=== PATIENT | female | born 1955 | race Caucasian/White ===

== ENCOUNTER → 2021-08-24 | Outpatient (CLI) | payer OTHER | LOC: CARD 11:30 | PROVIDERS: ATTEND Internal Medicine Cardiovascular Disease | DX: I25.10 Atherosclerotic heart disease of native coronary artery without angina pectoris (principal); I11.9 Hypertensive heart disease without heart failure; I34.0 Nonrheumatic mitral (valve) insufficiency | CPT/HCPCS: 93306 ==

== ENCOUNTER 2021-11-09 20:37 | Emergency (ER) | payer MEDICARE, OTHER ==
[2021-11-09] MEDS ORDERED: NS IV 1000 ML 1,000 ML ONE (20:50)
[2021-11-09 20:56] VITALS: BP 80/53
[2021-11-09] MEDS ORDERED: NS IV 1000 ML 1,000 ML IV SCH (21:00)
[2021-11-09 21:09] LABS: BASOPHILS # (AUTO) 0.1 10^3/uL (0.0-0.1); BASOPHILS % (AUTO) 1 % (0-10); EOSINOPHILS # (AUTO) 0.1 10^3/uL (0.0-0.3); EOSINOPHILS % (AUTO) 1 % (0-10); HEMATOCRIT 39 % (35-52); HEMOGLOBIN 12.8 g/dL (11.5-16.0); LYMPHOCYTES # (AUTO) 1.5 10^3/uL (1.0-4.0); LYMPHOCYTES % (AUTO) 18 % (12-44); MEAN CORPUSCULAR HEMOGLOBIN 31 pg (25-34); MEAN CORPUSCULAR HGB CONC 33 g/dL (32-36); MEAN CORPUSCULAR VOLUME 95 fL (80-99); MEAN PLATELET VOLUME 10.3 fL (9.0-12.2); MONOCYTES # (AUTO) 0.8 10^3/uL (0.0-1.0); MONOCYTES % (AUTO) 9 % (0-12); NEUTROPHILS # (AUTO) 6.3 10^3/uL (1.8-7.8); NEUTROPHILS % (AUTO) 72 % (42-75); PLATELET COUNT 291 10^3/uL (130-400); WHITE BLOOD COUNT 8.8 10^3/uL (4.3-11.0)
[2021-11-09 21:20] LABS: ALBUMIN 3.8 GM/DL (3.2-4.5); POTASSIUM 4.5 MMOL/L (3.6-5.0)
[2021-11-09 21:21] LABS: CALCIUM 10.2 MG/DL (8.5-10.1)
[2021-11-09 21:23] LABS: TOTAL PROTEIN 6.5 GM/DL (6.4-8.2)
[2021-11-09 21:24] LABS: BILIRUBIN,TOTAL 0.5 MG/DL (0.1-1.0)
[2021-11-09 21:26] LABS: CREATININE SERUM 2.04 MG/DL (0.60-1.30)
[2021-11-09 21:29] LABS: MAGNESIUM 1.3 MG/DL (1.6-2.4)
[2021-11-09] MEDS ORDERED: MAGNESIUM 1 GM/100 ML IVPB 100 ML IV ONE (21:45)
[2021-11-09] MEDS: NS IV 1000 ML 1,000 ML IV SCH (21:58)
[2021-11-09 23:12] LABS: BILIRUBIN,URINE NEGATIVE (NEGATIVE); CLARITY,URINE CLEAR; COLOR,URINE YELLOW; GLUCOSE, URINE (UA) NEGATIVE (NEGATIVE); KETONES,URINE NEGATIVE (NEGATIVE); LEUKOCYTE ESTERASE ,URINE NEGATIVE (NEGATIVE); NITRITE,URINE NEGATIVE (NEGATIVE); PROTEIN,URINE NEGATIVE (NEGATIVE)
[2021-11-09 23:24] LABS: BACTERIA,URINE LARGE /HPF
[2021-11-09] MEDS ORDERED: cefTRIAXone 1 GM PRE-MIX 50 ML IV STA (23:28)
[2021-11-09] MEDS ORDERED: MAGNESIUM OXIDE (MAG-OX)400 MG TAB PO STA (23:43)
--- NOTE | 2021-11-09 23:52 | ED General ---
General Chief Complaint: Cardiac/General Problems Stated Complaint: LOW BLOOD PRESSURE Nursing Triage Note: pt present swith c/o hypotension and dizziness. reports symptoms started around 1800. reports dizzy, blurry vision, and checking her bp at home and it was 70/40. pt does have an unsteady gait on walk to room but refused w/c. pt is alert and oriented. pt denies n/v/d. reports covid symptoms three weeks ago that have since subsided. Source of Information: Patient Exam Limitations: No Limitations History of Present Illness Date Seen by Provider: Nov 09, 2021 Time Seen by Provider: 20:46 Initial Comments This 66-year-old woman presents to the emergency room with complaints of dizzin ess, blurred vision, and hypotension. Blood pressures were measured at 80/53 and 69/49. Blood sugar was 264. She reports blood sugars have been fairly well controlled but she has been doing some strenuous work on [place] [employer] and other outdoor work in the heat. She had COVID-19 about 4 weeks ago and has experienced a decrease in thirst drive since then. She also reports a change in blood pressure medications about 6 weeks ago. Allergies and Home Medications Allergies Coded Allergies: No Known Drug Allergies (Unverified , 11/09/21) Patient Home Medication List Home Medication List Reviewed: Yes Cephalexin (Cephalexin) 500 Mg Tablet, 500 MG PO BID Prescribed by: DANIELA MARTIN on 11/09/21 2410 Magnesium Oxide (Magnesium Oxide) 400 Mg Tablet, 400 MG PO BID Prescribed by: DANIELA MARTIN on 11/09/21 7226 Review of Systems Review of Systems Constitutional: no symptoms reported EENTM: see HPI Respiratory: no symptoms reported Cardiovascular: see HPI Gastrointestinal: no symptoms reported Genitourinary: no symptoms reported : No Musculoskeletal: no symptoms reported Skin: no symptoms reported Psychiatric/Neurological: See HPI Hematologic/Lymphatic: No Symptoms Reported Immunological/Allergic: no symptoms reported Past Pfpznnh-Jgqqwz-Jdivva Hx Patient Social History Tobacco Use?: No Substance use?: No Alcohol Use?: Yes Alcohol Frequency: Rarely Pt feels they are or have been: No Immunizations Up To Date Influenza Vaccine Up-to-Date: No; Not Current Past Medical History Surgeries: Yes Coronary Stent Respiratory: No Cardiac: Yes Coronary Artery Disease, Hypertension Neurological: No : No Genitourinary: No Gastrointestinal: No Musculoskeletal: No Endocrine: Yes Diabetes, Insulin dep HEENT: No Cancer: No Psychosocial: No Integumentary: No Physical Exam Vital Signs Vital Signs - First Documented 11/09/21 11/09/21 20:56 21:22 Temp 37.0 Pulse 71 Resp 18 B/P (MAP) 80/53 (62) Pulse Ox 97 O2 Delivery Room Air Capillary Refill : Height, Weight, BMI Height: '" Weight: lbs. oz. kg; BMI Method: General Appearance: No Apparent Distress, WD/WN HEENT: PERRL/EOMI, Normal ENT Inspection, Other (Oropharynx somewhat dry) Neck: Non Tender Respiratory: Lungs Clear, Normal Breath Sounds, No Accessory Muscle Use Cardiovascular: Regular Rate, Rhythm, No Edema, No Murmur, Normal Peripheral Pulses Gastrointestinal: Normal Bowel Sounds, Non Tender, Soft Extremity: Normal Inspection, No Pedal Edema Neurologic/Psychiatric: Alert, Oriented x3, No Motor/Sensory Deficits, Normal Mood/Affect, plumber II-XII Norm as Tested Skin: Normal Color, Warm/Dry Progress/Results/Core Measures Suspected Sepsis SIRS Temperature: Pulse: 71 Respiratory Rate: 18 Laboratory Tests 11/09/21 20:49: White Blood Count 8.8 Blood Pressure 80 /53 Mean: 86 Laboratory Tests 11/09/21 20:49: Creatinine 2.04H, Platelet Count 291, Total Bilirubin 0.5 Results/Orders Lab Results Laboratory Tests Test 11/09/21 20:46 11/09/21 20:49 11/09/21 23:00 Range/Units Glucometer 264 H 70-110 MG/DL White Blood Count 8.8 4.3-11.0 10^3/uL Red Blood Count 4.10 3.80-5.11 10^6/uL Hemoglobin 12.8 11.5-16.0 g/dL Hematocrit 39 35-52 % Mean Corpuscular Volume 95 80-99 fL Mean Corpuscular Hemoglobin 31 25-34 pg Mean Corpuscular Hemoglobin Concent 33 32-36 g/dL Red Cell Distribution Width 14.0 10.0-14.5 % Platelet Count 291 130-400 10^3/uL Mean Platelet Volume 10.3 9.0-12.2 fL Immature Granulocyte % (Auto) 0 % Neutrophils (%) (Auto) 72 42-75 % Lymphocytes (%) (Auto) 18 12-44 % Monocytes (%) (Auto) 9 0-12 % Eosinophils (%) (Auto) 1 0-10 % Basophils (%) (Auto) 1 0-10 % Neutrophils # (Auto) 6.3 1.8-7.8 10^3/uL Lymphocytes # (Auto) 1.5 1.0-4.0 10^3/uL Monocytes # (Auto) 0.8 0.0-1.0 10^3/uL Eosinophils # (Auto) 0.1 0.0-0.3 10^3/uL Basophils # (Auto) 0.1 0.0-0.1 10^3/uL Immature Granulocyte # (Auto) 0.0 0.0-0.1 10^3/uL Sodium Level 136 135-145 MMOL/L Potassium Level 4.5 3.6-5.0 MMOL/L Chloride Level 96 L 98-107 MMOL/L Carbon Dioxide Level 24 21-32 MMOL/L Anion Gap 16 H 5-14 MMOL/L Blood Urea Nitrogen 31 H 7-18 MG/DL Creatinine 2.04 H 0.60-1.30 MG/DL Estimat Glomerular Filtration Rate 27 BUN/Creatinine Ratio 15 Glucose Level 266 H 70-105 MG/DL Calcium Level 10.2 H 8.5-10.1 MG/DL Corrected Calcium 10.4 H 8.5-10.1 MG/DL Magnesium Level 1.3 L 1.6-2.4 MG/DL Total Bilirubin 0.5 0.1-1.0 MG/DL Aspartate Amino Transf (AST/SGOT) 20 5-34 U/L Alanine Aminotransferase (ALT/SGPT) 22 0-55 U/L Alkaline Phosphatase 127 40-136 U/L Total Protein 6.5 6.4-8.2 GM/DL Albumin 3.8 3.2-4.5 GM/DL Urine Color YELLOW Urine Clarity CLEAR Urine pH 5.0 5-9 Urine Specific [place] >=1.030 1.016-1.022 Urine Protein NEGATIVE NEGATIVE Urine Glucose (UA) NEGATIVE NEGATIVE Urine Ketones NEGATIVE NEGATIVE Urine Nitrite NEGATIVE NEGATIVE Urine Bilirubin NEGATIVE NEGATIVE Urine Urobilinogen 0.2 < = 1.0 MG/DL Urine Leukocyte Esterase NEGATIVE NEGATIVE Urine RBC (Auto) NEGATIVE NEGATIVE Urine RBC NONE /HPF Urine WBC 5-10 H /HPF Urine Squamous Epithelial Cells 2-5 /HPF Urine Crystals NONE /LPF Urine Bacteria LARGE H /HPF Urine Casts PRESENT /LPF Urine Hyaline Casts 5-10 H /LPF Urine Mucus NEGATIVE /LPF Urine Culture Indicated YES My Orders Orders - DANIELA FONTANEZ MD Ns Iv 1000 Ml (Sodium Chloride 0.9%) (11/09/21 20:50) Cbc With Automated Diff (11/09/21 20:57) Comprehensive Metabolic Panel (11/09/21 20:57) Magnesium (11/09/21 20:57) Ua Culture If Indicated (11/09/21 20:57) Ed Iv/Invasive Line Start (11/09/21 20:57) Ns Iv 1000 Ml (Sodium Chloride 0.9%) (11/09/21 21:00) Ns Iv 1000 Ml (Sodium Chloride 0.9%) (11/09/21 21:45) Magnesium 1 Gm/100 Ml Ivpb (Magnesium Ackerman (11/09/21 21:45) Urine Culture (11/09/21 23:00) Ceftriaxone 1 Gm Pre-Mix (Rocephin 1 Gm (11/09/21 23:28) Magnesium Oxide Tablet (Mag Ox Tablet) (11/09/21 23:43) Medications Given in ED Current Medications Medications Dose Ordered Sig/Gauri Route Start Time Stop Time Status Last Admin Dose Admin Magnesium Sulfate/ Dextrose 100 ml @ 100 mls/hr ONCE ONCE IV 11/09/21 21:45 11/09/21 22:44 DC 11/09/21 21:53 100 MLS/HR Sodium Chloride 1,000 ml @ ud STK-MED ONCE .ROUTE 11/09/21 20:50 11/09/21 20:54 DC 11/09/21 21:01 1,000 MLS/HR Vital Signs/I&O 11/09/21 11/09/21 11/09/21 11/09/21 20:56 21:22 22:04 22:23 Temp 37.0 Pulse 71 61 64 Resp 18 18 18 B/P (MAP) 80/53 (62) 89/64 86/72 93/58 Pulse Ox 97 100 97 O2 Delivery Room Air 11/09/21 23:08 Pulse 59 Resp 18 B/P (MAP) 109/74 11/10/21 00:00 Intake Total 2100 ml Balance 2100 ml Capillary Refill : Blood Pressure Mean: 86 Progress Note : Progress Note Blood pressure was resuscitated after 2 L of IV fluids. Urinary tract infection was treated with Rocephin. Patient was to have a stress test performed later today. I discussed this with Dr. Abraham. He and I both agree that it would not be patel for her to attempt a stress test in her current state. Patient was stable to be discharged home after treatment. Magnesium was replaced by IV and oral route. Departure Impression Primary Impression: Acute kidney injury Additional Impressions: Hypovolemia Hypotension Qualified Codes: I95.89 - Other hypotension; E86.1 - Hypovolemia Hypomagnesemia Urinary tract infection Qualified Codes: N39.0 - Urinary tract infection, site not specified Disposition: HOME, SELF-CARE Condition: Improved Departure-Patient Inst. Decision time for Depature: 23:50 Referrals: RAIMUNDO REYNOLDS MD (PCP/Family) Primary Care Physician Patient Instructions: Acute Kidney Injury, Urinary Tract Infection, Adult ED Add. Discharge Instructions: Rest in air conditioning tomorrow and drink lots of clear liquids. Complete your antibiotics as prescribed. Use the magnesium supplement as prescribed over the next few days to boost your magnesium level. Follow-up with your primary care provider within the next week to repeat lab work to ensure your kidney function is stable. Please call Dr. Mataomros's office to reschedule your stress test. Check your blood sugars often over the next few days (at least every 6 hours). Skip your metformin and Lisinipril/HCTZ doses on Monday, Nov 10. Resume on if your blood pressure is normal. Return to the ER if you have worsening symptoms. All discharge instructions reviewed with patient and/or family. Voiced understanding. Scripts Magnesium Oxide (Magnesium Oxide) 400 Mg Tablet 400 MG PO BID, #4 TAB Prov: DANIELA FONTANEZ MD 11/09/21 Cephalexin (Cephalexin) 500 Mg Tablet 500 MG PO BID, #14 TAB Prov: DANIELA FONTANEZ MD 11/09/21 Copy Copies To 1: RAIMUNDO REYNOLDS MD Copies To 2: LESLEY MATAMOROS MD, JOSHUA T MD Nov 09, 2021 23:52
[2021-11-09] MEDS ORDERED: CEPH500T PO (23:57)
[2021-11-09] MEDS ORDERED: MAGN400T7 PO (23:57)
== END 2021-11-10 00:13 | disposition home or self-care (01) ==
LOC: EDUNIT# 20:37 → ER 20:39
DX: I95.9 Hypotension, unspecified (principal); N39.0 Urinary tract infection, site not specified; E83.42 Hypomagnesemia; E86.1 Hypovolemia; N17.9 Acute kidney failure, unspecified; E11.9 Type 2 diabetes mellitus without complications; Z95.5 Presence of coronary angioplasty implant and graft; Z86.16 Personal history of COVID-19; Z28.310 Unvaccinated for COVID-19; Z79.4 Long term (current) use of insulin
CPT/HCPCS: 36415; 80053; 81000; 82947; 83735; 85025; 87088; 96374; 96375

== ENCOUNTER → 2021-12-08 | Outpatient (CLI) | payer MEDICARE ==
[~2021-12-08] MED LIST: CATHETER FLUSH 10 ML SYR IVP PRN; CEPH500T PO; MAGN400T7 PO
[2021-12-08 13:10] VITALS: BP 173/103
[2021-12-08 13:19] VITALS: BP 205/107
--- NOTE | 2021-12-08 15:33 | Cardiology Stress Test Report ---
Stress Test Report Date of Procedure/Referring: Date of Procedure: Dec 08, 2021 PCP Patricia Jackson MD Admitting Physician Admitting Physician: Attending Physician: Lesley Matamoros MD Indications: HTN Baseline Heart Rate: 85 Baseline Blood Pressure: Blood Pressure Systolic: 205 Blood Pressure Diastolic: 107 Vital Signs Date Time Temp Pulse Resp B/P (MAP) Pulse Ox O2 Delivery O2 Flow Rate FiO2 12/08/21 13:10 74 17 173/103 (126) 99 Room Air Baseline Vital Signs Vital Signs Date Time Temp Pulse Resp B/P (MAP) Pulse Ox O2 Delivery O2 Flow Rate FiO2 12/08/21 13:10 74 17 173/103 (126) 99 Room Air Baseline EKG: Baseline EKG: NSR Summary: After explaining the procedure and details to the patient, she signed the consent and was brought to the stress nuclear laboratory. Patient exercised on standard Chris protocol, EKG, heart rate and blood pressure were monitored continuously, resting and stress doses of radio tracer were injected, imaging was acquired and reviewed in the short axis, horizontal long axis and vertical long axis views Patient was able to exercise for a total of 5 minutes on Chris protocol, METs 7 Maximum heart rate 135 Maximum blood pressure 224/102 Stress EKG, Minimal nondiagnostic changes Recovery EKG, Return to baseline TID: 1.24 SSS: 3 SDS: 1 EF: 47 Conclusion: 1. Fair exercise tolerance for a total of 5 minutes on standard Chris protocol, 7 METS achieving 87% of maximum expected heart rate 2. Baseline hypertension with severe hypertensive response to exercise return to baseline during recovery 3. Nondiagnostic EKG changes with exercise return to baseline during recovery 4. Normal left ventricular size with ejection fraction 47% 5. Transient ischemic dilatation 1.24, most probably secondary to the severe hypertensive response to exercise. Copy Copies To 1: [facility]/LESLEY NGO MD Dec 08, 2021 15:33
== END ==
LOC: CARD 11:45
PROVIDERS: ATTEND Internal Medicine Cardiovascular Disease
DX: I10 Essential (primary) hypertension (principal); I25.10 Atherosclerotic heart disease of native coronary artery without angina pectoris
CPT/HCPCS: 78452; 93017; A9502

== ENCOUNTER 2022-05-20 10:50 | Emergency (ER) | payer MEDICARE ==
[~2022-05-20] VITALS: Ht 170 cm; Wt 68.0 kg
[~2022-05-20 10:50] MED LIST changes: -CATHETER FLUSH 10 ML SYR IVP PRN
[2022-05-20] MEDS ORDERED: LACTATED RINGERS 1,000 ML IV ONE ×2 (11:30→12:15)
[2022-05-20] MEDS ORDERED: ONDANSETRON 4 MG/2 ML (SDV) Z0FRAN IVP ONE (11:30)
[2022-05-20 11:31] LABS: BASOPHILS # (AUTO) 0.1 10^3/uL (0.0-0.1); BASOPHILS % (AUTO) 1 % (0-10); EOSINOPHILS # (AUTO) 0.1 10^3/uL (0.0-0.3); EOSINOPHILS % (AUTO) 1 % (0-10); HEMATOCRIT 40 % (35-52); LYMPHOCYTES % (AUTO) 12 % (12-44); MEAN CORPUSCULAR HEMOGLOBIN 31 pg (25-34); MEAN CORPUSCULAR HGB CONC 35 g/dL (32-36); MEAN CORPUSCULAR VOLUME 89 fL (80-99); MEAN PLATELET VOLUME 9.9 fL (9.0-12.2); MONOCYTES # (AUTO) 0.7 10^3/uL (0.0-1.0); MONOCYTES % (AUTO) 9 % (0-12); NEUTROPHILS # (AUTO) 6.5 10^3/uL (1.8-7.8); NEUTROPHILS % (AUTO) 78 % (42-75); PLATELET COUNT 226 10^3/uL (130-400); WHITE BLOOD COUNT 8.4 10^3/uL (4.3-11.0)
[2022-05-20 11:39] LABS: ALBUMIN 3.9 GM/DL (3.2-4.5)
[2022-05-20 11:40] LABS: CHLORIDE 95 MMOL/L (98-107); POTASSIUM 3.8 MMOL/L (3.6-5.0); SODIUM 137 MMOL/L (135-145)
[2022-05-20 11:41] LABS: CALCIUM 11.7 MG/DL (8.5-10.1)
[2022-05-20 11:42] LABS: GLUCOSE 226 MG/DL (70-105); TOTAL PROTEIN 6.3 GM/DL (6.4-8.2)
[2022-05-20 11:43] LABS: CARBON DIOXIDE 29 MMOL/L (21-32)
[2022-05-20 11:44] LABS: BILIRUBIN,TOTAL 0.9 MG/DL (0.1-1.0)
[2022-05-20 11:45] LABS: ALKALINE PHOSPHATASE 115 U/L (40-136)
[2022-05-20 11:46] LABS: CREATININE SERUM 1.61 MG/DL (0.60-1.30); GFR ESTIMATED 35
[2022-05-20 11:47] LABS: BUN/CREATININE RATIO 25
[2022-05-20 11:48] LABS: MAGNESIUM 1.6 MG/DL (1.6-2.4)
[2022-05-20 11:49] LABS: ALANINE AMINOTRANSFERASE 15 U/L (0-55)
--- NOTE | 2022-05-20 12:10 | ED General ---
General Chief Complaint: Cough/Cold/Flu Symptoms Stated Complaint: DEHYDRATED | FLU-LIKE SYMPTOMS Nursing Triage Note: Pt here with nausea, vomiting, and congestion. Pt is on antibiotics for sinus infection she was given prior to this visit. Pt states she has been feeling ill since March. Source of Information: Patient, Old Records Exam Limitations: No Limitations History of Present Illness Date Seen by Provider: May 20, 2022 Time Seen by Provider: 10:55 Initial Comments This 67-year-old woman presents to the emergency room with complaints of vomiting for the past 2 to 3 days as well as persistent sinus congestion problems since March. She is presently on her second round of Levaquin. She finished a 7-day course of Levaquin and is now on a 10-day course of Levaquin. She had been initially treated with doxycycline, benzonatate, and Flonase. Symptoms did not resolve with those therapies. She also reports a recent change in her insulin regimen. Her insulin dosage was doubled but she reports her blood sugars increased to greater than 400 for several days after increasing her insulin dose. Then her blood sugar abruptly dropped into the 50s. She has been afebrile. Vital signs are stable. Her primary care doctor is Dr. Reynolds. Dr. Reynolds prescribed the initial medications with doxycycline and the first round of Levaquin. Her most recent prescription of Levaquin was by Dr. Muñoz in [place]. Patient states that Dr. Muñoz is a "cyber systems operations specialist" and advised her to stop Flonase as this would worsen her sinus symptoms. 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 Allergies and Home Medications Allergies Coded Allergies: Penicillins (Verified Allergy, Unknown, itch, 05/20/22) Patient Home Medication List Home Medication List Reviewed: Yes Cephalexin (Cephalexin) 500 Mg Tablet, 500 MG PO BID Prescribed by: DANIELA MARTIN on 11/09/212356 Magnesium Oxide (Magnesium Oxide) 400 Mg Tablet, 400 MG PO BID Prescribed by: DANIELA MARTIN on 11/09/212356 Ondansetron (Ondansetron Odt) 4 Mg Tab.rapdis, 4 MG SL Q4H PRN for NAUSEA/VOMITING Prescribed by: DANIELA MARTIN on 05/20/22 1302 Promethazine HCl (Promethazine Tablet) 25 Mg Tablet, 25 MG PO Q8H PRN for NAUSEA/VOMITING-2ND LINE Prescribed by: DANIELA MARTIN on 05/20/22 1302 Review of Systems Review of Systems Constitutional: no symptoms reported EENTM: see HPI Respiratory: no symptoms reported Cardiovascular: no symptoms reported Gastrointestinal: see HPI Genitourinary: no symptoms reported Musculoskeletal: see HPI Skin: no symptoms reported Psychiatric/Neurological: See HPI Hematologic/Lymphatic: No Symptoms Reported Immunological/Allergic: no symptoms reported Past Gisfnfd-Qdyfsp-Vqqdok Hx Patient Social History Tobacco Use?: No Use of E-Cig and/or Vaping dev: No Substance use?: No Alcohol Use?: No Past Medical History Surgeries: Yes Coronary Stent Respiratory: No Cardiac: Yes Coronary Artery Disease, Hypertension Neurological: No : No Genitourinary: No Gastrointestinal: No Musculoskeletal: No Endocrine: Yes Diabetes, Insulin dep HEENT: No Cancer: No Psychosocial: No Integumentary: No Physical Exam Vital Signs Vital Signs - First Documented 05/20/22 10:59 Temp 36.4 Resp 18 B/P (MAP) 122/81 (95) Pulse Ox 97 O2 Delivery Room Air Capillary Refill : Less Than 3 Seconds Height, Weight, BMI Height: '" Weight: lbs. oz. kg; 23.00 BMI Method: General Appearance: No Apparent Distress, WD/WN HEENT: PERRL/EOMI, Normal ENT Inspection Neck: Normal Inspection; No JVD Respiratory: Lungs Clear, Normal Breath Sounds, No Accessory Muscle Use, No Respiratory Distress Cardiovascular: Regular Rate, Rhythm, No Edema, No Murmur Gastrointestinal: Non Tender, Soft; No Distended Extremity: Normal Inspection, No Pedal Edema Neurologic/Psychiatric: Alert, Oriented x3, No Motor/Sensory Deficits, Normal Mood/Affect Skin: Normal Color, Warm/Dry Progress/Results/Core Measures Suspected Sepsis SIRS Temperature: Pulse: Respiratory Rate: 18 Laboratory Tests 05/20/22 11:20: White Blood Count 8.4 Blood Pressure 122 /81 Mean: 95 Laboratory Tests 05/20/22 11:20: Creatinine 1.61H, Platelet Count 226, Total Bilirubin 0.9 Results/Orders Lab Results Laboratory Tests Test 05/20/22 11:11 05/20/22 11:20 05/20/22 13:02 Range/Units Influenza Type A (RT-PCR) Not Detected Not Detecte Influenza Type B (RT-PCR) Not Detected Not Detecte SARS-CoV-2 RNA (RT-PCR) Not Detected Not Detecte White Blood Count 8.4 4.3-11.0 10^3/uL Red Blood Count 4.56 3.80-5.11 10^6/uL Hemoglobin 14.0 11.5-16.0 g/dL Hematocrit 40 35-52 % Mean Corpuscular Volume 89 80-99 fL Mean Corpuscular Hemoglobin 31 25-34 pg Mean Corpuscular Hemoglobin Concent 35 32-36 g/dL Red Cell Distribution Width 14.4 10.0-14.5 % Platelet Count 226 130-400 10^3/uL Mean Platelet Volume 9.9 9.0-12.2 fL Immature Granulocyte % (Auto) 0 % Neutrophils (%) (Auto) 78 H 42-75 % Lymphocytes (%) (Auto) 12 12-44 % Monocytes (%) (Auto) 9 0-12 % Eosinophils (%) (Auto) 1 0-10 % Basophils (%) (Auto) 1 0-10 % Neutrophils # (Auto) 6.5 1.8-7.8 10^3/uL Lymphocytes # (Auto) 1.0 1.0-4.0 10^3/uL Monocytes # (Auto) 0.7 0.0-1.0 10^3/uL Eosinophils # (Auto) 0.1 0.0-0.3 10^3/uL Basophils # (Auto) 0.1 0.0-0.1 10^3/uL Immature Granulocyte # (Auto) 0.0 0.0-0.1 10^3/uL Sodium Level 137 135-145 MMOL/L Potassium Level 3.8 3.6-5.0 MMOL/L Chloride Level 95 L 98-107 MMOL/L Carbon Dioxide Level 29 21-32 MMOL/L Anion Gap 13 5-14 MMOL/L Blood Urea Nitrogen 40 H 7-18 MG/DL Creatinine 1.61 H 0.60-1.30 MG/DL Estimat Glomerular Filtration Rate 35 BUN/Creatinine Ratio 25 Glucose Level 226 H 70-105 MG/DL Calcium Level 11.7 H 8.5-10.1 MG/DL Corrected Calcium 11.8 H 8.5-10.1 MG/DL Magnesium Level 1.6 1.6-2.4 MG/DL Total Bilirubin 0.9 0.1-1.0 MG/DL Aspartate Amino Transf (AST/SGOT) 15 5-34 U/L Alanine Aminotransferase (ALT/SGPT) 15 0-55 U/L Alkaline Phosphatase 115 40-136 U/L Troponin I < 0.028 <0.028 NG/ML Total Protein 6.3 L 6.4-8.2 GM/DL Albumin 3.9 3.2-4.5 GM/DL Urine Color YELLOW Urine Clarity CLEAR Urine pH 7.0 5-9 Urine Specific [place] 1.020 1.016-1.022 Urine Protein NEGATIVE NEGATIVE Urine Glucose (UA) NEGATIVE NEGATIVE Urine Ketones 1+ H NEGATIVE Urine Nitrite NEGATIVE NEGATIVE Urine Bilirubin NEGATIVE NEGATIVE Urine Urobilinogen 0.2 < = 1.0 MG/DL Urine Leukocyte Esterase NEGATIVE NEGATIVE Urine RBC (Auto) NEGATIVE NEGATIVE Urine RBC RARE /HPF Urine WBC 0-2 /HPF Urine Squamous Epithelial Cells 0-2 /HPF Urine Crystals PRESENT H /LPF Urine Amorphous Sediment LARGE RAJ PHOSPHATE H /LPF Urine Bacteria MODERATE H /HPF Urine Casts PRESENT /LPF Urine Hyaline Casts 0-2 H /LPF Urine Mucus NEGATIVE /LPF Urine Culture Indicated YES My Orders Orders - DANIELA FONTANEZ MD Covid 19 Inhouse Test (05/20/22 11:16) Influenza A And B By Pcr (05/20/22 11:16) Cbc With Automated Diff (05/20/22 11:16) Comprehensive Metabolic Panel (05/20/22 11:16) Magnesium (05/20/22 11:16) Ua Culture If Indicated (05/20/22 11:16) Ed Iv/Invasive Line Start (05/20/22 11:16) Lactated Ringers (Lr 1000 Ml Iv Solution (05/20/22 11:30) Ondansetron Injection (Zofran Injectio (05/20/22 11:30) Ekg Tracing (05/20/22 11:18) Troponin I Romeo (05/20/22 11:18) Lactated Ringers (Lr 1000 Ml Iv Solution (05/20/22 12:15) Urine Culture (05/20/22 13:02) Medications Given in ED Current Medications Medications Dose Ordered Sig/Gauri Route Start Time Stop Time Status Last Admin Dose Admin Lactated Ringer's 1,000 ml @ 0 mls/hr Q0M ONCE IV 05/20/22 11:30 05/20/22 11:31 DC 05/20/22 11:31 1,000 MLS/HR Lactated Ringer's 1,000 ml @ 0 mls/hr Q0M ONCE IV 05/20/22 12:15 05/20/22 12:16 DC 05/20/22 12:22 1,000 MLS/HR Ondansetron HCl 4 mg ONCE ONCE IVP 05/20/22 11:30 05/20/22 11:31 DC 05/20/22 11:31 4 MG Vital Signs/I&O 05/20/22 05/20/22 10:59 13:58 Temp 36.4 36.4 Resp 18 18 B/P (MAP) 122/81 (95) 122/81 Pulse Ox 97 97 O2 Delivery Room Air Room Air Capillary Refill : Less Than 3 Seconds Blood Pressure Mean: 95 Progress Note #1: Time: 12:15 Progress Note Patient was interviewed and examined. Labs have been obtained including CBC, CMP, magnesium, and troponin. Pertinent abnormal values include a mildly elevated glucose and creatinine of 1.6 with BUN of 40. Patient likely has some dehydration or hypovolemia. She has received 1 L of LR and will be receiving a second liter. Urinalysis is pending. Troponin and EKG were obtained because of her history of coronary artery disease and complaint of pain in the upper mid back. Both studies were negative. All labs have been reviewed by me in their entirety. Zofran was given for nausea. Progress Note #2: Time: 13:45 Progress Note Patient received 2 L of IV fluid. Urinalysis was reviewed. There were no significant abnormalities requiring treatment at this time. Discharge instructions were reviewed with patient and prescriptions for Zofran and Phenergan were provided. See discharge instructions for further discussion. ECG Initial ECG Impression Date: May 20, 2022 Initial ECG Impression Time: 11:29 Initial ECG Rate: 85 Initial ECG Rhythm: Normal Sinus Initial ECG Intervals: Normal Initial ECG Impression: Normal Comment Normal sinus rhythm with no ST elevation or depression. Incomplete right bundle branch block. No axis deviation. PVC noted. Departure Impression Primary Impression: Acute kidney injury Additional Impression: Vomiting Qualified Codes: R11.2 - Nausea with vomiting, unspecified Disposition: 01 HOME, SELF-CARE Condition: Improved Departure-Patient Inst. Decision time for Depature: 12:58 Referrals: RAIMUNDO REYNOLDS MD (PCP/Family) Primary Care Physician Patient Instructions: Acute Kidney Injury, Nausea and Vomiting, Adult Add. Discharge Instructions: Start with a clear liquid diet and gradually advance your diet with small quantities of bland food as tolerated. Drink plenty of clear liquids to stay well-hydrated. Use the Zofran as prescribed for primary treatment of nausea or vomiting. You may add Phenergan (promethazine) if Zofran alone is not sufficient. Use Phenergan with caution as it may cause drowsiness. Do not operate, drive machinery, or make important decisions while on Phenergan. Follow-up with your primary care provider for further evaluation. Monitor blood sugars closely and discuss blood sugars with her at follow-up. Return to the ER if you have worsening symptoms despite following these instructions. All discharge instructions reviewed with patient and/or family. Voiced understanding. Scripts Promethazine HCl (Promethazine Tablet) 25 Mg Tablet 25 MG PO Q8H PRN for NAUSEA/VOMITING-2ND LINE, #10 TAB Prov: DANIELA FONTANEZ MD 05/20/22 Ondansetron (Ondansetron Odt) 4 Mg Tab.rapdis 4 MG SL Q4H PRN for NAUSEA/VOMITING, #10 TAB Prov: DANIELA FONTANEZ MD 05/20/22 Copy Copies To 1: RAIMUNDO REYNOLDS MD, JOSHUA T MD May 20, 2022 12:10
[2022-05-20] MEDS ORDERED: PROM25TA14 PO (13:02)
[2022-05-20] MEDS ORDERED: ONDA4TAB11 SL (13:02)
[2022-05-20 13:13] LABS: BILIRUBIN,URINE NEGATIVE (NEGATIVE); CLARITY,URINE CLEAR; COLOR,URINE YELLOW; GLUCOSE, URINE (UA) NEGATIVE (NEGATIVE); KETONES,URINE 1+ (NEGATIVE); LEUKOCYTE ESTERASE ,URINE NEGATIVE (NEGATIVE); NITRITE,URINE NEGATIVE (NEGATIVE); PROTEIN,URINE NEGATIVE (NEGATIVE)
[2022-05-20 13:26] LABS: AMORPHOUS SEDIMENT,UR LARGE AMOR PHOSPHATE /LPF; BACTERIA,URINE MODERATE /HPF; HYALINE CASTS, URINE 0-2 /LPF; RBC,URINE RARE /HPF; SQUAMOUS EPITHELIAL CELL,UR 0-2 /HPF; WBC,URINE 0-2 /HPF
[2022-05-20 13:58] VITALS: BP 122/81
== END 2022-05-20 13:59 | disposition home or self-care (01) ==
LOC: EDUNIT# 10:50 → ER 10:53
DX: N17.9 Acute kidney failure, unspecified (principal); E11.9 Type 2 diabetes mellitus without complications; Z20.822 Contact with and (suspected) exposure to COVID-19; Z79.4 Long term (current) use of insulin
CPT/HCPCS: 36415; 80053; 81000; 83735; 84484; 85025; 87088; 87636; 93005

== ENCOUNTER 2022-11-04 11:18 | Observation (INO) | payer MEDICARE ==
[~2022-11-04] VITALS: Ht 172.7 cm; Wt 63.9 kg
[~2022-11-04 11:18] MED LIST changes: +ONDA4TAB11 SL; +PROM25TA14 PO
[2022-11-04] MEDS ORDERED: NS IV 1000 ML 1,000 ML IV STA (12:08)
[2022-11-04] MEDS ORDERED: fentaNYL INJECTION 100 MCG/2 ML VIAL IVP STA (12:10)
[2022-11-04] MEDS ORDERED: PROMETHAZINE INJ 25 MG/ML (PHENERGAN) AMP IVP ONE (12:15)
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
[2022-11-04 12:35] LABS: BASOPHILS # (AUTO) 0.1 10^3/uL (0.0-0.1); BASOPHILS % (AUTO) 1 % (0-10); EOSINOPHILS # (AUTO) 0.2 10^3/uL (0.0-0.3); EOSINOPHILS % (AUTO) 3 % (0-10); HEMATOCRIT 39 % (35-52); HEMOGLOBIN 13.4 g/dL (11.5-16.0); LYMPHOCYTES # (AUTO) 0.7 10^3/uL (1.0-4.0); LYMPHOCYTES % (AUTO) 13 % (12-44); MEAN CORPUSCULAR HEMOGLOBIN 32 pg (25-34); MEAN CORPUSCULAR HGB CONC 34 g/dL (32-36); MEAN CORPUSCULAR VOLUME 93 fL (80-99); MEAN PLATELET VOLUME 9.9 fL (9.0-12.2); MONOCYTES # (AUTO) 0.5 10^3/uL (0.0-1.0); MONOCYTES % (AUTO) 9 % (0-12); NEUTROPHILS # (AUTO) 4.2 10^3/uL (1.8-7.8); NEUTROPHILS % (AUTO) 74 % (42-75); PLATELET COUNT 217 10^3/uL (130-400); WHITE BLOOD COUNT 5.7 10^3/uL (4.3-11.0)
[2022-11-04 12:43] LABS: ALBUMIN 3.9 GM/DL (3.2-4.5); POTASSIUM 3.9 MMOL/L (3.6-5.0)
[2022-11-04 12:45] LABS: CALCIUM 11.9 MG/DL (8.5-10.1)
[2022-11-04 12:46] LABS: TOTAL PROTEIN 6.8 GM/DL (6.4-8.2)
[2022-11-04 12:48] LABS: BILIRUBIN,TOTAL 0.9 MG/DL (0.1-1.0)
[2022-11-04 12:49] LABS: CREATININE SERUM 1.32 MG/DL (0.60-1.30)
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
[2022-11-04] MEDS ORDERED: inSUlin (REGULAR) HUMAN 1 UNIT/0.01 ML (CHARGE PER UNIT) SC ONE (13:00)
[2022-11-04 13:04] LABS: ERYTHROCYTE SEDIMENTATION RATE 16 MM/HR (0-30)
--- NOTE | 2022-11-04 13:15 | Diagnostic Imaging Report ---
INDICATION: sob COMPARISON: None FINDINGS: Single frontal view of the chest demonstrates normal heart size and pulmonary vascularity. The lungs are well aerated and clear. No large pleural effusion or pneumothorax is seen. The visualized osseous structures show no acute abnormalities. IMPRESSION: 1. No acute cardiopulmonary process. Dictated by: Dictated on workstation # [id number]
[2022-11-04 14:07] LABS: CLARITY,URINE CLOUDY; COLOR,URINE YELLOW; PROTEIN,URINE NEGATIVE (NEGATIVE)
[2022-11-04 14:08] LABS: AMORPHOUS SEDIMENT,UR MOD AMOR URATES /LPF; BACTERIA,URINE NEGATIVE /HPF; BILIRUBIN,URINE NEGATIVE (NEGATIVE); GLUCOSE, URINE (UA) 3+ (NEGATIVE); KETONES,URINE NEGATIVE (NEGATIVE); LEUKOCYTE ESTERASE ,URINE NEGATIVE (NEGATIVE); NITRITE,URINE NEGATIVE (NEGATIVE); SQUAMOUS EPITHELIAL CELL,UR RARE /HPF
[2022-11-04] MEDS: MAGNESIUM 1 GM/100 ML IVPB 100 ML IV SCH ×2 (14:14→16:00)
[2022-11-04] MEDS ORDERED: ONDANSETRON INJECTION 4 MG/2 ML (SDV) IV PRN (14:45)
[2022-11-04] MEDS ORDERED: LISI1TAB48 PO (15:18)
[2022-11-04] MEDS ORDERED: METF-865 PO (15:18)
[2022-11-04] MEDS ORDERED: NIFE-55 PO (15:18)
[2022-11-04] MEDS ORDERED: CARV3.122 PO (15:18)
[2022-11-04] MEDS ORDERED: LEVO25TA5 PO (15:18)
[2022-11-04] MEDS ORDERED: INSU100V5 SQ (15:18)
[2022-11-04] MEDS ORDERED: LINA5TAB PO (15:20)
[2022-11-04] MEDS ORDERED: ASPI-999 PO (15:20)
[2022-11-04] MEDS ORDERED: INSU100I14 SQ (15:46)
[2022-11-04] MEDS ORDERED: INSU100I88 SQ (15:46)
[2022-11-04] MEDS ORDERED: LIRA0.6P3 SQ (15:46)
[2022-11-04] MEDS ORDERED: ASPI-1238 PO (15:46)
[2022-11-04 16:00] VITALS: BP 152/76
[2022-11-04] MEDS: NS IV 1000 ML 1,000 ML IV SCH (16:00)
[2022-11-04] MEDS: inSUlin ASPART 1 UNIT/0.01 ML (PER UNIT) SC SCH ×2 (16:49→22:05)
[2022-11-04] MEDS ORDERED: PATIENT MAY USE OWN MED,SINGLE MED PO SCH ×6 (17:45)
[2022-11-04 21:00] VITALS: BP 156/98
[2022-11-04] MEDS ORDERED: LinaGLIPtin 5 MG TABLET PO SCH (21:00)
[2022-11-04] MEDS ORDERED: carvediloL 3.125 MG TABLET PO SCH (21:00)
[2022-11-04] MEDS ORDERED: metFORMIN EXT RELEASE 500 MG TABLET PO SCH (21:00)
[2022-11-04] MEDS ORDERED: NIFEdipine Extended Release 30 MG TABLET PO SCH (21:00)
[2022-11-04] MEDS: inSUlin DETERMIR 1 UNIT/0.01 ML (CHARGE PER UNIT) SQ SCH (22:05)
[2022-11-05] VITALS (7 sets, daily range): BP systolic 141–165; BP diastolic 74–84
[2022-11-05] MEDS: NS IV 1000 ML 1,000 ML IV SCH ×4 (00:43→17:02)
[2022-11-05 05:33] LABS: CALCIUM 10.5 MG/DL (8.5-10.1); CREATININE SERUM 1.06 MG/DL (0.60-1.30); POTASSIUM 3.7 MMOL/L (3.6-5.0)
[2022-11-05] MEDS: inSUlin ASPART 1 UNIT/0.01 ML (PER UNIT) SC SCH ×3 (06:09→17:04)
[2022-11-05] MEDS ORDERED: LEVOTHYROXINE 25 MCG TABLET PO SCH (06:30)
[2022-11-05] MEDS: inSUlin DETERMIR 1 UNIT/0.01 ML (CHARGE PER UNIT) SQ SCH ×2 (08:12→22:05)
[2022-11-05] MEDS ORDERED: ASPIRIN enteric coated 81MG TABLET PO SCH (09:00)
--- NOTE | 2022-11-05 12:15 | History & Physical-Hospitalist ---
History of Present Illness HPI/Chief Complaint Patient is a 67-year-old female with a history of diabetes, hypothyroidism who presents to ED with daughter for increased confusion over the past 4 months. Symptoms started earlier this year and has progressed to gotten worse more notable since September 20. She has reports some changes in memory. She reports forgetting things at home. She states that she leaves the house and forgets to grab things and states she has to go back to get. Patient states she has been having issues with control of her blood sugar. She did have some vomiting earlier in September as well as earlier this month while being outside. She states she has been dehydrated but states she has been drinking water. She noticed no rings around her shirt. She does report some mild pain to her left lower rib and lower back over the past couple months. Seems to be worse at night. She denies any headache, dizziness, lightheadedness, visual changes, unilateral muscle weakness, chest pain, cough or shortness of breath. She did have a tick borne panel drawn 2 weeks ago which was unremarkable. She was bitten by ticks a few months ago. She did have some lab work drawn this past Monday. She is scheduled to follow-up with nephrology on January 03 and is attempting to schedule a follow-up with endocrinology. Patient denies of any urinary s ymptoms. Upon my arrival this morning the patient was feeling significantly better. Her daughter is at the bedside and reports that confusion has resolved. She was sent to the emergency room yesterday because her calcium was 13.5. Date Seen 11/05/22 Time Seen by a Provider: 10:00 Attending Physician Neva Muñoz MD PCP Admitting Physician: Alayna Wilson MD Attending Physician: Alayna Wilson MD Referring Physician Date of Admission Nov 04, 2022 at 14:26 Home Medications & Allergies Home Medications Reviewed patient Home Medication Reconciliation performed by pharmacy medication reconciliations pathology lab technician and/or nursing. Patients Allergies have been reviewed. Allergies Allergies Coded Allergies Penicillins (Verified Allergy, Unknown, itch, 05/20/22) poison sumac extract (Verified Allergy, Unknown, 11/04/22) Past Figjnlk-Tuzwbr-Ikhclv Hx Patient Social History Tobacco Use?: No Smoking Status: Never a Smoker Smokeless Tobacco Frequency: Never a User Use of E-Cig and/or Vaping dev: No Use of E-Cig and/or Vaping Carlos: Never a User Substance use?: No Alcohol Use?: No Pt feels they are or have been: No Immunizations Up To Date Tetanus Booster (TDap): Unknown Current Status Advance Directives: No Communicates: Verbally Primary Language: Italian Preferred Spoken Language: Italian Is interpretation needed?: No Sensory deficits: Vision impairment Implanted or Applied Medical D: Stents Past Medical History Surgeries: Coronary Stent Coronary Artery Disease, Hypertension Diabetes, Insulin dep Review of Systems Constitutional: see HPI Physical Exam Physical Exam Vital Signs Vital Signs - First Documented 11/04/22 11/04/22 11:39 14:29 Temp 36.1 Pulse 65 Resp 17 B/P (MAP) 163/83 (109) Pulse Ox 100 O2 Delivery Room Air Capillary Refill : Less Than 3 Seconds Height, Weight, BMI Height: '" Weight: lbs. oz. kg; 21.42 BMI Method: General Appearance: No Apparent Distress HEENT: PERRL/EOMI Neck: Full Range of Motion, Normal Inspection, Non Tender, Supple, Other (No adenopathy) Respiratory: Chest Non Tender, Lungs Clear, Normal Breath Sounds, No Accessory Muscle Use, No Respiratory Distress Cardiovascular: Regular Rate, Rhythm, No Edema, No Gallop, No JVD, No Murmur, Normal Peripheral Pulses Gastrointestinal: Normal Bowel Sounds, No Organomegaly, No Pulsatile Mass, Non Tender, Soft Extremity: Normal Capillary Refill, Normal Inspection, Normal Range of Motion, Non Tender, No Calf Tenderness, No Pedal Edema Neurologic/Psychiatric: Alert, Oriented x3 Results Results/Procedures Labs Laboratory Tests 11/04/22 12:29 11/05/22 05:00 Patient resulted labs reviewed. Assessment/Plan Admission Diagnosis 1. Severe hypercalcemia with secondary confusion and weakness. Improved this morning on IV fluids. PTH level returned and is low appropriately at 9 ruling out hyperparathyroidism. Patient does take a thiazide diuretic in the form of lisinopril HCT which is not helping however discussed with the daughter that typically hypercalcemia related with thiazides would not be this high. Malignancy is an underlying concern. We will hold hydrochlorothiazide and lisinopril for now continue her other antihypertensive medication. if hypercalcemia recurs despite stopping thiazide we will proceed with CT scan of the chest abdomen and pelvis. 2. Significant hypomagnesemia possibly diuretic and diet aggravated on replacement. 3. Type 2 diabetes insulin requiring we will resume home medications including Victoza and basal bolus insulin therapy. 4. History of coronary artery disease with no exacerbation since stent placement quite a number of years ago no evidence to suggest heart failure currently. Admission Status: Observation ALAYNA WILSON MD Nov 05, 2022 12:15
[2022-11-05] MEDS: MAGNESIUM 1 GM/100 ML IVPB 100 ML IV SCH ×6 (12:33→18:14)
[2022-11-05] MEDS ORDERED: PATIENT MAY USE OWN MED,SINGLE MED PO SCH (12:45)
[2022-11-05] MEDS ORDERED: ACETAMINOPHEN 500 MG TABLET PO PRN (20:45)
[2022-11-05] MEDS ORDERED: LinaGLIPtin 5 MG TABLET PO SCH (21:00)
[2022-11-05] MEDS ORDERED: NIFEdipine Extended Release 30 MG TABLET PO SCH (21:00)
[2022-11-05] MEDS: carvediloL 3.125 MG TABLET PO SCH (22:04)
[2022-11-05] MEDS: metFORMIN EXT RELEASE 500 MG TABLET PO SCH (22:05)
[2022-11-06 00:24] VITALS: BP 157/81
[2022-11-06] MEDS: NS IV 1000 ML 1,000 ML IV SCH ×2 (00:37→05:58)
[2022-11-06 03:12] VITALS: BP 130/76
[2022-11-06] MEDS ORDERED: MAGNESIUM 1 GM/100 ML IVPB 100 ML IV SCH (06:00)
[2022-11-06] MEDS ORDERED: LEVOTHYROXINE 25 MCG TABLET PO SCH (06:30)
[2022-11-06] MEDS ORDERED: NIFEdipine Extended Release 30 MG TABLET PO SCH (07:00)
[2022-11-06] MEDS: inSUlin ASPART 1 UNIT/0.01 ML (PER UNIT) SC SCH (07:16)
[2022-11-06 07:40] VITALS: BP 182/93
[2022-11-06] MEDS: MAGNESIUM 1 GM/100 ML IVPB 100 ML IV SCH ×4 (08:06→11:19)
[2022-11-06] MEDS ORDERED: VICTOZA 18 MG/3 ML SQ SCH (09:00)
[2022-11-06] MEDS ORDERED: ASPIRIN enteric coated 81MG TABLET PO SCH (09:00)
[2022-11-06] MEDS: metFORMIN EXT RELEASE 500 MG TABLET PO SCH (09:15)
[2022-11-06] MEDS: carvediloL 3.125 MG TABLET PO SCH (09:16)
[2022-11-06] MEDS: inSUlin DETERMIR 1 UNIT/0.01 ML (CHARGE PER UNIT) SQ SCH (09:17)
[2022-11-06] MEDS ORDERED: inSUlin ASPART 1 UNIT/0.01 ML (PER UNIT) SC SCH (11:00)
[2022-11-06 11:30] VITALS: BP 152/90
--- NOTE | 2022-11-06 12:58 | Discharge Summary ---
Diagnosis/Chief Complaint Date of Admission Nov 04, 2022 at 14:26 Date of Discharge Discharge Date: Nov 06, 2022 Discharge Time: 12:53 Admission Diagnosis 1. Severe hypercalcemia with secondary confusion and weakness. Improved this morning on IV fluids. PTH level returned and is low appropriately at 9 ruling out hyperparathyroidism. Patient does take a thiazide diuretic in the form of lisinopril HCT which is not helping however discussed with the daughter that typically hypercalcemia related with thiazides would not be this high. Malignancy is an underlying concern. We will hold hydrochlorothiazide and lisinopril for now continue her other antihypertensive medication. if hypercalcemia recurs despite stopping thiazide we will proceed with CT scan of the chest abdomen and pelvis. 2. Significant hypomagnesemia possibly diuretic and diet aggravated on replacement. 3. Type 2 diabetes insulin requiring we will resume home medications including Victoza and basal bolus insulin therapy. 4. History of coronary artery disease with no exacerbation since stent placement quite a number of years ago no evidence to suggest heart failure currently. Primary Care Neva Muñoz MD Discharge Summary Discharge Physical Exam Allergies: Coded Allergies: Penicillins (Verified Allergy, Unknown, itch, 05/20/22) poison sumac extract (Verified Allergy, Unknown, 11/04/22) Vitals & I&Os Vital Signs Date Time Temp Pulse Resp B/P (MAP) Pulse Ox O2 Delivery O2 Flow Rate FiO2 11/06/22 12:27 73 11/06/22 11:30 35.2 18 152/90 (110) 99 Room Air General Appearance: No Apparent Distress Respiratory: Chest Non Tender, Lungs Clear, Normal Breath Sounds, No Accessory Muscle Use, No Respiratory Distress Cardiovascular: Regular Rate, Rhythm, No Edema, No Gallop, No JVD, No Murmur, Normal Peripheral Pulses Gastrointestinal: Normal Bowel Sounds, No Organomegaly, No Pulsatile Mass, Non Tender, Soft Hospital Course Was the Problem List Reviewed?: Yes Patient is a 67-year-old female with a history of diabetes, hypothyroidism who presents to ED with daughter for increased confusion over the past 4 months. Symptoms started earlier this year and has progressed to gotten worse more notable since September 20. She has reports some changes in memory. She reports forgetting things at home. She states that she leaves the house and forgets to grab things and states she has to go back to get. Patient states she has been having issues with control of her blood sugar. She did have some vomiting earlier in September as well as earlier this month while being outside. She states she has been dehydrated but states she has been drinking water. She noticed no rings around her shirt. She does report some mild pain to her left lower rib and lower back over the past couple months. Seems to be worse at night. She denies any headache, dizziness, lightheadedness, visual changes, unilateral muscle weakness, chest pain, cough or shortness of breath. She did have a tick borne panel drawn 2 weeks ago which was unremarkable. She was bitten by ticks a few months ago. She did have some lab work drawn this past Monday. She is scheduled to follow-up with nephrology on January 03 and is attempting to schedule a follow-up with endocrinology. Patient denies of any urinary symptoms. Upon my arrival this morning the patient was feeling significantly better. Her daughter is at the bedside and reports that confusion has resolved. She was sent to the emergency room yesterday because her calcium was 13.5 Hospital course: Holding hydrochlorothiazide and with initiation of normal saline there was rapid improvement in calcium level down from 13 5-10.5 the day of discharge. Her magnesium was 1.6 but she received another 2 g mag sulfate after this morning's draw. She was alert oriented ambulating without difficulty. She did have some nocturnal hypoglycemia with a blood sugar down to 48 last night treated p.o. and has not been hypoglycemic since. For this reason we will decrease her evening Levemir to 20 units from 30 and continue 30 units in the morning. NovoLog dose this 12 units before breakfast 8 before l unch and 10 before the evening meal she will continue to monitor home blood sugars. She is advised to call our office for follow-up this coming week. On physical examination she has no evidence for adenopathy breast examination was unremarkable as was abdominal exam. Her PTH level was appropriately low ruling out hyperparathyroidism at 6. If she has recurrence of significant hy percalcemia will need further malignancy work-up consideration for CT scan of the chest abdomen pelvis and serum protein electrophoresis. Discussed with the patient and daughter that none of this will be necessary as long as her calcium remains normal off of hydrochlorothiazide. Other discharge medicines include 81 mg aspirin daily 20 mg of lisinopril daily 30 mg nifedipine ER daily 25 mcg of L-thyroxine daily linagliptin 5 mg at bedtime metformin 1000 mg twice daily and Victoza 1.8 mg subcu daily. Labs (last 24 hrs) Laboratory Tests 11/05/22 15:50: Glucometer 153H 11/05/22 19:48: Glucometer 191H 11/06/22 05:21: Glucometer 45*L 11/06/22 05:50: Glucometer 51*L 11/06/22 06:28: Glucometer 83 11/06/22 06:40: Magnesium Level 1.6 11/06/22 08:11: Glucometer 125H 11/06/22 10:38: Glucometer 158H Patient resulted labs reviewed. Pending Labs Laboratory Tests 11/06/22 05:21: Glucometer 45 11/06/22 05:50: Glucometer 51 11/06/22 06:28: Glucometer 83 11/06/22 06:40: Mean Blood Glucose [Pending], Hemoglobin A1c [Pending], Magnesium Level 1.6 11/06/22 08:11: Glucometer 125 11/06/22 10:38: Glucometer 158 Discussion & Recommendations Discharge Planning: >30 minutes discharge planning Discharge Home Medications: Active Scripts Active Reported Novolog Flexpen (Insulin Aspart) 100 Unit/Ml (3 Ml) Solution Units SQ SLIDING/SCALE Victoza 3-[place]ak[place] (Liraglutide) 0.6 Mg/0.1 Ml (18 Mg/3 Ml) Pen.injctr 1.8 Mg SQ DAILY Levemir Flexpen (Insulin Detemir) 100 Unit/Ml (3 Ml) Insuln.pen 30 Units SQ BID Aspirin EC (Aspirin) 81 Mg Tablet.dr 81 Mg PO DAILY Tradjenta (Linagliptin) 5 Mg Tablet 5 Mg PO HS Carvedilol 3.125 Mg Tablet 3.125 Mg PO BID Metformin HCl ER (Metformin HCl) 500 Mg Tab.er.24h 1,000 Mg PO BID TAKES 2 (500MG) TABS Nifedipine ER (Nifedipine) 30 Mg Tablet.er 30 Mg PO HS Lisinopril-Hctz 20-25 mg Tab (Lisinopril/Hydrochlorothiazide) 20 Mg-25 Mg Tablet 1 Ea PO DAILY Levothyroxine Sodium 25 Mcg Tablet 25 Mcg PO DAILY Instructions to patient/family Please see electronic discharge instructions given to patient. ALAYNA WILSON MD Nov 06, 2022 12:58
[2022-11-06] MEDS ORDERED: INSU100V5 SQ ×2 (13:04)
[2022-11-06] MEDS ORDERED: LISI20TA26 PO (13:06)
[2022-11-07] MEDS ORDERED: inSUlin ASPART 1 UNIT/0.01 ML (PER UNIT) SC SCH (08:00)
== END 2022-11-06 13:00 | disposition home or self-care (01) ==
LOC: EDUNIT# 11:18 → ER 11:21 → UNDOADMOB 14:26 → 4TH 14:26 → UNDODISOB 11-06 13:00
PROVIDERS: ADMIT Internal Medicine; ATTEND Internal Medicine
DX: E83.52 Hypercalcemia (principal); E83.42 Hypomagnesemia; E11.9 Type 2 diabetes mellitus without complications; I25.10 Atherosclerotic heart disease of native coronary artery without angina pectoris; E03.9 Hypothyroidism, unspecified; R41.0 Disorientation, unspecified; R53.1 Weakness; Z79.890 Hormone replacement therapy; Z79.84 Long term (current) use of oral hypoglycemic drugs; Z79.4 Long term (current) use of insulin; Z95.5 Presence of coronary angioplasty implant and graft; Z28.310 Unvaccinated for COVID-19
CPT/HCPCS: 70450; 71045; 80048; 80053; 81000; 82947 ×3; 83036; 83690; 83735 ×3; 83970; 84443; 85025; 85652; 86141; 86308; 93005; 96366 ×2; 96372; 96376 ×2; 99283; G0378; 36415

== ENCOUNTER 2022-11-24 13:37 | Inpatient (IN) | payer MEDICARE ==
[~2022-11-24] VITALS: Ht 172.7 cm; Wt 61.2 kg
[~2022-11-24 13:37] MED LIST changes: +ASPI-1238 PO; +ASPI-999 PO; +CARV3.122 PO; +INSU100I14 SQ; +INSU100I88 SQ; +INSU100V5 SQ; +LEVO25TA5 PO; +LINA5TAB PO; +LIRA0.6P3 SQ; +LISI1TAB48 PO; +LISI20TA26 PO; +METF-865 PO; +NIFE-55 PO
--- NOTE | 2022-11-24 15:20 | History & Physical-Hospitalist ---
History of Present Illness HPI/Chief Complaint female with past medical history of insulin-dependent diabetes, hypertension, hypercalcemia who presented as a direct admission from Dr. Tang's office due to altered mental status and concerns for hypercalcemia. She was admitted to the hospital roughly 2 weeks ago and work-up was initiated for this. She reports she has had bone pain and nausea with some vomiting. Her daughter reports that she has been confused. Her outpatient work-up consisted of a PTH which was low vitamin D which was low and an PTH RP which was normal. Her calcium continues to rise and has been as high as 13. She also had an SPEP done which was reportedly normal. Per Dr. Tang her only abnormal lab was a mildly elevated alk phos. Source: patient Date Seen 11/24/22 Time Seen by a Provider: 16:00 Attending Physician Neva Muñoz MD PCP Admitting Physician: Eduin Tang MD Attending Physician: Eduin Tang MD Referring Physician Date of Admission Home Medications & Allergies Home Medications Reviewed patient Home Medication Reconciliation performed by pharmacy medication reconciliations biotechnician and/or nursing. Patients Allergies have been reviewed. Allergies Allergies Coded Allergies Penicillins (Verified Allergy, Unknown, itch, 05/20/22) poison sumac extract (Verified Allergy, Unknown, 11/04/22) Past Ehmgpwy-Yzpbxk-Dnbtok Hx Immunizations Up To Date Tetanus Booster (TDap): Unknown Current Status Primary Language: [place] Past Medical History Surgeries: Coronary Stent Coronary Artery Disease, Hypertension Diabetes, Insulin dep Family Medical History Reviewed Nursing Family Hx Review of Systems Constitutional: see HPI Physical Exam Physical Exam Vital Signs Vital Signs - First Documented 11/24/22 11/24/22 11/25/22 16:16 16:35 07:47 Temp 37.0 Pulse 79 Resp 18 B/P (MAP) 112/73 (86) Pulse Ox 98 O2 Delivery Room Air O2 Flow Rate 0.00 Capillary Refill : Height, Weight, BMI Height: '" Weight: lbs. oz. kg; 21.42 BMI Method: General Appearance: No Apparent Distress, Thin Respiratory: Lungs Clear, No Respiratory Distress Cardiovascular: Regular Rate, Rhythm, No Murmur Gastrointestinal: Normal Bowel Sounds, Non Tender, Soft Neurologic/Psychiatric: Alert, Oriented x3 (though per daughter confused from her baseline and does tend to repeat herself) Results Results/Procedures Labs Laboratory Tests 11/24/22 18:31 11/25/22 05:23 11/26/22 06:50 Patient resulted labs reviewed. Assessment/Plan Admission Diagnosis Hypercalcemia Admission Status: Inpatient Order (span 2 midnights) Reason for Inpatient Admission: see below Assessment and Plan Hypercalcemia Outpatient workup started by Dr Tang PTH low and PTH rp normal Vitamin D normal Will repeat labs now IVF Spoke with Dr Ramos and will get CT Chest/Abd/Pelvis with bone scan IDDMII Continue home meds SSI CAD Continue home meds HENNY MALHOTRA MD Nov 24, 2022 15:20
--- OUTSIDE RECORDS SUMMARY | 2022-11-24 15:49 | XMS REPORT ---
Author Author [facility] ter of [facility] ter of [facility] Address Unknown Phone Unavailable Care Team Providers Care Legislative Analyst Name Role Phone RAIMUNDO REYNOLDS Unavailable PROBLEMS Type Condition ICD9-CM Code HAO16-UF Code Onset Dates Condition Status W/U Status Risk SNOMED Code Notes Problem Type 2 diabetes mellitus with diabetic chronic kidney disease E11.22 confirmed 840303834 Problem Chronic kidney disease, stage 3a N18.31 confirmed 168767016 Problem Severe nonproliferat miguelito diabetic retinopathy without macular edema associated with type 2 diabetes mellitus, unspecified laterality E11.3499 confirmed [id number] Optho notes 03/2018- Severe nonproli ferative retinopa thy OU, obtain FA next visit to assess possible need for PRP. Diabetic macular edema OD >OS, recommen d intravit real anti-VEG F. Nuclear sclerosi s OU observe. F/U in 4-5 weeks. 01/29/20 19 Retinal visit- severe noprolif erative diabetic retinoap thy present, diabetic macular edema OD>OS which is mostly resolved , continue injectio ns and 2 mo follow ups. Problem Type 2 diabetes mellitus with hyperglycemia E11.65 confirmed 916062396 Problem Poor appetite R63.0 confirmed 142580 06 Problem group home (current) use of insulin Z79.4 confirmed 437123028 Problem Coronary artery disease involving [place] coronary artery of [place] heart without angina pectoris I25.10 confirmed [id number] 9107 s/[place] [address] Knutson Problem Essential hypertension I10 confirmed 84056333 Problem Hyperlipidemi a E78.5 confirmed 39160209 ALLERGIES Allergen (clinical drug ingredient) Drug/Non Drug Allergy documented on EMR Reaction Allergy Type Onset Date Status atorvastatin Atorvastatin Calcium(NDC Code:[address]-98) Unknown Drug Allergy Active penicillin V Penicillin V Potassium([facility] Code:[address]-04) Unknown Drug Allergy Active ENCOUNTERS from 1955 to 2022-04-14 Encounter Location Date Provider Diagnosis [facility] [address] [facility] [id number] [place] [address] Apr, RAIMUNDO REYNOLDS Type 2 diabetes mellitus with hyperglycemia E11.65 IMMUNIZATIONS Vaccine Route Administration Date Status PRIVATE PCV 13 (PREVNAR) IM Intramuscular Dec 13 Administered PRIVATE FLULAVAL QUAD 0.5ML (6 MO AND UP) 2019 IM Intramuscular Dec 28, 2019 Administered PRIVATE TDAP (BOOSTRIX) IM Intramuscular Apr 09, 2020 Administered influenza IIV3 (history) Unknown Jan 13, 2012 [facility] influenza IIV3 (history) Unknown Feb 08, 2011 [facility] PRIVATE PPSV23 (PNEUMOVAX) IM Intramuscular August 30 017 Administered FLUARIX QUAD P-FREE 3 AND UP .50 2015 Unknown Jan 29, 2016 Administered PRIVATE FLULAVAL QUAD 0.5ML (6 MO AND UP) 2018 IM Intramuscular Feb 07, 2018 Administered PRIVATE HIGH DOSE FLU 22-23 (FLUZONE HD) AGE 65YRS AND UP IM Intramuscular Dec 13, 2021 Administer ed 1st Dose PFIZER, COVID-19, 0 .3mL (Comirnaty) Unknown July 09, 2021 Refused PRIVATE FLULAVAL QUAD 0.5ML (6 MO AND UP) 2020 IM Intramuscular Jan 13, 2021 Administered STATE FUNDED FLULUVAL QUAD 0 .5ML 6 MONTHS AND UP 2018 IM Intramuscular Feb 27, 2019 Administered influenza IIV3 (history) Unknown Jan 21, 2014 [facility] influenza IIV3 (history) Unknown Dec 19, 2012 [facility] SOCIAL HISTORY Sex Assigned At : Social History Observation Description Sex Assigned At Female Alcohol Screen (Audit-C) Question Answer Notes Did you have a drink containing alcohol in the p ast year? No Points 0 Interpretation Negative Sexual History Question Answer Notes Had sex in the past 12 months (vaginal, oral, or anal)? No Have you ever had a Sexually transmitted disease ? No PHQ2 Question Answer Notes In the last 2 weeks, how oft en have you had little interest or pleasure in doing things? More than half the days In the last 2 weeks, how oft en have you been feeling down, depressed, or hopeless? Several days Total PHQ2 Score 3 REASON FOR REFERRAL No Information MEDICATIONS Medication SIG (Take, Route, Frequency, Duration) Notes Start Date End Date Status Lancets - as directed Feb, Activ e Glucocard Expression Test - as directed In Vitro 4 times a day for 30 days Feb, Active metFORMIN HCl ER 500 MG TAKE TWO (2) TABLETS BY MOUTH TWICE DAILY Active Levemir FlexTouch 100 UNIT/ML 30-35 units in the morning, 10-30 units at night Subcutaneous Active Doxycycline Hyclate 100 MG 1 capsule Orally twice a day for 7 days Mar, Active Cranberry 250 MG as directed Orally Active Victoza 18 MG/3ML 2.4 mg Subcutaneous Once a day Active NovoLOG FlexPen 100 UNIT/ML 5 units Subcutaneous 3 times a day before meals only will take if her Blood sugar is high Feb, Active NovoFine 32G X 6 MM as directed 3 times a day Oct, Active Blood Glucose Meter 1 glucometer test 3 times per day Glucocard Expression maybe once a day Oct, Active Aspir-81 81 MG 1 tablet Orally Once a day Active NovoFine Plus 32G X 4 MM as directed Once a day Oct, Active BD Insulin Syr Ultrafine II 31G X 5/16" 0.3 ML as directed Samples Oct, Active Carvedilol 3.125 MG 2 tablets Orally Twice a day Active Cinnamon 500 MG Orally Acti ve Lisinopril-hydroCHLO ROthiazide 20-25 MG 1 tablet Orally Once a day Active Glucocard Expression Monitor w/Device as directed sample Feb, Active REASON FOR VISIT Refill request MEDICAL (GENERAL) HISTORY Type Description Date Medical History type II diabetes Medical History hyperlipidemia Medical History hypertension Medical History coronary artery disease Surgical History partial hysterectomy d/t fibroi ds - still has ovaries 1995 Surgical History section x 2 Surgical History cardiac stent 2006 Hospitalization History Myocardial infarction 20 06 MENTAL STATUS No Information ASSESSMENTS Encounter Date Diagnosis Assessment Notes Treatment Notes Treatment Clinical Notes Apr, Type 2 diabetes mellitus with hyperglycemia (ICD-10 - E11.65) PLAN OF TREATMENT Next Appt Details Provider Name:RAIMUNDO HOOKER H, 2022-04-27 10:20:00 AM, [address] , [place], [address], Insurance Providers Payer Name Payer Address Payer Phone Insured Name Patient Relationship to Insured Coverage Start Date Coverage End Date Subscriber Number Group Number NGS MEDICARE Part A [address] [facility] [address] [phone] Melanie Obando Self - patient is the insured [id number] AARP Medicare Advantage Choice Plan 2 (PPO) [address] [address] [facility] [address] [phone] Melanie Obando Self - patient is the insured [id number]
--- OUTSIDE RECORDS SUMMARY | 2022-11-24 15:49 | XMS REPORT ---
Author Author [facility] ter of [facility] ter of [facility] Address Unknown Phone Unavailable Care Team Providers Care Correctional Treatment Specialist Name Role Phone RAIMUNDO REYNOLDS Unavailable PROBLEMS Type Condition ICD9-CM Code [id number] Code Onset Dates Condition Status W/U Status Risk SNOMED Code Notes Problem Type 2 diabetes mellitus with diabetic chronic kidney disease E11.22 confirmed 843834173 Problem Chronic kidney disease, stage 3a N18.31 confirmed 691786102 Problem Severe nonproliferat miguelito diabetic retinopathy without macular edema associated with type 2 diabetes mellitus, unspecified laterality E11.3499 confirmed [id number] Optho notes 03/2018- Severe nonproli ferative retinopa [...] 2 diabetes mellitus with hyperglycemia E11.65 confirmed 706391833 Problem Poor appetite R63.0 confirmed 085496 06 Problem group home (current) use of insulin Z79.4 confirmed 708980172 Problem Coronary artery disease involving [place] coronary artery of [place] heart without angina pectoris I25.10 confirmed [id number] 9107 s/[place] [address] Knutson Problem Essential hypertension I10 confirmed 61885398 Problem Hyperlipidemi a E78.5 confirmed 75596632 ALLERGIES Allergen (clinical drug ingredient) Drug/Non Drug Allergy documented on EMR Reaction Allergy Type Onset Date Status atorvastatin Atorvastatin Calcium(NDC Code:[address]-24) Unknown Drug Allergy Active penicillin V Penicillin V Potassium([facility] Code:[address]-12) Unknown Drug Allergy Active ENCOUNTERS from 1955 to 2022-07-22 Encounter Location Date Provider Diagnosis [facility] [address] [facility] [id number] [place] [address] July, RAIMUNDO REYNOLDS Type 2 diabetes amrit itus with hyperglycemia E11.65 ; Essential hypertension I10 ; Hyperlipidemia E78.5 ; Type 2 diabetes mellitus with diabetic chronic kidney disease E11.22 ; outpatient phlebotomist (current) use of insulin Z79.4 ; Severe nonproliferative diabetic retinopathy without macular edema associated with type 2 diabetes mellitus, unspecified laterality E11.3499 ; Muscle tightness M62.89 and COVID-19 vaccination declined Z28.21 IMMUNIZATIONS Vaccine Route Administration Date Status STATE FUNDED FLULUVAL QUAD 0 .5ML 6 MONTHS AND UP 2018 IM Intramuscular Feb 27, 2019 Administered FLUARIX QUAD P-FREE 3 AND UP .50 2015 Unknown Jan 29, 2016 Administered 1st Dose PFIZER, COVID-19, 0 .3mL (Comirnaty) Unknown July 09, 2021 Refused influenza IIV3 (history) Unknown Jan 21, 2014 [facility] PRIVATE FLULAVAL QUAD 0.5ML (6 MO AND UP) 2020 IM Intramuscular Jan 13, 2021 Administered PRIVATE TDAP (BOOSTRIX) IM Intramuscular Apr 09, 2020 Administered PRIVATE PPSV23 (PNEUMOVAX) IM Intramuscular August 30 017 Administered influenza IIV3 (history) Unknown Feb 08, 2011 [facility] PRIVATE PCV 13 (PREVNAR) IM Intramuscular Dec 13 2 Administered influenza IIV3 (history) Unknown Jan 13, 2012 [facility] influenza IIV3 (history) Unknown Dec 19, 2012 [facility] PRIVATE FLULAVAL QUAD 0.5ML (6 MO AND UP) 2018 IM Intramuscular Feb 07, 2018 Administered PRIVATE FLULAVAL QUAD 0.5ML (6 MO AND UP) 2019 IM Intramuscular Dec 28, 2019 Administered PRIVATE HIGH DOSE FLU 22-23 (FLUZONE HD) AGE 65YRS AND UP IM Intramuscular Dec 13, 2021 Administer ed SOCIAL HISTORY Sex Assigned At : Social [...] Score 3 REASON FOR REFERRAL No Information VITAL SIGNS Height 67 in July, Height-cm 170.18 cm July, Weight 163.8 lbs July, Weight-kg 74.3 kg July, Temperature 96.7 degrees Fahrenheit July, Heart Rate 64 bpm July, Respiratory Rate 18 bpm July, BMI 25.65 kg/m2 July, Blood pressure systolic 130 mmHg July, Blood pressure diastolic 80 mmHg July, MEDICATIONS Medication SIG (Take, Route, Frequency, Duration) Notes Start Date End Date Status Lancets - as directed Feb, Activ e Cranberry 250 MG as directed Orally Not-Taking Glucocard Expression Monitor w/Device as directed sample Feb, Active Aspir-81 81 MG 1 tablet Orally Once a day Active NovoFine Plus 32G X 4 MM as directed Once a day Oct, Active Blood Glucose Meter 1 glucometer test 3 times per day Glucocard Expression maybe once a day Oct, Active Carvedilol 3.125 MG 2 tablets Orally Twice a day for 90 days Active Lisinopril-hydroCH LOROthiazide 20-25 MG 1 tablet Orally Once a day for 90 days Active Glucocard Expression Test - as directed In Vitro 4 times a day for 30 days Feb, Active Tradjenta 5 MG 1 tablet Orally Once a day for 30 days May, Active BD Insulin Syr Ultrafine II 31G X 5/16" 0.3 ML as directed Samples Oct, Active Cinnamon 500 MG Orally Not- Taking NovoFine 32G X 6 MM as directed 3 times a day Oct, Active Victoza 18 MG/3ML 1.8 mg Subcutaneous once a day for 10 days Jun, Active Levemir Flexpen 100 UNIT/ML 30 units in the morning and 15 units at bedtime Subcutaneous for 10 days Jun, Active metFORMIN HCl ER 500 MG 2 tablets Orally twice a day for 90 days Active NovoLOG FlexPen 100 UNIT/ML 5 units Subcutaneous 3 times a day before meals Feb, Active REASON FOR VISIT Diabetes check-FLORINDA Conti, A1C, foot exam-joaquin vaz MEDICAL (GENERAL) HISTORY Type Description Date Medical History type II diabetes Medical History hyperlipidemia Medical History hypertension Medical History coronary artery disease Surgical History partial hysterectomy d/t fibroi ds - still has ovaries 1995 Surgical History section x 2 Surgical History cardiac stent 2005 Hospitalization History Myocardial infarction 06 09 MENTAL STATUS No Information ASSESSMENTS Encounter Date Diagnosis Assessment Notes Treatment Notes Treatment Clinical Notes July, Type 2 diabetes mellitus with hyperglycemia (ICD-10 - E11.65) July, Essential hypertensi on (ICD-10 - I10) July, Hyperlipidemia (ICD- 10 - E78.5) July, Type 2 diabetes mellitus with diabetic chronic kidney disease (ICD-10 - E11.22) July, outpatient phlebotomist (current) use of insulin (ICD-10 - Z79.4) July, Severe nonproliferative diabetic retinopathy without macular edema associated with type 2 diabetes mellitus, unspecified laterality (ICD-10 - E11.3499) July, Muscle tightness (ICD-10 - M62.89) July, COVID-19 vaccination declined (ICD-10 - Z28.21) July, Other Pt seen and examined by me along with MSEkaterina Bates, agree with documentation unless otherwise noted. PLAN OF TREATMENT Next Appt Details 3 Months Reason:DMII Follow Up:3 MonthsDMII Insurance Providers Payer Name Payer Address Payer Phone Insured Name Patient Relationship to Insured Coverage Start Date Coverage End Date Subscriber Number Group Number NGS MEDICARE Part A [address] [facility] [id number] Melanie Obando Self - patient is the insured [id number] [facility] Medicare Advantage Choice Plan 2 (PPO) [address] [address] [facility] [address] Melanie Obando Self - patient is the insured [id number]
--- OUTSIDE RECORDS SUMMARY | 2022-11-24 15:49 | XMS REPORT ---
Author Author [facility] ter of [facility] ter of 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 Knutson Problem Essential hypertension I10 confirmed 67446000 Problem Hyperlipidemi a E78.5 confirmed 31037045 Problem Type 2 diabetes mellitus with hyperglycemia E11.65 confirmed 388086437 ALLERGIES Allergen (clinical drug ingredient) Drug/Non Drug Allergy documented on EMR Reaction Allergy Type Onset Date Status atorvastatin Atorvastatin Calcium([facility] Code:[address]-38) Unknown Drug Allergy Active penicillin V Penicillin V Potassium([facility] Code:[address]-39) Unknown Drug Allergy Active ENCOUNTERS from 1955 to 2022-10-02 Encounter Location Date Provider Diagnosis [facility] [id number] [place] [address] Oct, RAIMUNDO REYNOLDS IMMUNIZATIONS Vaccine Route Administration Date Status PRIVATE PPSV23 (PNEUMOVAX) IM Intramuscular August 30 017 Administered influenza IIV3 (history) Unknown Dec 19, 2012 Parth mann PRIVATE HIGH DOSE FLU 22-23 (FLUZONE HD) AGE 65YRS AND UP IM Intramuscular Dec 13, 2021 Administer ed FLUARIX QUAD P-FREE 3 AND UP .50 2015 Unknown Jan 29, 2016 Administered influenza IIV3 (history) Unknown Jan 21, 2014 Prath mann PRIVATE PCV 13 (PREVNAR) IM Intramuscular Dec 13 2 Administered 1st Dose PFIZER, COVID-19, 0 .3mL (Comirnaty) Unknown July 09, 2021 Refused PRIVATE FLULAVAL QUAD 0.5ML (6 MO AND UP) 2020 IM Intramuscular Jan 13, 2021 Administered PRIVATE FLULAVAL QUAD 0.5ML (6 MO AND UP) 2019 IM Intramuscular Dec 28, 2019 Administered STATE FUNDED FLULUVAL QUAD 0 .5ML 6 MONTHS AND UP 2018 IM Intramuscular Feb 27, 2019 Administered PRIVATE FLULAVAL QUAD 0.5ML (6 MO AND UP) 2018 IM Intramuscular Feb 07, 2018 Administered PRIVATE TDAP (BOOSTRIX) IM Intramuscular Apr 09, 2020 Administered influenza IIV3 (history) Unknown Jan 13, 2012 Parth mann influenza IIV3 (history) Unknown Feb 08, 2011 Parth mann SOCIAL HISTORY Sex Assigned At [...] Duration) Notes Start Date End Date Status NIFEdipine ER 30 MG 1 tablet on an empty stomach Orally Once a day for 30 days July, Active Lisinopril-hydroCHLORO thiazide 20-25 MG 1 tablet Orally Once a day for 90 days Active Cranberry 250 MG as directed Orally Not-Taking BD Insulin Syr Ultrafine II 31G X 5/16" 0.3 ML as directed Samples Oct, Active NovoLOG FlexPen 100 UNIT/ML 20 units Subcutaneous 3 times a day before meals for 30 days Feb, Active Glucocard Expression Test - as directed In Vitro 4 times a day for 30 days Feb, Active Lancets - as directed Feb, Active Glucocard Expression Monitor w/Device as directed sample Feb, Active Cinnamon 500 MG Orally Not- Taking Cyclobenzaprine HCl 10 MG 1 tablet at bedtime as needed Orally Once a day for 30 days July, Active Blood Glucose Meter 1 glucometer test 3 times per day Glucocard Expression maybe once a day Oct, Active NovoFine Plus 32G X 4 MM as directed Once a day Oct, Active Carvedilol 3.125 MG 2 tablets Orally Twice a day for 90 days Active Aspir-81 81 MG 1 tablet Orally Once a day Active Cephalexin 500 MG 1 capsule Orally two times dialy for 7 days July, Active metFORMIN HCl ER 500 MG 2 tablets Orally twice a day for 90 days Active Levemir Flexpen 100 UNIT/ML 30 units in the morning and at bedtime Subcutaneous daily for 30 days Jun, Active Victoza 18 MG/3ML INJECT 1.8 MG SUBCUTANEOUS ONCE A DAY for 30 Active Tradjenta 5 MG 1 tablet Orally Once a day for 30 days May, Active NovoFine 32G X 6 MM as directed 3 times a day Oct, Active REASON FOR VISIT Requests return call MEDICAL (GENERAL) HISTORY Type Description Date Medical History type II diabetes Medical History hyperlipidemia Medical History hypertension Medical History coronary artery disease Surgical History partial hysterectomy d/t fibroi ds - still has ovaries 1995 Surgical History section x 2 Surgical History cardiac stent 2005 Hospitalization History Myocardial infarction 20 06 MENTAL STATUS No Information PLAN OF TREATMENT Medication Medication Name Sig Start Date Stop Date Cyclobenzaprine HCl 10 MG 1 tablet at be dtime as needed Orally Once a day for 30 days July, Victoza 18 MG/3ML INJECT 1.8 MG SUBCUT ANEOUS ONCE A DAY for 30 NovoLOG FlexPen 100 UNIT/ML 20 units Sub cutaneous 3 times a day before meals for 30 days Feb, NIFEdipine ER 30 MG 1 tablet on an empty stomach Orally Once a day for 30 days July, Levemir Flexpen 100 UNIT/ML 30 units in the morning and at bedtime Subcutaneous daily for 30 days Jun, Insurance Providers Payer Name Payer Address Payer Phone Insured Name Patient Relationship to Insured Coverage Start Date Coverage End Date Subscriber Number Group Number NGS MEDICARE Part A [address] [facility] [phone] Melanie Obando Self - patient is the insured [id number] [employer] Medicare Advantage Choice Plan 2 (PPO) [address] [address] [facility] [address] Melanie Obando Self - patient is the insured [id number]
--- OUTSIDE RECORDS SUMMARY | 2022-11-24 15:49 | XMS REPORT ---
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 Problem Essential hypertension I10 confirmed 79064599 Problem Hyperlipidemi a E78.5 confirmed 11614745 Problem Type 2 diabetes mellitus with diabetic chronic kidney disease E11.22 confirmed 785076442 Problem [employer] (current) use of insulin Z79.4 confirmed 152976816 Problem Type 2 diabetes mellitus with hyperglycemia E11.65 confirmed 342435076 Problem Coronary artery disease involving [place] coronary artery of [place] heart without angina pectoris I25.10 confirmed [id number] 9107 s/[place] [address] Knutson ALLERGIES Allergen (clinical drug ingredient) Drug/Non Drug Allergy documented on EMR Reaction Allergy Type Onset Date Status atorvastatin Atorvastatin Calcium([facility] Code:[address]-07) Unknown Drug Allergy Active penicillin V Penicillin V Potassium([facility] Code:[address]-01) Unknown Drug Allergy Active ENCOUNTERS from 1955 to 2022-03-14 Encounter Location Date Provider Diagnosis [facility] [address] [facility] [id number] [place] [address] Mar, RAIMUNDO REYNOLDS Type 2 diabetes mellitus with hyperglycemia E11.65 ; Encounter for screening mammogram for malignant neoplasm of breast Z12.31 ; Decreased GFR R94.4 ; Screening for colon cancer Z12.11 ; BMI 27.0-27.9,adult Z68.27 and Essential hypertension I10 IMMUNIZATIONS Vaccine Route Administration Date Status 1st Dose PFIZER, COVID-19, 0 .3mL (Comirnaty) Unknown July 09, 2021 Refused PRIVATE HIGH DOSE FLU 22-23 (FLUZONE HD) AGE 65YRS AND UP IM Intramuscular Dec 13, 2021 Administer ed STATE FUNDED FLULUVAL QUAD 0 .5ML 6 MONTHS AND UP 2018 IM Intramuscular Feb 27, 2019 Administered PRIVATE FLULAVAL QUAD 0.5ML (6 MO AND UP) 2019 IM Intramuscular Dec 28, 2019 Administered PRIVATE FLULAVAL QUAD 0.5ML (6 MO AND UP) 2020 IM Intramuscular Jan 13, 2021 Administered PRIVATE PPSV23 (PNEUMOVAX) IM Intramuscular August 30 017 Administered PRIVATE FLULAVAL QUAD 0.5ML (6 MO AND UP) 2018 IM Intramuscular Feb 07, 2018 Administered FLUARIX QUAD P-FREE 3 AND UP .50 2015 Unknown Jan 29, 2016 Administered PRIVATE TDAP (BOOSTRIX) IM Intramuscular Apr 09, 2020 Administered influenza IIV3 (history) Unknown Jan 21, 2014 Parth johnathan influenza IIV3 (history) Unknown Dec 19, 2012 Parth mann influenza IIV3 (history) Unknown Jan 13, 2012 Parth mann influenza IIV3 (history) Unknown Feb 08, 2011 Parth mann PRIVATE PCV 13 (PREVNAR) IM Intramuscular Dec 13 2 Administered SOCIAL HISTORY Sex Assigned At : Social [...] little interest or pleasure in doing things? Several days In the last 2 weeks, how oft en have you been feeling down, depressed, or hopeless? Several days Total PHQ2 Score 2 REASON FOR REFERRAL from 1955 to 2022-03-14 Reason Difficult to manage DMII with low blood sugars and erratic eating habits, bad reaction to Tresiba Diagnosis 1 Type 2 diabetes amrit itus with hyperglycemia (E11.65) Referral Organization [facility] Referring Provider First Name RAIMUNDO Referring Provider Last Name GAIL Referring Provider Specialty Family Prac dania Referred Organization [facility] Referred Provider MARE WRIGHT Referred Address [id number] [place] [address],[id number], [place],[address] Referred Provider Specialty Nurse Kathrin mitchell Referral Priority Routine Referral Appointment Date 2020-04-30 VITAL SIGNS Height 67 in Mar, Height-cm 170.18 cm Mar, Weight 172.8 lbs Mar, Weight-kg 78.38 kg Mar, Temperature 97.0 degrees Fahrenheit Mar, Heart Rate 68 bpm Mar, Respiratory Rate 20 bpm Mar, Oximetry 96 % Mar, BMI 27.06 kg/m2 Mar, Blood pressure systolic 114 mmHg Mar, Blood pressure diastolic 78 mmHg Mar, MEDICATIONS Medication SIG (Take, Route, Frequency, Duration) Notes Start Date End Date Status Lisinopril-hydroCH LOROthiazide 20-25 MG 1 tablet Orally Once a day Active Cinnamon 500 MG Orally Acti ve Aspir-81 81 MG 1 tablet Orally Once a day Active Levemir FlexTouch 100 UNIT/ML 30 units in the morning, 20 units at night Subcutaneous Active Cranberry 250 MG as directed Orally Active Lancets - as directed Feb, Activ e Carvedilol 6.25 MG 1 tablet with food Orally Twice a day Active Glucocard Expression Test - as directed In Vitro 4 times a day for 30 days Feb, Active NovoTwist 32G X 5 MM as directed 4 times a day with novolog and victoza Oct, Not-Taking Glucocard Expression Monitor w/Device as directed sample Feb, Active BD Insulin Syr Ultrafine II 31G X 5/16" 0.3 ML as directed Samples Oct, Active NovoLOG FlexPen 100 UNIT/ML 5 units Subcutaneous 3 times a day before meals Feb, Active Pen [place] 32G X 5 MM as directed 3 times a day for 90 days Jun, Not-Taking Blood Glucose Meter 1 glucometer test 3 times per day Glucocard Expression maybe once a day Oct, Active Test strips Test Strips test blood sugar 3 times a day Oct, Not-Taking NovoFine 32G X 6 MM as directed 3 times a day Oct, Active metFORMIN HCl ER 500 MG TAKE TWO (2) TABLETS BY MOUTH TWICE DAILY for 90 Active Victoza 18 MG/3ML 2.4 mg Subcutaneous Once a day for 28 days Active NovoFine Plus 32G X 4 MM as directed Once a day Oct, Active REASON FOR VISIT DM, A1C due-brhea,ma, PHQ2, Tobacco screening, Mammo, Dexa, Colon cancer screening, foot exam, needs dental exam, Shingrix, Tdap and PCV 13-AURN MEDICAL (GENERAL) HISTORY Type Description Date Medical [...] Assessment Notes Treatment Notes Treatment Clinical Notes Mar, Type 2 diabetes mellitus with hyperglycemia (ICD-10 - E11.65) Blood sugars have been difficult to manage due to erratic eating and brittle measurements with frequent lows in the past, and yet not able to get A1c down. Often she has felt she needed to decreas insulin or other meds due to low blood sugars. Had quite a significant reaction to Tresiba which we had hoped would help even out. Discussed consideraing insulin pump, but she is not quite interested in that at this time. Will refer to family living educator for further assistance. Mar, Encounter for screening mammogram for malignant neoplasm of breast (ICD-10 - Z12.31) She declines order for now, will update us if she decides to proceed. Mar, Decreased GFR (ICD-10 - R94.4) Decreased GFR noted two months in a row, renal US okay, further labs still pending, encouraged to have drawn today. Discussed avoidance of NSAIDs. Mar, Screening for colon cancer (ICD-10 - Z12.11) Declines referral for colonoscopy or stool hemoccult testing today, will let us know if she changes her mind. Mar, BMI 27.0-27.9,adult (ICD-10 - Z68.27) She is very active in general, discussed referral to purchasing coordinator to help clarify what activities she might add or change to maximize potential for weight loss. Mar, Essential hypertension (ICD-10 - I10) PLAN OF TREATMENT Medication Medication Name Sig Start Date Stop Date Victoza 18 MG/3ML 2.4 mg Subcutaneous Once a day for 28 days metFORMIN HCl ER 500 MG TAKE TWO (2) TAB LETS BY MOUTH TWICE DAILY for 90 NovoLOG FlexPen 100 UNIT/ML 5 units Subc utaneous 3 times a day before meals Feb, Levemir FlexTouch 100 UNIT/ML 30 units i n the morning, 20 units at night Subcutaneous Aspir-81 81 MG 1 tablet Orally Once a day Lisinopril-hydroCHLOROthiazi de 20-25 MG 1 tablet Orally Once a day Carvedilol 6.25 MG 1 tablet with food O rally Twice a day Treatment Notes Assessment Notes Clinical Notes Type 2 diabetes mellitus wit h hyperglycemia Blood sugars have been difficult to manage due to erratic eating and brittle measurements with frequent lows in the past, and yet not able to get A1c down. Often she has felt she needed to decreas insulin or other meds due to low blood sugars. Had quite a significant reaction to Tresiba which we had hoped would help even out. Discussed consideraing insulin pump, but she is not quite interested in that at this time. Will refer to family living educator for further assistance. Encounter for screening mamm ogram for malignant neoplasm of breast She declines order for now, will update us if she decides to proceed. Decreased GFR Decreased GFR noted two months in a row, renal US okay, further labs still pending, encouraged to have drawn today. Discussed avoidance of NSAIDs. Screening for colon cancer Declines refe rral for colonoscopy or stool hemoccult testing today, will let us know if she changes her mind. BMI 27.0-27.9,adult She is very active i n general, discussed referral to purchasing coordinator to help clarify what activities she might add or change to maximize potential for weight loss. Referrals Referral Date Details 2020-04-30 2020-04-30, Davis t to manage DMII with low blood sugars and erratic eating habits, bad reaction to Tresiba, MARE WRIGHT, [address], [place], [address], Next Appt Details 3 Months Reason:DMII Provider Name:RAIMUNDO Beyer, 2022-04-27 10:20:00 AM, [address], [place], [address], Follow Up:3 MonthsDMII Insurance Providers Payer Name Payer Address Payer Phone Insured Name Patient Relationship to Insured Coverage Start Date Coverage End Date Subscriber Number Group Number NGS MEDICARE Part A [address] [facility] [phone] Melanie Obando Self - patient is the insured [id number] [facility] Medicare Advantage Choice Plan 2 (PPO) [address] [address] [facility] [address] Melanie Obando Self - patient is the insured [id number]
--- OUTSIDE RECORDS SUMMARY | 2022-11-24 15:49 | XMS REPORT ---
Author Author [facility] ter of [facility] ter of [facility] Address Unknown Phone Unavailable Care Team Providers Care Pouring Crane Operator Name Role Phone MILI TORRES Unavailable PROBLEMS Type Condition ICD9-CM Code [id number] Code Onset Dates Condition Status SNOMED Code Notes Problem Hyperlipidemia E78.5 Active [id number] Problem Type 2 diabetes mellitus with hyperglycemia E11.65 Active 227429236 Problem Severe nonproliferative diabetic retinopathy without macular edema associated with type 2 diabetes mellitus, unspecified laterality E11.3499 Active 601845018 Optho notes 03/2018- Severe nonproliferat miguelito retinopathy OU, obtain FA next visit to assess possible need for PRP. Diabetic macular edema OD >OS, recommend intravitreal anti-VEGF. Nuclear sclerosis OU observe. F/U in 4-5 weeks. 019 Retinal visit- severe noproliferati ve diabetic retinoapthy present, diabetic macular edema OD>OS which is mostly resolved, continue injections and 2 mo follow ups. Problem Coronary artery disease involving cheesh-na coronary artery of cheesh-na heart without angina pectoris I25.10 Active [id number] s/p st enting [place] [address] Knutson Problem Essential hypertension I10 Active 11020741 ALLERGIES Allergen (clinical drug ingredient) Drug/Non Drug Allergy documented on EMR Reaction Allergy Type Onset Date Status penicillin V Penicillin V Potassium([facility] Code:[address]-06) Unknown Drug Allergy Active ENCOUNTERS from 1955 to 2020-03-24 Encounter Location Date Provider Diagnosis [facility] [address] [facility] [id number] [place] [address] Jun, MILI TORRES IMMUNIZATIONS Vaccine Route Administration Date Status PRIVATE FLULAVAL QUAD 0.5ML (6 MO AND [...] (PNEUMOVAX) IM Intramuscular August 30 017 Administered SOCIAL HISTORY Sex Assigned At : Social History Observation Description Sex Assigned At Unknown Sexual History Question Answer Notes Had sex in the past 12 months (vaginal, oral, or anal)? No Have you ever had a Sexually transmitted disease ? No REASON FOR REFERRAL No Information MEDICATIONS Medication SIG (Take, Route, Frequency, Duration) Notes Start Date End Date Status NovoTwist 32G X 5 MM as directed 4 times a day with novolog and victoza Oct, Active NovoFine 32G X 6 MM as directed 3 times a day Oct, Active NovoFine Plus 32G X 4 MM as directed Once a day Oct, Activ e Victoza 18 MG/3ML 1.8 mg Subcutaneous Once a day Jun, Active Atorvastatin Calcium 80 MG 1 tablet Orally Once a day Mar, Active Lancets - as directed Feb, Activ e NovoLog Flexpen 100 UNIT/ML 5 units Subcutaneous 3 times a day before meals Feb, Active Carvedilol 12.5 MG 1 tablet with food Orally Twice a day Active MetFORMIN HCl ER 500 mg 2 tabs Orally 2 times a day for 90 Active Lisinopril-Hydrochlorot hiazide 20-25 MG 2 tablets Orally Once a day for 90 Active Test strips Test Strips test blood sugar 3 times a day Oct, Not-Taking Glucocard Expression Monitor w/Device as directed Feb, Active Glucocard Expression Test - as directed In Vitro 4 times a day Feb, Active Pen [place] 32G X 5 MM as directed 3 franci es a day for 90 days Jun, Active BD Insulin Syr Ultrafine II 31G X 5/16" 0.3 ML as directed Oct, Active Cinnamon 500 MG Orally Acti ve Levemir FlexTouch 100 UNIT/ML 40 units Subcutaneous Once a day Feb, Active Tresiba FlexTouch 100 UNIT/ML 40 units Subcutaneous Once a day Oct, Active Blood Glucose Meter 1 glucometer test 3 times per day Glucocard Expression Oct, Not-Taking Aspir-81 81 MG 1 tablet Orally Once a day Active REASON FOR VISIT No Information MEDICAL (GENERAL) HISTORY Type Description Date Medical History type II diabetes Medical History hyperlipidemia Medical History hypertension Medical History coronary artery disease Surgical History partial hysterectomy d/t fibroi ds - still has ovaries 1995 Surgical History section x 2 Surgical History cardiac stent 2005 Hospitalization History Myocardial infarction 06 09 MENTAL STATUS No Information PLAN OF TREATMENT Medication Medication Name Sig Start Date Stop Date Lisinopril-Hydrochlorothiazi de 20-25 MG 2 tablets Orally Once a day for Tresiba FlexTouch 100 UNIT/ML 40 units S ubcutaneous Once a day Oct, MetFORMIN HCl ER 500 mg 2 tabs Orally 2 times a day for Carvedilol 12.5 MG 1 tablet with food O rally Twice a day Levemir FlexTouch 100 UNIT/ML 40 units S ubcutaneous Once a day Feb, NovoLog Flexpen 100 UNIT/ML 5 units Subc utaneous 3 times a day before meals Feb, NovoTwist 32G X 5 MM as directed 4 times a day with novolog and victoza Oct, Victoza 18 MG/3ML 1.8 mg Subcutaneous Once a day 11 , 2015 NovoFine Plus 32G X 4 MM as directed Once a day Oct Atorvastatin Calcium 80 MG 1 tablet Orally Once a day Mar, Next Appt Details Provider Name:RAIMUNDO Beyer, 2020-04-09 10:40:00 AM, [address] [facility], [id number], [place], [address],
--- OUTSIDE RECORDS SUMMARY | 2022-11-24 15:49 | XMS REPORT ---
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 Diabetic macular edema OD >OS, recommend intravitreal anti-VEGF. Nuclear sclerosis OU observe. F/U in 4-5 weeks. 019 Retinal visit- severe noproliferati ve diabetic retinoapthy present, diabetic macular edema OD>OS which is mostly resolved, continue injections and 2 mo follow ups. Problem Coronary artery disease involving [place] coronary artery of [place] heart without angina pectoris I25.10 Active [id number] s/p st enting [place] [address] Knutson Problem Essential hypertension I10 Active 90271287 ALLERGIES Allergen (clinical drug ingredient) Drug/Non Drug Allergy documented on EMR Reaction Allergy Type Onset Date Status penicillin V Penicillin V Potassium([facility] Code:[address]-72) Unknown Drug Allergy Active ENCOUNTERS from 1955 to 2020-02-13 Encounter Location Date Provider Diagnosis [facility] [address] [facility] [id number] [place] [address] July, RAIMUNDO ENOCH Type 2 diabetes mellitus with hyperglycemia E11.65 IMMUNIZATIONS Vaccine Route Administration Date Status PRIVATE FLULAVAL QUAD 0.5ML (6 MO AND UP) 2019 IM Intramuscular Dec 28, 2019 Administered STATE FUNDED FLULUVAL QUAD 0 .5ML 6 MONTHS AND UP 2018 IM Intramuscular Feb 27, 2019 Administered PRIVATE FLULAVAL QUAD 0.5ML (6 MO AND UP) 2019 IM Intramuscular Feb 07, 2018 Administered FLUARIX QUAD P-FREE 3 AND UP .50 2015 Unknown Jan 29, 2016 Administered influenza IIV3 (history) Unknown Jan 21, 2014 Parth mann influenza IIV3 (history) Unknown Dec 19, 2012 Pen johnathan influenza IIV3 (history) Unknown Jan 13, 2012 Pen johnathan influenza IIV3 (history) Unknown Feb 08, 2011 [...] ? No REASON FOR REFERRAL No Information VITAL SIGNS Height 67 in July, Weight 162 lbs July, Weight-kg 73.48 kg July, Temperature 98.2 degrees Fahrenheit July, Heart Rate 98 bpm July, Respiratory Rate 20 bpm July, Oximetry 99 % July, BMI 25.37 kg/m2 July, Blood pressure systolic 120 mmHg July, Blood pressure diastolic 70 mmHg July, MEDICATIONS Medication SIG (Take, Route, [...] tablet Orally Once a day Mar, Active Glucocard Expression Test - as directed In Vitro 4 times a day Feb, Active NovoLog Flexpen 100 UNIT/ML 5 units Subcutaneous 3 times a day before meals Feb, Active Carvedilol 12.5 MG 1 tablet with food Orally Twice a day Active Lancets - as directed Feb, Activ e Lisinopril-Hydrochlorot hiazide 20-25 MG 2 tablets Orally Once a day for 90 Active Test strips Test Strips test blood sugar 3 times a day Oct, Not-Taking Glucocard Expression Monitor w/Device as directed Feb, Active MetFORMIN HCl ER 500 mg 2 tabs Orally 2 times a day for 90 Active Pen Star 32G X 5 MM as directed 3 franci es a day for 90 days Jun, Active BD Insulin Syr Ultrafine II 31G X 5/16" 0.3 ML as directed Oct, Active Cinnamon 500 MG Orally Acti ve Tresiba FlexTouch 100 UNIT/ML 40 units Subcutaneous Once a day Oct, Active Blood Glucose Meter 1 glucometer test 3 times per day Glucocard Expression Oct, Not-Taking Aspir-81 81 MG 1 tablet Orally Once a day Active RESULTS Component Value Reference Range A1C (IN HOUSE) Reviewed date:07/25/2018 09:40:28 Interpretation:11.3 Performing Lab:[facility] A1C IN HOUSE 11.3 4.3 - 5.6 % Previous A1c 8.5 Lot 0941 Exp date 12/2019 REASON FOR VISIT Diabetes. A1C due.-[place] MEDICAL (GENERAL) HISTORY Type Description Date Medical History type II diabetes Medical History hyperlipidemia Medical History hypertension Medical History coronary artery disease Surgical History partial hysterectomy d/t fibroi ds - still has ovaries 1995 Surgical History section x 2 Surgical History cardiac stent 2006 Hospitalization History Myocardial infarction 06 09 MENTAL STATUS No Information ASSESSMENTS Encounter Date Diagnosis Assessment Notes Treatment Notes Treatment Clinical Notes July, Type 2 diabetes mellitus with hyperglycemia (ICD-10 - E11.65) Increase Victoza dose to 1.8 which was previously prescribed, increase levemir to 30 units BID, work on eating small meals regularly so we can adjust insulin more closely. Discussed at length concerns about the risks of her uncontrolled diabetes and difficulty in making adjustments with no regular food intake and reported low blood sugars. July, Other Patient seen an d examined by me along with MS3 Jesus Carter, agree with documentation unless otherwise noted. PLAN OF TREATMENT Medication Medication Name Sig Start Date Stop Date Lisinopril-Hydrochlorothiazi de 20-25 MG 2 tablets Orally Once a day for 90 Tresiba FlexTouch 100 UNIT/ML 40 units S ubcutaneous Once a day Oct, MetFORMIN HCl ER 500 mg 2 tabs Orally 2 times a day for 90 Carvedilol 12.5 MG 1 tablet with food O rally Twice a day NovoLog Flexpen 100 UNIT/ML 5 units Subc utaneous 3 times a day before meals Feb, NovoTwist 32G X 5 MM as directed 4 times a day with novolog and victoza Oct, Victoza 18 MG/3ML 1.8 mg Subcutaneous Once a day 2015 NovoFine Plus 32G X 4 MM as directed Once a day Oct Atorvastatin Calcium 80 MG 1 tablet Orally Once a day Mar, Treatment Notes Assessment Notes Clinical Notes Type 2 diabetes mellitus wit h hyperglycemia Increase Victoza dose to 1.8 which was previously prescribed, increase levemir to 30 units BID, work on eating small meals regularly so we can adjust insulin more closely. Discussed at length concerns about the risks of her uncontrolled diabetes and difficulty in making adjustments with no regular food intake and reported low blood sugars. Next Appt Details 3 Months Reason:DMII Follow Up:3 MonthsDMII
--- OUTSIDE RECORDS SUMMARY | 2022-11-24 15:49 | XMS REPORT ---
Author Author [facility] ter of [facility] ter of [facility] Address Unknown Phone Unavailable Care Team Providers Care Truck Jumper Name Role Phone MILI TORRES Unavailable PROBLEMS Type Condition ICD9-CM Code [id number] Code Onset Dates Condition Status SNOMED Code Notes Problem Hyperlipidemia E78.5 Active 15923128 Problem Type 2 diabetes mellitus with hyperglycemia E11.65 Active 627442147 Problem Severe nonproliferative diabetic retinopathy without macular edema associated with type 2 diabetes mellitus, unspecified laterality E11.3499 Active 458793008 Optho notes 03/2018- Severe nonproliferat miguelito retinopathy OU, obtain FA next visit to assess possible need for PRP. Diabetic macular edema OD >OS, recommend intravitreal anti-VEGF. Nuclear sclerosis OU observe. F/U in 4-5 weeks. 019 Retinal visit- severe noproliferati ve diabetic retinoapthy present, diabetic macular edema OD>OS which is mostly resolved, continue injections and 2 mo follow ups. Problem Coronary artery disease involving [place] coronary artery of [place] heart without angina pectoris I25.10 Active [id number] s/p st enting [place] [address] Knutson Problem Essential hypertension I10 Active 36918510 ALLERGIES Allergen (clinical drug ingredient) Drug/Non Drug Allergy documented on EMR Reaction Allergy Type Onset Date Status penicillin V Penicillin V Potassium([facility] Code:[address]-92) Unknown Drug Allergy Active ENCOUNTERS from 1955 to 2019-12-16 Encounter Location Date Provider Diagnosis [facility] [address] [facility] [id number] [place] [address] 18 Nov, 2011 MILI TORRES IMMUNIZATIONS Vaccine Route Administration Date Status STATE FUNDED FLULUVAL QUAD 0 .5ML 6 MONTHS AND UP 2019 IM Intramuscular Feb 27, 2019 Administered PRIVATE [...] MEDICATIONS Medication SIG (Take, Route, Frequency, Duration) Start Date End Date Status Cinnamon 500 MG Orally Active NovoTwist 32G X 5 MM as directed 4 times a day with novolog and victoza Oct, Active NovoFine 32G X 6 MM as directed 3 times a day Oct, Active NovoFine Plus 32G X 4 MM as directed Once a day Oct, Active Pen [place] 32G X 5 MM as directed 3 franci es a day for 90 days Jun, Active MetFORMIN HCl ER 500 mg 2 tabs Orally 2 times a day for 90 days Active Aspir-81 81 MG 1 tablet Orally Once a day Active Victoza 18 MG/3ML 1.8 mg Subcutaneous Once a day Jun, Active Carvedilol 12.5 MG 1 tablet with food O rally Twice a day Active Atorvastatin Calcium 80 MG 1 tablet Orally Once a day 2015 Active BD Insulin Syr Ultrafine II 31G X 5/16" 0.3 ML as directed Oct, Active Test strips Test Strips test blood sugar 3 times a day Oct, Not-Taking Lisinopril-Hydrochlorothia zide 20-25 MG 2 tablets Orally Once a day for 90 days Active Glucocard Expression Monitor w/Device as directed Feb, Active Glucocard Expression Test - as directed In Vitro 4 times a day Feb, Active Blood Glucose Meter 1 glucometer test 3 times per day Glucocard Expression Oct, Not-Taking NovoLog Flexpen 100 UNIT/ML 5 units Subcutaneous 3 times a day before meals Feb, Active Lancets - as directed Feb, Active Tresiba FlexTouch 100 UNIT/ML 40 units Subcutaneous Once a day Oct, Active REASON FOR VISIT No Information MEDICAL [...] Medication Name Sig Start Date Stop Date Atorvastatin Calcium 80 MG 1 tablet Orally Once a day Mar, NovoLog Flexpen 100 UNIT/ML 5 units Subc utaneous 3 times a day before meals Feb, Carvedilol 12.5 MG 1 tablet with food O rally Twice a day Victoza 18 MG/3ML 1.8 mg Subcutaneous Once a day , 2015 NovoTwist 32G X 5 MM as directed 4 times a day with novolog and victoza Oct, Lisinopril-Hydrochlorothiazi de 20-25 MG 2 tablets Orally Once a day for 90 days MetFORMIN HCl ER 500 mg 2 tabs Orally 2 times a day for 90 days Tresiba FlexTouch 100 UNIT/ML 40 units S ubcutaneous Once a day Oct, NovoFine Plus 32G X 4 MM as directed Once a day Oct
--- OUTSIDE RECORDS SUMMARY | 2022-11-24 15:49 | XMS REPORT ---
Author Author [facility] ter of [facility] ter of [facility] Address Unknown Phone Unavailable Care Team Providers Care Composing Room Machinist Apprentice Name Role Phone Migration, Doctor Unavailable Unavailable PROBLEMS Type Condition ICD9-CM Code [id number] Code Onset Dates Condition Status SNOMED Code Notes Problem Hyperlipidemia E78.5 Active 56442486 Problem Type 2 diabetes mellitus with hyperglycemia E11.65 Active 284237212 Problem Severe nonproliferative diabetic retinopathy without macular edema associated with type 2 diabetes mellitus, unspecified laterality E11.3499 Active 684216172 Optho notes 03/2018- Severe nonproliferat miguelito retinopathy OU, obtain FA next visit to assess possible need for PRP. Diabetic macular edema OD >OS, recommend intravitreal anti-VEGF. Nuclear sclerosis OU observe. F/U in 4-5 weeks. 019 Retinal visit- severe noproliferati ve diabetic retinoapthy present, diabetic macular edema OD>OS which is mostly resolved, continue injections and 2 mo follow ups. Problem Coronary artery disease involving [place] coronary artery of [place] heart without angina pectoris I25.10 Active [id number] s/p st enting [place] [address] Knutson Problem Essential hypertension I10 Active 68355455 ALLERGIES Allergen (clinical drug ingredient) Drug/Non Drug Allergy documented on EMR Reaction Allergy Type Onset Date Status penicillin V Penicillin V Potassium([facility] Code:[address]-77) Unknown Drug Allergy Active ENCOUNTERS from 1955 to 2020-01-03 Encounter Location Date Provider Diagnosis [facility] [address] [facility] [id number] [place] [address] 26 Dec, 2011 Doctor Migration IMMUNIZATIONS Vaccine Route Administration Date Status PRIVATE [...] directed Once a day Oct, Active Pen [place] 32G X 5 MM as directed 3 franci es a day for 90 days Jun, Active Carvedilol 12.5 MG 1 tablet with food O rally Twice a day Active Aspir-81 81 MG 1 tablet Orally Once a day Active MetFORMIN HCl ER 500 mg 2 tabs Orally 2 times a day for 90 Active Victoza 18 MG/3ML 1.8 mg Subcutaneous [...] Orally Once a day for 90 Active Glucocard Expression Monitor w/Device as directed [...] 3 times a day before meals Feb, Victoza 18 MG/3ML 1.8 mg Subcutaneous Once a day 2015 MetFORMIN HCl ER 500 mg 2 tabs Orally 2 times a day for 90 NovoTwist 32G X 5 MM as directed 4 times a day with novolog and victoza Oct, Lisinopril-Hydrochlorothiazi de 20-25 MG 2 tablets Orally Once a day for 90 Carvedilol 12.5 MG 1 tablet with food O rally Twice a day Tresiba FlexTouch 100 UNIT/ML 40 units S ubcutaneous Once a day Oct, NovoFine Plus 32G X 4 MM as directed Once a day Oct
--- OUTSIDE RECORDS SUMMARY | 2022-11-24 15:49 | XMS REPORT ---
Author Author [facility] ter of [facility] ter of [facility] Address Unknown Phone Unavailable Care Team Providers Care Bevel Mill Operator Name Role Phone RAIMUNDO REYNOLDS Unavailable PROBLEMS Type Condition ICD9-CM Code QKT35-FE Code Onset Dates Condition Status W/U Status Risk SNOMED Code Notes Problem Severe nonproliferat miguelito diabetic retinopathy without macular edema associated with type 2 diabetes mellitus, unspecified laterality E11.3499 confirmed [id number] Optho notes 03/2018- Severe nonproli ferative retinopa [...] with diabetic chronic kidney disease E11.22 confirmed 640366009 Problem long-term (current) use of insulin Z79.4 confirmed 698489205 Problem Poor appetite R63.0 confirmed 157798 06 Problem Chronic kidney disease, stage 3a N18.31 confirmed 104318831 Problem Acute sciatica M54.30 confirmed 477323005 Problem Coronary artery disease involving [place] coronary artery of [place] heart without angina pectoris I25.10 confirmed [id number] s/p [place] [address] Knutson Problem Essential hypertension I10 confirmed 68296638 Problem Hyperlipidemi a E78.5 confirmed 46146723 Problem Type 2 diabetes mellitus with hyperglycemia E11.65 confirmed 001434776 ALLERGIES Allergen (clinical drug ingredient) Drug/Non Drug Allergy documented on EMR Reaction Allergy Type Onset Date Status atorvastatin Atorvastatin Calcium([facility] Code:[address]-18) Unknown Drug Allergy Active penicillin V Penicillin V Potassium([facility] Code:[address]-63) Unknown Drug Allergy Active ENCOUNTERS from 1955 to 2022-10-01 Encounter Location Date Provider Diagnosis [facility] [address] [facility] [id number] [place] [address] Oct, RAIMUNDO GAIL Type 2 diabetes mellitus with hyperglycemia E11.65 IMMUNIZATIONS Vaccine Route Administration Date Status influenza IIV3 (history) Unknown Jan 21, 2014 [facility] PRIVATE FLULAVAL QUAD 0.5ML (6 MO AND UP) 2019 IM Intramuscular Dec 28, 2019 Administered PRIVATE PPSV23 (PNEUMOVAX) IM Intramuscular August 30 017 Administered 1st Dose PFIZER, COVID-19, 0 .3mL (Comirnaty) Unknown July 09, 2021 Refused PRIVATE FLULAVAL QUAD 0.5ML (6 MO AND UP) 2018 IM Intramuscular Feb 07, 2018 Administered PRIVATE HIGH DOSE FLU 22-23 (FLUZONE HD) AGE 65YRS AND UP IM Intramuscular Dec 13, 2021 Administer ed influenza IIV3 (history) Unknown Feb 08, 2011 [facility] influenza IIV3 (history) Unknown Jan 13, 2012 [facility] PRIVATE TDAP (BOOSTRIX) IM Intramuscular Apr 09, 2020 Administered FLUARIX QUAD P-FREE 3 AND UP .50 2015 Unknown Jan 29, 2016 Administered PRIVATE FLULAVAL QUAD 0.5ML (6 MO AND UP) 2020 IM Intramuscular Jan 13, 2021 Administered PRIVATE PCV 13 (PREVNAR) IM Intramuscular Dec 13 Administered influenza IIV3 (history) Unknown Dec 19, 2012 [facility] FUNDED FLULUVAL QUAD 0 .5ML 6 MONTHS AND UP 2018 IM Intramuscular Feb 27, 2019 Administered SOCIAL HISTORY Sex Assigned At : [...] Assessment Notes Treatment Notes Treatment Clinical Notes Oct, Type 2 diabetes mellitus with hyperglycemia (ICD-10 - E11.65) PLAN OF TREATMENT Medication Medication Name Sig [...] NGS MEDICARE Part A [address] [facility] [address] [phone] Melanie Obando Self - patient is the insured [id number] [facility] Medicare Advantage Choice Plan 2 (PPO) [address] [address] [facility] [address] [phone] Melanie Obando Self - patient is the insured [id number]
--- OUTSIDE RECORDS SUMMARY | 2022-11-24 15:49 | XMS REPORT ---
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 Diabetic macular edema OD >OS, recommend intravitreal anti-VEGF. Nuclear sclerosis OU observe. F/U in 4-5 weeks. 019 Retinal visit- severe noproliferati ve diabetic retinoapthy present, diabetic macular edema OD>OS which is mostly resolved, continue injections and 2 mo follow ups. Problem Coronary artery disease involving [place] coronary artery of [place] heart without angina pectoris I25.10 Active 7555731036635 s/p st enting [place] [address] Knutson Problem Essential hypertension I10 Active 94272842 ALLERGIES Allergen (clinical drug ingredient) Drug/Non Drug Allergy documented on EMR Reaction Allergy Type Onset Date Status penicillin V Penicillin V Potassium([facility] Code:[address]-54) Unknown Drug Allergy Active ENCOUNTERS from 1955 to 2020-03-30 Encounter Location Date Provider Diagnosis [facility] [address] [facility] [id number] [place] [address] May, MILI TORRES IMMUNIZATIONS Vaccine Route Administration Date Status influenza IIV3 (history) Unknown Jan 13, 2012 Parth mann influenza IIV3 (history) Unknown Dec 19, 2012 Parth mann [facility] FUNDED FLULUVAL QUAD 0 .5ML 6 MONTHS [...] 2014 Parth mann influenza IIV3 (history) Unknown Feb [...] 4 times a day Feb, Active Pen [place] 32G X 5 MM as directed 3 [...] Name:RAIMUNDO Beyer, 2020-04-09 10:40:00 AM, [address] [facility], [id number], [place], [address],
--- OUTSIDE RECORDS SUMMARY | 2022-11-24 15:49 | XMS REPORT ---
Author Author [facility] ter of [facility] ter of [facility] Address Unknown Phone Unavailable Care Team Providers Care Incident Response Analyst Name Role Phone MILI TORRES Unavailable PROBLEMS Type Condition ICD9-CM Code [id number] Code Onset Dates Condition Status SNOMED Code Notes Problem Hyperlipidemia E78.5 Active 70942340 Problem Type 2 diabetes mellitus with hyperglycemia E11.65 Active 939896752 Problem Severe nonproliferative diabetic retinopathy without macular edema associated with type 2 diabetes mellitus, unspecified laterality E11.3499 Active 174753681 Optho notes 03/2018- Severe nonproliferat miguelito retinopathy OU, obtain FA next visit to assess possible need for PRP. Diabetic macular edema OD >OS, recommend intravitreal anti-VEGF. Nuclear sclerosis OU observe. F/U in 4-5 weeks. 019 Retinal visit- severe noproliferati ve diabetic retinoapthy present, diabetic macular edema OD>OS which is mostly resolved, continue injections and 2 mo follow ups. Problem Coronary artery disease involving [place] coronary artery of [place] heart without angina pectoris I25.10 Active [id number] s/p st enting [place] [address] Knutson Problem Essential hypertension I10 Active 82399924 ALLERGIES Allergen (clinical drug ingredient) Drug/Non Drug Allergy documented on EMR Reaction Allergy Type Onset Date Status penicillin V Penicillin V Potassium([facility] Code:[address]-69) Unknown Drug Allergy Active ENCOUNTERS from 1955 to 2020-03-24 Encounter Location Date Provider Diagnosis [facility] [address] [facility] [id number] [place] [address] Jun, MILI TORRES IMMUNIZATIONS Vaccine Route Administration Date Status PRIVATE FLULAVAL QUAD 0.5ML (6 MO AND UP) 2019 IM Intramuscular Dec 28, 2019 Administered PRIVATE PPSV23 (PNEUMOVAX) IM Intramuscular August 30 017 Administered FLUARIX QUAD P-FREE 3 AND UP .50 2015 Unknown Jan 29, 2016 Administered STATE FUNDED FLULUVAL QUAD 0 .5ML 6 MONTHS AND UP 2019 IM Intramuscular Feb 27, 2019 Administered PRIVATE FLULAVAL QUAD 0.5ML (6 MO AND UP) 2019 IM Intramuscular Feb 07, 2018 Administered influenza IIV3 (history) Unknown Jan 21, [...] 4 times a day Feb, Active Pen [place] 32G X 5 MM as directed 3 [...] Name:RAIMUNDO Beyer, 2020-04-09 10:40:00 AM, [address] [facility], [id number], [place], [address],
--- OUTSIDE RECORDS SUMMARY | 2022-11-24 15:49 | XMS REPORT ---
Author Author [facility] ter of [facility] ter of [facility] Address Unknown Phone Unavailable Care Team Providers Care Police Officer Name Role Phone RAIMUNDO REYNOLDS Unavailable PROBLEMS Type Condition ICD9-CM Code [id number] Code Onset Dates Condition Status W/U Status Risk SNOMED Code Notes Problem Severe nonproliferat miguelito diabetic retinopathy without macular edema associated with type 2 diabetes mellitus, unspecified laterality E11.3499 confirmed [id number] Optho notes 03/2018- Severe nonproli ferative retinopa [...] with diabetic chronic kidney disease E11.22 confirmed 398159166 Problem MCC (current) use of insulin Z79.4 confirmed 161057022 Problem Poor appetite R63.0 confirmed 239772 06 Problem Chronic kidney disease, stage 3a N18.31 confirmed 996202496 Problem Acute sciatica M54.30 confirmed 115158603 Problem Coronary artery disease involving [place] coronary artery of [place] heart without angina pectoris I25.10 confirmed [id number] 9107 s/p stenting [place] [address] Knutson Problem Essential hypertension I10 confirmed 96548951 Problem Hyperlipidemi a E78.5 confirmed 02387761 Problem Type 2 diabetes mellitus with hyperglycemia E11.65 confirmed 174449313 ALLERGIES Allergen (clinical drug ingredient) Drug/Non Drug Allergy documented on EMR Reaction Allergy Type Onset Date Status atorvastatin Atorvastatin Calcium([facility] Code:[address]-18) Unknown Drug Allergy Active penicillin V Penicillin V Potassium([facility] Code:[address]-26) Unknown Drug Allergy Active ENCOUNTERS from 1955 to 2022-10-05 Encounter Location Date Provider Diagnosis [facility] [address] [facility] [id number] [place] [address] Oct, RAIMUNDO GAIL Type 2 diabetes mellitus with hyperglycemia E11.65 IMMUNIZATIONS Vaccine Route Administration Date Status PRIVATE TDAP (BOOSTRIX) IM Intramuscular Apr 09, 2020 Administered PRIVATE PCV 13 (PREVNAR) IM Intramuscular Dec 13 Administered influenza IIV3 (history) Unknown Jan 13, 2012 Parth johnathan influenza IIV3 (history) Unknown Feb 08, 2011 Parth johnathan PRIVATE HIGH DOSE FLU 22-23 (FLUZONE HD) AGE 65YRS AND UP IM Intramuscular Dec 13, 2021 Administer ed PRIVATE PPSV23 (PNEUMOVAX) IM Intramuscular August 30 [...] IIV3 (history) Unknown Dec 19, 2012 Parth johnathan SOCIAL HISTORY Sex Assigned At : Social [...] a day Oct, Active REASON FOR VISIT Pharmacy Protocol MEDICAL (GENERAL) HISTORY Type Description Date Medical [...] Coverage End Date Subscriber Number Group Number AARP Medicare Advantage Choice Plan 2 (PPO) [address] [address] [facility] [phone] Melanie Obando Self - patient is the insured [id number] [employer] MEDICARE Part A [address] [facility] [address] Melanie Obando Self - patient is the insured [id number]
--- OUTSIDE RECORDS SUMMARY | 2022-11-24 15:49 | XMS REPORT ---
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 associated with type 2 diabetes mellitus, unspecified laterality E11.3499 confirmed [id number] Optho notes 03/2018- Severe nonproli ferative retinopa [...] with diabetic chronic kidney disease E11.22 confirmed 400167324 Problem [facility] (current) use of insulin Z79.4 confirmed 533519571 Problem Poor appetite R63.0 confirmed 528145 06 Problem Chronic kidney disease, stage 3a N18.31 confirmed 026251187 Problem Acute sciatica M54.30 confirmed 825210456 Problem Coronary artery disease involving [place] coronary artery of [place] heart without angina pectoris I25.10 confirmed 850692989 9107 s/p [place] [address] Knutson Problem Essential hypertension I10 confirmed 69435968 Problem Hyperlipidemi a E78.5 confirmed 13526410 Problem Type 2 diabetes mellitus with hyperglycemia E11.65 confirmed 374790451 ALLERGIES Allergen (clinical drug ingredient) Drug/Non Drug Allergy documented on EMR Reaction Allergy Type Onset Date Status atorvastatin Atorvastatin Calcium([facility] Code:[address]-60) Unknown Drug Allergy Active penicillin V Penicillin V Potassium([facility] Code:[address]-46) Unknown Drug Allergy Active ENCOUNTERS from 1955 to 2022-09-29 Encounter Location Date Provider Diagnosis [facility] [address] [facility] [id number] [place] [address] Oct, RAIMUNDO REYNOLDS IMMUNIZATIONS Vaccine Route Administration Date Status influenza IIV3 (history) Unknown Jan 21, 2014 Pen johnathan influenza IIV3 (history) Unknown Jan 13, 2012 Pen johnathan influenza IIV3 (history) Unknown Dec 19, 2012 Pen johnathan influenza IIV3 (history) Unknown Feb 08, 2011 Parth mann PRIVATE PPSV23 (PNEUMOVAX) IM Intramuscular August 30 017 Administered PRIVATE PCV 13 (PREVNAR) IM Intramuscular Dec 13 2 Administered PRIVATE TDAP (BOOSTRIX) IM Intramuscular Apr 09, 2020 Administered FLUARIX QUAD P-FREE 3 AND UP .50 2015 Unknown Jan 29, 2016 Administered PRIVATE FLULAVAL QUAD 0.5ML (6 MO AND UP) 2018 IM Intramuscular Feb 07, 2018 Administered 1st Dose PFIZER, COVID-19, 0 .3mL (Comirnaty) Unknown July 09, 2021 Refused PRIVATE HIGH DOSE FLU 22-23 (FLUZONE HD) AGE 65YRS AND UP IM Intramuscular Dec 13, 2021 Administer ed PRIVATE FLULAVAL QUAD 0.5ML (6 MO AND [...] a day Oct, Active REASON FOR VISIT pls return call MEDICAL (GENERAL) HISTORY Type Description [...] NGS MEDICARE Part A [address] [facility] [id number] Melanie Obando Self - patient is the insured [id number] AARP Medicare Advantage Choice Plan 2 (PPO) [address] [address] [facility] [address] Melanie Obando Self - patient is the insured [id number]
--- OUTSIDE RECORDS SUMMARY | 2022-11-24 15:49 | XMS REPORT ---
Author Author [facility] ter of [facility] ter of [facility] Address Unknown Phone Unavailable Care Team Providers Care Delinquent Account Clerk Name Role Phone MILI TORRES Unavailable PROBLEMS Type Condition ICD9-CM Code [id number] Code Onset Dates Condition Status SNOMED Code Notes Problem Hyperlipidemia E78.5 Active 90669069 Problem Type 2 diabetes mellitus with hyperglycemia E11.65 Active 108128782 Problem Severe nonproliferative diabetic retinopathy without macular edema associated with type 2 diabetes mellitus, unspecified laterality E11.3499 Active 539084032 Optho notes 03/2018- Severe nonproliferat miguelito retinopathy OU, obtain FA next visit to assess possible need for PRP. Diabetic macular edema OD >OS, recommend intravitreal anti-VEGF. Nuclear sclerosis OU observe. F/U in 4-5 weeks. 019 Retinal visit- severe noproliferati ve diabetic retinoapthy present, diabetic macular edema OD>OS which is mostly resolved, continue injections and 2 mo follow ups. Problem Coronary artery disease involving [place] coronary artery of [place] heart without angina pectoris I25.10 Active [id number] s/p st [place]ing [place] [address] Knutson Problem Essential hypertension I10 Active 97829442 ALLERGIES Allergen (clinical drug ingredient) Drug/Non Drug Allergy documented on EMR Reaction Allergy Type Onset Date Status penicillin V Penicillin V Potassium([facility] Code:[address]-22) Unknown Drug Allergy Active ENCOUNTERS from 1955 to 2020-01-17 Encounter Location Date Provider Diagnosis [facility] [address] [facility] [id number] [place] [address] Sep, MILI TORRES IMMUNIZATIONS Vaccine Route Administration Date [...] directed Once a day Oct, Active Pen [place] 32G X 5 MM as directed 3 [...] Subcutaneous Once a day 11 , 2015 MetFORMIN HCl ER 500 mg 2 [...]
--- OUTSIDE RECORDS SUMMARY | 2022-11-24 15:49 | XMS REPORT ---
Author Author Melanie TORRES Organization [facility] Address [address] [place] [address] Care Team Providers Care Heel Shaper Name Role Phone MILI TORRES Unavailable PROBLEMS Type Condition ICD9-CM Code CSM20-OP Code Onset Dates Condition Status SNOMED Code Problem Hyperlipidemia E78.5 Active 15752006 Problem Type 2 diabetes mellitus with hyperglycemia E11.65 Active 872119513 Problem Severe nonproliferative diabetic retinopathy without macular edema associated with type 2 diabetes mellitus, unspecified laterality E11.3499 Active 795516781 Problem Coronary artery disease involving [place] coronary artery of [place] heart without angina pectoris I25.10 Active 3556602005874 Problem Essential hypertension I10 Active [id number] ALLERGIES No Information ENCOUNTERS Encounter Location Date Diagnosis [place] [address] [address] 18 Aug, 2019 Type 2 diabetes mellitus with hyperglycemia E11.65 ; Essential hypertension I10 ; Hyperlipidemia E78.5 and Decreased GFR R94.4 [place] [address] [address] 17 Aug, 2019 Type 2 diabetes mellitus with hyperglycemia E11.65 ; Hyperlipidemia E78.5 and Essential hypertension I10 [place] [address] [place] [id number] [place] [address] July, [place] [address] [address] Feb, Type 2 diabetes mellitus with hyperglycemia E11.65 ; Hyperlipidemia E78.5 ; Essential hypertension I10 and Encounter for immunization Z23 [place] [address] [place] [id number] [place] [address] Feb, [place] [address] [address] Oct, [facility] [address], [place] [address] Oct, [facility] [id number] [place] [address] Oct, Type 2 diabetes mellitus with hyperglycemia E11.65 [facility] [address] [place] [id number] [place] [address] Sep, [facility] [address] [place] [id number] [place] [address] July, Type 2 diabetes mellitus with hyperglycemia E11.65 [facility] [address] [place] [id number] [place] [address] Mar, [facility] [id number] [place] [address] Feb, [facility] [address] [place] [id number] [place] [address] Jan, Type 2 diabetes mellitus with hyperglycemia E11.65 ; Essential hypertension I10 ; Hyperlipidemia E78.5 and Encounter for immunization Z23 [facility] [id number] [place] [address] Sep, [facility] [address] [address] July, Type 2 diabetes mellitus with hyperglycemia E11.65 [facility] [address], [place] [address] July, [facility] [address], [place] [address] May, [facility] [address] [place] [id number] [place] [address] May, Hyperlipidemia E78.5 [facility] [address], [place] [address] May, Type 2 diabetes mellitus with hyperglycemia E11.65 ; Essential hypertension I10 ; Hyperlipidemia E78.5 and Breast cancer screening Z12.31 [facility] [address], [place] [address] May, Type 2 diabetes mellitus with hyperglycemia E11.65 [facility] [address] [place] [id number] [place] [address] Apr, Type 2 diabetes mellitus with hyperglycemia E11.65 [facility] [address] [place] [id number] [place] [address] Jan, [facility] [address] [place] [id number] [place] [address] Jan, [facility] [address] [place] [id number] [place] [address] Jan, [place] [address] [place] [id number] [place] [address] Sep, Essential hypertension I10 [place] [address] [place] [id number] [place] [address] Aug, Type 2 diabetes mellitus with hyperglycemia E11.65 [place] [address] [place] [id number] [place] [address] Aug, [place] [address] [place] [id number] [place] [address] Aug, Type 2 diabetes mellitus with hyperglycemia E11.65 ; Hyperlipidemia E78.5 ; Colon cancer screening Z12.11 ; Essential hypertension I10 and Encounter for immunization Z23 [facility] [address] [place] [id number] [place] [address] July, Type 2 diabetes mellitus with hyperglycemia E11.65 [place] [address] [place] [id number] [place] [address] July, Type 2 diabetes mellitus with hyperglycemia E11.65 [facility] [address] [place] [id number] [place] [address] Jun, [facility] [address] [place] [id number] [place] [address] May, Essential hypertension I10 [facility] [address], [place] [address] May, [facility] [address] [place] [address] Apr, Acute non-recurrent frontal sinusitis J01.10 [facility] [address] [place] [address] Apr, Essential hypertension I10 [facility] [address] [place] [address] Apr, [facility] [address] [place] [id number] [place] [address] Mar, Type 2 diabetes mellitus with hyperglycemia E11.65 [facility] [address] [place] [id number] [place] [address] Mar, [facility] [address] [place] [address] Feb, Essential hypertension I10 [facility] [address] [place] [address] 14 Feb, 2016 [facility] [address] [place] [address] Feb, Type 2 diabetes mellitus with hyperglycemia E11.65 ; Essential hypertension I10 and Hyperlipidemia E78.5 [facility] [address], [place] [address] Jan, [facility] [address], [place] [address] Dec, [facility] [address] [place] [id number] [place] [address] Dec, [facility] [address], [place] [address] Oct, [facility] [address] [place] [id number] [place] [address] Aug, [facility] [address], [place] [address] Aug, Hyperlipidemia E78.5 [facility] [address] [place] [address] Aug, Type 2 diabetes mellitus with hyperglycemia E11.65 ; Hyperlipidemia E78.5 and Essential hypertension I10 [facility] [address] [place] [address] Aug, [facility] [address] [place] [address] Jun, [facility] [address] [place] [address] Jun, [facility] [address] [place] [id number] [place] [address] Jun, [facility] [address] [place] [address] Apr, [facility] [address], [place] [address] Apr, [facility] [address] [place] [address] Mar, Hyperlipidemia E78.5 [facility] [address], [place] [address] Mar, Type 2 diabetes mellitus with hyperglycemia E11.65 ; Hyperlipidemia E78.5 and Essential hypertension I10 [facility] [address], [place] [address] Mar, [facility] [address] [place] [id number] [place] [address] Nov, [facility] [address], [place] [address] 08 Nov, 2014 [facility] [address] [place] [address] Sep, Hyperlipidemia 272.4 [facility] [address] [id number] [place] [address] Sep, [facility] [address] [facility] [id number] [address] Sep, Diabetes mellitus, type II 250.00 ; Hypertension 401.9 and Hyperlipidemia 272.4 [facility] [address] [facility] [id number] [place] [address] Sep, [facility] [address] [facility] [id number] [place] [address] Sep, [facility] [address] [facility] [id number] [place] [address] Sep, [facility] [address] [place] [id number] [place] [address] Jun, [facility] [address] [place] [id number], [place] [address] Jun, [facility] [address] [place] [id number] [place] [address] Apr, [facility] [address] [place] [id number], [place] [address] Apr, [facility] [address] [place] [id number], [place] [address] Mar, [facility] [address] [place] [id number], [place] [address] Mar, [facility] [place] [facility] [address] [facility] [id number] [place] [address] Mar, [facility] [address] [facility] [id number], [place] [address] Mar, [facility] [place] [facility] [address] [place] [id number] [address] Feb, [facility] [address] [place] [id number] [place] [address] Feb, [facility] [place] [facility] [address] [id number] [place] [address] Jan, [facility] [place] [facility] [address] [id number] [place] [address] Jan, [facility] [place] [facility] [address] [id number] [place] [address] Jan, [facility] [place] [facility] [address] [id number] [place] [address] Jan, [facility] [place] [facility] [address] [id number] [place] [address] Sep, [facility] [place] [facility] [address] [id number] [place] [address] Sep, [facility] [place] [facility] [address] [id number] [place] [address] Sep, [facility] [place] [facility] [address] [id number] [place] [address] Sep, [facility] [place] [facility] [address] [id number] [place] [address] Sep, [facility] [place] [facility] [address] [id number] [place] [address] Sep, [facility] [place] [facility] [address] [id number] [place] [address] Aug, [facility] [place] [facility] [address] [id number] [place] [address] Aug, [facility] [place] [facility] [address] [id number] [place] [address] Aug, [facility] [place] [facility] [address] [id number] [place] [address] Aug, [facility] [place] [facility] [address] [id number] [place] [address] Apr, [facility] [place] [facility] [address] [id number] [place] [address] Apr, [facility] [address] [id number] [place] [address] Mar, [facility] [place] [facility] [address] [id number] [place] [address] Mar, [facility] [address] [id number] [place] [address] Mar, [facility] [place] [facility] [address] [id number] [place] [address] Mar, [facility] [place] [facility] [address] [id number] [place] [address] Feb, [facility] [address] [id number] [place] [address] Feb, [facility] [address] [id number] [place] [address] Feb, [facility] [place] [facility] [address] [id number] [place] [address] Feb, [facility] [place] [facility] [address] [id number] [place] [address] Feb, [facility] [place] [facility] [address] [id number] [place] [address] Feb, [facility] [place] [facility] [address] [id number] [place] [address] Feb, [facility] [place] [facility] [address] [id number] [place] [address] Feb, [facility] [place] [facility] [address] [id number] [place] [address] Jan, [facility] [place] [facility] [address] [id number] [place] [address] Jan, [facility] [place] [facility] [address] [id number] [place] [address] Dec, [facility] [place] [facility] [address] [id number] [place] [address] 31 Dec, 2012 [facility] [place] [facility] [address] [id number] [place] [address] 30 Dec, 2012 [facility] [place] [facility] [address] [id number] [place] [address] 30 Dec, 2012 [facility] [place] [facility] [address] [id number] [place] [address] 08 Dec, 2012 [facility] [place] [facility] [address] [id number] [place] [address] 02 Dec, 2012 [facility] [place] [facility] [address] [id number] [place] [address] 10 Nov, 2012 [facility] [place] [facility] [address] [id number] [place] [address] Aug, [facility] [place] [facility] [address] [id number] [place] [address] Dec, [facility] [place] [facility] [address] [id number] [place] [address] Dec, [facility] [place] [facility] [address] [id number] [place] [address] Nov, [facility] [place] [facility] [address] [id number], [place] [address] Sep, [facility] [place] [facility] [address] [id number], [place] [address] Sep, [facility] [place] [facility] [address] [id number] [place] [address] Sep, [facility] [place] [facility] [address] [id number] [place] [address] Aug, [facility] [place] [facility] [address] [id number] [place] [address] 14 Aug, 2011 [facility] [place] [facility] [address] [id number] [place] [address] Aug, [facility] [address] [id number] [place] [address] Jun, [facility] [place] [facility] [address] [id number] [place] [address] Jun, [facility] [address] [id number] [place] [address] Jun, [facility] [address] [id number] [place] [address] May, [facility] [address] [id number] [place] [address] May, [facility] [address] [id number] [place] [address] May, [facility] [address] [facility] [id number] [place] [address] Feb, [facility] [address] [id number] [place] [address] Feb, [facility] [address] [facility] [id number] [place] [address] Jan, [facility] [address] [facility] [id number] [place] [address] Jan, [facility] [place] [facility] [address] [id number] [place] [address] Jan, [facility] [place] [facility] [address] [id number] [place] [address] Jan, [facility] [place] [facility] [address] [id number] [place] [address] Jan, [facility] [place] [facility] [address] [facility] [id number] [place] [address] Jan, [facility] [place] [facility] [address] [facility] [id number] [place] [address] Jan, [facility] [address] [facility] [id number] [place] [address] Jan, IMMUNIZATIONS No Known Immunizations SOCIAL HISTORY Never Assessed REASON FOR VISIT PLAN OF CARE VITAL SIGNS MEDICATIONS Unknown Medications RESULTS No Results PROCEDURES No Known procedures INSTRUCTIONS MEDICATIONS ADMINISTERED No Known Medications MEDICAL (GENERAL) HISTORY Type Description Date Medical History type II diabetes Medical History hyperlipidemia Medical History hypertension Medical History coronary artery disease Surgical History partial hysterectomy d/t fibroi ds - still has ovaries 1995 Surgical History section x 2 Surgical History cardiac stent 2006 Hospitalization History Myocardial infarction 20 06
--- OUTSIDE RECORDS SUMMARY | 2022-11-24 15:49 | XMS REPORT ---
Author Author [facility] ter of [facility] ter of [facility] Address Unknown Phone Unavailable Care Team Providers Care Accounting Policy Consultant Name Role Phone RAIMUNDO REYNOLDS Unavailable PROBLEMS Type Condition ICD9-CM Code XEB97-MH Code Onset Dates Condition Status W/U Status Risk SNOMED Code Notes Problem Chronic kidney disease, stage 3a N18.31 confirmed 834309833 Problem Severe nonproliferat miguelito diabetic retinopathy without macular edema associated with type 2 diabetes mellitus, unspecified laterality E11.3499 confirmed 211796617 Optho notes 03/2018- Severe nonproli ferative retinopa [...] ns and 2 mo follow ups. 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 Knutson ALLERGIES Allergen (clinical drug ingredient) Drug/Non Drug Allergy documented on EMR Reaction Allergy Type Onset Date Status atorvastatin Atorvastatin Calcium([facility] Code:[address]-03) Unknown Drug Allergy Active penicillin V Penicillin V Potassium([facility] Code:[address]-09) Unknown Drug Allergy Active ENCOUNTERS from 1955 to 2022-05-20 Encounter Location Date Provider Diagnosis [facility] [address] [facility] [id number] [place] [address] May, RAIMUNDO REYNOLDS IMMUNIZATIONS Vaccine Route Administration Date Status PRIVATE PPSV23 (PNEUMOVAX) IM Intramuscular August 30 017 Administered 1st Dose PFIZER, COVID-19, 0 .3mL (Comirnaty) Unknown July 09, 2021 Refused influenza IIV3 (history) Unknown Jan 13, 2012 [facility] influenza IIV3 (history) Unknown Feb 08, 2011 [facility] PRIVATE PCV 13 (PREVNAR) IM Intramuscular Dec 13 Administered PRIVATE FLULAVAL QUAD 0.5ML (6 MO AND UP) 2020 IM Intramuscular Jan 13, 2021 Administered influenza IIV3 (history) Unknown Dec 19, 2012 [facility] influenza IIV3 (history) Unknown Jan 21, 2014 [facility] PRIVATE TDAP (BOOSTRIX) IM Intramuscular Apr 09, 2020 Administered FLUARIX QUAD P-FREE 3 AND UP .50 2015 Unknown Jan 29, 2016 Administered PRIVATE FLULAVAL QUAD 0.5ML (6 MO AND UP) 2018 IM Intramuscular Feb 07, 2018 Administered STATE FUNDED FLULUVAL QUAD 0 .5ML [...] Duration) Notes Start Date End Date Status Glucocard Expression Monitor w/Device as directed sample Feb, Active Cranberry 250 MG as directed Orally Active Levemir FlexTouch 100 UNIT/ML 40 units twice daily Subcutaneous on 40 units a day Active NovoFine Plus 32G X 4 MM as directed Once a day Oct, Active Blood Glucose Meter 1 glucometer test 3 times per day Glucocard Expression maybe once a day Oct, Active BD Insulin Syr Ultrafine II 31G X 5/16" 0.3 ML as directed Samples Oct, Active NovoFine 32G X 6 MM as directed 3 times a day Oct, Active metFORMIN HCl ER 500 MG 2 tablets Orally twice a day for 90 days Active Carvedilol 3.125 MG 2 tablets Orally Twice a day for 90 days Active Lisinopril-hydroCHLOR Othiazide 20-25 MG 1 tablet Orally Once a day Active Glucocard Expression Test - as directed In Vitro 4 times a day for 30 days Feb, Active Cinnamon 500 MG Orally Acti ve levoFLOXacin 750 MG 1 tablet Orally Once a day for 10 days Apr, Active NovoLOG FlexPen 100 UNIT/ML 5 units Subcutaneous 3 times a day before meals only will take if her Blood sugar is high Feb, Active Aspir-81 81 MG 1 tablet Orally Once a day Active Lancets - as directed Feb, Activ e Victoza 18 MG/3ML 2.4 mg Subcutaneous Once a day Active REASON FOR VISIT refill request MEDICAL (GENERAL) HISTORY Type Description Date Medical History type II diabetes Medical History hyperlipidemia Medical History hypertension Medical History coronary artery disease Surgical History partial hysterectomy d/t fibroi ds - still has ovaries 1996 Surgical History section x 2 Surgical History cardiac stent 2006 Hospitalization History Myocardial infarction 20 06 MENTAL STATUS No Information PLAN OF TREATMENT Medication Medication Name Sig Start Date Stop Date levoFLOXacin 750 MG 1 tablet Orally Once a day for 10 days Apr, Next Appt Details Provider Name:BAKARI SINGH, 2022-06-13 11:20:00 AM, [address] [place] [address], [id number], [place], [address], Insurance Providers Payer Name Payer Address Payer Phone Insured Name Patient Relationship to Insured Coverage Start Date Coverage End Date Subscriber Number Group Number [employer] Medicare Advantage Choice Plan 2 (PPO) [address] [address] [facility] [address] Melanie Obando Self - patient is the insured [id number] [employer] MEDICARE Part A [address] [facility] [address] Melanie Obando Self - patient is the insured [id number]
--- OUTSIDE RECORDS SUMMARY | 2022-11-24 15:49 | XMS REPORT ---
Author Author Melanie Lanza Organization [facility] Address Unknown Phone Unavailable Care Team Providers Care Waiter/Waitress Tourist Class Name Role Phone Migration, Doctor Unavailable Unavailable PROBLEMS Type Condition ICD9-CM Code LFV37-BT Code Onset Dates Condition Status SNOMED Code Problem Hyperlipidemia E78.5 Active 70842714 Problem Type 2 diabetes mellitus with hyperglycemia E11.65 Active 542338967 Problem Severe nonproliferative diabetic retinopathy without macular edema associated with type 2 diabetes mellitus, unspecified laterality E11.3499 Active 355060073 Problem 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 I25.10 Active 6111399657809 Problem Essential hypertension I10 Active 69893592 ALLERGIES No Information ENCOUNTERS Encounter Location Date Diagnosis [place] [address] [address] Sep, [place] [address] [place] [id number] [place] [address] Aug, Type 2 diabetes mellitus with hyperglycemia E11.65 ; Essential hypertension I10 ; Hyperlipidemia E78.5 and Decreased GFR R94.4 [place] [address] [place] [id number] [place] [address] 17 Aug, 2019 Type 2 diabetes mellitus with hyperglycemia E11.65 ; Hyperlipidemia E78.5 and Essential hypertension I10 [place] [address] [place] [id number] [place] [address] July, [place] [address] [address] Feb, Type 2 diabetes mellitus with hyperglycemia E11.65 ; Hyperlipidemia E78.5 ; Essential hypertension I10 and Encounter for immunization Z23 [place] [address] [place] [id number] [place] [address] Feb, [place] [address] [address] Oct, [facility] [address], [place] [address] Oct, [facility] [address], [place] [address] Oct, Type 2 diabetes mellitus with hyperglycemia E11.65 [facility] [address] [place] [address] Sep, [facility] [address] [address] July, Type 2 diabetes mellitus with hyperglycemia E11.65 [facility] [address] [address] Mar, [facility] [address] [place] [address] Feb, [facility] [address] [place] [address] Jan, Type 2 diabetes mellitus with hyperglycemia E11.65 ; Essential hypertension I10 ; Hyperlipidemia E78.5 and Encounter for immunization Z23 [facility] [address], [place] [address] Sep, [facility] [address], [place] [address] July, Type 2 diabetes mellitus with hyperglycemia E11.65 [facility] [address], [place] [address] July, [facility] [address] [address] May, [facility] [address], [place] [address] May, Hyperlipidemia E78.5 [facility] [address], [place] [address] May, Type 2 diabetes mellitus with hyperglycemia E11.65 ; Essential hypertension I10 ; Hyperlipidemia E78.5 and Breast cancer screening Z12.31 [facility] [address], [place] [address] May, Type 2 diabetes mellitus with hyperglycemia E11.65 [facility] [address], [place] [address] Apr, Type 2 diabetes mellitus with hyperglycemia E11.65 [facility] [address] [place] [id number] [place] [address] Jan, [facility] [address] [place] [address] Jan, [facility] [address] [place] [id number] [place] [address] Jan, [facility] [address] [place] [id number] [place] [address] Sep, Essential hypertension I10 [facility] [address] [place] [address] Aug, Type 2 diabetes mellitus with hyperglycemia E11.65 [facility] [address], [place] [address] Aug, [facility] [address], [place] [address] Aug, Type 2 diabetes mellitus with hyperglycemia E11.65 ; Hyperlipidemia E78.5 ; Colon cancer screening Z12.11 ; Essential hypertension I10 and Encounter for immunization Z23 [facility] [address], [place] [address] July, Type 2 diabetes mellitus with hyperglycemia E11.65 [facility] [address] [place] [address] July, Type 2 diabetes mellitus with hyperglycemia E11.65 [facility] [address], [place] [address] Jun, [facility] [address] [place] [id number] [address] May, Essential hypertension I10 [facility] [address], [place] [address] May, [facility] [address] [place] [address] Apr, Acute non-recurrent frontal sinusitis J01.10 [facility] [address] [place] [address] Apr, Essential hypertension I10 [facility] [address] [place] [address] Apr, [facility] [address] [place] [id number] [place] [address] Mar, Type 2 diabetes mellitus with hyperglycemia E11.65 [facility] [address] [place] [id number] [place] [address] Mar, [facility] [address], [place] [address] Feb, Essential hypertension I10 [facility] [address] [place] [address] 14 Feb, 2016 [facility] [address], [place] [address] Feb, Type 2 diabetes mellitus with hyperglycemia E11.65 ; Essential hypertension I10 and Hyperlipidemia E78.5 [facility] [address], [place] [address] Jan, [facility] [address], [place] [address] Dec, [facility] [address] [place] [id number] [place] [address] Dec, [facility] [address], [place] [address] Oct, [facility] [address] [place] [id number] [address] 15 Aug, 2015 [facility] [address], [place] [address] 15 Aug, 2015 Hyperlipidemia E78.5 [facility] [address], [place] [address] 14 Aug, 2015 Type 2 diabetes mellitus with hyperglycemia E11.65 ; Hyperlipidemia E78.5 and Essential hypertension I10 [facility] [address], [place] [address] Aug, [facility] [address], [place] [address] Jun, [facility] [address], [place] [address] Jun, [facility] [address], [place] [address] Jun, [facility] [address], [place] [address] Apr, [facility] [address], [place] [address] Apr, [facility] [address], [place] [address] Mar, Hyperlipidemia E78.5 [facility] [address], [place] [address] Mar, Type 2 diabetes mellitus with hyperglycemia E11.65 ; Hyperlipidemia E78.5 and Essential hypertension I10 [facility] [address], [place] [address] Mar, [facility] [address], [place] [address] Nov, [facility] [address] [address] 08 Nov, 2014 [facility] [address] [place] [id number] [place] [address] Sep, Hyperlipidemia 272.4 [facility] [address] [place] [id number] [place] [address] Sep, [facility] [address] [place] [address] Sep, Diabetes mellitus, type II 250.00 ; Hypertension 401.9 and Hyperlipidemia 272.4 [facility] [address] [id number] [place] [address] Sep, [facility] [address] [place] [id number] [place] [address] Sep, [facility] [address] [place] [address] Sep, [facility] [address] [place] [address] Jun, [facility] [address] [place] [address] Jun, [facility] [address] [place] [address] Apr, [facility] [address] [place] [address] Apr, [facility] [address] [place] [address] Mar, [facility] [address] [place] [id number] [place] [address] Mar, [facility] [address] [place] [address] [id number] [place] [address] Mar, [facility] [address] [place] [id number] [place] [address] Mar, [facility] [address] [place] [id number] [place] [address] Feb, [facility] [place] [facility] [address] [id number] [place] [address] Feb, [facility] [place] [facility] [address] [id number] [place] [address] Jan, [facility] [place] [facility] [address] [id number] [place] [address] Jan, [facility] [place] [facility] [address] [id number] [place] [address] Jan, [facility] [place] [facility] [address] [id number] [place] [address] Jan, [facility] [place] [facility] [address] [id number] [place] [address] Sep, [facility] [place] [facility] [address] [id number] [place] [address] Sep, [facility] [place] [facility] [address] [id number] [place] [address] Sep, [facility] [place] [facility] [address] [id number] [place] [address] Sep, [facility] [place] [facility] [address] [id number] [place] [address] Sep, [facility] [place] [facility] [address] [id number] [place] [address] Sep, [facility] [place] [facility] [address] [id number] [place] [address] Aug, [facility] [place] [facility] [address] [id number] [place] [address] Aug, [facility] [place] [facility] [address] [id number] [place] [address] Aug, [facility] [place] [facility] [address] [id number] [place] [address] Aug, [facility] [place] [facility] [address] [id number] [place] [address] Apr, [facility] [address] [id number] [place] [address] Apr, [facility] [place] [facility] [address] [id number] [place] [address] Mar, [facility] [place] [facility] [address] [id number] [place] [address] Mar, [facility] [place] [facility] [address] [id number] [place] [address] Mar, [facility] [place] [facility] [address] [id number] [place] [address] Mar, [facility] [place] [facility] [address] [id number] [place] [address] Feb, [facility] [place] [facility] [address] [id number] [place] [address] Feb, [facility] [place] [facility] [address] [id number] [address] Feb, [facility] [place] [facility] [address] [id number] [place] [address] Feb, [facility] [place] [facility] [address] [id number] [address] Feb, [facility] [place] [facility] [address] [id number], [place] [address] Feb, [facility] [place] [facility] [address] [id number] [address] Feb, [facility] [place] [facility] [address] [id number] [place] [address] Feb, [facility] [place] [facility] [address] [id number], [place] [address] Jan, [facility] [place] [facility] [address] [id number] [place] [address] Jan, [facility] [place] [facility] [address] [id number] [place] [address] 31 Dec, 2012 [facility] [place] [facility] [address] [id number] [place] [address] 31 Dec, 2012 [facility] [place] [facility] [address] [id number] [place] [address] 30 Dec, 2012 [facility] [place] [facility] [address] [id number] [place] [address] 30 Dec, 2012 [facility] [place] [facility] [address] [id number] [place] [address] 08 Dec, 2012 [facility] [place] [facility] [address] [id number] [place] [address] 02 Dec, 2012 [facility] [place] [facility] [address] [id number] [place] [address] 10 Nov, 2012 [facility] [place] [facility] [address] [id number] [place] [address] Aug, [facility] [place] [facility] [address] [id number] [place] [address] Dec, [facility] [place] [facility] [address] [id number] [place] [address] Dec, [facility] [place] [facility] [address] [id number] [place] [address] 18 Nov, 2011 [facility] [place] [facility] [address] [id number] [place] [address] Sep, [facility] [place] [facility] [address] [id number] [place] [address] Sep, [facility] [place] [facility] [address] [id number] [place] [address] Sep, [facility] [place] [facility] [address] [id number] [place] [address] Aug, [facility] [place] [facility] [address] [id number] [place] [address] 14 Aug, 2011 [facility] [place] [facility] [address] [id number] [place] [address] Aug, [facility] [place] [facility] [address] [id number] [place] [address] Jun, [facility] [place] [facility] [address] [id number] [place] [address] Jun, [facility] [place] [facility] [address] [id number] [place] [address] Jun, [facility] [place] [facility] [address] [id number] [place] [address] May, [facility] [place] [facility] [address] [id number] [place] [address] May, [facility] [place] [facility] [address] [id number] [place] [address] May, [facility] [place] [facility] [address] [id number] [place] [address] Feb, [facility] [place] [facility] [address] [id number] [place] [address] Feb, [facility] [place] [facility] [address] [id number] [place] [address] Jan, [facility] [place] [facility] [address] [id number] [place] [address] Jan, [facility] [place] [facility] [address] [id number] [place] [address] Jan, [facility] [place] [facility] [address] [id number] [place] [address] Jan, [facility] [place] [facility] [address] [id number] [place] [address] Jan, [facility] [place] [facility] [address] [id number] [place] [address] Jan, [facility] [place] [facility] [address] [id number] [place] [address] Jan, [facility] [address] [facility] [id number] [place] [address] Jan, IMMUNIZATIONS No Known Immunizations SOCIAL HISTORY [...]
--- OUTSIDE RECORDS SUMMARY | 2022-11-24 15:49 | XMS REPORT ---
Author Author [facility] ter of [facility] ter of [facility] Address Unknown Phone Unavailable Care Team Providers Care Quality Control Expert Name Role Phone MILI TORRES Unavailable PROBLEMS Type Condition ICD9-CM Code HWD80-XA Code Onset Dates Condition Status SNOMED Code Notes Problem Hyperlipidemia E78.5 Active 10494135 Problem Type 2 diabetes mellitus with hyperglycemia E11.65 Active 136867365 Problem Severe nonproliferative diabetic retinopathy without macular edema associated with type 2 diabetes mellitus, unspecified laterality E11.3499 Active 458618469 Optho notes 03/2018- Severe nonproliferat miguelito retinopathy OU, obtain FA next visit to assess possible need for PRP. Diabetic macular edema OD >OS, recommend intravitreal anti-VEGF. Nuclear sclerosis OU observe. F/U in 4-5 weeks. 019 Retinal visit- severe noproliferati ve diabetic retinoapthy present, diabetic macular edema OD>OS which is mostly resolved, continue injections and 2 mo follow ups. Problem Coronary artery disease involving [place] coronary artery of [place] heart without angina pectoris I25.10 Active [id number] s/p st enting [place] [address] Knutson Problem Essential hypertension I10 Active 74873205 ALLERGIES Allergen (clinical drug ingredient) Drug/Non Drug Allergy documented on EMR Reaction Allergy Type Onset Date Status penicillin V Penicillin V Potassium([facility] Code:[address]-48) Unknown Drug Allergy Active ENCOUNTERS from 1955 to 2020-03-23 Encounter Location Date Provider Diagnosis [facility] [place] [address] [facility] [id number] [place] [address] Jun, MILI TORRES IMMUNIZATIONS Vaccine Route Administration Date Status influenza IIV3 (history) Unknown Jan 13, 2012 [facility] influenza IIV3 (history) Unknown Dec 19, 2012 [facility] influenza IIV3 (history) Unknown Jan 21, 2014 [facility] [facility] FUNDED FLULUVAL QUAD 0 .5ML 6 MONTHS AND UP 2018 IM Intramuscular Feb 27, 2019 Administered PRIVATE FLULAVAL QUAD 0.5ML (6 MO AND UP) 2019 IM Intramuscular Dec 28, 2019 Administered PRIVATE FLULAVAL QUAD 0.5ML (6 MO AND UP) 2018 IM Intramuscular Feb 07, 2018 Administered FLUARIX QUAD P-FREE 3 AND UP .50 2015 Unknown Jan 29, 2016 Administered influenza IIV3 (history) Unknown Feb 08, [...] times a day for 90 Active Pen [place] 32G X 5 MM as directed 3 [...] Name:RAIMUNDO Beyer, 2020-04-09 10:40:00 AM, [address] [facility] [place] 2], [id number], [place], [address],
--- OUTSIDE RECORDS SUMMARY | 2022-11-24 15:49 | XMS REPORT ---
Author Author Replaced By [facility] ter of [facility] ter of [facility] Address Unknown Phone Unavailable Care Team Providers Care Recruiting Team Lead Name Role Phone MILI TORRES Unavailable PROBLEMS Type Condition ICD9-CM Code QWX31-GY Code Onset Dates Condition Status SNOMED Code Notes Problem Hyperlipidemia E78.5 Active 36756210 Problem Type 2 diabetes mellitus with hyperglycemia E11.65 Active 604188000 Problem Severe nonproliferative diabetic retinopathy without macular edema associated with type 2 diabetes mellitus, unspecified laterality E11.3499 Active 191269073 Optho notes 03/2018- Severe nonproliferat miguelito retinopathy OU, obtain FA next visit to assess possible need for PRP. Diabetic macular edema OD >OS, recommend intravitreal anti-VEGF. Nuclear sclerosis OU observe. F/U in 4-5 weeks. 019 Retinal visit- severe noproliferati ve diabetic retinoapthy present, diabetic macular edema OD>OS which is mostly resolved, continue injections and 2 mo follow ups. Problem Coronary artery disease involving [place] coronary artery of [place] heart without angina pectoris I25.10 Active [id number] s/p st [place] [address] Knutson Problem Essential hypertension I10 Active 98918670 ALLERGIES Allergen (clinical drug ingredient) Drug/Non Drug Allergy documented on EMR Reaction Allergy Type Onset Date Status penicillin V Penicillin V Potassium([facility] Code:[address]-41) Unknown Drug Allergy Active ENCOUNTERS from 1955 to 2020-01-19 Encounter Location Date Provider Diagnosis [facility] [address] [facility] [id number] [place] [address] Sep, MILI TORRES IMMUNIZATIONS Vaccine Route Administration Date Status STATE FUNDED FLULUVAL QUAD 0 .5ML 6 MONTHS AND UP 2019 IM Intramuscular Feb 27, 2019 Administered PRIVATE FLULAVAL QUAD 0.5ML (6 MO AND UP) 2019 IM Intramuscular Dec 28, 2019 Administered PRIVATE PPSV23 (PNEUMOVAX) IM Intramuscular August 30 017 Administered influenza IIV3 (history) Unknown Feb 08, 2011 [place] [facility] influenza IIV3 (history) Unknown Jan 13, 2012 [facility] [facility] influenza IIV3 (history) Unknown Dec 19, 2012 [facility] [facility] PRIVATE FLULAVAL QUAD 0.5ML (6 MO AND UP) 2019 IM Intramuscular Feb 07, 2018 Administered FLUARIX QUAD P-FREE 3 AND UP .50 2015 Unknown Jan 29, 2016 Administered influenza IIV3 (history) Unknown Jan 21, 2014 [facility] SOCIAL HISTORY Sex Assigned At : Social History Observation Description Sex Assigned At Unknown Sexual History Question Answer Notes Had sex in the past 12 months (vaginal, oral, or anal)? No Have you ever had a Sexually transmitted disease ? No REASON FOR REFERRAL No Information VITAL SIGNS Height 67 in Sep, Weight 171.9 lbs Sep, Temperature 97.5 degrees Fahrenheit Sep, Heart Rate 80 bpm Sep, Respiratory Rate 18 bpm Sep, Blood pressure systolic 140 mmHg Sep, Blood pressure diastolic 90 mmHg Sep, MEDICATIONS Medication SIG (Take, Route, Frequency, Duration) Start Date End Date Status Cinnamon 500 MG Orally Active NovoTwist 32G X 5 MM as directed 4 times a day with novolog and victoza Oct, Active NovoFine 32G X 6 MM as directed 3 times a day Oct, Active NovoFine Plus 32G X 4 MM as directed Once a day Oct, 20 Active Pen [place] 32G X 5 MM as directed 3 [...] MG 1 tablet Orally Once a day 18 2015 Active BD Insulin Syr Ultrafine II [...]
--- OUTSIDE RECORDS SUMMARY | 2022-11-24 15:50 | XMS REPORT ---
Author Author Melanie TORRES [facility] Address [address] [place] [address] Care Team Providers Care Supervisor Throwing Department Name Role Phone MILI TORRES Unavailable PROBLEMS Type Condition ICD9-CM Code EME37-AB Code Onset Dates Condition Status SNOMED Code Problem Hyperlipidemia E78.5 Active 32807026 Problem Type 2 diabetes mellitus with hyperglycemia E11.65 Active 162538623 Problem Severe nonproliferative diabetic retinopathy without macular edema associated with type 2 diabetes mellitus, unspecified laterality E11.3499 Active 065694459 Problem Coronary artery disease involving [place] coronary artery of [place] heart without angina pectoris I25.10 Active [id number] Problem Essential hypertension I10 Active [id number] ALLERGIES No Information ENCOUNTERS Encounter Location Date Diagnosis [place] [address] [address] Feb, Type 2 diabetes mellitus with hyperglycemia E11.65 ; Hyperlipidemia E78.5 ; Essential hypertension I10 and Encounter for immunization Z23 [place] [address] [address] Feb, [place] [address] [address] Oct, [place] [address] [address] Oct, [place] [address] [address] Oct, Type 2 diabetes mellitus with hyperglycemia E11.65 [place] [address] [address] Sep, [place] [address] [address] July, Type 2 diabetes mellitus with hyperglycemia E11.65 [place] [address] [place] [id number] [place] [address] Mar, [facility] [address] [address] Feb, [facility] [address] [address] Jan, Type 2 diabetes mellitus with hyperglycemia E11.65 ; Essential hypertension I10 ; Hyperlipidemia E78.5 and Encounter for immunization Z23 [facility] [address] [address] Sep, [facility] [address] [address] July, Type 2 diabetes mellitus with hyperglycemia E11.65 [place] [address] [address] July, [place] [address] [address] May, [facility] [address] [place] [id number] [place] [address] May, Hyperlipidemia E78.5 [place] [address] [address] May, Type 2 diabetes mellitus with hyperglycemia E11.65 ; Essential hypertension I10 ; Hyperlipidemia E78.5 and Breast cancer screening Z12.31 [place] [address] [place] [id number] [place] [address] May, Type 2 diabetes mellitus with hyperglycemia E11.65 [facility] [address] [place] [id number] [place] [address] Apr, Type 2 diabetes mellitus with hyperglycemia E11.65 [place] [address] [place] [id number] [place] [address] Jan, [facility] [address] [address] Jan, [place] [address] [address] Jan, [facility] [address] [place] [id number] [place] [address] Sep, Essential hypertension I10 [facility] [address] [place] [id number] [place] [address] Aug, Type 2 diabetes mellitus with hyperglycemia E11.65 [facility] [address] [place] [id number] [place] [address] Aug, [facility] [address] [address] Aug, Type 2 diabetes mellitus with hyperglycemia E11.65 ; Hyperlipidemia E78.5 ; Colon cancer screening Z12.11 ; Essential hypertension I10 and Encounter for immunization Z23 [facility] [address] [place] [id number] [place] [address] July, Type 2 diabetes mellitus with hyperglycemia E11.65 [place] [address] [address] July, Type 2 diabetes mellitus with hyperglycemia E11.65 [facility] [address] [place] [id number] [place] [address] Jun, [facility] [address] [address] May, Essential hypertension I10 [facility] [address] [address] May, [facility] [address] [address] Apr, Acute non-recurrent frontal sinusitis J01.10 [facility] [address] [place] [id number] [place] [address] Apr, Essential hypertension I10 [facility] [address] [place] [id number] [place] [address] Apr, [facility] [address] [address] Mar, Type 2 diabetes mellitus with hyperglycemia E11.65 [facility] [address] [place] [address] [place] [address] 30 Mar, 2016 [facility] [address] [id number] [place] [address] 15 Feb, 2016 Essential hypertension I10 [facility] [address] [id number] [place] [address] 14 Feb, 2016 [facility] [address] [id number] [place] [address] Feb, Type 2 diabetes mellitus with hyperglycemia E11.65 ; Essential hypertension I10 and Hyperlipidemia E78.5 [facility] [address] [id number] [place] [address] Jan, [facility] [address] [id number] [place] [address] 17 Dec, 2015 [facility] [address] [id number] [place] [address] Dec, [facility] [address] [id number] [place] [address] Oct, [facility] [address] [id number] [place] [address] 15 Aug, 2015 [facility] [address] [id number] [place] [address] 15 Aug, 2015 Hyperlipidemia E78.5 [facility] [address] [id number] [place] [address] 14 Aug, 2015 Type 2 diabetes mellitus with hyperglycemia E11.65 ; Hyperlipidemia E78.5 and Essential hypertension I10 [facility] [address] [id number] [place] [address] Aug, [facility] [address] [id number] [place] [address] Jun, [facility] [address] [id number] [place] [address] Jun, [facility] [address] [id number] [place] [address] Jun, [facility] [address] [place] [id number] [place] [address] 12 Apr, 2015 [facility] [address] [place] [id number] [place] [address] Apr, [facility] [address] [place] [id number] [place] [address] Mar, Hyperlipidemia E78.5 [facility] [address] [place] [id number] [place] [address] Mar, Type 2 diabetes mellitus with hyperglycemia E11.65 ; Hyperlipidemia E78.5 and Essential hypertension I10 [facility] [address] [place] [id number] [place] [address] Mar, [facility] [address] [address] Nov, [facility] [address] [place] [id number] [place] [address] Nov, [facility] [address] [place] [id number] [place] [address] Sep, Hyperlipidemia 272.4 [facility] [address] [place] [id number] [place] [address] Sep, [facility] [address] [address] Sep, Diabetes mellitus, type II 250.00 ; Hypertension 401.9 and Hyperlipidemia 272.4 [facility] [address] [place] [id number] [place] [address] Sep, [facility] [address] [place] [id number] [place] [address] Sep, [facility] [address] [place] [id number] [place] [address] Sep, [facility] [address] [place] [id number] [place] [address] 14 Jun, 2014 [facility] [address] [address] Jun, [facility] [address] [place] [address] Apr, [facility] [address] [id number] [place] [address] Apr, [facility] [address] [id number] [place] [address] Mar, [facility] [address] [id number] [place] [address] Mar, [facility] [address] [id number] [place] [address] Mar, [facility] [address] [id number] [place] [address] Mar, [facility] [address] [id number] [place] [address] Feb, [facility] [address] [id number] [place] [address] Feb, [facility] [address] [id number] [place] [address] Jan, [facility] [address] [id number] [place] [address] Jan, [facility] [address] [id number] [place] [address] Jan, [facility] [address] [id number] [place] [address] Jan, [facility] [address] [id number] [place] [address] Sep, [facility] [address] [id number] [place] [address] Sep, [facility] [address] [id number] [place] [address] Sep, [facility] [address] [id number] [place] [address] Sep, [facility] [address] [id number] [place] [address] Sep, [facility] [address] [id number] [place] [address] Sep, [facility] [address] [id number] [place] [address] Aug, [facility] [address] [id number] [place] [address] Aug, [facility] [address] [id number] [place] [address] Aug, [facility] [address] [id number] [place] [address] Aug, [facility] [address] [id number] [place] [address] Apr, [facility] [address] [id number] [place] [address] Apr, [facility] [address] [place] [id number] [place] [address] Mar, [facility] [address] [id number] [place] [address] Mar, [facility] [address] [id number] [place] [address] Mar, [facility] [address] [id number] [place] [address] Mar, [facility] [address] [id number] [place] [address] Feb, [facility] [address] [id number] [place] [address] Feb, [facility] [address] [id number] [place] [address] Feb, [facility] [address] [id number] [place] [address] Feb, [facility] [address] [id number] [place] [address] Feb, [facility] [address] [id number] [place] [address] Feb, [facility] [address] [id number] [place] [address] Feb, [facility] [address] [id number] [place] [address] Feb, [facility] [address] [id number] [place] [address] Jan, [facility] [address] [id number] [place] [address] Jan, [facility] [address] [id number] [place] [address] Dec, [facility] [address] [id number] [place] [address] Dec, [facility] [address] [id number] [place] [address] Dec, [facility] [address] [id number] [place] [address] Dec, [facility] [address] [id number] [place] [address] Dec, [facility] [address] [id number] [place] [address] Dec, [facility] [address] [id number] [place] [address] Nov, [facility] [address] [id number] [place] [address] Aug, [facility] [address] [id number] [place] [address] Dec, [facility] [address] [id number] [place] [address] Dec, [facility] [address] [id number] [place] [address] Nov, [facility] [address] [id number] [place] [address] Sep, [facility] [address] [id number] [place] [address] 30 Sep, 2011 [facility] [address] [id number] [place] [address] Sep, [facility] [address] [id number] [place] [address] Aug, [facility] [address] [id number] [place] [address] Aug, [facility] [address] [id number] [place] [address] Aug, [facility] [address] [id number] [place] [address] Jun, [facility] [address] [id number] [place] [address] Jun, [facility] [address] [id number] [place] [address] Jun, [facility] [address] [id number] [place] [address] May, [facility] [address] [id number] [place] [address] May, [facility] [address] [id number] [place] [address] May, [facility] [address] [id number] [place] [address] Feb, [facility] [address] [id number] [place] [address] Feb, [facility] [address] [id number] [place] [address] Jan, [facility] [address] [place] [id number] [place] [address] Jan, [facility] [address] [id number] [place] [address] Jan, [facility] [address] [place] [id number] [place] [address] Jan, [facility] [address] [id number] [place] [address] Jan, [facility] [address] [id number] [place] [address] Jan, [facility] [address] [id number] [place] [address] Jan, [facility] [address] [id number] [place] [address] Jan, IMMUNIZATIONS No Known Immunizations SOCIAL HISTORY Never Assessed REASON FOR VISIT PLAN OF CARE VITAL SIGNS Height 67 in 2013-08-21 Weight 161.3 lbs 2013-08-21 Temperature 97.6 degrees Fahrenheit Heart Rate 82 bpm 2013-08-21 Respiratory Rate 20 2013-08-21 Blood pressure systolic 150 mmHg Blood pressure diastolic 88 mmHg 2013-08 MEDICATIONS No Known Medications RESULTS No Results PROCEDURES Procedure Date Ordered Result Body Site GLYCATED HEMOGLOBIN TEST August 21, 2013 MICROALBUMIN, SEMIQUANT August 21, 2013 LIPID PANEL August 21, 2013 COMPREHEN METABOLIC PANEL August 21, 2013 VENIPUNCT, ROUTINE* August 21, 2013 INSTRUCTIONS MEDICATIONS ADMINISTERED No Known Medications MEDICAL (GENERAL) HISTORY Type Description Date Medical History type II diabetes Medical History hyperlipidemia Medical History hypertension Medical History coronary artery disease Surgical History partial hysterectomy d/t fibroi ds - still has ovaries 1995 Surgical History section x 2 Surgical History cardiac stent 2005 Hospitalization History Myocardial infarction 06 09
--- OUTSIDE RECORDS SUMMARY | 2022-11-24 15:50 | XMS REPORT ---
Author Author Melanie TORRES Organization [facility] Address [address] [place] [address] Care Team Providers Care Composition Professor Name Role Phone MILI TORRES Unavailable PROBLEMS Type Condition ICD9-CM Code UHZ36-OV Code Onset Dates Condition Status SNOMED Code Problem Hyperlipidemia E78.5 Active 75237265 Problem Type 2 diabetes mellitus with hyperglycemia E11.65 Active 630437846 Problem Severe nonproliferative diabetic retinopathy without macular edema associated with type 2 diabetes mellitus, unspecified laterality E11.3499 Active 879236053 Problem Coronary artery disease involving [place] coronary artery of [place] heart without angina pectoris I25.10 Active [id number] Problem Essential hypertension I10 Active [id number] ALLERGIES No Information ENCOUNTERS Encounter Location Date Diagnosis [place] [address] [address] 18 Aug, 2019 Type 2 diabetes mellitus with hyperglycemia E11.65 ; Essential hypertension I10 ; Hyperlipidemia E78.5 and Decreased GFR R94.4 [place] [address] [address] 17 Aug, 2019 Type 2 diabetes mellitus with hyperglycemia E11.65 ; Hyperlipidemia E78.5 and Essential hypertension I10 [place] [address] [place] [id number] [place] [address] July, [place] [address] [address] Feb, Type 2 diabetes mellitus with hyperglycemia E11.65 ; Hyperlipidemia E78.5 ; Essential hypertension I10 and Encounter for immunization Z23 [place] [address] [place] [id number] [place] [address] Feb, [place] [address] [address] Oct, [facility] [address] [address] Oct, [facility] [id number] [place] [address] Oct, Type 2 diabetes mellitus with hyperglycemia E11.65 [facility] [address] [place] [id number] [place] [address] Sep, [facility] [address] [place] [id number] [place] [address] July, Type 2 diabetes mellitus with hyperglycemia E11.65 [facility] [address] [place] [id number] [place] [address] Mar, [facility] [id number] [place] [address] Feb, [facility] [address] [place] [id number] [place] [address] Jan, Type 2 diabetes mellitus with hyperglycemia E11.65 ; Essential hypertension I10 ; Hyperlipidemia E78.5 and Encounter for immunization Z23 [facility] [id number] [place] [address] Sep, [facility] [address], [place] [address] July, Type 2 diabetes mellitus with hyperglycemia E11.65 [facility] [address] [address] July, [facility] [address], [place] [address] May, [facility] [address] [place] [id number] [place] [address] May, Hyperlipidemia E78.5 [facility] [address], [place] [address] May, Type 2 diabetes mellitus with hyperglycemia E11.65 ; Essential hypertension I10 ; Hyperlipidemia E78.5 and Breast cancer screening Z12.31 [facility] [address], [place] [address] May, Type 2 diabetes mellitus with hyperglycemia E11.65 [facility] [address] [place] [id number] [place] [address] Apr, Type 2 diabetes mellitus with hyperglycemia E11.65 [facility] [address] [place] [id number] [place] [address] Jan, [facility] [address] [place] [id number] [place] [address] Jan, [facility] [address] [place] [id number] [place] [address] Jan, [place] [address] [place] [id number] [place] [address] Sep, Essential hypertension I10 [place] [address] [place] [id number] [place] [address] Aug, Type 2 diabetes mellitus with hyperglycemia E11.65 [place] [address] [place] [id number] [place] [address] Aug, [place] [address] [place] [id number] [place] [address] Aug, Type 2 diabetes mellitus with hyperglycemia E11.65 ; Hyperlipidemia E78.5 ; Colon cancer screening Z12.11 ; Essential hypertension I10 and Encounter for immunization Z23 [facility] [address] [place] [id number] [place] [address] July, Type 2 diabetes mellitus with hyperglycemia E11.65 [place] [address] [place] [id number] [place] [address] July, Type 2 diabetes mellitus with hyperglycemia E11.65 [facility] [address] [place] [id number] [place] [address] Jun, [facility] [address] [place] [id number] [place] [address] May, Essential hypertension I10 [facility] [address], [place] [address] May, [facility] [id number] [place] [address] Apr, Acute non-recurrent frontal sinusitis J01.10 [facility] [id number] [place] [address] Apr, Essential hypertension I10 [facility] [id number] [place] [address] Apr, [facility] [address] [place] [id number] [place] [address] Mar, Type 2 diabetes mellitus with hyperglycemia E11.65 [facility] [address] [place] [id number] [place] [address] Mar, [facility] [id number] [place] [address] Feb, Essential hypertension I10 [facility] [id number] [place] [address] 14 Feb, 2016 [facility] [id number] [place] [address] Feb, Type 2 diabetes mellitus with hyperglycemia E11.65 ; Essential hypertension I10 and Hyperlipidemia E78.5 [facility] [address], [place] [address] Jan, [facility] [address], [place] [address] Dec, [facility] [address] [place] [id number] [place] [address] Dec, [facility] [address], [place] [address] Oct, [facility] [address] [place] [id number] [place] [address] Aug, [facility] [address] [place] [address] Aug, Hyperlipidemia E78.5 [facility] [id number] [place] [address] Aug, Type 2 diabetes mellitus with hyperglycemia E11.65 ; Hyperlipidemia E78.5 and Essential hypertension I10 [facility] [id number] [place] [address] Aug, [facility] [id number] [place] [address] Jun, [facility] [id number] [place] [address] Jun, [facility] [address] [place] [id number] [place] [address] Jun, [facility] [id number] [place] [address] Apr, [facility] [address], [place] [address] Apr, [facility] [address] [place] [address] Mar, Hyperlipidemia E78.5 [facility] [address], [place] [address] Mar, Type 2 diabetes mellitus with hyperglycemia E11.65 ; Hyperlipidemia E78.5 and Essential hypertension I10 [facility] [address], [place] [address] Mar, [facility] [address] [place] [id number] [place] [address] Nov, [facility] [address], [place] [address] 08 Nov, 2014 [facility] [id number] [place] [address] Sep, Hyperlipidemia 272.4 [facility] [address] [id number] [place] [address] Sep, [facility] [address] [facility] [id number] [address] Sep, Diabetes mellitus, type II 250.00 ; Hypertension 401.9 and Hyperlipidemia 272.4 [facility] [address] [facility] [id number] [place] [address] Sep, [facility] [address] [facility] [id number] [place] [address] Sep, [facility] [address] [facility] [id number] [place] [address] Sep, [facility] [address] [place] [id number] [place] [address] Jun, [facility] [address] [place] [id number] [address] Jun, [facility] [address] [place] [id number] [place] [address] Apr, [facility] [address] [place] [id number], [place] [address] Apr, [facility] [address] [place] [id number] [address] Mar, [facility] [address] [place] [id number], [place] [address] Mar, [facility] [place] [facility] [address] [facility] [id number] [place] [address] Mar, [facility] [address] [facility] [id number], [place] [address] Mar, [facility] [place] [facility] [address] [place] [id number] [address] Feb, [facility] [address] [place] [id number] [address] Feb, [facility] [place] [facility] [address] [id number] [place] [address] Jan, [facility] [place] [facility] [address] [id number] [place] [address] Jan, [facility] [place] [facility] [address] [id number] [place] [address] Jan, [facility] [place] [facility] [address] [id number] [place] [address] Jan, [facility] [place] [facility] [address] [id number] [place] [address] Sep, [facility] [place] [facility] [address] [id number] [place] [address] Sep, [facility] [place] [facility] [address] [id number] [place] [address] Sep, [facility] [place] [facility] [address] [id number] [place] [address] Sep, [facility] [place] [facility] [address] [id number] [place] [address] Sep, [facility] [place] [facility] [address] [id number] [place] [address] Sep, [facility] [place] [facility] [address] [id number] [place] [address] Aug, [facility] [place] [facility] [address] [id number] [place] [address] Aug, [facility] [place] [facility] [address] [id number] [place] [address] Aug, [facility] [place] [facility] [address] [id number] [place] [address] Aug, [facility] [place] [facility] [address] [id number] [place] [address] Apr, [facility] [place] [facility] [address] [id number] [place] [address] Apr, [facility] [address] [id number] [place] [address] Mar, [facility] [place] [facility] [address] [id number] [place] [address] Mar, [facility] [address] [id number] [place] [address] Mar, [facility] [place] [facility] [address] [id number] [place] [address] Mar, [facility] [place] [facility] [address] [id number] [place] [address] Feb, [facility] [address] [id number] [place] [address] Feb, [facility] [address] [id number] [place] [address] Feb, [facility] [place] [facility] [address] [id number] [place] [address] Feb, [facility] [place] [facility] [address] [id number] [place] [address] Feb, [facility] [place] [facility] [address] [id number] [place] [address] Feb, [facility] [place] [facility] [address] [id number] [place] [address] Feb, [facility] [place] [facility] [address] [id number] [place] [address] Feb, [facility] [place] [facility] [address] [id number] [place] [address] Jan, [facility] [place] [facility] [address] [id number] [place] [address] Jan, [facility] [place] [facility] [address] [id number] [place] [address] Dec, [facility] [place] [facility] [address] [id number] [place] [address] 31 Dec, 2012 [facility] [place] [facility] [address] [id number] [place] [address] 30 Dec, 2012 [facility] [place] [facility] [address] [id number] [place] [address] 30 Dec, 2012 [facility] [place] [facility] [address] [id number] [place] [address] 08 Dec, 2012 [facility] [place] [facility] [address] [id number] [place] [address] 02 Dec, 2012 [facility] [place] [facility] [address] [id number] [place] [address] 10 Nov, 2012 [facility] [place] [facility] [address] [id number] [place] [address] Aug, [facility] [place] [facility] [address] [id number] [place] [address] Dec, [facility] [place] [facility] [address] [id number] [place] [address] Dec, [facility] [place] [facility] [address] [id number] [place] [address] Nov, [facility] [place] [facility] [address] [id number], [place] [address] Sep, [facility] [place] [facility] [address] [id number], [place] [address] Sep, [facility] [place] [facility] [address] [id number] [place] [address] Sep, [facility] [place] [facility] [address] [id number] [place] [address] Aug, [facility] [place] [facility] [address] [id number] [place] [address] 14 Aug, 2011 [facility] [place] [facility] [address] [id number] [place] [address] Aug, [facility] [address] [id number] [place] [address] Jun, [facility] [place] [facility] [address] [id number] [place] [address] Jun, [facility] [address] [id number] [place] [address] Jun, [facility] [address] [id number] [place] [address] May, [facility] [address] [id number] [place] [address] May, [facility] [address] [id number] [place] [address] May, [facility] [address] [facility] [id number] [place] [address] Feb, [facility] [address] [id number] [place] [address] Feb, [facility] [address] [facility] [id number] [place] [address] Jan, [facility] [address] [facility] [id number] [place] [address] Jan, [facility] [place] [facility] [address] [id number] [place] [address] Jan, [facility] [place] [facility] [address] [id number] [place] [address] Jan, [facility] [place] [facility] [address] [id number] [place] [address] Jan, [facility] [place] [facility] [address] [facility] [id number] [place] [address] Jan, [facility] [place] [facility] [address] [facility] [id number] [place] [address] Jan, [facility] [address] [facility] [id number] [place] [address] Jan, IMMUNIZATIONS No Known Immunizations SOCIAL HISTORY [...]
--- OUTSIDE RECORDS SUMMARY | 2022-11-24 15:50 | XMS REPORT ---
Author Author Melanie TORRES [facility] Address [address] [place] [address] Care Team Providers Care Card Brusher Name Role Phone MILI TORRES Unavailable PROBLEMS Type Condition ICD9-CM Code HUY88-VW Code Onset Dates Condition Status SNOMED Code Problem Hyperlipidemia E78.5 Active 89718524 Problem Type 2 diabetes mellitus with hyperglycemia E11.65 Active 338285739 Problem Severe nonproliferative diabetic retinopathy without macular edema associated with type 2 diabetes mellitus, unspecified laterality E11.3499 Active 849471921 Problem Coronary artery disease involving [place] coronary artery of [place] heart without angina pectoris I25.10 Active [id number] Problem Essential hypertension I10 Active 24112075 ALLERGIES No Information ENCOUNTERS Encounter Location Date Diagnosis [place] [address] [address] Feb, Type 2 diabetes mellitus with hyperglycemia E11.65 ; Hyperlipidemia E78.5 ; Essential hypertension I10 and Encounter for immunization Z23 [place] [address] [address] Feb, [place] [address] [address] Oct, [place] [address] [address] Oct, [place] [address] [address] Oct, Type 2 diabetes mellitus with hyperglycemia E11.65 [place] [address] [address] Sep, [place] [address] [address] July, Type 2 diabetes mellitus with hyperglycemia E11.65 [place] [address] [place] [id number] [place] [address] Mar, [facility] [address] [address] Feb, [facility] [address] [address] Jan, Type 2 diabetes mellitus with hyperglycemia E11.65 ; Essential hypertension I10 ; Hyperlipidemia E78.5 and Encounter for immunization Z23 [facility] [address] [address] Sep, [facility] [address] [address] July, Type 2 diabetes mellitus with hyperglycemia E11.65 [place] [address] [address] July, [place] [address] [address] May, [facility] [address] [place] [id number] [place] [address] May, Hyperlipidemia E78.5 [place] [address] [address] May, Type 2 diabetes mellitus with hyperglycemia E11.65 ; Essential hypertension I10 ; Hyperlipidemia E78.5 and Breast cancer screening Z12.31 [place] [address] [place] [id number] [place] [address] May, Type 2 diabetes mellitus with hyperglycemia E11.65 [facility] [address] [place] [id number] [place] [address] Apr, Type 2 diabetes mellitus with hyperglycemia E11.65 [place] [address] [place] [id number] [place] [address] Jan, [facility] [address] [address] Jan, [place] [address] [address] Jan, [facility] [address] [place] [id number] [place] [address] Sep, Essential hypertension I10 [facility] [address] [place] [address] [id number] [place] [address] Aug, Type 2 diabetes mellitus with hyperglycemia E11.65 [facility] [address] [place] [id number] [place] [address] Aug, [facility] [address] [address] Aug, Type 2 diabetes mellitus with hyperglycemia E11.65 ; Hyperlipidemia E78.5 ; Colon cancer screening Z12.11 ; Essential hypertension I10 and Encounter for immunization Z23 [facility] [address] [place] [id number] [place] [address] July, Type 2 diabetes mellitus with hyperglycemia E11.65 [place] [address] [address] July, Type 2 diabetes mellitus with hyperglycemia E11.65 [facility] [address] [place] [id number] [place] [address] Jun, [facility] [address] [address] May, Essential hypertension I10 [facility] [address] [address] May, [facility] [address] [address] Apr, Acute non-recurrent frontal sinusitis J01.10 [facility] [address] [place] [id number] [place] [address] Apr, Essential hypertension I10 [facility] [address] [place] [id number] [place] [address] Apr, [facility] [address] [address] Mar, Type 2 diabetes mellitus with hyperglycemia E11.65 [facility] [address] [place] [address] [place] [address] 30 Mar, 2016 [facility] [address] [id number] [place] [address] 15 Feb, [address] [facility] [address] [id number] [place] [address] 14 Feb, 2016 [facility] [address] [id number] [place] [address] Feb, Type 2 diabetes mellitus with hyperglycemia E11.65 ; Essential hypertension I10 and Hyperlipidemia E78.5 [facility] [address] [id number] [place] [address] Jan, [facility] [address] [id number] [place] [address] [address], [address] [facility] [address] [id number] [place] [address] Dec, [facility] [address] [id number] [place] [address] Oct, [facility] [address] [id number] [place] [address] [address], [address] [facility] [address] [id number] [place] [address] 15 Aug, [address] [facility] [address] [id number] [place] [address] 14 Aug, 2015 Type 2 diabetes mellitus with hyperglycemia E11.65 ; Hyperlipidemia E78.5 and Essential hypertension I10 [facility] [address] [id number] [place] [address] Aug, [facility] [address] [id number] [place] [address] Jun, [facility] [address] [id number] [place] [address] Jun, [facility] [address] [id number] [place] [address] Jun, [facility] [address] [place] [id number] [place] [address] [address], [address] [facility] [address] [place] [id number] [place] [address] Apr, [facility] [address] [place] [id number] [place] [address] Mar, Hyperlipidemia E[address].5 [facility] [address] [place] [id number] [place] [address] Mar, Type 2 diabetes mellitus with hyperglycemia E11.65 ; Hyperlipidemia E78.5 and Essential hypertension I10 [facility] [address] [place] [id number] [place] [address] Mar, [facility] [address] [address] Nov, [facility] [address] [place] [id number] [place] [address] Nov, [facility] [address] [place] [address] [id number] [place] [address] Sep, Hyper[address] [facility] [address] [place] [id number] [place] [address] Sep, [facility] [address] [address] Sep, Diabetes mellitus, type II 250.00 ; Hypertension 401.[address] [facility] [address] [place] [id number] [place] [address] Sep, [facility] [address] [place] [id number] [place] [address] Sep, [facility] [address] [place] [id number] [place] [address] Sep, [facility] [address] [place] [id number] [place] [address] [address], [address] [facility] [address] [address] Jun, [facility] [address] [place] [address] Apr, [facility] [address] [id number] [place] [address] Apr, [facility] [address] [id number] [place] [address] Mar, [facility] [address] [id number] [place] [address] Mar, [facility] [address] [id number] [place] [address] Mar, [facility] [address] [id number] [place] [address] Mar, [facility] [address] [id number] [place] [address] Feb, [facility] [address] [id number] [place] [address] Feb, [facility] [address] [id number] [place] [address] Jan, [facility] [address] [id number] [place] [address] Jan, [facility] [address] [id number] [place] [address] Jan, [facility] [address] [id number] [place] [address] Jan, [facility] [address] [id number] [place] [address] Sep, [facility] [address] [id number] [place] [address] Sep, [facility] [address] [id number] [place] [address] Sep, [facility] [address] [id number] [place] [address] Sep, [facility] [address] [id number] [place] [address] Sep, [facility] [address] [id number] [place] [address] Sep, [facility] [address] [id number] [place] [address] Aug, [facility] [address] [id number] [place] [address] Aug, [facility] [address] [id number] [place] [address] Aug, [facility] [address] [id number] [place] [address] Aug, [facility] [address] [id number] [place] [address] Apr, [facility] [address] [id number] [place] [address] Apr, [facility] [address] [place] [id number] [place] [address] Mar, [facility] [address] [id number] [place] [address] Mar, [facility] [address] [id number] [place] [address] Mar, [facility] [address] [id number] [place] [address] Mar, [facility] [address] [id number] [place] [address] Feb, [facility] [address] [id number] [place] [address] Feb, [facility] [address] [id number] [place] [address] Feb, [facility] [address] [id number] [place] [address] Feb, [facility] [address] [id number] [place] [address] Feb, [facility] [address] [id number] [place] [address] Feb, [facility] [address] [id number] [place] [address] Feb, [facility] [address] [id number] [place] [address] Feb, [facility] [address] [id number] [place] [address] Jan, [facility] [address] [id number] [place] [address] Jan, [facility] [address] [id number] [place] [address] Dec, [facility] [address] [id number] [place] [address] Dec, [facility] [address] [id number] [place] [address] Dec, [facility] [address] [id number] [place] [address] Dec, [facility] [address] [id number] [place] [address] Dec, [facility] [address] [id number] [place] [address] Dec, [facility] [address] [id number] [place] [address] Nov, [facility] [address] [id number] [place] [address] Aug, [facility] [address] [id number] [place] [address] Dec, [facility] [address] [id number] [place] [address] Dec, [facility] [address] [id number] [place] [address] Nov, [facility] [address] [id number] [place] [address] Sep, [facility] [address] [id number] [place] [address] 30 Sep, 2011 [facility] [address] [id number] [place] [address] Sep, [facility] [address] [id number] [place] [address] Aug, [facility] [address] [id number] [place] [address] Aug, [facility] [address] [id number] [place] [address] Aug, [facility] [address] [id number] [place] [address] Jun, [facility] [address] [id number] [place] [address] Jun, [facility] [address] [id number] [place] [address] Jun, [facility] [address] [id number] [place] [address] May, [facility] [address] [id number] [place] [address] May, [facility] [address] [id number] [place] [address] May, [facility] [address] [id number] [place] [address] Feb, [facility] [address] [id number] [place] [address] Feb, [facility] [address] [id number] [place] [address] Jan, [facility] [address] [place] [id number] [place] [address] Jan, [facility] [address] [id number] [place] [address] Jan, [facility] [address] [id number] [place] [address] Jan, [facility] [address] [id number] [place] [address] Jan, [facility] [address] [id number] [place] [address] Jan, [facility] [address] [id number] [place] [address] Jan, [facility] [address] [id number] [place] [address] Jan, IMMUNIZATIONS No Known Immunizations SOCIAL HISTORY Never Assessed REASON FOR VISIT PLAN OF CARE VITAL SIGNS MEDICATIONS No Known Medications RESULTS No Results PROCEDURES No Known [...]
--- OUTSIDE RECORDS SUMMARY | 2022-11-24 15:50 | XMS REPORT ---
Author Author Melanie Lanza Organization [facility] Address Unknown Phone Unavailable Care Team Providers Care Manager Billing Name Role Phone Migration, Doctor Unavailable Unavailable PROBLEMS Type Condition ICD9-CM Code TRA75-PX Code Onset Dates Condition Status SNOMED Code Problem Hyperlipidemia E78.5 Active 71163092 Problem Type 2 diabetes mellitus with hyperglycemia E11.65 Active 670123014 Problem Severe nonproliferative diabetic retinopathy without macular edema associated with type 2 diabetes mellitus, unspecified laterality E11.3499 Active 211179460 Problem Coronary artery disease involving [place] coronary artery of [place] heart without angina pectoris I25.10 Active [id number] Problem Essential hypertension I10 Active 30394810 ALLERGIES No Information ENCOUNTERS Encounter Location Date Diagnosis [place] [address] [address] Oct, Type 2 diabetes mellitus with hyperglycemia E11.65 [place] [address] [address] Sep, [place] [address] [address] July, Type 2 diabetes mellitus with hyperglycemia E11.65 [place] [address] [place] [id number] [place] [address] Mar, [facility] [address] [place] [id number] [place] [address] Feb, [place] [address] [address] Jan, Type 2 diabetes mellitus with hyperglycemia E11.65 ; Essential hypertension I10 ; Hyperlipidemia E78.5 and Encounter for immunization Z23 [place] [address] [address] Sep, [place] [address] [place] [address] July, Type 2 diabetes mellitus with hyperglycemia E11.65 [facility] [address], [place] [address] July, [facility] [address], [place] [address] May, [facility] [address] [place] [id number] [place] [address] May, Hyperlipidemia E78.5 [facility] [address] [place] [id number] [place] [address] May, Type 2 diabetes mellitus with hyperglycemia E11.65 ; Essential hypertension I10 ; Hyperlipidemia E78.5 and Breast cancer screening Z12.31 [facility] [address], [place] [address] May, Type 2 diabetes mellitus with hyperglycemia E11.65 [facility] [address], [place] [address] Apr, Type 2 diabetes mellitus with hyperglycemia E11.65 [facility] [id number] [place] [address] Jan, [facility] [address], [place] [address] Jan, [facility] [address], [place] [address] Jan, [facility] [address], [place] [address] Sep, Essential hypertension I10 [facility] [id number] [place] [address] Aug, Type 2 diabetes mellitus with hyperglycemia E11.65 [facility] [address], [place] [address] Aug, [facility] [id number] [place] [address] Aug, Type 2 diabetes mellitus with hyperglycemia E11.65 ; Hyperlipidemia E78.5 ; Colon cancer screening Z12.11 ; Essential hypertension I10 and Encounter for immunization Z23 [facility] [address] [place] [id number] [place] [address] July, Type 2 diabetes mellitus with hyperglycemia E11.65 [facility] [address] [place] [id number] [place] [address] July, Type 2 diabetes mellitus with hyperglycemia E11.65 [facility] [address] [place] [id number] [place] [address] Jun, [facility] [address] [place] [id number] [place] [address] May, Essential hypertension I10 [facility] [address] [place] [id number] [place] [address] May, [facility] [address] [place] [id number] [place] [address] Apr, Acute non-recurrent frontal sinusitis J01.10 [facility] [address] [place] [id number] [place] [address] Apr, Essential hypertension I10 [facility] [address] [place] [id number] [place] [address] Apr, [facility] [address] [place] [id number] [place] [address] Mar, Type 2 diabetes mellitus with hyperglycemia E11.65 [facility] [id number] [place] [address] Mar, [facility] [address] [place] [id number] [place] [address] Feb, Essential hypertension I10 [facility] [address] [place] [id number] [place] [address] Feb, [facility] [address] [place] [id number] [place] [address] Feb, Type 2 diabetes mellitus with hyperglycemia E11.65 ; Essential hypertension I10 and Hyperlipidemia E78.5 [facility] [address], [place] [address] Jan, [facility] [address] [place] [id number] [address] 17 Dec, 2015 [facility] [address] [place] [id number] [place] [address] Dec, [facility] [address] [place] [id number] [place] [address] Oct, [facility] [address] [place] [id number] [place] [address] 15 Aug, 2015 [facility] [address] [place] [id number] [place] [address] 15 Aug, 2015 Hyperlipidemia E78.5 [facility] [address] [place] [id number] [place] [address] 14 Aug, 2015 Type 2 diabetes mellitus with hyperglycemia E11.65 ; Hyperlipidemia E78.5 and Essential hypertension I10 [facility] [address], [place] [address] Aug, [facility] [address], [place] [address] Jun, [facility] [address], [place] [address] Jun, [facility] [id number] [place] [address] Jun, [facility] [address] [place] [id number] [place] [address] Apr, [facility] [address], [place] [address] Apr, [facility] [address] [place] [id number] [place] [address] Mar, Hyperlipidemia E78.5 [facility] [id number] [place] [address] Mar, Type 2 diabetes mellitus with hyperglycemia E11.65 ; Hyperlipidemia E78.5 and Essential hypertension I10 [facility] [address], [place] [address] Mar, [facility] [address] [place] [id number] [place] [address] Nov, [facility] [address] [place] [id number] [place] [address] Nov, [facility] [address] [place] [id number] [place] [address] Sep, Hyperlipidemia 272.4 [facility] [address] [place] [id number] [place] [address] Sep, [facility] [address] [place] [id number] [place] [address] Sep, Diabetes mellitus, type II 250.00 ; Hypertension 401.9 and Hyperlipidemia 272.4 [facility] [address] [place] [id number] [place] [address] Sep, [facility] [id number] [place] [address] Sep, [facility] [id number] [place] [address] Sep, [facility] [id number] [place] [address] Jun, [facility] [id number] [place] [address] Jun, [facility] [address], [place] [address] Apr, [facility] [id number] [place] [address] Apr, [facility] [place] [facility] [address] [id number] [place] [address] Mar, [facility] [place] [facility] [address] [id number] [place] [address] Mar, [facility] [place] [facility] [address] [id number] [place] [address] Mar, [facility] [place] [facility] [address] [id number] [place] [address] Mar, [facility] [place] [facility] [address] [id number] [place] [address] Feb, [facility] [place] [facility] [address] [id number] [place] [address] Feb, [facility] [place] [facility] [address] [id number] [place] [address] Jan, [facility] [place] [facility] [address] [id number] [place] [address] Jan, [facility] [place] [facility] [address] [id number] [place] [address] Jan, [facility] [place] [facility] [address] [id number] [place] [address] Jan, [facility] [place] [facility] [address] [id number] [place] [address] Sep, [facility] [place] [facility] [address] [id number] [place] [address] Sep, [facility] [place] [facility] [address] [id number] [place] [address] Sep, [facility] [place] [facility] [address] [id number] [place] [address] Sep, [facility] [place] [facility] [address] [id number] [place] [address] Sep, [facility] [place] [facility] [address] [id number], [place] [address] Sep, [facility] [place] [facility] [address] [id number] [place] [address] Aug, [facility] [place] [facility] [address] [id number] [place] [address] Aug, [facility] [place] [facility] [address] [facility] [id number] [place] [address] Aug, [facility] [place] [facility] [address] [id number] [place] [address] Aug, [facility] [place] [facility] [address] [id number] [place] [address] Apr, [facility] [place] [facility] [address] [id number] [place] [address] Apr, [facility] [place] [facility] [address] [id number] [place] [address] Mar, [facility] [place] [facility] [address] [id number] [place] [address] Mar, [facility] [place] [facility] [address] [id number] [place] [address] Mar, [facility] [place] [facility] [address] [facility] [id number] [place] [address] Mar, [facility] [place] [facility] [address] [id number] [place] [address] Feb, [facility] [place] [facility] [address] [id number], [place] [address] Feb, [facility] [place] [facility] [address] [id number] [place] [address] Feb, [facility] [place] [facility] [address] [id number] [place] [address] Feb, [facility] [place] [facility] [address] [facility] [id number], [place] [address] Feb, [facility] [place] [facility] [address] [id number] [place] [address] Feb, [facility] [place] [facility] [address] [id number] [place] [address] Feb, [facility] [place] [facility] [address] [id number] [place] [address] Feb, [facility] [place] [facility] [address] [id number] [place] [address] Jan, [facility] [place] [facility] [address] [id number] [place] [address] Jan, [facility] [place] [facility] [address] [id number] [place] [address] Dec, [facility] [place] [facility] [address] [id number] [place] [address] Dec, [facility] [place] [facility] [address] [id number] [place] [address] Dec, [facility] [place] [facility] [address] [id number] [place] [address] Dec, [facility] [place] [facility] [address] [id number] [place] [address] Dec, [facility] [place] [facility] [address] [id number] [place] [address] Dec, [facility] [place] [facility] [address] [id number] [place] [address] Nov, [facility] [place] [facility] [address] [id number] [place] [address] Aug, [facility] [place] [facility] [address] [id number] [place] [address] Dec, [facility] [place] [facility] [address] [id number] [place] [address] Dec, [facility] [place] [facility] [address] [id number] [place] [address] Nov, [facility] [place] [facility] [address] [id number] [place] [address] Sep, [facility] [place] [facility] [address] [id number] [place] [address] Sep, [facility] [place] [facility] [address] [facility] [id number] [place] [address] Sep, [facility] [place] [facility] [address] [id number] [place] [address] Aug, [facility] [place] [facility] [address] [id number] [place] [address] Aug, [facility] [place] [facility] [address] [id number] [place] [address] Aug, [facility] [place] [facility] [address] [id number] [place] [address] Jun, [facility] [place] [facility] [address] [id number] [place] [address] Jun, [facility] [place] [facility] [address] [id number] [place] [address] Jun, [facility] [place] [facility] [address] [id number] [place] [address] May, [facility] [place] [facility] [address] [id number] [place] [address] May, [facility] [place] [facility] [address] [id number], [place] [address] May, [facility] [place] [facility] [address] [id number] [place] [address] Feb, [facility] [place] [facility] [address] [id number] [place] [address] Feb, [facility] [place] [facility] [address] [id number] [place] [address] Jan, [facility] [place] [facility] [address] [facility] [id number] [place] [address] Jan, [facility] [address] [facility] [id number], [place] [address] Jan, [facility] [address] [facility] [id number], [place] [address] Jan, [facility] [address] [facility] [id number], [place] [address] Jan, [facility] [address] [facility] [id number], [place] [address] Jan, [facility] [address] [facility] [id number], [place] [address] Jan, [facility] [address] [facility] [id number], [place] [address] Jan, IMMUNIZATIONS No Known Immunizations SOCIAL HISTORY Never Assessed REASON FOR VISIT PLAN OF CARE VITAL SIGNS Height 67 in 2014-01-21 Weight 161.9 lbs 2014-01-21 Temperature 97.6 degrees Fahrenheit Heart Rate 72 bpm 2014-01-21 Respiratory Rate 18 2014-01-21 Blood pressure systolic 168 mmHg Blood pressure diastolic 98 mmHg 2014-01 MEDICATIONS Unknown Medications RESULTS No Results PROCEDURES Procedure Date Ordered Result Body Site ASSAY THYROID STIM HORMONE Jan 21, 2014 GLYCATED HEMOGLOBIN TEST Jan 21, 2014 MICROALBUMIN, SEMIQUANT Jan 21, 2014 LIPID PANEL Jan 21, 2014 COMPREHEN METABOLIC PANEL Jan 21, 2014 VENIPUNCT, ROUTINE* Jan 21, 2014 INSTRUCTIONS MEDICATIONS ADMINISTERED No Known Medications MEDICAL (GENERAL) HISTORY Type Description Date Medical History type II diabetes Medical History hyperlipidemia Medical History hypertension Medical History coronary artery disease Surgical History partial hysterectomy d/t fibroi ds - still has ovaries 1995 Surgical History section x 2 Surgical History cardiac stent 2005 Hospitalization History Myocardial infarction 06
--- OUTSIDE RECORDS SUMMARY | 2022-11-24 15:50 | XMS REPORT ---
Author Author Melanie Lanza Organization [facility] Address Unknown Phone Unavailable Care Team Providers Care Structures Technician Name Role Phone Migration, Doctor Unavailable Unavailable PROBLEMS Type Condition ICD9-CM Code MQM86-PD Code Onset Dates Condition Status SNOMED Code Problem Hyperlipidemia E78.5 Active 68016779 Problem Type 2 diabetes mellitus with hyperglycemia E11.65 Active 517499755 Problem Severe nonproliferative diabetic retinopathy without macular edema associated with type 2 diabetes mellitus, unspecified laterality E11.3499 Active 697670501 Problem Coronary artery disease involving [place] coronary artery of [place] heart without angina pectoris I25.10 Active [id number] Problem Essential hypertension I10 Active [id number] ALLERGIES No Information ENCOUNTERS Encounter Location Date Diagnosis [facility], [place] [id number] [place] [address] Oct, [facility], [place] [id number] [place] [address] Oct, [facility], [place] [id number] [place] [address] Oct, Type 2 diabetes mellitus with hyperglycemia E11.65 [facility], [place] [id number] [address] Sep, [facility], [place] [id number] [place] [address] July, Type 2 diabetes mellitus with hyperglycemia E11.65 [facility], [place] [id number] [place] [address] Mar, [facility], [place] [id number] [place] [address] Feb, [facility], [place] [id number] [place] [address] Jan, Type 2 diabetes mellitus with hyperglycemia E11.65 ; Essential hypertension I10 ; Hyperlipidemia E78.5 and Encounter for immunization Z23 [facility], [place] [address] [address] Sep, [facility], [place] [id number] [place] [address] July, Type 2 diabetes mellitus with hyperglycemia E11.65 [facility], [place] [id number] [place] [address] July, [facility], [place] [id number] [place] [address] May, [facility], [place] [id number] [place] [address] May, Hyperlipidemia E78.5 [facility], [place] [id number] [place] [address] May, Type 2 diabetes mellitus with hyperglycemia E11.65 ; Essential hypertension I10 ; Hyperlipidemia E78.5 and Breast cancer screening Z12.31 [facility], [place] [address] [address] May, Type 2 diabetes mellitus with hyperglycemia E11.65 [facility], [place] [address] [address] Apr, Type 2 diabetes mellitus with hyperglycemia E11.65 [facility], [place] [address] [address] Jan, [facility], [place] [address] [address] Jan, [facility], [place] [address] [address] Jan, [facility], [place] [address] [address] Sep, Essential hypertension I10 [facility], [place] [address] [address] Aug, Type 2 diabetes mellitus with hyperglycemia E11.65 [facility], [place] [id number] [place] [address] Aug, [facility], [place] [id number] [place] [address] Aug, Type 2 diabetes mellitus with hyperglycemia E11.65 ; Hyperlipidemia E78.5 ; Colon cancer screening Z12.11 ; Essential hypertension I10 and Encounter for immunization Z23 [facility], [place] [id number] [place] [address] July, Type 2 diabetes mellitus with hyperglycemia E11.65 [facility], [place] [id number] [place] [address] July, Type 2 diabetes mellitus with hyperglycemia E11.65 [facility], [place] [id number] [place] [address] Jun, [facility], [place] [id number] [place] [address] May, Essential hypertension I10 [facility] [place] [id number] [place] [address] May, [facility], [place] [id number] [place] [address] Apr, Acute non-recurrent frontal sinusitis J01.10 [facility], [place] [id number] [place] [address] Apr, Essential hypertension I10 [facility], [place] [address] [place] [address] Apr, [facility], [place] [id number] [place] [address] Mar, Type 2 diabetes mellitus with hyperglycemia E11.65 [facility], [place] [address] [address] Mar, [facility], [place] [id number] [place] [address] 15 Feb, 2016 Essential hypertension I10 [facility], [place] [id number] [place] [address] 14 Feb, 2016 [facility], [place] [address] [address] Feb, Type 2 diabetes mellitus with hyperglycemia E11.65 ; Essential hypertension I10 and Hyperlipidemia E78.5 [facility], [place] [id number] [place] [address], [place] [address] Jan, [facility], [place] [id number] [place] [address] Dec, [facility], [place] [id number] [place] [address], [place] [address] Dec, [facility], [place] [id number] [place] [address] Oct, [facility], [place] [address] [place] [address] Aug, [facility], [place] [address] [address] Aug, Hyperlipidemia E78.5 [facility], [place] [address] [address] Aug, Type 2 diabetes mellitus with hyperglycemia E11.65 ; Hyperlipidemia E78.5 and Essential hypertension I10 [facility], [place] [address] [address] Aug, [facility], [place] [id number] [address] Jun, [facility], [place] [address] [address] Jun, [facility], [place] [address] [address] Jun, [facility], [place] [address] [address] Apr, [facility], [place] [address] [address] Apr, [facility], [place] [address] [place] [address] Mar, Hyperlipidemia E78.5 [facility], [place] [address] [place] [address] 14 Mar, 2015 Type 2 diabetes mellitus with hyperglycemia E11.65 ; Hyperlipidemia E78.5 and Essential hypertension I10 [facility], [place] [address] [place] [address] Mar, [facility], [place] [address] [place] [address] Nov, [facility], [place] [address] [address] Nov, [facility], [place] [address] [address] Sep, Hyperlipidemia 272.4 [facility], [place] [address] [address] Sep, [facility], [place] [address] [address] Sep, Diabetes mellitus, type II 250.00 ; Hypertension 401.9 and Hyperlipidemia 272.4 [facility], [place] [address] [address] Sep, [facility], [place] [address] [address] Sep, [facility], [place] [address] [address] Sep, [facility], [place] [address] [address] Jun, [facility], [place] [id number] [address] Jun, [facility] [place] [facility] [address] [id number] [place] [address] Apr, [facility] [place] [facility] [address] [id number] [place] [address] Apr, [facility] [place] [facility] [address] [id number] [place] [address] Mar, [facility] [place] [facility] [address] [id number] [place] [address] Mar, [facility] [place] [facility] [address] [id number] [place] [address] Mar, [facility] [place] [facility] [address] [id number] [place] [address] Mar, [facility] [place] [facility] [address] [id number] [place] [address] Feb, [facility] [place] [facility] [address] [id number] [place] [address] Feb, [facility] [place] [facility] [address] [id number] [place] [address] Jan, [facility] [place] [facility] [address] [id number] [place] [address] Jan, [facility] [place] [facility] [address] [id number] [address] Jan, [facility] [place] [facility] [address] [id number] [address] Jan, [facility] [place] [facility] [address] [id number] [place] [address] Sep, [facility] [place] [facility] [address] [id number] [place] [address] Sep, [facility] [place] [facility] [address] [id number] [address] Sep, [facility] [place] [facility] [address] [id number] [address] Sep, [facility] [place] [facility] [address] [id number] [place] [address] Sep, [facility] [place] [facility] [address] [id number] [place] [address] Sep, [facility] [place] [facility] [address] [facility] [id number] [place] [address] Aug, [facility] [place] [facility] [address] [id number] [place] [address] Aug, [facility] [place] [facility] [address] [id number] [place] [address] Aug, [facility] [place] [facility] [address] [id number] [place] [address] Aug, [facility] [place] [facility] [id number] [place] [address] Apr, [facility] [place] [facility] [address] [facility] [id number] [place] [address] Apr, [facility] [place] [facility] [address] [id number] [place] [address] Mar, [facility] [place] [facility] [address] [facility] [id number] [place] [address] Mar, [facility] [place] [facility] [address] [facility] [id number] [place] [address] Mar, [facility] [place] [facility] [address] [facility] [id number] [place] [address] Mar, [facility] [place] [facility] [address] [id number] [place] [address] Feb, [facility] [place] [facility] [address] [id number] [place] [address] Feb, [facility] [place] [facility] [address] [facility] [id number] [address] Feb, [facility] [place] [facility] [address] [id number] [place] [address] Feb, [facility] [place] [facility] [address] [id number] [place] [address] Feb, [facility] [place] [facility] [address] [id number] [place] [address] Feb, [facility] [place] [facility] [address] [id number] [place] [address] Feb, [facility] [place] [facility] [address] [id number] [place] [address] Feb, [facility] [place] [facility] [address] [id number] [place] [address] Jan, [facility] [place] [facility] [address] [id number] [place] [address] Jan, [facility] [place] [facility] [address] [id number] [place] [address] Dec, [facility] [place] [facility] [address] [id number] [place] [address] Dec, [facility] [place] [facility] [address] [id number] [place] [address] Dec, [facility] [place] [facility] [address] [id number] [place] [address] Dec, [facility] [place] [facility] [address] [id number] [place] [address] Dec, [facility] [place] [facility] [address] [id number] [place] [address] Dec, [facility] [place] [facility] [address] [id number] [place] [address] Nov, [facility] [place] [facility] [address] [id number] [place] [address] Aug, [facility] [place] [facility] [address] [id number] [place] [address] Dec, [facility] [place] [facility] [address] [id number] [place] [address] Dec, [facility] [place] [facility] [address] [id number] [place] [address] Nov, [facility] [place] [facility] [address] [id number] [place] [address] Sep, [facility] [place] [facility] [address] [id number] [place] [address] Sep, [facility] [place] [facility] [address] [id number] [place] [address] Sep, [facility] [place] [facility] [address] [id number] [place] [address] Aug, [facility] [place] [facility] [address] [id number] [place] [address] Aug, [facility] [place] [facility] [address] [id number] [place] [address] Aug, [facility] [place] [facility] [address] [id number] [place] [address] Jun, [facility] [place] [facility] [address] [id number] [place] [address] Jun, [facility] [place] [facility] [address] [id number] [address] Jun, [facility] [place] [facility] [address] [id number], [place] [address] May, [facility] [place] [facility] [address] [id number] [place] [address] May, [facility] [place] [facility] [address] [facility] [id number] [place] [address] May, [facility] [place] [facility] [address] [id number] [place] [address] Feb, [facility] [place] [facility] [id number] [address] Feb, [facility] [place] [address] [address] Jan, [facility] [place] [address], [place] [address] Jan, [facility] [place] [address] [address] Jan, [facility] [place] [address] [address] Jan, [facility] [place] [address] [address] Jan, [facility] [place] [address] [address] Jan, [facility] [place] [address] [address] Jan, [facility] [place] [id number] [address] Jan, IMMUNIZATIONS No Known Immunizations SOCIAL HISTORY [...]
--- OUTSIDE RECORDS SUMMARY | 2022-11-24 15:50 | XMS REPORT ---
Author Author Melanie Lanza Organization [facility] Address Unknown Phone Unavailable Care Team Providers Care Yarn Skeins Examiner Name Role Phone Migration, Doctor Unavailable Unavailable PROBLEMS Type Condition ICD9-CM Code CAH49-AX Code Onset Dates Condition Status SNOMED Code Problem Hyperlipidemia E78.5 Active 98055573 Problem Type 2 diabetes mellitus with hyperglycemia E11.65 Active 536473170 Problem Severe nonproliferative diabetic retinopathy without macular edema associated with type 2 diabetes mellitus, unspecified laterality E11.3499 Active 130170738 Problem Coronary artery disease involving sun'aq coronary artery of sun'aq heart without angina pectoris I25.10 Active [id number] Problem Essential hypertension I10 Active [id number] ALLERGIES No Information ENCOUNTERS Encounter Location Date Diagnosis [place] [address] [address] Oct, Type 2 diabetes mellitus with hyperglycemia E11.65 [place] [address] [address] Sep, [place] [address] [address] July, Type 2 diabetes mellitus with hyperglycemia E11.65 [place] [address] [place] [id number] [place] [address] Mar, [facility] [address] [place] [id number] [place] [address] Feb, [place] [address] [address] Jan, Type 2 diabetes mellitus with hyperglycemia E11.65 ; Essential hypertension I10 ; Hyperlipidemia E78.5 and Encounter for immunization Z23 [place] [address] [address] Sep, [place] [address] [place] [address] July, Type 2 diabetes mellitus with hyperglycemia E11.65 [facility] [address] [address] July, [facility] [address] [address] May, [facility] [address] [place] [id number] [place] [address] May, Hyperlipidemia E78.5 [facility] [address] [place] [id number] [place] [address] May, Type 2 diabetes mellitus with hyperglycemia E11.65 ; Essential hypertension I10 ; Hyperlipidemia E78.5 and Breast cancer screening Z12.31 [facility] [address] [address] May, Type 2 diabetes mellitus with hyperglycemia E11.65 [facility] [address] [address] Apr, Type 2 diabetes mellitus with hyperglycemia E11.65 [facility] [id number] [place] [address] Jan, [facility] [address] [address] Jan, [facility] [address] [address] Jan, [facility] [address] [address] Sep, Essential hypertension I10 [facility] [id number] [place] [address] Aug, Type 2 diabetes mellitus with hyperglycemia E11.65 [facility] [address] [address] Aug, [facility] [id number] [place] [address] Aug, Type 2 diabetes mellitus with hyperglycemia E11.65 ; Hyperlipidemia E78.5 ; Colon cancer screening Z12.11 ; Essential hypertension I10 and Encounter for immunization Z23 [facility] [address] [place] [id number] [place] [address] July, Type 2 diabetes mellitus with hyperglycemia E11.65 [facility] [address] [place] [id number] [place] [address] July, Type 2 diabetes mellitus with hyperglycemia E11.65 [facility] [address] [place] [id number] [place] [address] Jun, [facility] [address] [place] [id number] [place] [address] May, Essential hypertension I10 [facility] [address] [place] [id number] [place] [address] May, [facility] [address] [place] [id number] [place] [address] Apr, Acute non-recurrent frontal sinusitis J01.10 [facility] [address] [place] [id number] [place] [address] Apr, Essential hypertension I10 [facility] [address] [place] [id number] [place] [address] Apr, [facility] [address] [place] [id number] [place] [address] Mar, Type 2 diabetes mellitus with hyperglycemia E11.65 [facility] [id number] [place] [address] Mar, [facility] [address] [place] [id number] [place] [address] Feb, Essential hypertension I10 [facility] [address] [place] [id number] [place] [address] Feb, [facility] [address] [place] [id number] [place] [address] Feb, Type 2 diabetes mellitus with hyperglycemia E11.65 ; Essential hypertension I10 and Hyperlipidemia E78.5 [facility] [address] [address] Jan, [facility] [address] [place] [id number] [address] 17 Dec, 2015 [facility] [address] [place] [id number] [place] [address] Dec, [facility] [address] [place] [id number] [place] [address] Oct, [facility] [address] [place] [id number] [place] [address] 15 Aug, 2015 [facility] [address] [place] [id number] [place] [address] 15 Aug, [address] [facility] [address] [place] [id number] [place] [address] 14 Aug, 2015 Type 2 diabetes mellitus with hyperglycemia E11.65 ; Hyperlipidemia E78.5 and Essential hypertension I10 [facility] [address] [address] Aug, [facility] [address] [address] Jun, [facility] [address] [address] Jun, [facility] [id number] [place] [address] Jun, [facility] [address] [place] [id number] [place] [address] Apr, [facility] [address] [address] Apr, [facility] [address] [place] [id number] [place] [address] Mar, Hyperlipidemia E78.5 [facility] [id number] [place] [address] Mar, Type 2 diabetes mellitus with hyperglycemia E11.65 ; Hyperlipidemia E78.5 and Essential hypertension I10 [facility] [address] [address] Mar, [facility] [address] [place] [id number] [place] [address] Nov, [facility] [address] [place] [id number] [place] [address] Nov, [facility] [address] [place] [id number] [place] [address] Sep, Hyperlipidemia 272.4 [facility] [address] [place] [id number] [place] [address] Sep, [facility] [address] [place] [id number] [place] [address] Sep, Diabetes mellitus, type II 250.00 ; Hypertension 401.[address] [facility] [address] [place] [id number] [place] [address] Sep, [facility] [id number] [place] [address] Sep, [facility] [id number] [place] [address] Sep, [facility] [id number] [place] [address] Jun, [facility] [id number] [place] [address] Jun, [facility] [address] [address] Apr, [facility] [id number] [place] [address] Apr, [facility] [place] [facility] [address] [id number] [place] [address] Mar, [facility] [place] [facility] [address] [id number] [place] [address] Mar, [facility] [place] [facility] [address] [id number] [place] [address] Mar, [facility] [place] [facility] [address] [id number] [place] [address] Mar, [facility] [place] [facility] [address] [id number] [place] [address] Feb, [facility] [place] [facility] [address] [id number] [place] [address] Feb, [facility] [place] [facility] [address] [id number] [place] [address] Jan, [facility] [place] [facility] [address] [id number] [place] [address] Jan, [facility] [place] [facility] [address] [id number] [place] [address] Jan, [facility] [place] [facility] [address] [id number] [place] [address] Jan, [facility] [place] [facility] [address] [id number] [place] [address] Sep, [facility] [place] [facility] [address] [id number] [place] [address] Sep, [facility] [place] [facility] [address] [id number] [place] [address] Sep, [facility] [place] [facility] [address] [id number] [place] [address] Sep, [facility] [place] [facility] [address] [id number] [place] [address] Sep, [facility] [place] [facility] [address] [id number] [address] Sep, [facility] [place] [facility] [address] [id number] [place] [address] Aug, [facility] [place] [facility] [address] [id number] [place] [address] Aug, [facility] [place] [facility] [address] [facility] [id number] [place] [address] Aug, [facility] [place] [facility] [address] [id number] [place] [address] Aug, [facility] [place] [facility] [address] [id number] [place] [address] Apr, [facility] [place] [facility] [address] [id number] [place] [address] Apr, [facility] [place] [facility] [address] [id number] [place] [address] Mar, [facility] [place] [facility] [address] [id number] [place] [address] Mar, [facility] [place] [facility] [address] [id number] [place] [address] Mar, [facility] [place] [facility] [address] [facility] [id number] [place] [address] Mar, [facility] [place] [facility] [address] [id number] [place] [address] Feb, [facility] [place] [facility] [address] [id number] [address] Feb, [facility] [place] [facility] [address] [id number] [place] [address] Feb, [facility] [place] [facility] [address] [id number] [place] [address] Feb, [facility] [place] [facility] [address] [facility] [id number] [address] Feb, [facility] [place] [facility] [address] [id number] [place] [address] Feb, [facility] [place] [facility] [address] [id number] [place] [address] Feb, [facility] [place] [facility] [address] [id number] [place] [address] Feb, [facility] [place] [facility] [address] [id number] [place] [address] Jan, [facility] [place] [facility] [address] [id number] [place] [address] Jan, [facility] [place] [facility] [address] [id number] [place] [address] Dec, [facility] [place] [facility] [address] [id number] [place] [address] Dec, [facility] [place] [facility] [address] [id number] [place] [address] Dec, [facility] [place] [facility] [address] [id number] [place] [address] Dec, [facility] [place] [facility] [address] [id number] [place] [address] Dec, [facility] [place] [facility] [address] [id number] [place] [address] Dec, [facility] [place] [facility] [address] [id number] [place] [address] Nov, [facility] [place] [facility] [address] [id number] [place] [address] Aug, [facility] [place] [facility] [address] [id number] [place] [address] Dec, [facility] [place] [facility] [address] [id number] [place] [address] Dec, [facility] [place] [facility] [address] [id number] [place] [address] Nov, [facility] [place] [facility] [address] [id number] [place] [address] Sep, [facility] [place] [facility] [address] [id number] [place] [address] Sep, [facility] [place] [facility] [address] [facility] [id number] [place] [address] Sep, [facility] [place] [facility] [address] [id number] [place] [address] Aug, [facility] [place] [facility] [address] [id number] [place] [address] Aug, [facility] [place] [facility] [address] [id number] [place] [address] Aug, [facility] [place] [facility] [address] [id number] [place] [address] Jun, [facility] [place] [facility] [address] [id number] [place] [address] Jun, [facility] [place] [facility] [address] [id number] [place] [address] Jun, [facility] [place] [facility] [address] [id number] [place] [address] May, [facility] [place] [facility] [address] [id number] [place] [address] May, [facility] [place] [facility] [address] [id number] [address] May, [facility] [place] [facility] [address] [id number] [place] [address] Feb, [facility] [place] [facility] [address] [id number] [place] [address] Feb, [facility] [place] [facility] [address] [id number] [place] [address] Jan, [facility] [place] [facility] [address] [facility] [id number] [address] Jan, [facility] [address] [place] [id number] [address] Jan, [facility] [address] [place] [place] [id number] [address] Jan, [facility] [address] [place] [place] [id number] [address] Jan, [facility] [address] [id number] [address] Jan, [facility] [address] [facility] [id number] [address] Jan, [facility] [address] [place] [id number] [address] Jan, IMMUNIZATIONS No Known Immunizations SOCIAL HISTORY [...]
--- OUTSIDE RECORDS SUMMARY | 2022-11-24 15:50 | XMS REPORT ---
Author Author Melanie Lanza [facility] Address Unknown Phone Unavailable Care Team Providers Care Director Regulatory Compliance Name Role Phone Migration, Doctor Unavailable Unavailable PROBLEMS ALLERGIES No Information ENCOUNTERS IMMUNIZATIONS No Known Immunizations SOCIAL HISTORY No smoking Hx information available REASON FOR VISIT PLAN OF CARE VITAL SIGNS MEDICATIONS Unknown Medications RESULTS No Results PROCEDURES No Known procedures INSTRUCTIONS MEDICATIONS ADMINISTERED No Known Medications MEDICAL (GENERAL) HISTORY
--- OUTSIDE RECORDS SUMMARY | 2022-11-24 15:50 | XMS REPORT ---
Author Author Melanie TORRES Organization [facility] Address [address] [place] [address] Care Team Providers Care Human Resources Advisor Name Role Phone MILI TORRES Unavailable PROBLEMS Type Condition ICD9-CM Code LCR01-GF Code Onset Dates Condition Status SNOMED Code Problem Hyperlipidemia E78.5 Active 30688452 Problem Type 2 diabetes mellitus with hyperglycemia E11.65 Active 231440001 Problem Severe nonproliferative diabetic retinopathy without macular edema associated with type 2 diabetes mellitus, unspecified laterality E11.3499 Active 083479370 Problem Coronary artery disease involving [place] coronary artery of [place] heart without angina pectoris I25.10 Active [id number] Problem Essential hypertension I10 Active 29335071 ALLERGIES No Information ENCOUNTERS Encounter Location Date Diagnosis [place] [address] [address] 18 Aug, 2019 Type 2 diabetes mellitus with hyperglycemia E11.65 ; Essential hypertension I10 ; Hyperlipidemia E78.5 and Decreased GFR R94.4 [place] [address] [address] 17 Aug, 2019 Type 2 diabetes mellitus with hyperglycemia E11.65 ; Hyperlipidemia E78.5 and Essential hypertension I10 [place] [address] [place] [id number] [place] [address] July, [place] [address] [address] Feb, Type 2 diabetes mellitus with hyperglycemia E11.65 ; Hyperlipidemia E78.5 ; Essential hypertension I10 and Encounter for immunization Z23 [place] [address] [place] [id number] [place] [address] Feb, [place] [address] [address] Oct, [facility] [address] [address] Oct, [facility] [id number] [place] [address] Oct, Type 2 diabetes mellitus with hyperglycemia E11.65 [facility] [address] [place] [id number] [place] [address] Sep, [facility] [address] [place] [id number] [place] [address] July, Type 2 diabetes mellitus with hyperglycemia E11.65 [facility] [address] [place] [id number] [place] [address] Mar, [facility] [address] [place] [address] Feb, [facility] [address] [place] [id number] [place] [address] Jan, Type 2 diabetes mellitus with hyperglycemia E11.65 ; Essential hypertension I10 ; Hyperlipidemia E78.5 and Encounter for immunization Z23 [facility] [id number] [place] [address] Sep, [facility] [address] [address] July, Type 2 diabetes mellitus with hyperglycemia E11.65 [facility] [address] [address] July, [facility] [address] [address] May, [facility] [address] [place] [id number] [place] [address] May, Hyperlipidemia E78.5 [facility] [address] [address] May, Type 2 diabetes mellitus with hyperglycemia E11.65 ; Essential hypertension I10 ; Hyperlipidemia E78.5 and Breast cancer screening Z12.31 [facility] [address] [address] May, Type 2 diabetes mellitus with hyperglycemia E11.65 [facility] [address] [place] [id number] [place] [address] Apr, Type 2 diabetes mellitus with hyperglycemia E11.65 [facility] [address] [place] [id number] [place] [address] Jan, [facility] [address] [place] [id number] [place] [address] Jan, [facility] [address] [place] [id number] [place] [address] Jan, [place] [address] [place] [id number] [place] [address] Sep, Essential hypertension I10 [place] [address] [place] [id number] [place] [address] Aug, Type 2 diabetes mellitus with hyperglycemia E11.65 [place] [address] [place] [id number] [place] [address] Aug, [place] [address] [place] [id number] [place] [address] Aug, Type 2 diabetes mellitus with hyperglycemia E11.65 ; Hyperlipidemia E78.5 ; Colon cancer screening Z12.11 ; Essential hypertension I10 and Encounter for immunization Z23 [facility] [address] [place] [id number] [place] [address] July, Type 2 diabetes mellitus with hyperglycemia E11.65 [place] [address] [place] [id number] [place] [address] July, Type 2 diabetes mellitus with hyperglycemia E11.65 [facility] [address] [place] [id number] [place] [address] Jun, [facility] [address] [place] [id number] [place] [address] May, Essential hypertension I10 [facility] [address] [address] May, [facility] [address] [place] [address] Apr, Acute non-recurrent frontal sinusitis J01.10 [facility] [address] [place] [address] Apr, Essential hypertension I10 [facility] [address] [place] [address] Apr, [facility] [address] [place] [id number] [place] [address] Mar, Type 2 diabetes mellitus with hyperglycemia E11.65 [facility] [address] [place] [id number] [place] [address] Mar, [facility] [address] [place] [address] Feb, Essential hypertension I10 [facility] [address] [place] [address] 14 Feb, 2016 [facility] [address] [place] [address] Feb, Type 2 diabetes mellitus with hyperglycemia E11.65 ; Essential hypertension I10 and Hyperlipidemia E78.5 [facility] [address] [address] Jan, [facility] [address] [address] Dec, [facility] [address] [place] [id number] [place] [address] Dec, [facility] [address] [address] Oct, [facility] [address] [place] [id number] [place] [address] Aug, [facility] [address] [address] Aug, Hyperlipidemia E78.5 [facility] [address] [place] [address] Aug, Type 2 diabetes mellitus with hyperglycemia E11.65 ; Hyperlipidemia E78.5 and Essential hypertension I10 [facility] [address] [place] [address] Aug, [facility] [address] [place] [address] Jun, [facility] [address] [place] [address] Jun, [facility] [address] [place] [id number] [place] [address] Jun, [facility] [address] [place] [address] Apr, [facility] [address] [address] Apr, [facility] [address] [place] [address] Mar, Hyperlipidemia E78.5 [facility] [address] [address] Mar, Type 2 diabetes mellitus with hyperglycemia E11.65 ; Hyperlipidemia E78.5 and Essential hypertension I10 [facility] [address] [address] Mar, [facility] [address] [place] [id number] [place] [address] Nov, [facility] [address] [address] 08 Nov, 2014 [facility] [address] [place] [address] Sep, Hyperlipidemia 272.4 [facility] [address] [id number] [place] [address] Sep, [facility] [address] [facility] [id number] [address] Sep, Diabetes mellitus, type II 250.00 ; Hypertension 401.9 and Hyperlipidemia 272.4 [facility] [address] [facility] [id number] [place] [address] Sep, [facility] [address] [facility] [id number] [place] [address] Sep, [facility] [address] [facility] [id number] [place] [address] Sep, [facility] [address] [place] [id number] [place] [address] Jun, [facility] [address] [place] [id number] [address] Jun, [facility] [address] [place] [id number] [place] [address] Apr, [facility] [address] [place] [id number] [address] Apr, [facility] [address] [place] [id number] [address] Mar, [facility] [address] [place] [id number] [address] Mar, [facility] [place] [facility] [address] [facility] [id number] [place] [address] Mar, [facility] [address] [facility] [id number] [address] Mar, [facility] [place] [facility] [address] [place] [id number] [address] Feb, [facility] [address] [place] [id number] [address] Feb, [facility] [place] [facility] [address] [id number] [place] [address] Jan, [facility] [place] [facility] [address] [id number] [place] [address] Jan, [facility] [place] [facility] [address] [id number] [place] [address] Jan, [facility] [place] [facility] [address] [id number] [place] [address] Jan, [facility] [place] [facility] [address] [id number] [place] [address] Sep, [facility] [place] [facility] [address] [id number] [place] [address] Sep, [facility] [place] [facility] [address] [id number] [place] [address] Sep, [facility] [place] [facility] [address] [id number] [place] [address] Sep, [facility] [place] [facility] [address] [id number] [place] [address] Sep, [facility] [place] [facility] [address] [id number] [place] [address] Sep, [facility] [place] [facility] [address] [id number] [place] [address] Aug, [facility] [place] [facility] [address] [id number] [place] [address] Aug, [facility] [place] [facility] [address] [id number] [place] [address] Aug, [facility] [place] [facility] [address] [id number] [place] [address] Aug, [facility] [place] [facility] [address] [id number] [place] [address] Apr, [facility] [place] [facility] [address] [id number] [place] [address] Apr, [facility] [address] [id number] [place] [address] Mar, [facility] [place] [facility] [address] [id number] [place] [address] Mar, [facility] [address] [id number] [place] [address] Mar, [facility] [place] [facility] [address] [id number] [place] [address] Mar, [facility] [place] [facility] [address] [id number] [place] [address] Feb, [facility] [address] [id number] [place] [address] Feb, [facility] [address] [id number] [place] [address] Feb, [facility] [place] [facility] [address] [id number] [place] [address] Feb, [facility] [place] [facility] [address] [id number] [place] [address] Feb, [facility] [place] [facility] [address] [id number] [place] [address] Feb, [facility] [place] [facility] [address] [id number] [place] [address] Feb, [facility] [place] [facility] [address] [id number] [place] [address] Feb, [facility] [place] [facility] [address] [id number] [place] [address] Jan, [facility] [place] [facility] [address] [id number] [place] [address] Jan, [facility] [place] [facility] [address] [id number] [place] [address] Dec, [facility] [place] [facility] [address] [id number] [place] [address] 31 Dec, 2012 [facility] [place] [facility] [address] [id number] [place] [address] 30 Dec, 2012 [facility] [place] [facility] [address] [id number] [place] [address] 30 Dec, 2012 [facility] [place] [facility] [address] [id number] [place] [address] 08 Dec, 2012 [facility] [place] [facility] [address] [id number] [place] [address] 02 Dec, 2012 [facility] [place] [facility] [address] [id number] [place] [address] 10 Nov, 2012 [facility] [place] [facility] [address] [id number] [place] [address] Aug, [facility] [place] [facility] [address] [id number] [place] [address] Dec, [facility] [place] [facility] [address] [id number] [place] [address] Dec, [facility] [place] [facility] [address] [id number] [place] [address] Nov, [facility] [place] [facility] [address] [id number] [address] Sep, [facility] [place] [facility] [address] [id number] [place] [address] Sep, [facility] [place] [facility] [address] [id number] [place] [address] Sep, [facility] [place] [facility] [address] [id number] [place] [address] Aug, [facility] [place] [facility] [address] [id number] [place] [address] 14 Aug, 2011 [facility] [place] [facility] [address] [id number] [place] [address] Aug, [facility] [address] [id number] [place] [address] Jun, [facility] [place] [facility] [address] [id number] [place] [address] Jun, [facility] [address] [id number] [place] [address] Jun, [facility] [address] [id number] [place] [address] May, [facility] [address] [id number] [place] [address] May, [facility] [address] [id number] [place] [address] May, [facility] [address] [facility] [id number] [place] [address] Feb, [facility] [address] [id number] [place] [address] Feb, [facility] [address] [facility] [id number] [place] [address] Jan, [facility] [address] [facility] [id number] [place] [address] Jan, [facility] [place] [facility] [address] [id number] [place] [address] Jan, [facility] [place] [facility] [address] [id number] [place] [address] Jan, [facility] [place] [facility] [address] [id number] [place] [address] Jan, [facility] [place] [facility] [address] [facility] [id number] [place] [address] Jan, [facility] [place] [facility] [address] [facility] [id number] [place] [address] Jan, [facility] [address] [facility] [id number] [place] [address] Jan, IMMUNIZATIONS No Known Immunizations SOCIAL HISTORY Never Assessed REASON FOR VISIT PLAN OF CARE VITAL SIGNS Height 67 in 2012-12-19 Weight 154 lbs 2012-12-19 Temperature 97.7 degrees Fahrenheit Heart Rate 68 bpm 2012-12-19 Respiratory Rate 18 2012-12-19 Blood pressure systolic 150 mmHg Blood pressure diastolic 88 mmHg 2012-12 MEDICATIONS Unknown Medications RESULTS No Results PROCEDURES Procedure Date Ordered Result Body Site GLYCATED HEMOGLOBIN TEST Dec 19, 2012 MICROALBUMIN, SEMIQUANT Dec 19, 2012 INSTRUCTIONS MEDICATIONS ADMINISTERED No Known Medications MEDICAL (GENERAL) HISTORY Type Description Date Medical History type II diabetes Medical History hyperlipidemia Medical History hypertension Medical History coronary artery disease Surgical History partial hysterectomy d/t fibroi ds - still has ovaries 1995 Surgical History section x 2 Surgical History cardiac stent 2005 Hospitalization History Myocardial infarction 20 06
--- OUTSIDE RECORDS SUMMARY | 2022-11-24 15:50 | XMS REPORT ---
Author Author Melanie Lanza Organization [facility] Address Unknown Phone Unavailable Care Team Providers Care Vet Tech Name Role Phone Migration, Doctor Unavailable Unavailable PROBLEMS Type Condition ICD9-CM Code RPN73-OU Code Onset Dates Condition Status SNOMED Code Problem Hyperlipidemia E78.5 Active 33010009 Problem Type 2 diabetes mellitus with hyperglycemia E11.65 Active 423533816 Problem Severe nonproliferative diabetic retinopathy without macular edema associated with type 2 diabetes mellitus, unspecified laterality E11.3499 Active 957768780 Problem Coronary artery disease involving telida coronary artery of telida heart without angina pectoris I25.10 Active [id number] Problem Essential hypertension I10 Active [id number] ALLERGIES No Information ENCOUNTERS Encounter Location Date Diagnosis [place] [id number] [place] [address] Feb, Type 2 diabetes mellitus with hyperglycemia E11.65 ; Hyperlipidemia E78.5 ; Essential hypertension I10 and Encounter for immunization Z23 [place] [address] [address] Feb, [facility] [id number] [place] [address] Oct, [place] [id number] [place] [address] Oct, [facility] [id number] [place] [address] Oct, Type 2 diabetes mellitus with hyperglycemia E11.65 [facility] [id number] [place] [address] Sep, [facility] [id number] [place] [address] July, Type 2 diabetes mellitus with hyperglycemia E11.65 [place] [address] [place] [address] Mar, [facility] [address] [address] Feb, [facility] [address] [address] Jan, Type 2 diabetes mellitus with hyperglycemia E11.65 ; Essential hypertension I10 ; Hyperlipidemia E78.5 and Encounter for immunization Z23 [facility] [id number] [place] [address] Sep, [facility] [id number] [place] [address] July, Type 2 diabetes mellitus with hyperglycemia E11.65 [facility] [address], [place] [address] July, [facility] [id number] [place] [address] May, [facility] [address], [place] [address] May, Hyperlipidemia E78.5 [facility] [address] [address] May, Type 2 diabetes mellitus with hyperglycemia E11.65 ; Essential hypertension I10 ; Hyperlipidemia E78.5 and Breast cancer screening Z12.31 [facility] [address] [address] May, Type 2 diabetes mellitus with hyperglycemia E11.65 [facility] [address] [address] Apr, Type 2 diabetes mellitus with hyperglycemia E11.65 [facility] [address] [address] Jan, [facility] [address] [address] Jan, [facility] [id number] [address] Jan, [facility] [id number] [place] [address] Sep, Essential hypertension I10 [facility] [id number] [place] [address] Aug, Type 2 diabetes mellitus with hyperglycemia E11.65 [facility] [id number] [place] [address] Aug, [facility] [id number] [place] [address] Aug, Type 2 diabetes mellitus with hyperglycemia E11.65 ; Hyperlipidemia E78.5 ; Colon cancer screening Z12.11 ; Essential hypertension I10 and Encounter for immunization Z23 [facility] [id number] [place] [address] July, Type 2 diabetes mellitus with hyperglycemia E11.65 [facility] [id number] [place] [address] July, Type 2 diabetes mellitus with hyperglycemia E11.65 [facility] [id number] [place] [address] Jun, [facility] [id number] [place] [address] May, Essential hypertension I10 [facility] [address], [place] [address] May, [facility] [id number] [place] [address] Apr, Acute non-recurrent frontal sinusitis J01.10 [facility] [id number] [place] [address] Apr, Essential hypertension I10 [facility] [address], [place] [address] Apr, [facility] [address] [address] 30 Mar, 2016 Type 2 diabetes mellitus with hyperglycemia E11.65 [facility] [address] [address] 30 Mar, 2016 [facility] [address] [address] Feb, Essential hypertension I10 [facility] [id number] [place] [address] Feb, [facility] [id number] [place] [address] Feb, Type 2 diabetes mellitus with hyperglycemia E11.65 ; Essential hypertension I10 and Hyperlipidemia E78.5 [facility] [address], [place] [address] Jan, [facility] [id number] [place] [address] Dec, [facility] [address] [address] Dec, [facility] [address], [place] [address] Oct, [facility] [address] [address] Aug, [facility] [address] [address] 15 Aug, 2015 Hyperlipidemia E78.5 [facility] [address] [address] 14 Aug, 2015 Type 2 diabetes mellitus with hyperglycemia E11.65 ; Hyperlipidemia E78.5 and Essential hypertension I10 [facility] [address], [place] [address] Aug, [facility] [address], [place] [address] Jun, [facility] [address] [address] Jun, [facility] [address] [address] Jun, [facility] [address] [address] Apr, [facility] [id number] [place] [address] Apr, [facility] [id number] [place] [address] Mar, Hyperlipidemia E78.5 [facility] [address], [place] [address] Mar, Type 2 diabetes mellitus with hyperglycemia E11.65 ; Hyperlipidemia E78.5 and Essential hypertension I10 [facility] [address], [place] [address] Mar, [facility] [address], [place] [address] Nov, [facility] [address], [place] [address] Nov, [facility] [address], [place] [address] Sep, Hyperlipidemia 272.4 [facility] [address], [place] [address] Sep, [facility] [id number] [address] Sep, Diabetes mellitus, type II 250.00 ; Hypertension 401.9 and Hyperlipidemia 272.4 [facility] [id number] [address] Sep, [facility] [address], [place] [address] Sep, [facility] [place] [facility] [address] [id number] [place] [address] 08 Sep, 2014 [facility] [place] [facility] [address] [id number] [place] [address] 14 Jun, 2014 [facility] [place] [facility] [address] [id number] [place] [address] Jun, [facility] [place] [facility] [address] [id number] [place] [address] Apr, [facility] [place] [facility] [address] [id number] [place] [address] Apr, [facility] [place] [facility] [address] [id number] [place] [address] Mar, [facility] [place] [facility] [address] [id number] [place] [address] Mar, [facility] [place] [facility] [address] [id number] [place] [address] Mar, [facility] [place] [facility] [address] [id number] [place] [address] Mar, [facility] [place] [facility] [address] [id number] [place] [address] Feb, [facility] [place] [facility] [address] [id number] [place] [address] Feb, [facility] [place] [facility] [address] [id number] [place] [address] Jan, [facility] [place] [facility] [address] [id number] [place] [address] Jan, [facility] [place] [facility] [address] [id number] [place] [address] Jan, [facility] [place] [facility] [address] [id number] [place] [address] Jan, [facility] [place] [facility] [address] [id number] [place] [address] Sep, [facility] [place] [facility] [address] [id number] [place] [address] Sep, [facility] [place] [facility] [address] [id number] [place] [address] Sep, [facility] [place] [facility] [address] [id number] [place] [address] Sep, [facility] [place] [facility] [address] [id number] [place] [address] Sep, [facility] [place] [facility] [address] [id number] [place] [address] Sep, [facility] [place] [facility] [address] [id number] [place] [address] Aug, [facility] [place] [facility] [address] [id number] [place] [address] Aug, [facility] [place] [facility] [address] [id number] [place] [address] Aug, [facility] [place] [facility] [address] [id number] [place] [address] Aug, [facility] [place] [facility] [address] [id number] [place] [address] Apr, [facility] [place] [facility] [address] [id number] [place] [address] Apr, [facility] [place] [facility] [address] [id number] [place] [address] Mar, [facility] [place] [facility] [address] [id number] [place] [address] Mar, [facility] [place] [facility] [address] [id number] [place] [address] Mar, [facility] [place] [facility] [address] [id number] [place] [address] Mar, [facility] [place] [facility] [address] [id number] [place] [address] Feb, 2012 [facility] [address] [id number] [place] [address] Feb, 2012 [facility] [place] [facility] [address] [id number] [place] [address] Feb, 2012 [facility] [address] [id number] [place] [address] Feb, 2012 [facility] [place] [facility] [address] [id number] [place] [address] Feb, [facility] [address] [id number] [place] [address] Feb, [facility] [address] [id number] [place] [address] Feb, [facility] [address] [id number] [place] [address] Feb, [facility] [address] [id number] [place] [address] Jan, [facility] [address] [id number] [place] [address] Jan, [facility] [address] [id number] [place] [address] Dec, [facility] [place] [facility] [address] [id number] [place] [address] Dec, [facility] [address] [id number] [place] [address] Dec, [facility] [place] [facility] [address] [id number] [place] [address] Dec, [facility] [place] [facility] [address] [id number] [place] [address] Dec, [facility] [place] [facility] [address] [id number] [place] [address] Dec, [facility] [place] [facility] [address] [id number] [place] [address] Nov, [facility] [place] [facility] [address] [id number] [place] [address] Aug, [facility] [place] [facility] [address] [id number] [place] [address] Dec, [facility] [place] [facility] [address] [id number] [place] [address] Dec, [facility] [place] [facility] [address] [id number] [place] [address] Nov, [facility] [place] [facility] [address] [id number] [place] [address] Sep, [facility] [place] [facility] [address] [id number] [place] [address] Sep, [facility] [place] [facility] [address] [id number] [place] [address] Sep, [facility] [place] [facility] [address] [id number] [place] [address] Aug, [facility] [place] [facility] [address] [facility] [id number] [address] Aug, [facility] [place] [facility] [address] [id number], [place] [address] Aug, [facility] [place] [facility] [address] [id number] [address] Jun, [facility] [place] [facility] [address] [id number] [place] [address] Jun, [facility] [place] [facility] [address] [id number] [address] Jun, [facility] [place] [facility] [address] [id number] [place] [address] May, [facility] [place] [facility] [address] [id number] [address] May, [facility] [address], [place] [address] May, [facility] [address], [place] [address] Feb, [facility] [address], [place] [address] Feb, [facility] [address], [place] [address] Jan, [facility] [id number] [place] [address] Jan, [facility] [address], [place] [address] Jan, [facility] [address], [place] [address] Jan, [facility] [address], [place] [address] Jan, [facility] [address], [place] [address] Jan, [facility] [address], [place] [address] Jan, [facility] [id number] [address] Jan, IMMUNIZATIONS No Known Immunizations SOCIAL HISTORY [...]
--- OUTSIDE RECORDS SUMMARY | 2022-11-24 15:50 | XMS REPORT ---
Author Author Melanie TORRES Organization [facility] Address [address] [place] [address] Care Team Providers Care Care Transition Coordinator Name Role Phone MILI TORRES Unavailable PROBLEMS Type Condition ICD9-CM Code GQH24-UV Code Onset Dates Condition Status SNOMED Code Problem Hyperlipidemia E78.5 Active 56537811 Problem Type 2 diabetes mellitus with hyperglycemia E11.65 Active 179299980 Problem Severe nonproliferative diabetic retinopathy without macular edema associated with type 2 diabetes mellitus, unspecified laterality E11.3499 Active 715529963 Problem Coronary artery disease involving kenaitze coronary artery of kenaitze heart without angina pectoris I25.10 Active [id number] Problem Essential hypertension I10 Active [id number] ALLERGIES No Information ENCOUNTERS Encounter Location Date Diagnosis [place] [id number] [place] [address] July, [place] [id number] [place] [address] Feb, Type 2 diabetes mellitus with hyperglycemia E11.65 ; Hyperlipidemia E78.5 ; Essential hypertension I10 and Encounter for immunization Z23 [place] [id number] [place] [address] Feb, [place] [id number] [place] [address] Oct, [place] [address] [address] Oct, [place] [id number] [place] [address] Oct, Type 2 diabetes mellitus with hyperglycemia E11.65 [place] [id number] [place] [address] Sep, [facility] [address] [address] July, Type 2 diabetes mellitus with hyperglycemia E11.65 [facility] [id number] [address] Mar, [facility] [id number] [place] [address] Feb, [facility] [id number] [place] [address] Jan, Type 2 diabetes mellitus with hyperglycemia E11.65 ; Essential hypertension I10 ; Hyperlipidemia E78.5 and Encounter for immunization Z23 [facility] [id number] [place] [address] Sep, [facility] [id number] [place] [address] July, Type 2 diabetes mellitus with hyperglycemia E11.65 [facility] [id number] [place] [address] July, [facility] [id number] [place] [address] May, [facility] [id number] [place] [address] May, Hyperlipidemia E78.5 [facility] [id number] [place] [address] May, Type 2 diabetes mellitus with hyperglycemia E11.65 ; Essential hypertension I10 ; Hyperlipidemia E78.5 and Breast cancer screening Z12.31 [facility] [id number] [place] [address] May, Type 2 diabetes mellitus with hyperglycemia E11.65 [facility] [address], [place] [address] Apr, Type 2 diabetes mellitus with hyperglycemia E11.65 [facility] [id number] [place] [address] 15 Jan, 2017 [facility] [address] [address] 14 Jan, 2017 [facility] [id number] [place] [address] Jan, [facility] [id number] [place] [address] Sep, Essential hypertension I10 [facility] [id number] [place] [address] Aug, Type 2 diabetes mellitus with hyperglycemia E11.65 [facility] [id number] [place] [address] Aug, [facility] [id number] [place] [address] Aug, Type 2 diabetes mellitus with hyperglycemia E11.65 ; Hyperlipidemia E78.5 ; Colon cancer screening Z12.11 ; Essential hypertension I10 and Encounter for immunization Z23 [facility] [id number] [place] [address] July, Type 2 diabetes mellitus with hyperglycemia E11.65 [facility] [id number] [place] [address] July, Type 2 diabetes mellitus with hyperglycemia E11.65 [place] [address] [address] Jun, [facility] [address] [place] [address] May, Essential hypertension I10 [facility] [address], [place] [address] May, [facility] [address] [address] Apr, Acute non-recurrent frontal sinusitis J01.10 [facility] [id number] [place] [address] Apr, Essential hypertension I10 [facility] [address] [address] Apr, [facility] [address] [place] [address] Mar, Type 2 diabetes mellitus with hyperglycemia E11.65 [facility] [address], [place] [address] Mar, [facility] [address], [place] [address] Feb, Essential hypertension I10 [facility] [id number] [place] [address] Feb, [facility] [address], [place] [address] Feb, Type 2 diabetes mellitus with hyperglycemia E11.65 ; Essential hypertension I10 and Hyperlipidemia E78.5 [facility] [address] [place] [address] Jan, [facility] [address] [address] Dec, [facility] [address] [address] Dec, [facility] [address] [address] Oct, [facility] [address] [address] Aug, [facility] [address] [address] 15 Aug, 2015 Hyperlipidemia E78.5 [facility] [address] [address] 14 Aug, 2015 Type 2 diabetes mellitus with hyperglycemia E11.65 ; Hyperlipidemia E78.5 and Essential hypertension I10 [facility] [address] [address] Aug, [facility] [address], [place] [address] Jun, [facility] [address], [place] [address] Jun, [facility] [address], [place] [address] Jun, [facility] [address], [place] [address] Apr, [facility] [id number] [place] [address] Apr, [facility] [address], [place] [address] Mar, Hyperlipidemia E78.5 [facility] [address], [place] [address] Mar, Type 2 diabetes mellitus with hyperglycemia E11.65 ; Hyperlipidemia E78.5 and Essential hypertension I10 [facility] [address], [place] [address] Mar, [facility] [address], [place] [address] Nov, [facility] [address], [place] [address] Nov, [facility] [address] [address] Sep, Hyperlipidemia 272.4 [facility] [address], [place] [address] Sep, [facility] [address] [address] Sep, Diabetes mellitus, type II 250.00 ; Hypertension 401.9 and Hyperlipidemia 272.4 [facility] [id number] [place] [address] Sep, [facility] [place] [facility] [address] [id number] [place] [address] Sep, [facility] [place] [facility] [address] [id number] [place] [address] Sep, [facility] [place] [facility] [address] [id number] [place] [address] Jun, [facility] [place] [facility] [address] [id number] [place] [address] Jun, [facility] [place] [facility] [address] [id number] [place] [address] Apr, [facility] [place] [facility] [address] [id number] [place] [address] Apr, [facility] [place] [facility] [address] [id number] [place] [address] Mar, [facility] [place] [facility] [address] [id number] [place] [address] Mar, [facility] [place] [facility] [address] [id number] [place] [address] Mar, [facility] [place] [facility] [address] [id number] [place] [address] Mar, [facility] [place] [facility] [address] [id number] [place] [address] Feb, [facility] [place] [facility] [address] [id number] [place] [address] Feb, [facility] [place] [facility] [address] [id number] [place] [address] Jan, [facility] [place] [facility] [address] [id number] [place] [address] Jan, [facility] [place] [facility] [address] [id number] [place] [address] Jan, [facility] [place] [facility] [address] [id number] [place] [address] Jan, [facility] [place] [facility] [address] [id number] [place] [address] Sep, [facility] [place] [facility] [address] [id number] [place] [address] Sep, [facility] [place] [facility] [address] [id number] [place] [address] Sep, [facility] [place] [facility] [address] [id number] [place] [address] Sep, [facility] [place] [facility] [address] [id number] [place] [address] Sep, [facility] [place] [facility] [address] [id number] [place] [address] Sep, [facility] [place] [facility] [address] [id number] [place] [address] Aug, [facility] [place] [facility] [address] [id number] [place] [address] Aug, [facility] [place] [facility] [address] [id number] [place] [address] Aug, [facility] [place] [facility] [address] [id number] [place] [address] Aug, [facility] [place] [facility] [address] [id number] [place] [address] Apr, [facility] [place] [facility] [address] [id number] [place] [address] Apr, [facility] [place] [facility] [address] [id number] [place] [address] Mar, [facility] [place] [facility] [address] [id number] [place] [address] Mar, [facility] [place] [facility] [address] [id number], [place] [address] Mar, [facility] [address] [id number] [place] [address] Mar, [facility] [place] [facility] [address] [facility] [id number], [place] [address] Feb, [facility] [address] [facility] [id number] [place] [address] Feb, [facility] [place] [facility] [address] [id number], [place] [address] Feb, [facility] [address] [facility] [id number] [place] [address] Feb, [facility] [place] [facility] [address] [facility] [id number] [place] [address] Feb, [facility] [address] [facility] [id number], [place] [address] Feb, [facility] [place] [facility] [address] [facility] [id number] [place] [address] Feb, [facility] [address] [facility] [id number] [place] [address] Feb, [facility] [place] [facility] [id number], [place] [address] Jan, [facility] [place] [facility] [address] [facility] [id number], [place] [address] Jan, [facility] [place] [facility] [address] [facility] [id number], [place] [address] Dec, [facility] [place] [facility] [address] [id number], [place] [address] Dec, [facility] [place] [facility] [address] [facility] [id number], [place] [address] Dec, [facility] [place] [facility] [address] [facility] [id number], [place] [address] Dec, [facility] [place] [facility] [address] [id number] [place] [address] 08 Dec, 2012 [facility] [place] [facility] [address] [id number] [place] [address] 02 Dec, 2012 [facility] [place] [facility] [address] [id number] [place] [address] 10 Nov, 2012 [facility] [place] [facility] [address] [id number] [place] [address] Aug, [facility] [place] [facility] [address] [id number] [place] [address] Dec, [facility] [place] [facility] [address] [id number] [place] [address] Dec, [facility] [place] [facility] [address] [id number] [place] [address] Nov, [facility] [place] [facility] [address] [id number] [place] [address] Sep, [facility] [place] [facility] [address] [id number] [place] [address] Sep, [facility] [place] [facility] [address] [id number] [place] [address] Sep, [facility] [place] [facility] [address] [id number] [place] [address] Aug, [facility] [place] [facility] [address] [id number] [place] [address] Aug, [facility] [place] [facility] [address] [id number] [place] [address] Aug, [facility] [place] [facility] [address] [id number] [place] [address] Jun, [facility] [place] [facility] [address] [id number] [place] [address] Jun, [facility] [place] [facility] [address] [id number] [place] [address] Jun, [facility] [id number] [address] May, [facility] [address], [place] [address] May, [facility] [address], [place] [address] May, [facility] [id number] [place] [address] Feb, [facility] [address], [place] [address] Feb, [facility] [id number] [place] [address] Jan, [facility] [address], [place] [address] Jan, [facility] [address], [place] [address] Jan, [facility] [address], [place] [address] Jan, [facility] [address], [place] [address] Jan, [facility] [address], [place] [address] Jan, [facility] [address], [place] [address] Jan, [facility] [id number] [address] Jan, IMMUNIZATIONS No Known Immunizations SOCIAL HISTORY [...]
--- OUTSIDE RECORDS SUMMARY | 2022-11-24 15:50 | XMS REPORT ---
Author Author Melanie Lanza Organization [facility] Address Unknown Phone Unavailable Care Team Providers Care Retort Setter Name Role Phone Migration, Doctor Unavailable Unavailable PROBLEMS Type Condition ICD9-CM Code VUO57-QS Code Onset Dates Condition Status SNOMED Code Problem Hyperlipidemia E78.5 Active 22697728 Problem Type 2 diabetes mellitus with hyperglycemia E11.65 Active 722581828 Problem Severe nonproliferative diabetic retinopathy without macular edema associated with type 2 diabetes mellitus, unspecified laterality E11.3499 Active 774591626 Problem Coronary artery disease involving [place] coronary artery of [place] heart without angina pectoris I25.10 Active 9624517324980 Problem Essential hypertension I10 Active [id number] ALLERGIES No Information ENCOUNTERS Encounter Location Date Diagnosis [place] [address] [address] Oct, Type 2 diabetes mellitus with hyperglycemia E11.65 [place] [address] [address] Sep, [place] [address] [address] July, Type 2 diabetes mellitus with hyperglycemia E11.65 [place] [address] [place] [id number] [place] [address] Mar, [facility] [address] [place] [id number] [place] [address] Feb, [place] [address] [address] Jan, Type 2 diabetes mellitus with hyperglycemia E11.65 ; Essential hypertension I10 ; Hyperlipidemia E78.5 and Encounter for immunization Z23 [place] [address] [address] Sep, [place] [address] [place] [address] July, Type 2 diabetes mellitus with hyperglycemia E11.65 [facility] [address] [address] July, [facility] [address] [address] May, [facility] [address] [place] [id number] [place] [address] May, Hyperlipidemia E78.5 [facility] [address] [place] [id number] [place] [address] May, Type 2 diabetes mellitus with hyperglycemia E11.65 ; Essential hypertension I10 ; Hyperlipidemia E78.5 and Breast cancer screening Z12.31 [facility] [address] [address] May, Type 2 diabetes mellitus with hyperglycemia E11.65 [facility] [address], [place] [address] Apr, Type 2 diabetes mellitus with hyperglycemia E11.65 [facility] [id number] [place] [address] Jan, [facility] [id number], [place] [address] Jan, [facility] [address], [place] [address] Jan, [facility] [address], [place] [address] Sep, Essential hypertension I10 [facility] [id number] [place] [address] Aug, Type 2 diabetes mellitus with hyperglycemia E11.65 [facility] [address], [place] [address] Aug, [facility] [id number] [place] [address] Aug, Type 2 diabetes mellitus with hyperglycemia E11.65 ; Hyperlipidemia E78.5 ; Colon cancer screening Z12.11 ; Essential hypertension I10 and Encounter for immunization Z23 [facility] [address] [place] [id number] [place] [address] July, Type 2 diabetes mellitus with hyperglycemia E11.65 [facility] [address] [place] [id number] [place] [address] July, Type 2 diabetes mellitus with hyperglycemia E11.65 [facility] [address] [place] [id number] [place] [address] Jun, [facility] [address] [place] [id number] [place] [address] May, Essential hypertension I10 [facility] [address] [place] [id number] [place] [address] May, [facility] [address] [place] [id number] [place] [address] Apr, Acute non-recurrent frontal sinusitis J01.10 [facility] [address] [place] [id number] [place] [address] Apr, Essential hypertension I10 [facility] [address] [place] [id number] [place] [address] Apr, [facility] [address] [place] [id number] [place] [address] Mar, Type 2 diabetes mellitus with hyperglycemia E11.65 [facility] [id number] [place] [address] Mar, [facility] [address] [place] [id number] [place] [address] Feb, Essential hypertension I10 [facility] [address] [place] [id number] [place] [address] Feb, [facility] [address] [place] [id number] [place] [address] Feb, Type 2 diabetes mellitus with hyperglycemia E11.65 ; Essential hypertension I10 and Hyperlipidemia E78.5 [facility] [address], [place] [address] Jan, [facility] [address] [place] [id number] [address] 17 Dec, 2015 [facility] [address] [place] [id number] [place] [address] Dec, [facility] [address] [place] [id number] [place] [address] Oct, [facility] [address] [place] [id number] [place] [address] 15 Aug, 2015 [facility] [address] [place] [id number] [place] [address] 15 Aug, 2015 Hyperlipidemia E78.5 [facility] [address] [place] [id number] [place] [address] 14 Aug, 2015 Type 2 diabetes mellitus with hyperglycemia E11.65 ; Hyperlipidemia E78.5 and Essential hypertension I10 [facility] [address] [address] Aug, [facility] [address], [place] [address] Jun, [facility] [address], [place] [address] Jun, [facility] [id number] [place] [address] Jun, [facility] [address] [place] [id number] [place] [address] Apr, [facility] [address], [place] [address] Apr, [facility] [address] [place] [id number] [place] [address] Mar, Hyperlipidemia E78.5 [facility] [id number] [place] [address] Mar, Type 2 diabetes mellitus with hyperglycemia E11.65 ; Hyperlipidemia E78.5 and Essential hypertension I10 [facility] [address], [place] [address] Mar, [facility] [address] [place] [id number] [place] [address] Nov, [facility] [address] [place] [id number] [place] [address] Nov, [facility] [address] [place] [id number] [place] [address] Sep, Hyperlipidemia 272.4 [facility] [address] [place] [id number] [place] [address] Sep, [facility] [address] [place] [id number] [place] [address] Sep, Diabetes mellitus, type II 250.00 ; Hypertension 401.9 and Hyperlipidemia 272.4 [facility] [address] [place] [id number] [place] [address] Sep, [facility] [id number] [place] [address] Sep, [facility] [id number] [place] [address] Sep, [facility] [id number] [place] [address] Jun, [facility] [id number] [place] [address] Jun, [facility] [id number], [place] [address] Apr, [facility] [id number] [place] [address] Apr, [facility] [place] [facility] [address] [id number] [place] [address] Mar, [facility] [place] [facility] [address] [id number] [place] [address] Mar, [facility] [place] [facility] [address] [id number] [place] [address] Mar, [facility] [place] [facility] [address] [id number] [place] [address] Mar, [facility] [place] [facility] [address] [id number] [place] [address] Feb, [facility] [place] [facility] [address] [id number] [place] [address] Feb, [facility] [place] [facility] [address] [id number] [place] [address] Jan, [facility] [place] [facility] [address] [id number] [place] [address] Jan, [facility] [place] [facility] [address] [id number] [place] [address] Jan, [facility] [place] [facility] [address] [id number] [place] [address] Jan, [facility] [place] [facility] [address] [id number] [place] [address] Sep, [facility] [place] [facility] [address] [id number] [place] [address] Sep, [facility] [place] [facility] [address] [id number] [place] [address] Sep, [facility] [place] [facility] [address] [id number] [place] [address] Sep, [facility] [place] [facility] [address] [id number] [place] [address] Sep, [facility] [place] [facility] [address] [id number], [place] [address] Sep, [facility] [place] [facility] [address] [id number] [place] [address] Aug, [facility] [place] [facility] [address] [id number] [place] [address] Aug, [facility] [place] [facility] [address] [facility] [id number] [place] [address] Aug, [facility] [place] [facility] [address] [id number] [place] [address] Aug, [facility] [place] [facility] [address] [id number] [place] [address] Apr, [facility] [place] [facility] [address] [id number] [place] [address] Apr, [facility] [place] [facility] [address] [id number] [place] [address] Mar, [facility] [place] [facility] [address] [id number] [place] [address] Mar, [facility] [place] [facility] [address] [id number] [place] [address] Mar, [facility] [place] [facility] [address] [facility] [id number] [place] [address] Mar, [facility] [place] [facility] [address] [id number] [place] [address] Feb, [facility] [place] [facility] [address] [id number], [place] [address] Feb, [facility] [place] [facility] [address] [id number] [place] [address] Feb, [facility] [place] [facility] [address] [id number] [place] [address] Feb, [facility] [place] [facility] [address] [facility] [id number], [place] [address] Feb, [facility] [place] [facility] [address] [id number] [place] [address] Feb, [facility] [place] [facility] [address] [id number] [place] [address] Feb, [facility] [place] [facility] [address] [id number] [place] [address] Feb, [facility] [place] [facility] [address] [id number] [place] [address] Jan, [facility] [place] [facility] [address] [id number] [place] [address] Jan, [facility] [place] [facility] [address] [id number] [place] [address] Dec, [facility] [place] [facility] [address] [id number] [place] [address] Dec, [facility] [place] [facility] [address] [id number] [place] [address] Dec, [facility] [place] [facility] [address] [id number] [place] [address] Dec, [facility] [place] [facility] [address] [id number] [place] [address] Dec, [facility] [place] [facility] [address] [id number] [place] [address] Dec, [facility] [place] [facility] [address] [id number] [place] [address] Nov, [facility] [place] [facility] [address] [id number] [place] [address] Aug, [facility] [place] [facility] [address] [id number] [place] [address] Dec, [facility] [place] [facility] [address] [id number] [place] [address] Dec, [facility] [place] [facility] [address] [id number] [place] [address] Nov, [facility] [place] [facility] [address] [id number] [place] [address] Sep, [facility] [place] [facility] [address] [id number] [place] [address] Sep, [facility] [place] [facility] [address] [facility] [id number] [place] [address] Sep, [facility] [place] [facility] [address] [id number] [place] [address] Aug, [facility] [place] [facility] [address] [id number] [place] [address] Aug, [facility] [place] [facility] [address] [id number] [place] [address] Aug, [facility] [place] [facility] [address] [id number] [place] [address] Jun, [facility] [place] [facility] [address] [id number] [place] [address] Jun, [facility] [place] [facility] [address] [id number] [place] [address] Jun, [facility] [place] [facility] [address] [id number] [place] [address] May, [facility] [place] [facility] [address] [id number] [place] [address] May, [facility] [place] [facility] [address] [id number], [place] [address] May, [facility] [place] [facility] [address] [id number] [place] [address] Feb, [facility] [place] [facility] [address] [id number] [place] [address] Feb, [facility] [place] [facility] [address] [id number] [place] [address] Jan, [facility] [place] [facility] [address] [facility] [id number], [place] [address] Jan, [facility] [address] [place] [id number] [address] Jan, [facility] [id number], [place] [address] Jan, [facility] [address] [id number] [address] Jan, [facility] [address] [id number] [address] Jan, [facility] [address] [facility] [id number], [place] [address] Jan, [facility] [id number], [place] [address] Jan, IMMUNIZATIONS No Known Immunizations SOCIAL HISTORY [...]
--- OUTSIDE RECORDS SUMMARY | 2022-11-24 15:50 | XMS REPORT ---
Author Author Melanie Lanza Organization [facility] Address Unknown Phone Unavailable Care Team Providers Care Isotope Technologist Name Role Phone Migration, Doctor Unavailable Unavailable PROBLEMS Type Condition ICD9-CM Code XYX31-RV Code Onset Dates Condition Status SNOMED Code Problem Hyperlipidemia E78.5 Active 43424274 Problem Type 2 diabetes mellitus with hyperglycemia E11.65 Active 675294019 Problem Severe nonproliferative diabetic retinopathy without macular edema associated with type 2 diabetes mellitus, unspecified laterality E11.3499 Active 788342090 Problem Coronary artery disease involving [place] coronary artery of [place] heart without angina pectoris I25.10 Active [id number] Problem Essential hypertension I10 Active [id number] ALLERGIES No Information ENCOUNTERS Encounter Location Date Diagnosis [place] [address] [address] Feb, Type 2 diabetes mellitus with hyperglycemia E11.65 ; Hyperlipidemia E78.5 ; Essential hypertension I10 and Encounter for immunization Z23 [place] [address] [address] Feb, [place] [address] [address] Oct, [place] [address] [address] Oct, [place] [address] [address] Oct, Type 2 diabetes mellitus with hyperglycemia E11.65 [place] [address] [address] Sep, [place] [address] [address] July, Type 2 diabetes mellitus with hyperglycemia E11.65 [place] [address] [address] Mar, [facility] [id number] [place] [address] Feb, [facility] [address] [address] Jan, Type 2 diabetes mellitus with hyperglycemia E11.65 ; Essential hypertension I10 ; Hyperlipidemia E78.5 and Encounter for immunization Z23 [facility] [address] [address] Sep, [facility] [address] [address] July, Type 2 diabetes mellitus with hyperglycemia E11.65 [place] [address] [address] July, [facility] [address] [address] May, [facility] [address] [address] May, Hyperlipidemia E78.5 [facility] [address] [address] May, Type 2 diabetes mellitus with hyperglycemia E11.65 ; Essential hypertension I10 ; Hyperlipidemia E78.5 and Breast cancer screening Z12.31 [place] [address] [address] May, Type 2 diabetes mellitus with hyperglycemia E11.65 [facility] [id number] [place] [address] Apr, Type 2 diabetes mellitus with hyperglycemia E11.65 [facility] [address] [address] Jan, [facility] [address] [address] Jan, [facility] [address] [address] Jan, [facility] [address] [address] Sep, Essential hypertension I10 [facility] [id number] [place] [address] Aug, Type 2 diabetes mellitus with hyperglycemia E11.65 [facility] [address] [address] Aug, [facility] [address] [address] Aug, Type 2 diabetes mellitus with hyperglycemia E11.65 ; Hyperlipidemia E78.5 ; Colon cancer screening Z12.11 ; Essential hypertension I10 and Encounter for immunization Z23 [facility] [address] [address] July, Type 2 diabetes mellitus with hyperglycemia E11.65 [facility] [address] [address] July, Type 2 diabetes mellitus with hyperglycemia E11.65 [place] [address] [address] Jun, [facility] [address] [address] May, Essential hypertension I10 [place] [address] [address] May, [place] [address] [address] Apr, Acute non-recurrent frontal sinusitis J01.10 [facility] [address] [address] Apr, Essential hypertension I10 [facility] [address] [address] Apr, [facility] [address] [address] Mar, Type 2 diabetes mellitus with hyperglycemia E11.65 [facility] [address] [address] Mar, [place] [address] [id number] [place] [address] 15 Feb, 2016 Essential hypertension I10 [facility] [address] [id number] [place] [address] 14 Feb, 2016 [facility] [address] [id number] [place] [address] 13 Feb, 2016 Type 2 diabetes mellitus with hyperglycemia E11.65 ; Essential hypertension I10 and Hyperlipidemia E78.5 [facility] [address] [id number] [place] [address] 16 Jan, 2016 [facility] [address] [id number] [place] [address] 17 Dec, 2015 [facility] [id number] [place] [address] Dec, [facility] [id number] [place] [address] Oct, [facility] [id number] [place] [address] 15 Aug, 2015 [facility] [address] [id number] [place] [address] 15 Aug, 2015 Hyperlipidemia E78.5 [facility] [address] [id number] [place] [address] 14 Aug, 2015 Type 2 diabetes mellitus with hyperglycemia E11.65 ; Hyperlipidemia E78.5 and Essential hypertension I10 [facility] [address] [id number] [place] [address] Aug, [facility] [address] [id number] [place] [address] Jun, [facility] [address] [id number] [place] [address] Jun, [facility] [address] [id number] [place] [address] Jun, [facility] [address] [id number] [place] [address] Apr, [facility] [address] [id number] [place] [address] 11 Apr, 2015 [facility] [address] [place] [id number] [place] [address] Mar, Hyperlipidemia E78.5 [facility] [address] [id number] [place] [address] 14 Mar, 2015 Type 2 diabetes mellitus with hyperglycemia E11.65 ; Hyperlipidemia E78.5 and Essential hypertension I10 [facility] [id number] [place] [address] 07 Mar, 2015 [facility] [id number] [place] [address] Nov, [facility] [id number] [place] [address] Nov, [facility] [id number] [place] [address] Sep, Hyperlipidemia 272.4 [facility] [id number] [place] [address] Sep, [facility] [id number] [place] [address] Sep, Diabetes mellitus, type II 250.00 ; Hypertension 401.9 and Hyperlipidemia 272.4 [facility] [id number] [place] [address] Sep, [facility] [id number] [place] [address] Sep, [facility] [id number] [place] [address] Sep, [facility] [id number] [place] [address] Jun, [facility] [id number] [place] [address] Jun, [facility] [address] [id number] [place] [address] Apr, [facility] [address] [id number] [place] [address] Apr, [facility] [address] [id number] [place] [address] Mar, [facility] [address] [id number] [place] [address] Mar, [facility] [address] [id number] [place] [address] Mar, [facility] [address] [id number] [place] [address] Mar, [facility] [address] [id number] [place] [address] Feb, [facility] [address] [id number] [place] [address] Feb, [facility] [address] [id number] [place] [address] Jan, [facility] [address] [id number] [place] [address] Jan, [facility] [address] [id number] [place] [address] Jan, [facility] [address] [id number] [place] [address] Jan, [facility] [address] [id number] [place] [address] Sep, [facility] [address] [id number] [place] [address] Sep, [facility] [address] [id number] [place] [address] Sep, [facility] [address] [id number] [place] [address] Sep, [facility] [address] [id number] [place] [address] Sep, [facility] [address] [id number] [place] [address] Sep, [facility] [address] [id number] [place] [address] Aug, [facility] [address] [id number] [place] [address] Aug, [facility] [address] [id number] [place] [address] Aug, [facility] [address] [id number] [place] [address] Aug, [facility] [address] [id number] [place] [address] Apr, [facility] [address] [id number] [place] [address] Apr, [facility] [address] [id number] [place] [address] Mar, [facility] [address] [id number] [place] [address] Mar, [facility] [address] [id number] [place] [address] Mar, [facility] [address] [id number] [place] [address] Mar, [facility] [address] [id number] [place] [address] Feb, [facility] [address] [id number] [place] [address] Feb, [facility] [address] [id number] [place] [address] Feb, [facility] [address] [id number] [place] [address] Feb, [facility] [address] [id number] [place] [address] Feb, [facility] [address] [id number] [place] [address] Feb, [facility] [address] [id number] [place] [address] Feb, [facility] [address] [id number] [place] [address] Feb, [facility] [address] [id number] [place] [address] Jan, [facility] [address] [id number] [place] [address] Jan, [facility] [address] [id number] [place] [address] Dec, [facility] [address] [id number] [place] [address] Dec, [facility] [address] [id number] [place] [address] Dec, [facility] [id number] [place] [address] Dec, [facility] [address] [id number] [place] [address] Dec, [facility] [address] [id number] [place] [address] Dec, [facility] [address] [id number] [place] [address] Nov, [facility] [address] [id number] [place] [address] Aug, [facility] [address] [id number] [place] [address] Dec, [facility] [address] [id number] [place] [address] Dec, [facility] [id number] [place] [address] Nov, [facility] [address] [id number] [place] [address] Sep, [facility] [address] [id number] [place] [address] Sep, [facility] [address] [id number] [place] [address] Sep, [facility] [address] [id number] [place] [address] Aug, [facility] [address] [id number] [place] [address] Aug, [facility] [id number] [place] [address] Aug, [facility] [address] [id number] [place] [address] Jun, [facility] [address] [id number] [place] [address] Jun, [facility] [address] [id number] [place] [address] Jun, [facility] [address] [id number] [place] [address] May, [facility] [id number] [place] [address] May, [facility] [address] [id number] [place] [address] May, [facility] [id number] [place] [address] Feb, [facility] [id number] [place] [address] Feb, [facility] [id number] [place] [address] Jan, [facility] [address] [id number] [place] [address] Jan, [facility] [id number] [place] [address] Jan, [facility] [address] [id number] [place] [address] Jan, [facility] [id number] [place] [address] Jan, [facility] [address] [id number] [place] [address] Jan, [facility] [address] [id number] [place] [address] Jan, [facility] [address] [id number] [place] [address] Jan, IMMUNIZATIONS No Known Immunizations SOCIAL HISTORY [...]
--- OUTSIDE RECORDS SUMMARY | 2022-11-24 15:50 | XMS REPORT ---
Author Author Melanie TORRES Organization [facility] Address [address] [place] [address] Care Team Providers Care Signal Intelligence Analyst Name Role Phone MILI TORRES Unavailable PROBLEMS Type Condition ICD9-CM Code [id number] Code Onset Dates Condition Status SNOMED Code Problem Hyperlipidemia E78.5 Active 02047276 Problem Type 2 diabetes mellitus with hyperglycemia E11.65 Active 182316860 Problem Severe nonproliferative diabetic retinopathy without macular edema associated with type 2 diabetes mellitus, unspecified laterality E11.3499 Active 019810131 Problem Coronary artery disease involving lower [place] coronary artery of [place] heart without angina pectoris I25.10 Active 9345367289191 Problem Essential hypertension I10 Active [id number] ALLERGIES No Information ENCOUNTERS Encounter Location Date Diagnosis [facility] [id number] [place] [address] July, [facility] [facility] [id number] [place] [address] Feb, Type 2 diabetes mellitus with hyperglycemia E11.65 ; Hyperlipidemia E78.5 ; Essential hypertension I10 and Encounter for immunization Z23 [facility] [id number] [place] [address] Feb, [facility] [id number] [place] [address] Oct, [facility] [address] [address] Oct, [facility] [facility] [id number] [place] [address] Oct, Type 2 diabetes mellitus with hyperglycemia E11.65 [facility] [id number] [place] [address] Sep, [facility] [address], [place] [address] July, Type 2 diabetes mellitus with hyperglycemia E11.65 [facility] [id number] [address] Mar, [facility] [id number] [place] [address] Feb, [facility] [id number] [place] [address] Jan, Type 2 diabetes mellitus with hyperglycemia E11.65 ; Essential hypertension I10 ; Hyperlipidemia E78.5 and Encounter for immunization Z23 [facility] [id number] [place] [address] Sep, [facility] [id number] [place] [address] July, Type 2 diabetes mellitus with hyperglycemia E11.65 [facility] [id number] [place] [address] July, [facility] [id number] [place] [address] May, [facility] [id number] [place] [address] May, Hyperlipidemia E78.5 [facility] [id number] [place] [address] May, Type 2 diabetes mellitus with hyperglycemia E11.65 ; Essential hypertension I10 ; Hyperlipidemia E78.5 and Breast cancer screening Z12.31 [facility] [id number] [place] [address] May, Type 2 diabetes mellitus with hyperglycemia E11.65 [facility] [address], [place] [address] Apr, Type 2 diabetes mellitus with hyperglycemia E11.65 [facility] [id number] [place] [address] 15 Jan, 2017 [facility] [address] [place] [address] 14 Jan, 2017 [facility] [id number] [place] [address] Jan, [facility] [id number] [place] [address] Sep, Essential hypertension I10 [facility] [id number] [place] [address] Aug, Type 2 diabetes mellitus with hyperglycemia E11.65 [facility] [id number] [place] [address] Aug, [facility] [id number] [place] [address] Aug, Type 2 diabetes mellitus with hyperglycemia E11.65 ; Hyperlipidemia E78.5 ; Colon cancer screening Z12.11 ; Essential hypertension I10 and Encounter for immunization Z23 [facility] [id number] [place] [address] July, Type 2 diabetes mellitus with hyperglycemia E11.65 [facility] [id number] [place] [address] July, Type 2 diabetes mellitus with hyperglycemia E11.65 [facility] [address], [place] [address] Jun, [facility] [address] [address] May, Essential hypertension I10 [facility] [address], [place] [address] May, [facility] [address] [place] [address] Apr, Acute non-recurrent frontal sinusitis J01.10 [facility] [id number] [place] [address] Apr, Essential hypertension I10 [facility] [address], [place] [address] Apr, [facility] [address], [place] [address] Mar, Type 2 diabetes mellitus with hyperglycemia E11.65 [facility] [address], [place] [address] Mar, [facility] [address] [place] [address] Feb, Essential hypertension I10 [facility] [id number] [place] [address] Feb, [facility] [address] [address] Feb, Type 2 diabetes mellitus with hyperglycemia E11.65 ; Essential hypertension I10 and Hyperlipidemia E78.5 [facility] [address], [place] [address] Jan, [facility] [address], [place] [address] Dec, [facility] [address], [place] [address] Dec, [facility] [address], [place] [address] Oct, [facility] [address] [place] [address] Aug, [facility] [address], [place] [address] 15 Aug, 2015 Hyperlipidemia E78.5 [facility] [address], [place] [address] 14 Aug, 2015 Type 2 diabetes mellitus with hyperglycemia E11.65 ; Hyperlipidemia E78.5 and Essential hypertension I10 [facility] [address], [place] [address] Aug, [facility] [address], [place] [address] Jun, [facility] [address], [place] [address] Jun, [facility] [address], [place] [address] Jun, [facility] [address], [place] [address] Apr, [facility] [id number] [place] [address] Apr, [facility] [address], [place] [address] Mar, Hyperlipidemia E78.5 [facility] [address] [place] [address] Mar, Type 2 diabetes mellitus with hyperglycemia E11.65 ; Hyperlipidemia E78.5 and Essential hypertension I10 [facility] [address], [place] [address] Mar, [facility] [address], [place] [address] Nov, [facility] [address], [place] [address] Nov, [facility] [address], [place] [address] Sep, Hyperlipidemia 272.4 [facility] [address], [place] [address] Sep, [facility] [address], [place] [address] Sep, Diabetes mellitus, type II 250.00 ; Hypertension 401.9 and Hyperlipidemia 272.4 [facility] [id number] [place] [address] Sep, [facility] [place] [facility] [address] [id number] [place] [address] Sep, [facility] [place] [facility] [address] [id number] [place] [address] Sep, [facility] [place] [facility] [address] [id number] [place] [address] Jun, [facility] [place] [facility] [address] [id number] [place] [address] Jun, [facility] [place] [facility] [address] [id number] [place] [address] Apr, [facility] [place] [facility] [address] [id number] [place] [address] Apr, [facility] [place] [facility] [address] [id number] [place] [address] Mar, [facility] [place] [facility] [address] [id number] [place] [address] Mar, [facility] [place] [facility] [address] [id number] [place] [address] Mar, [facility] [place] [facility] [address] [id number] [place] [address] Mar, [facility] [place] [facility] [address] [id number] [place] [address] Feb, [facility] [place] [facility] [address] [id number] [place] [address] Feb, [facility] [place] [facility] [address] [id number] [place] [address] Jan, [facility] [place] [facility] [address] [id number] [place] [address] Jan, [facility] [place] [facility] [address] [id number] [place] [address] Jan, [facility] [place] [facility] [address] [id number] [place] [address] Jan, [facility] [place] [facility] [address] [id number] [place] [address] Sep, [facility] [place] [facility] [address] [id number] [place] [address] Sep, [facility] [place] [facility] [address] [id number] [place] [address] Sep, [facility] [place] [facility] [address] [id number] [place] [address] Sep, [facility] [place] [facility] [address] [id number] [place] [address] Sep, [facility] [place] [facility] [address] [id number] [place] [address] Sep, [facility] [place] [facility] [address] [id number] [place] [address] Aug, [facility] [place] [facility] [address] [id number] [place] [address] Aug, [facility] [place] [facility] [address] [id number] [place] [address] Aug, [facility] [place] [facility] [address] [id number] [place] [address] Aug, [facility] [place] [facility] [address] [id number] [place] [address] Apr, [facility] [place] [facility] [address] [id number] [place] [address] Apr, [facility] [place] [facility] [address] [id number] [place] [address] Mar, [facility] [place] [facility] [address] [id number] [place] [address] Mar, [facility] [place] [facility] [address] [id number], [place] [address] Mar, [facility] [address] [id number] [place] [address] Mar, [facility] [place] [facility] [address] [facility] [id number] [address] Feb, [facility] [address] [facility] [id number] [place] [address] Feb, [facility] [place] [facility] [address] [id number], [place] [address] Feb, [facility] [address] [facility] [id number] [place] [address] Feb, [facility] [place] [facility] [address] [facility] [id number] [place] [address] Feb, [facility] [address] [facility] [id number], [place] [address] Feb, [facility] [place] [facility] [address] [facility] [id number] [place] [address] Feb, [facility] [address] [facility] [id number] [place] [address] Feb, [facility] [place] [facility] [id number] [address] Jan, [facility] [place] [facility] [address] [facility] [id number], [place] [address] Jan, [facility] [place] [facility] [address] [facility] [id number], [place] [address] Dec, [facility] [place] [facility] [address] [id number], [place] [address] Dec, [facility] [place] [facility] [address] [facility] [id number], [place] [address] Dec, [facility] [place] [facility] [address] [facility] [id number], [place] [address] Dec, [facility] [place] [facility] [address] [id number] [place] [address] 08 Dec, 2012 [facility] [place] [facility] [address] [id number] [place] [address] 02 Dec, 2012 [facility] [place] [facility] [address] [id number] [place] [address] 10 Nov, 2012 [facility] [place] [facility] [address] [id number] [place] [address] Aug, [facility] [place] [facility] [address] [id number] [place] [address] Dec, [facility] [place] [facility] [address] [id number] [place] [address] Dec, [facility] [place] [facility] [address] [id number] [place] [address] Nov, [facility] [place] [facility] [address] [id number] [place] [address] Sep, [facility] [place] [facility] [address] [id number] [place] [address] Sep, [facility] [place] [facility] [address] [id number] [place] [address] Sep, [facility] [place] [facility] [address] [id number] [place] [address] Aug, [facility] [place] [facility] [address] [id number] [place] [address] Aug, [facility] [place] [facility] [address] [id number] [place] [address] Aug, [facility] [place] [facility] [address] [id number] [place] [address] Jun, [facility] [place] [facility] [address] [id number] [place] [address] Jun, [facility] [place] [facility] [address] [id number] [place] [address] Jun, [facility] [id number], [place] [address] May, [facility] [address], [place] [address] May, [facility] [address], [place] [address] May, [facility] [id number] [place] [address] Feb, [facility] [address], [place] [address] Feb, [facility] [id number] [place] [address] Jan, [facility] [address], [place] [address] Jan, [facility] [address], [place] [address] Jan, [facility] [address], [place] [address] Jan, [facility] [address], [place] [address] Jan, [facility] [address], [place] [address] Jan, [facility] [address], [place] [address] Jan, [facility] [id number] [address] Jan, IMMUNIZATIONS No Known Immunizations SOCIAL HISTORY [...]
--- OUTSIDE RECORDS SUMMARY | 2022-11-24 15:50 | XMS REPORT ---
Author Author Melanie Lanza Organization [facility] Address Unknown Phone Unavailable Care Team Providers Care Warehouse Operations Associate Name Role Phone Migration, Doctor Unavailable Unavailable PROBLEMS Type Condition ICD9-CM Code LJO20-KL Code Onset Dates Condition Status SNOMED Code Problem Hyperlipidemia E78.5 Active 44871912 Problem Type 2 diabetes mellitus with hyperglycemia E11.65 Active 708957722 Problem Severe nonproliferative diabetic retinopathy without macular edema associated with type 2 diabetes mellitus, unspecified laterality E11.3499 Active 850022687 Problem Coronary artery disease involving [place] coronary artery of [place] heart without angina pectoris I25.10 Active [id number] Problem Essential hypertension I10 Active [id number] ALLERGIES No Information ENCOUNTERS Encounter Location Date Diagnosis [facility] [id number] [place] [address] Oct, [facility] [id number] [place] [address] Oct, [facility] [id number] [place] [address] Oct, Type 2 diabetes mellitus with hyperglycemia E11.65 [facility] [id number] [address] Sep, [facility] [id number] [place] [address] July, Type 2 diabetes mellitus with hyperglycemia E11.65 [facility] [id number] [place] [address] Mar, [facility] [id number] [place] [address] Feb, [facility] [id number] [place] [address] Jan, Type 2 diabetes mellitus with hyperglycemia E11.65 ; Essential hypertension I10 ; Hyperlipidemia E78.5 and Encounter for immunization Z23 [facility] [address], [place] [address] Sep, [facility] [id number] [place] [address] July, Type 2 diabetes mellitus with hyperglycemia E11.65 [facility] [id number] [place] [address] July, [facility] [address] [place] [address] May, [facility] [id number] [place] [address] May, Hyperlipidemia E78.5 [facility] [id number] [place] [address] May, Type 2 diabetes mellitus with hyperglycemia E11.65 ; Essential hypertension I10 ; Hyperlipidemia E78.5 and Breast cancer screening Z12.31 [facility] [address], [place] [address] May, Type 2 diabetes mellitus with hyperglycemia E11.65 [facility] [address], [place] [address] Apr, Type 2 diabetes mellitus with hyperglycemia E11.65 [facility] [address], [place] [address] Jan, [facility] [address], [place] [address] Jan, [facility] [address], [place] [address] Jan, [facility] [address], [place] [address] Sep, Essential hypertension I10 [facility] [address], [place] [address] Aug, Type 2 diabetes mellitus with hyperglycemia E11.65 [facility] [address] [place] [address] Aug, [facility] [id number] [place] [address] Aug, Type 2 diabetes mellitus with hyperglycemia E11.65 ; Hyperlipidemia E78.5 ; Colon cancer screening Z12.11 ; Essential hypertension I10 and Encounter for immunization Z23 [facility] [id number] [place] [address] July, Type 2 diabetes mellitus with hyperglycemia E11.65 [facility] [id number] [place] [address] July, Type 2 diabetes mellitus with hyperglycemia E11.65 [facility] [id number] [place] [address] Jun, [facility] [id number] [place] [address] May, Essential hypertension I10 [facility] [id number] [place] [address] May, [facility] [id number] [place] [address] Apr, Acute non-recurrent frontal sinusitis J01.10 [facility] [id number] [place] [address] Apr, Essential hypertension I10 [facility] [address] [place] [address] Apr, [facility] [id number] [place] [address] Mar, Type 2 diabetes mellitus with hyperglycemia E11.65 [facility] [address], [place] [address] Mar, [facility] [id number] [place] [address] 15 Feb, 2016 Essential hypertension I10 [facility] [id number] [address] 14 Feb, 2016 [facility] [address], [place] [address] Feb, Type 2 diabetes mellitus with hyperglycemia E11.65 ; Essential hypertension I10 and Hyperlipidemia E78.5 [facility] [address] [place] [address], [place] [address] Jan, [facility] [id number] [place] [address] Dec, [facility] [address] [place] [address], [place] [address] Dec, [facility] [address] [place] [address] Oct, [facility] [address] [place] [address] Aug, [facility] [address], [place] [address] Aug, Hyperlipidemia E78.5 [facility] [address], [place] [address] Aug, Type 2 diabetes mellitus with hyperglycemia E11.65 ; Hyperlipidemia E78.5 and Essential hypertension I10 [facility] [address], [place] [address] Aug, [facility] [id number], [place] [address] Jun, [facility] [address], [place] [address] Jun, [facility] [address], [place] [address] Jun, [facility] [address], [place] [address] Apr, [facility] [address], [place] [address] Apr, [facility] [address] [place] [address] Mar, Hyperlipidemia E78.5 [facility] [address] [place] [address] 14 Mar, 2015 Type 2 diabetes mellitus with hyperglycemia E11.65 ; Hyperlipidemia E78.5 and Essential hypertension I10 [facility] [address] [place] [address] Mar, [facility] [address] [place] [address] Nov, [facility] [address], [place] [address] Nov, [facility] [address], [place] [address] Sep, Hyperlipidemia 272.4 [facility] [address], [place] [address] Sep, [facility] [address], [place] [address] Sep, Diabetes mellitus, type II 250.00 ; Hypertension 401.9 and Hyperlipidemia 272.4 [facility] [address], [place] [address] Sep, [facility] [address], [place] [address] Sep, [facility] [address], [place] [address] Sep, [facility] [address], [place] [address] Jun, [facility] [id number] [address] Jun, [facility] [place] [facility] [address] [id number] [place] [address] Apr, [facility] [place] [facility] [address] [id number] [place] [address] Apr, [facility] [place] [facility] [address] [id number] [place] [address] Mar, [facility] [place] [facility] [address] [id number] [place] [address] Mar, [facility] [place] [facility] [address] [id number] [place] [address] Mar, [facility] [place] [facility] [address] [id number] [place] [address] Mar, [facility] [place] [facility] [address] [id number] [place] [address] Feb, [facility] [place] [facility] [address] [id number] [place] [address] Feb, [facility] [place] [facility] [address] [id number] [place] [address] Jan, [facility] [place] [facility] [address] [id number] [place] [address] Jan, [facility] [place] [facility] [address] [id number], [place] [address] Jan, [facility] [place] [facility] [address] [id number], [place] [address] Jan, [facility] [place] [facility] [address] [id number] [place] [address] Sep, [facility] [place] [facility] [address] [id number] [place] [address] Sep, [facility] [place] [facility] [address] [id number], [place] [address] Sep, [facility] [place] [facility] [address] [id number], [place] [address] Sep, [facility] [place] [facility] [address] [id number] [place] [address] Sep, [facility] [place] [facility] [address] [id number] [place] [address] Sep, [facility] [place] [facility] [address] [facility] [id number] [place] [address] Aug, [facility] [place] [facility] [address] [id number] [place] [address] Aug, [facility] [place] [facility] [address] [id number] [place] [address] Aug, [facility] [place] [facility] [address] [id number] [place] [address] Aug, [facility] [place] [facility] [id number] [place] [address] Apr, [facility] [place] [facility] [address] [facility] [id number] [place] [address] Apr, [facility] [place] [facility] [address] [id number] [place] [address] Mar, [facility] [place] [facility] [address] [facility] [id number] [place] [address] Mar, [facility] [place] [facility] [address] [facility] [id number] [place] [address] Mar, [facility] [place] [facility] [address] [facility] [id number] [place] [address] Mar, [facility] [place] [facility] [address] [id number] [place] [address] Feb, [facility] [place] [facility] [address] [id number] [place] [address] Feb, [facility] [place] [facility] [address] [facility] [id number] [address] Feb, [facility] [place] [facility] [address] [id number] [place] [address] Feb, [facility] [place] [facility] [address] [id number] [place] [address] Feb, [facility] [place] [facility] [address] [id number] [place] [address] Feb, [facility] [place] [facility] [address] [id number] [place] [address] Feb, [facility] [place] [facility] [address] [id number] [place] [address] Feb, [facility] [place] [facility] [address] [id number] [place] [address] Jan, [facility] [place] [facility] [address] [id number] [place] [address] Jan, [facility] [place] [facility] [address] [id number] [place] [address] Dec, [facility] [place] [facility] [address] [id number] [place] [address] Dec, [facility] [place] [facility] [address] [id number] [place] [address] Dec, [facility] [place] [facility] [address] [id number] [place] [address] Dec, [facility] [place] [facility] [address] [id number] [place] [address] Dec, [facility] [place] [facility] [address] [id number] [place] [address] Dec, [facility] [place] [facility] [address] [id number] [place] [address] Nov, [facility] [place] [facility] [address] [id number] [place] [address] Aug, [facility] [place] [facility] [address] [id number] [place] [address] Dec, [facility] [place] [facility] [address] [id number] [place] [address] Dec, [facility] [place] [facility] [address] [id number] [place] [address] Nov, [facility] [place] [facility] [address] [id number] [place] [address] Sep, [facility] [place] [facility] [address] [id number] [place] [address] Sep, [facility] [place] [facility] [address] [id number] [place] [address] Sep, [facility] [place] [facility] [address] [id number] [place] [address] Aug, [facility] [place] [facility] [address] [id number] [place] [address] Aug, [facility] [place] [facility] [address] [id number] [place] [address] Aug, [facility] [place] [facility] [address] [id number] [place] [address] Jun, [facility] [place] [facility] [address] [id number] [place] [address] Jun, [facility] [place] [facility] [address] [id number], [place] [address] Jun, [facility] [place] [facility] [address] [id number], [place] [address] May, [facility] [place] [facility] [address] [id number] [place] [address] May, [facility] [place] [facility] [address] [facility] [id number] [place] [address] May, [facility] [place] [facility] [address] [id number] [place] [address] Feb, [facility] [place] [facility] [id number], [place] [address] Feb, [facility] [id number], [place] [address] Jan, [facility] [address], [place] [address] Jan, [facility] [id number], [place] [address] Jan, [facility] [address], [place] [address] Jan, [facility] [address], [place] [address] Jan, [facility] [address], [place] [address] Jan, [facility] [address], [place] [address] Jan, [facility] [id number], [place] [address] Jan, IMMUNIZATIONS No Known Immunizations SOCIAL HISTORY Never Assessed REASON FOR VISIT PLAN OF CARE VITAL SIGNS Height 67 in 2014-03-25 Weight 162.8 lbs 2014-03-25 Temperature 96.7 degrees Fahrenheit Heart Rate 86 bpm 2014-03-25 Respiratory Rate 16 2014-03-25 Blood pressure systolic 161 mmHg Blood pressure diastolic 99 mmHg 2014-03 MEDICATIONS Unknown Medications RESULTS No Results PROCEDURES [...]
--- OUTSIDE RECORDS SUMMARY | 2022-11-24 15:50 | XMS REPORT ---
Author Author Melanie TORRES [facility] Address [address] [place] [address] Care Team Providers Care Stock Counter Name Role Phone MILI TORRES Unavailable PROBLEMS Type Condition ICD9-CM Code DPH20-CT Code Onset Dates Condition Status SNOMED Code Problem Hyperlipidemia E78.5 Active 14100539 Problem Type 2 diabetes mellitus with hyperglycemia E11.65 Active 897849487 Problem Severe nonproliferative diabetic retinopathy without macular edema associated with type 2 diabetes mellitus, unspecified laterality E11.3499 Active 835435209 Problem Coronary artery disease involving [place] coronary artery of [place] heart without angina pectoris I25.10 Active [id number] Problem Essential hypertension I10 Active [id number] ALLERGIES No Information ENCOUNTERS Encounter Location Date Diagnosis [facility] [id number] [place] [address] Oct, [facility] [id number] [place] [address] Oct, [facility] [id number] [place] [address] Oct, Type 2 diabetes mellitus with hyperglycemia E11.65 [facility] [address] [address] Sep, [facility] [id number] [place] [address] July, Type 2 diabetes mellitus with hyperglycemia E11.65 [facility] [address] [place] [address] Mar, [facility] [address] [place] [address] Feb, [facility] [id number] [place] [address] Jan, Type 2 diabetes mellitus with hyperglycemia E11.65 ; Essential hypertension I10 ; Hyperlipidemia E78.5 and Encounter for immunization Z23 [facility] [id number] [place] [address] Sep, [facility] [id number] [place] [address] July, Type 2 diabetes mellitus with hyperglycemia E11.65 [facility] [id number] [place] [address] July, [facility] [id number] [place] [address] May, [facility] [id number] [place] [address] May, Hyperlipidemia E78.5 [facility] [id number] [place] [address] May, Type 2 diabetes mellitus with hyperglycemia E11.65 ; Essential hypertension I10 ; Hyperlipidemia E78.5 and Breast cancer screening Z12.31 [facility] [id number] [place] [address] May, Type 2 diabetes mellitus with hyperglycemia E11.65 [facility] [address] [address] Apr, Type 2 diabetes mellitus with hyperglycemia E11.65 [facility] [address] [address] Jan, [facility] [id number] [address] Jan, [facility] [id number] [place] [address] Jan, [facility] [address] [address] Sep, Essential hypertension I10 [facility] [address] [address] Aug, Type 2 diabetes mellitus with hyperglycemia E11.65 [facility] [id number] [place] [address] Aug, [facility] [id number] [place] [address] Aug, Type 2 diabetes mellitus with hyperglycemia E11.65 ; Hyperlipidemia E78.5 ; Colon cancer screening Z12.11 ; Essential hypertension I10 and Encounter for immunization Z23 [facility] [id number] [place] [address] July, Type 2 diabetes mellitus with hyperglycemia E11.65 [facility] [id number] [place] [address] July, Type 2 diabetes mellitus with hyperglycemia E11.65 [facility] [id number] [place] [address] Jun, [facility] [address] [place] [address] May, Essential hypertension I10 [facility] [id number] [place] [address] May, [facility] [id number] [place] [address] Apr, Acute non-recurrent frontal sinusitis J01.10 [facility] [address] [address] Apr, Essential hypertension I10 [facility] [address] [address] Apr, [facility] [address] [place] [address] Mar, Type 2 diabetes mellitus with hyperglycemia E11.65 [facility] [address] [place] [address] Mar, [facility] [address] [facility] [id number] [place] [address] Feb, Essential hypertension I10 [facility] [address] [facility] [place] [id number] [place] [address] Feb, [facility] [address] [facility] [place] [id number] [place] [address] Feb, Type 2 diabetes mellitus with hyperglycemia E11.65 ; Essential hypertension I10 and Hyperlipidemia E78.5 [facility] [address] [facility] [id number] [place] [address] Jan, [facility] [address] [facility] [place] [id number] [place] [address] Dec, [facility] [address] [facility] [place] [id number] [place] [address] Dec, [facility] [id number] [address] Oct, [facility] [address] [facility] [place] [id number] [place] [address] Aug, [facility] [address] [facility] [id number] [place] [address] Aug, Hyperlipidemia E78.5 [facility] [address] [facility] [id number] [place] [address] 14 Aug, 2015 Type 2 diabetes mellitus with hyperglycemia E11.65 ; Hyperlipidemia E78.5 and Essential hypertension I10 [facility] [address] [facility] [id number] [place] [address] Aug, [facility] [address] [facility] [id number] [place] [address] Jun, [facility] [address] [facility] [id number] [place] [address] Jun, [facility] [address] [facility] [id number] [place] [address] Jun, [facility] [address] [place] [address] Apr, [facility] [address] [place] [address] Apr, [facility] [address] [place] [address] Mar, Hyperlipidemia E78.5 [facility] [address] [address] Mar, Type 2 diabetes mellitus with hyperglycemia E11.65 ; Hyperlipidemia E78.5 and Essential hypertension I10 [facility] [address] [place] [address] Mar, [facility] [address] [place] [address] Nov, [facility] [address] [address] Nov, [facility] [address] [address] Sep, Hyperlipidemia 272.4 [facility] [address] [address] Sep, [facility] [address] [address] Sep, Diabetes mellitus, type II 250.00 ; Hypertension 401.9 and Hyperlipidemia 272.4 [facility] [address] [address] Sep, [facility] [address] [address] Sep, [facility] [address] [address] Sep, [facility] [id number] [address] Jun, [facility] [address] [facility] [place] [id number] [place] [address] Jun, [facility] [place] [facility] [address] [id number] [place] [address] Apr, [facility] [place] [facility] [address] [id number] [place] [address] Apr, [facility] [place] [facility] [address] [id number] [place] [address] Mar, [facility] [place] [facility] [address] [id number] [place] [address] Mar, [facility] [place] [facility] [address] [id number] [place] [address] Mar, [facility] [place] [facility] [address] [id number] [place] [address] Mar, [facility] [place] [facility] [address] [id number] [place] [address] Feb, [facility] [place] [facility] [address] [id number] [place] [address] Feb, [facility] [place] [facility] [address] [id number] [place] [address] Jan, [facility] [place] [facility] [address] [id number] [place] [address] Jan, [facility] [place] [facility] [address] [id number] [place] [address] Jan, [facility] [place] [facility] [address] [id number] [place] [address] Jan, [facility] [place] [facility] [address] [id number] [place] [address] Sep, [facility] [place] [facility] [address] [id number] [place] [address] Sep, [facility] [place] [facility] [address] [id number] [place] [address] Sep, [facility] [place] [facility] [address] [id number] [place] [address] Sep, [facility] [place] [facility] [address] [id number] [place] [address] Sep, [facility] [place] [facility] [address] [id number] [place] [address] Sep, [facility] [place] [facility] [address] [id number] [place] [address] Aug, [facility] [place] [facility] [address] [id number] [place] [address] Aug, [facility] [place] [facility] [address] [id number] [place] [address] Aug, [facility] [place] [facility] [address] [id number] [place] [address] Aug, [facility] [place] [facility] [address] [id number] [place] [address] Apr, [facility] [place] [facility] [address] [id number] [place] [address] Apr, [facility] [place] [facility] [address] [id number] [place] [address] Mar, [facility] [place] [facility] [address] [id number] [place] [address] Mar, [facility] [place] [facility] [address] [id number] [place] [address] Mar, [facility] [place] [facility] [address] [id number] [place] [address] Mar, [facility] [place] [facility] [address] [id number] [place] [address] Feb, [facility] [place] [facility] [address] [id number] [place] [address] Feb, [facility] [place] [facility] [address] [id number] [place] [address] 06 Feb, 2013 [facility] [address] [id number] [place] [address] Feb, [facility] [place] [facility] [address] [id number] [place] [address] Feb, [facility] [address] [id number] [place] [address] Feb, [facility] [place] [facility] [address] [id number] [place] [address] Feb, [facility] [address] [id number] [place] [address] Feb, [facility] [address] [id number] [place] [address] Jan, [facility] [address] [id number] [place] [address] Jan, [facility] [address] [id number] [place] [address] Dec, [facility] [place] [facility] [address] [id number] [place] [address] Dec, [facility] [address] [facility] [id number] [place] [address] Dec, [facility] [place] [facility] [address] [id number] [place] [address] Dec, [facility] [place] [facility] [address] [id number] [place] [address] Dec, [facility] [place] [facility] [address] [id number] [place] [address] Dec, [facility] [place] [facility] [address] [facility] [id number] [place] [address] Nov, [facility] [place] [facility] [address] [id number] [place] [address] Aug, [facility] [place] [facility] [address] [id number] [place] [address] Dec, [facility] [place] [facility] [address] [id number] [place] [address] Dec, [facility] [place] [facility] [address] [id number] [place] [address] Nov, [facility] [place] [facility] [address] [id number] [place] [address] Sep, [facility] [place] [facility] [address] [id number] [place] [address] Sep, [facility] [place] [facility] [address] [id number] [place] [address] Sep, [facility] [place] [facility] [address] [id number] [place] [address] Aug, [facility] [place] [facility] [address] [id number] [place] [address] Aug, [facility] [place] [facility] [address] [id number] [place] [address] Aug, [facility] [place] [facility] [address] [id number] [place] [address] Jun, [facility] [place] [facility] [address] [id number] [place] [address] Jun, [facility] [place] [facility] [address] [id number] [place] [address] Jun, [facility] [place] [facility] [address] [id number] [place] [address] May, [facility] [place] [facility] [address] [id number] [place] [address] May, [facility] [place] [facility] [address] [id number] [place] [address] May, [facility] [place] [facility] [address] [id number] [place] [address] Feb, [facility] [address] [address] Feb, [facility] [address] [address] Jan, [facility] [address] [address] Jan, [facility] [address] [address] Jan, [facility] [address] [address] Jan, [facility] [address] [address] Jan, [facility] [address] [address] Jan, [facility] [address] [address] Jan, [facility] [address] [address] Jan, IMMUNIZATIONS No Known Immunizations SOCIAL HISTORY [...]
--- OUTSIDE RECORDS SUMMARY | 2022-11-24 15:50 | XMS REPORT ---
Author Author Melanie Lanza Organization [facility] Address Unknown Phone Unavailable Care Team Providers Care Commodity Industry Analyst Name Role Phone Migration, Doctor Unavailable Unavailable PROBLEMS Type Condition ICD9-CM Code ADW56-EU Code Onset Dates Condition Status SNOMED Code Problem Hyperlipidemia E78.5 Active 84109208 Problem Type 2 diabetes mellitus with hyperglycemia E11.65 Active 764682151 Problem Severe nonproliferative diabetic retinopathy without macular edema associated with type 2 diabetes mellitus, unspecified laterality E11.3499 Active 090262921 Problem Coronary artery disease involving [place] coronary artery of [place] heart without angina pectoris I25.10 Active 8113392152424 Problem Essential hypertension I10 Active [id number] ALLERGIES No Information ENCOUNTERS Encounter Location Date Diagnosis [place] [address] [address] Feb, Type 2 diabetes mellitus with hyperglycemia E11.65 ; Hyperlipidemia E78.5 ; Essential hypertension I10 and Encounter for immunization Z23 [place] [address] [address] Feb, [place] [address] [address] Oct, [place] [address] [address] Oct, [place] [address] [address] Oct, Type 2 diabetes mellitus with hyperglycemia E11.65 [place] [address] [address] Sep, [place] [address] [address] July, Type 2 diabetes mellitus with hyperglycemia E11.65 [place] [address] [address] Mar, [facility] [id number] [place] [address] Feb, [facility] [address] [address] Jan, Type 2 diabetes mellitus with hyperglycemia E11.65 ; Essential hypertension I10 ; Hyperlipidemia E78.5 and Encounter for immunization Z23 [facility] [address] [address] Sep, [facility] [address] [address] July, Type 2 diabetes mellitus with hyperglycemia E11.65 [place] [address] [address] July, [facility] [address] [address] May, [facility] [address] [address] May, Hyperlipidemia E78.5 [facility] [address] [address] May, Type 2 diabetes mellitus with hyperglycemia E11.65 ; Essential hypertension I10 ; Hyperlipidemia E78.5 and Breast cancer screening Z12.31 [place] [address] [address] May, Type 2 diabetes mellitus with hyperglycemia E11.65 [facility] [address] [address] [id number] [place] [address] Apr, Type 2 diabetes mellitus with hyperglycemia E11.65 [facility] [address] [address] Jan, [facility] [address] [address] Jan, [facility] [address] [address] Jan, [facility] [address] [address] Sep, Essential hypertension I10 [facility] [id number] [place] [address] Aug, Type 2 diabetes mellitus with hyperglycemia E11.65 [facility] [address] [address] Aug, [facility] [address] [address] Aug, Type 2 diabetes mellitus with hyperglycemia E11.65 ; Hyperlipidemia E78.5 ; Colon cancer screening Z12.11 ; Essential hypertension I10 and Encounter for immunization Z23 [facility] [address] [address] July, Type 2 diabetes mellitus with hyperglycemia E11.65 [facility] [address] [address] July, Type 2 diabetes mellitus with hyperglycemia E11.65 [place] [address] [address] Jun, [facility] [address] [address] May, Essential hypertension I10 [place] [address] [address] May, [place] [address] [address] Apr, Acute non-recurrent frontal sinusitis J01.10 [facility] [address] [address] Apr, Essential hypertension I10 [facility] [address] [address] Apr, [facility] [address] [address] Mar, Type 2 diabetes mellitus with hyperglycemia E11.65 [facility] [address] [address] Mar, [place] [address] [id number] [place] [address] 15 Feb, 2016 Essential hypertension I10 [facility] [address] [id number] [place] [address] 14 Feb, 2016 [facility] [address] [id number] [place] [address] 13 Feb, 2016 Type 2 diabetes mellitus with hyperglycemia E11.65 ; Essential hypertension I10 and Hyperlipidemia E78.5 [facility] [address] [id number] [place] [address] 16 Jan, 2016 [facility] [address] [id number] [place] [address] 17 Dec, 2015 [facility] [address] [place] [address] [id number] [place] [address] Dec, [facility] [address] [place] [address] [id number] [place] [address] Oct, [facility] [address] [address] [id number] [place] [address] 15 Aug, 2015 [facility] [address] [id number] [place] [address] 15 Aug, 2015 Hyperlipidemia E78.5 [facility] [address] [id number] [place] [address] 14 Aug, 2015 Type 2 diabetes mellitus with hyperglycemia E11.65 ; Hyperlipidemia E78.5 and Essential hypertension I10 [facility] [id number] [place] [address] Aug, [facility] [address] [id number] [place] [address] Jun, [facility] [address] [id number] [place] [address] Jun, [facility] [address] [place] [id number] [place] [address] Jun, [facility] [address] [place] [address] [id number] [place] [address] Apr, [facility] [address] [address] [id number] [place] [address] 11 Apr, 2015 [facility] [address] [address] [id number] [place] [address] Mar, Hyperlipidemia E78.5 [facility] [address] [address] [id number] [place] [address] 14 Mar, 2015 Type 2 diabetes mellitus with hyperglycemia E11.65 ; Hyperlipidemia E78.5 and Essential hypertension I10 [facility] [id number] [place] [address] 07 Mar, 2015 [facility] [address] [id number] [place] [address] Nov, [facility] [id number] [place] [address] Nov, [facility] [id number] [place] [address] Sep, Hyperlipidemia 272.4 [facility] [id number] [place] [address] Sep, [facility] [id number] [place] [address] Sep, Diabetes mellitus, type II 250.00 ; Hypertension 401.9 and Hyperlipidemia 272.4 [facility] [id number] [place] [address] Sep, [facility] [id number] [place] [address] Sep, [facility] [id number] [place] [address] Sep, [facility] [id number] [place] [address] Jun, [facility] [id number] [place] [address] Jun, [facility] [id number] [place] [address] Apr, [facility] [address] [id number] [place] [address] Apr, [facility] [address] [id number] [place] [address] Mar, [facility] [address] [id number] [place] [address] Mar, [facility] [address] [id number] [place] [address] Mar, [facility] [address] [id number] [place] [address] Mar, [facility] [address] [id number] [place] [address] Feb, [facility] [address] [id number] [place] [address] Feb, [facility] [address] [id number] [place] [address] Jan, [facility] [address] [id number] [place] [address] Jan, [facility] [address] [id number] [place] [address] Jan, [facility] [address] [id number] [place] [address] Jan, [facility] [address] [id number] [place] [address] Sep, [facility] [address] [id number] [place] [address] Sep, [facility] [address] [id number] [place] [address] Sep, [facility] [address] [id number] [place] [address] Sep, [facility] [address] [id number] [place] [address] Sep, [facility] [address] [id number] [place] [address] Sep, [facility] [address] [id number] [place] [address] Aug, [facility] [address] [id number] [place] [address] Aug, [facility] [address] [id number] [place] [address] Aug, [facility] [address] [id number] [place] [address] Aug, [facility] [address] [id number] [place] [address] Apr, [facility] [address] [id number] [place] [address] Apr, [facility] [address] [id number] [place] [address] Mar, [facility] [address] [id number] [place] [address] Mar, [facility] [address] [id number] [place] [address] Mar, [facility] [address] [id number] [place] [address] Mar, [facility] [address] [id number] [place] [address] Feb, [facility] [address] [id number] [place] [address] Feb, [facility] [address] [id number] [place] [address] Feb, [facility] [address] [id number] [place] [address] Feb, [facility] [address] [id number] [place] [address] Feb, [facility] [address] [id number] [place] [address] Feb, [facility] [address] [id number] [place] [address] Feb, [facility] [address] [id number] [place] [address] Feb, [facility] [address] [id number] [place] [address] Jan, [facility] [address] [id number] [place] [address] Jan, [facility] [address] [id number] [place] [address] Dec, [facility] [address] [id number] [place] [address] Dec, [facility] [address] [id number] [place] [address] Dec, [facility] [address] [id number] [place] [address] Dec, [facility] [address] [id number] [place] [address] Dec, [facility] [address] [id number] [place] [address] Dec, [facility] [address] [id number] [place] [address] Nov, [facility] [address] [id number] [place] [address] Aug, [facility] [address] [id number] [place] [address] Dec, [facility] [address] [id number] [place] [address] Dec, [facility] [id number] [place] [address] Nov, [facility] [address] [id number] [place] [address] Sep, [facility] [address] [id number] [place] [address] Sep, [facility] [address] [id number] [place] [address] Sep, [facility] [address] [id number] [place] [address] Aug, [facility] [address] [id number] [place] [address] Aug, [facility] [id number] [place] [address] Aug, [facility] [address] [id number] [place] [address] Jun, [facility] [address] [id number] [place] [address] Jun, [facility] [address] [id number] [place] [address] Jun, [facility] [id number] [place] [address] May, [facility] [id number] [place] [address] May, [facility] [address] [id number] [place] [address] May, [facility] [id number] [place] [address] Feb, [facility] [id number] [place] [address] Feb, [facility] [id number] [place] [address] Jan, [facility] [address] [id number] [place] [address] Jan, [facility] [id number] [place] [address] Jan, [facility] [address] [id number] [place] [address] Jan, [facility] [id number] [place] [address] Jan, [facility] [address] [id number] [place] [address] Jan, [facility] [address] [id number] [place] [address] Jan, [facility] [address] [id number] [place] [address] Jan, IMMUNIZATIONS No Known Immunizations SOCIAL HISTORY [...]
--- OUTSIDE RECORDS SUMMARY | 2022-11-24 15:50 | XMS REPORT ---
Author Author Melanie TORRES Organization [facility], [place] Address [address] [place] [address] Care Team Providers Care Threat Analyst Name Role Phone MILI TORRES Unavailable PROBLEMS Type Condition ICD9-CM Code PKH49-LF Code Onset Dates Condition Status SNOMED Code Problem Hyperlipidemia E78.5 Active 25682649 Problem Type 2 diabetes mellitus with hyperglycemia E11.65 Active 742029180 Problem Severe nonproliferative diabetic retinopathy without macular edema associated with type 2 diabetes mellitus, unspecified laterality E11.3499 Active 333839309 Problem Coronary artery disease involving beaver coronary artery of beaver heart without angina pectoris I25.10 Active 8414932684516 Problem Essential hypertension I10 Active [id number] ALLERGIES No Information ENCOUNTERS Encounter Location Date Diagnosis [place] [id number] [place] [address] Feb, Type 2 diabetes mellitus with hyperglycemia E11.65 ; Hyperlipidemia E78.5 ; Essential hypertension I10 and Encounter for immunization Z23 [place] [id number] [place] [address] Feb, [place] [id number] [place] [address] Oct, [place] [id number] [place] [address] Oct, [facility] [address] [address] Oct, Type 2 diabetes mellitus with hyperglycemia E11.65 [place] [id number] [place] [address] Sep, [facility] [address] [address] July, Type 2 diabetes mellitus with hyperglycemia E11.65 [facility] [id number] [address] Mar, [facility] [id number] [place] [address] Feb, [facility] [id number] [address] Jan, Type 2 diabetes mellitus with hyperglycemia E11.65 ; Essential hypertension I10 ; Hyperlipidemia E78.5 and Encounter for immunization Z23 [facility] [id number] [address] Sep, [facility] [id number] [place] [address] July, Type 2 diabetes mellitus with hyperglycemia E11.65 [facility] [id number] [place] [address] July, [facility] [id number], [place] [address] May, [facility] [id number] [place] [address] May, Hyperlipidemia E78.5 [facility] [id number] [address] May, Type 2 diabetes mellitus with hyperglycemia E11.65 ; Essential hypertension I10 ; Hyperlipidemia E78.5 and Breast cancer screening Z12.31 [facility] [id number] [address] May, Type 2 diabetes mellitus with hyperglycemia E11.65 [facility] [id number] [address] Apr, Type 2 diabetes mellitus with hyperglycemia E11.65 [facility] [id number] [address] Jan, [facility] [id number] [address] Jan, [facility] [id number] [place] [address] Jan, [facility] [id number] [place] [address] Sep, Essential hypertension I10 [facility] [id number] [place] [address] Aug, Type 2 diabetes mellitus with hyperglycemia E11.65 [facility] [id number] [place] [address] Aug, [place] [id number] [place] [address] Aug, Type 2 diabetes mellitus with hyperglycemia E11.65 ; Hyperlipidemia E78.5 ; Colon cancer screening Z12.11 ; Essential hypertension I10 and Encounter for immunization Z23 [place] [id number] [place] [address] July, Type 2 diabetes mellitus with hyperglycemia E11.65 [facility] [id number] [place] [address] July, Type 2 diabetes mellitus with hyperglycemia E11.65 [facility] [id number] [place] [address] Jun, [facility] [id number] [place] [address] May, Essential hypertension I10 [facility] [id number] [address] May, [facility] [id number] [place] [address] Apr, Acute non-recurrent frontal sinusitis J01.10 [facility] [id number] [place] [address] Apr, Essential hypertension I10 [facility] [id number] [place] [address] Apr, [facility] [id number], [place] [address] Mar, Type 2 diabetes mellitus with hyperglycemia E11.65 [facility] [id number], [place] [address] Mar, [facility] [id number], [place] [address] Feb, Essential hypertension I10 [facility] [id number] [place] [address] Feb, [facility] [address] [place] [address] Feb, Type 2 diabetes mellitus with hyperglycemia E11.65 ; Essential hypertension I10 and Hyperlipidemia E78.5 [facility] [id number], [place] [address] Jan, [facility] [id number], [place] [address] Dec, [facility] [id number] [address] Dec, [facility] [id number] [address] Oct, [facility] [id number], [place] [address] Aug, [facility] [id number], [place] [address] Aug, Hyperlipidemia E78.5 [facility] [id number] [address] Aug, Type 2 diabetes mellitus with hyperglycemia E11.65 ; Hyperlipidemia E78.5 and Essential hypertension I10 [facility] [id number] [address] Aug, [facility] [id number], [place] [address] Jun, [facility] [id number], [place] [address] Jun, [facility] [id number], [place] [address] Jun, [facility] [id number], [place] [address] Apr, [facility] [id number], [place] [address] Apr, [facility] [id number] [place] [address], [place] [address] Mar, Hyperlipidemia E78.5 [facility] [id number] [address] Mar, Type 2 diabetes mellitus with hyperglycemia E11.65 ; Hyperlipidemia E78.5 and Essential hypertension I10 [facility] [id number] [address] Mar, [facility] [id number] [address] Nov, [facility] [id number], [place] [address] Nov, [facility] [id number] [address] Sep, Hyperlipidemia 272.4 [facility] [id number], [place] [address] Sep, [facility] [id number] [address] Sep, Diabetes mellitus, type II 250.00 ; Hypertension 401.9 and Hyperlipidemia 272.4 [facility] [id number] [address] Sep, [facility] [id number] [place] [address] 16 Sep, 2014 [facility] [address] [id number] [place] [address] 08 Sep, 2014 [facility] [place] [facility] [address] [id number] [place] [address] 14 Jun, 2014 [facility] [place] [facility] [address] [id number] [place] [address] Jun, [facility] [place] [facility] [address] [id number] [place] [address] Apr, [facility] [place] [facility] [address] [id number] [place] [address] Apr, [facility] [place] [facility] [address] [id number] [place] [address] Mar, [facility] [place] [facility] [address] [id number] [place] [address] Mar, [facility] [place] [facility] [address] [id number] [place] [address] Mar, [facility] [place] [facility] [address] [id number] [place] [address] Mar, [facility] [place] [facility] [address] [id number] [place] [address] Feb, [facility] [place] [facility] [address] [id number] [place] [address] Feb, [facility] [place] [facility] [address] [id number] [place] [address] Jan, [facility] [place] [facility] [address] [id number] [place] [address] Jan, [facility] [place] [facility] [address] [id number] [place] [address] Jan, [facility] [place] [facility] [address] [id number] [place] [address] Jan, [facility] [place] [facility] [address] [id number] [place] [address] Sep, [facility] [place] [facility] [address] [id number] [place] [address] Sep, [facility] [place] [facility] [address] [id number] [place] [address] Sep, [facility] [place] [facility] [address] [id number] [place] [address] Sep, [facility] [place] [facility] [address] [id number] [place] [address] Sep, [facility] [place] [facility] [address] [id number] [place] [address] Sep, [facility] [place] [facility] [address] [id number] [place] [address] Aug, [facility] [place] [facility] [address] [id number] [place] [address] Aug, [facility] [place] [facility] [address] [id number] [place] [address] Aug, [facility] [place] [facility] [address] [id number] [place] [address] Aug, [facility] [place] [facility] [address] [id number] [place] [address] Apr, [facility] [place] [facility] [address] [id number] [place] [address] Apr, [facility] [place] [facility] [address] [id number] [place] [address] Mar, [facility] [place] [facility] [address] [id number] [place] [address] Mar, [facility] [place] [facility] [address] [id number] [place] [address] Mar, [facility] [place] [facility] [address] [id number] [address] Mar, [facility] [address] [id number] [place] [address] Feb, [facility] [place] [facility] [address] [facility] [id number] [address] Feb, [facility] [address] [facility] [place] [id number] [place] [address] Feb, [facility] [place] [facility] [address] [id number] [address] Feb, [facility] [address] [facility] [place] [id number] [place] [address] Feb, [facility] [place] [facility] [address] [facility] [place] [id number] [place] [address] Feb, [facility] [id number] [address] Feb, [facility] [place] [facility] [address] [facility] [place] [id number] [address] Feb, [facility] [place] [facility] [id number] [address] Jan, [facility] [place] [facility] [address] [facility] [place] [id number] [address] Jan, [facility] [place] [facility] [address] [facility] [place] [id number] [address] Dec, [facility] [place] [facility] [address] [facility] [place] [id number] [address] Dec, [facility] [place] [facility] [address] [facility] [place] [id number] [address] Dec, [facility] [place] [facility] [address] [facility] [place] [id number], [place] [address] Dec, [facility] [place] [facility] [address] [facility] [place] [id number] [address] Dec, [facility] [place] [facility] [address] [id number] [place] [address] 02 Dec, 2012 [facility] [place] [facility] [address] [id number] [place] [address] 10 Nov, 2012 [facility] [place] [facility] [address] [id number] [place] [address] Aug, [facility] [place] [facility] [address] [id number] [place] [address] Dec, [facility] [place] [facility] [address] [id number] [place] [address] Dec, [facility] [place] [facility] [address] [id number] [place] [address] 18 Nov, 2011 [facility] [place] [facility] [address] [id number] [place] [address] Sep, [facility] [place] [facility] [address] [id number] [place] [address] Sep, [facility] [place] [facility] [address] [id number] [place] [address] Sep, [facility] [place] [facility] [address] [id number] [place] [address] Aug, [facility] [place] [facility] [address] [id number] [place] [address] Aug, [facility] [place] [facility] [address] [id number] [place] [address] Aug, [facility] [place] [facility] [address] [id number] [place] [address] Jun, [facility] [place] [facility] [address] [id number] [place] [address] Jun, [facility] [place] [facility] [address] [id number] [place] [address] Jun, [facility] [place] [facility] [address] [id number] [place] [address] May, [facility] [id number] [address] May, [facility] [address] [facility] [place] [id number] [address] May, [facility] [id number] [address] Feb, [facility] [address] [facility] [place] [id number] [address] Feb, [facility] [id number] [address] Jan, [facility] [id number] [address] Jan, [facility] [id number], [place] [address] Jan, [facility] [id number], [place] [address] Jan, [facility] [id number], [place] [address] Jan, [facility] [id number], [place] [address] Jan, [facility] [id number], [place] [address] Jan, [facility] [id number] [address] Jan, IMMUNIZATIONS No Known Immunizations SOCIAL HISTORY [...]
--- OUTSIDE RECORDS SUMMARY | 2022-11-24 15:50 | XMS REPORT ---
Author Author Melanie TORRES Organization [facility] Address [address] [place] [address] Care Team Providers Care Pourer Bull Ladle Name Role Phone MILI TORRES Unavailable PROBLEMS Type Condition ICD9-CM Code MQK43-ZI Code Onset Dates Condition Status SNOMED Code Problem Hyperlipidemia E78.5 Active 69347344 Problem Type 2 diabetes mellitus with hyperglycemia E11.65 Active 138687096 Problem Severe nonproliferative diabetic retinopathy without macular edema associated with type 2 diabetes mellitus, unspecified laterality E11.3499 Active 758642308 Problem Coronary artery disease involving ekw[place] coronary artery of ekw[place] heart without angina pectoris I25.10 Active [id number] Problem Essential hypertension I10 Active [id number] ALLERGIES No Information ENCOUNTERS Encounter Location Date Diagnosis [place] [id number] [place] [address] Feb, Type 2 diabetes mellitus with hyperglycemia E11.65 ; Hyperlipidemia E78.5 ; Essential hypertension I10 and Encounter for immunization Z23 [place] [id number] [place] [address] Feb, [place] [id number] [place] [address] Oct, [place] [id number] [place] [address] Oct, [facility] [address] [address] Oct, Type 2 diabetes mellitus with hyperglycemia E11.65 [place] [id number] [place] [address] Sep, [place] [address] [address] July, Type 2 diabetes mellitus with hyperglycemia E11.65 [facility] [address], [place] [address] Mar, [facility] [id number] [place] [address] Feb, [facility] [address], [place] [address] Jan, Type 2 diabetes mellitus with hyperglycemia E11.65 ; Essential hypertension I10 ; Hyperlipidemia E78.5 and Encounter for immunization Z23 [facility] [address], [place] [address] Sep, [facility] [id number] [place] [address] July, Type 2 diabetes mellitus with hyperglycemia E11.65 [facility] [id number] [place] [address] July, [facility] [address], [place] [address] May, [facility] [id number] [place] [address] May, Hyperlipidemia E78.5 [facility] [address], [place] [address] May, Type 2 diabetes mellitus with hyperglycemia E11.65 ; Essential hypertension I10 ; Hyperlipidemia E78.5 and Breast cancer screening Z12.31 [facility] [address], [place] [address] May, Type 2 diabetes mellitus with hyperglycemia E11.65 [facility] [address], [place] [address] Apr, Type 2 diabetes mellitus with hyperglycemia E11.65 [facility] [address], [place] [address] Jan, [facility] [address], [place] [address] Jan, [facility] [id number] [place] [address] Jan, [facility] [id number] [place] [address] Sep, Essential hypertension I10 [facility] [id number] [place] [address] Aug, Type 2 diabetes mellitus with hyperglycemia E11.65 [facility] [id number] [place] [address] Aug, [place] [id number] [place] [address] Aug, Type 2 diabetes mellitus with hyperglycemia E11.65 ; Hyperlipidemia E78.5 ; Colon cancer screening Z12.11 ; Essential hypertension I10 and Encounter for immunization Z23 [place] [id number] [place] [address] July, Type 2 diabetes mellitus with hyperglycemia E11.65 [facility] [id number] [place] [address] July, Type 2 diabetes mellitus with hyperglycemia E11.65 [facility] [id number] [place] [address] Jun, [facility] [id number] [place] [address] May, Essential hypertension I10 [facility] [address], [place] [address] May, [facility] [id number] [place] [address] Apr, Acute non-recurrent frontal sinusitis J01.10 [facility] [id number] [place] [address] Apr, Essential hypertension I10 [facility] [id number] [place] [address] Apr, [facility] [address], [place] [address] Mar, Type 2 diabetes mellitus with hyperglycemia E11.65 [facility] [address], [place] [address] Mar, [facility] [address], [place] [address] Feb, Essential hypertension I10 [facility] [id number] [place] [address] Feb, [facility] [id number] [place] [address] Feb, Type 2 diabetes mellitus with hyperglycemia E11.65 ; Essential hypertension I10 and Hyperlipidemia E78.5 [facility] [address], [place] [address] Jan, [facility] [address], [place] [address] Dec, [facility] [address], [place] [address] Dec, [facility] [address], [place] [address] Oct, [facility] [address], [place] [address] Aug, [facility] [address], [place] [address] Aug, Hyperlipidemia E78.5 [facility] [address], [place] [address] Aug, Type 2 diabetes mellitus with hyperglycemia E11.65 ; Hyperlipidemia E78.5 and Essential hypertension I10 [facility] [address], [place] [address] Aug, [facility] [address], [place] [address] Jun, [facility] [address], [place] [address] Jun, [facility] [address], [place] [address] Jun, [facility] [address], [place] [address] Apr, [facility] [address], [place] [address] Apr, [facility] [id number] [place] [address], [place] [address] Mar, Hyperlipidemia E78.5 [facility] [address], [place] [address] Mar, Type 2 diabetes mellitus with hyperglycemia E11.65 ; Hyperlipidemia E78.5 and Essential hypertension I10 [facility] [address], [place] [address] Mar, [facility] [address], [place] [address] Nov, [facility] [address], [place] [address] Nov, [facility] [id number], [place] [address] Sep, Hyperlipidemia 272.4 [facility] [address], [place] [address] Sep, [facility] [address], [place] [address] Sep, Diabetes mellitus, type II 250.00 ; Hypertension 401.9 and Hyperlipidemia 272.4 [facility] [id number], [place] [address] Sep, [facility] [id number] [place] [address] 16 Sep, 2014 [facility] [address] [id number] [place] [address] 08 Sep, 2014 [facility] [place] [facility] [address] [id number] [place] [address] 14 Jun, 2014 [facility] [place] [facility] [address] [id number] [place] [address] Jun, [facility] [place] [facility] [address] [id number] [place] [address] Apr, [facility] [place] [facility] [address] [id number] [place] [address] Apr, [facility] [place] [facility] [address] [id number] [place] [address] Mar, [facility] [place] [facility] [address] [id number] [place] [address] Mar, [facility] [place] [facility] [address] [id number] [place] [address] Mar, [facility] [place] [facility] [address] [id number] [place] [address] Mar, [facility] [place] [facility] [address] [id number] [place] [address] Feb, [facility] [place] [facility] [address] [id number] [place] [address] Feb, [facility] [place] [facility] [address] [id number] [place] [address] Jan, [facility] [place] [facility] [address] [id number] [place] [address] Jan, [facility] [place] [facility] [address] [id number] [place] [address] Jan, [facility] [place] [facility] [address] [id number] [place] [address] Jan, [facility] [place] [facility] [address] [id number] [place] [address] Sep, [facility] [place] [facility] [address] [id number] [place] [address] Sep, [facility] [place] [facility] [address] [id number] [place] [address] Sep, [facility] [place] [facility] [address] [id number] [place] [address] Sep, [facility] [place] [facility] [address] [id number] [place] [address] Sep, [facility] [place] [facility] [address] [id number] [place] [address] Sep, [facility] [place] [facility] [address] [id number] [place] [address] Aug, [facility] [place] [facility] [address] [id number] [place] [address] Aug, [facility] [place] [facility] [address] [id number] [place] [address] Aug, [facility] [place] [facility] [address] [id number] [place] [address] Aug, [facility] [place] [facility] [address] [id number] [place] [address] Apr, [facility] [place] [facility] [address] [id number] [place] [address] Apr, [facility] [place] [facility] [address] [id number] [place] [address] Mar, [facility] [place] [facility] [address] [id number] [place] [address] Mar, [facility] [place] [facility] [address] [id number] [place] [address] Mar, [facility] [place] [facility] [address] [id number], [place] [address] Mar, [facility] [address] [id number] [place] [address] Feb, [facility] [place] [facility] [address] [facility] [id number], [place] [address] Feb, [facility] [address] [facility] [id number] [place] [address] Feb, [facility] [place] [facility] [address] [id number], [place] [address] Feb, [facility] [address] [facility] [id number] [place] [address] Feb, [facility] [place] [facility] [address] [facility] [id number] [place] [address] Feb, [facility] [id number], [place] [address] Feb, [facility] [place] [facility] [address] [facility] [id number], [place] [address] Feb, [facility] [place] [facility] [id number], [place] [address] Jan, [facility] [place] [facility] [address] [facility] [id number], [place] [address] Jan, [facility] [place] [facility] [address] [facility] [id number], [place] [address] Dec, [facility] [place] [facility] [address] [facility] [id number], [place] [address] Dec, [facility] [place] [facility] [address] [facility] [id number], [place] [address] Dec, [facility] [place] [facility] [address] [facility] [id number], [place] [address] Dec, [facility] [place] [facility] [address] [facility] [id number], [place] [address] Dec, [facility] [place] [facility] [address] [id number] [place] [address] 02 Dec, 2012 [facility] [place] [facility] [address] [id number] [place] [address] 10 Nov, 2012 [facility] [place] [facility] [address] [id number] [place] [address] Aug, [facility] [place] [facility] [address] [id number] [place] [address] Dec, [facility] [place] [facility] [address] [id number] [place] [address] Dec, [facility] [place] [facility] [address] [id number] [place] [address] 18 Nov, 2011 [facility] [place] [facility] [address] [id number] [place] [address] Sep, [facility] [place] [facility] [address] [id number] [place] [address] Sep, [facility] [place] [facility] [address] [id number] [place] [address] Sep, [facility] [place] [facility] [address] [id number] [place] [address] Aug, [facility] [place] [facility] [address] [id number] [place] [address] Aug, [facility] [place] [facility] [address] [id number] [place] [address] Aug, [facility] [place] [facility] [address] [id number] [place] [address] Jun, [facility] [place] [facility] [address] [id number] [place] [address] Jun, [facility] [place] [facility] [address] [id number] [place] [address] Jun, [facility] [place] [facility] [address] [id number] [place] [address] May, [facility] [id number], [place] [address] May, [facility] [address], [place] [address] May, [facility] [address], [place] [address] Feb, [facility] [id number] [place] [address] Feb, [facility] [id number] [place] [address] Jan, [facility] [id number] [place] [address] Jan, [facility] [address], [place] [address] Jan, [facility] [id number] [place] [address] Jan, [facility] [address], [place] [address] Jan, [facility] [address], [place] [address] Jan, [facility] [address], [place] [address] Jan, [facility] [address], [place] [address] Jan, IMMUNIZATIONS No Known Immunizations SOCIAL HISTORY Never Assessed REASON FOR VISIT PLAN OF CARE VITAL SIGNS Height 67 in 2013-04-17 Weight 161.25 lbs 2013-04-17 Temperature 97.4 degrees Fahrenheit Heart Rate 70 bpm 2013-04-17 Respiratory Rate 18 2013-04-17 Blood pressure systolic 132 mmHg Blood pressure diastolic 88 mmHg 2013-03 MEDICATIONS No Known Medications RESULTS No Results PROCEDURES Procedure Date Ordered Result Body Site GLYCATED HEMOGLOBIN TEST Apr 17, 2013 MICROALBUMIN, SEMIQUANT Apr 17, 2013 MICROALBUMIN, QUANTITATIVE Apr 17, 2013 INSTRUCTIONS MEDICATIONS ADMINISTERED No Known Medications [...]
--- OUTSIDE RECORDS SUMMARY | 2022-11-24 15:50 | XMS REPORT ---
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 Name Role Phone Migration, Doctor Unavailable Unavailable PROBLEMS Type Condition ICD9-CM Code TSU47-TX Code Onset Dates Condition Status SNOMED Code Problem Hyperlipidemia E78.5 Active 20101464 Problem Type 2 diabetes mellitus with hyperglycemia E11.65 Active 856290033 Problem Severe nonproliferative diabetic retinopathy without macular edema associated with type 2 diabetes mellitus, unspecified laterality E11.3499 Active 194829833 Problem Coronary artery disease involving jamul coronary artery of jamul heart without angina pectoris I25.10 Active 2933810974292 Problem Essential hypertension I10 Active 52613370 ALLERGIES No Information ENCOUNTERS Encounter Location Date Diagnosis [place] [id number] [place] [address] July, [place] [id number] [place] [address] Feb, Type 2 diabetes mellitus with hyperglycemia E11.65 ; Hyperlipidemia E78.5 ; Essential hypertension I10 and Encounter for immunization Z23 [place] [id number] [place] [address] Feb, [place] [id number] [place] [address] Oct, [facility] [id number] [place] [address] Oct, [place] [id number] [place] [address] Oct, Type 2 diabetes mellitus with hyperglycemia E11.65 [facility] [id number] [place] [address] Sep, [facility] [address] [address] July, Type 2 diabetes mellitus with hyperglycemia E11.65 [facility] [address] [address] Mar, [facility] [address] [address] Feb, [facility] [address] [place] [address] Jan, Type 2 diabetes mellitus with hyperglycemia E11.65 ; Essential hypertension I10 ; Hyperlipidemia E78.5 and Encounter for immunization Z23 [facility] [address] [address] Sep, [facility] [id number] [place] [address] July, Type 2 diabetes mellitus with hyperglycemia E11.65 [facility] [id number] [address] July, [facility] [address] [address] May, [facility] [address] [place] [address] May, Hyperlipidemia E78.5 [facility] [address] [address] May, Type 2 diabetes mellitus with hyperglycemia E11.65 ; Essential hypertension I10 ; Hyperlipidemia E78.5 and Breast cancer screening Z12.31 [facility] [address] [address] May, Type 2 diabetes mellitus with hyperglycemia E11.65 [facility] [address] [address] Apr, Type 2 diabetes mellitus with hyperglycemia E11.65 [facility] [address] [address] Jan, [facility] [id number] [address] 14 Jan, 2017 [facility] [address] [place] [address] Jan, [facility] [address] [place] [address] Sep, Essential hypertension I10 [facility] [id number] [place] [address] Aug, Type 2 diabetes mellitus with hyperglycemia E11.65 [facility] [id number] [place] [address] Aug, [facility] [id number] [place] [address] Aug, Type 2 diabetes mellitus with hyperglycemia E11.65 ; Hyperlipidemia E78.5 ; Colon cancer screening Z12.11 ; Essential hypertension I10 and Encounter for immunization Z23 [facility] [id number] [place] [address] July, Type 2 diabetes mellitus with hyperglycemia E11.65 [facility] [id number] [place] [address] July, Type 2 diabetes mellitus with hyperglycemia E11.65 [facility] [address] [place] [address] Jun, [facility] [address] [place] [address] May, Essential hypertension I10 [facility] [address] [address] May, [facility] [id number] [place] [address] Apr, Acute non-recurrent frontal sinusitis J01.10 [facility] [address] [address] Apr, Essential hypertension I10 [facility] [address] [address] Apr, [facility] [address] [place] [address] Mar, Type 2 diabetes mellitus with hyperglycemia E11.65 [facility] [address] [address] Mar, [facility] [id number] [place] [address] Feb, Essential hypertension I10 [facility] [address] [place] [address] Feb, [facility] [address] [place] [address] Feb, Type 2 diabetes mellitus with hyperglycemia E11.65 ; Essential hypertension I10 and Hyperlipidemia E78.5 [facility] [address] [place] [address] Jan, [facility] [address] [address] Dec, [facility] [address] [address] Dec, [facility] [address], [place] [address] Oct, [facility] [address] [address] Aug, [facility] [address], [place] [address] Aug, Hyperlipidemia E78.5 [facility] [address] [address] Aug, Type 2 diabetes mellitus with hyperglycemia E11.65 ; Hyperlipidemia E78.5 and Essential hypertension I10 [facility] [address], [place] [address] Aug, [facility] [address] [address] Jun, [facility] [id number] [place] [address] Jun, [facility] [id number] [place] [address] Jun, [facility] [id number] [place] [address], [place] [address] Apr, [facility] [id number] [place] [address], [place] [address] Apr, [facility] [id number] [place] [address] Mar, Hyperlipidemia E78.5 [facility] [id number] [place] [address] Mar, Type 2 diabetes mellitus with hyperglycemia E11.65 ; Hyperlipidemia E78.5 and Essential hypertension I10 [facility] [address] [address] Mar, [facility] [id number] [place] [address] Nov, [facility] [address] [address] Nov, [facility] [address], [place] [address] Sep, Hyperlipidemia 272.4 [facility] [id number] [place] [address] Sep, [facility] [id number] [place] [address] Sep, Diabetes mellitus, type II 250.00 ; Hypertension 401.9 and Hyperlipidemia 272.4 [facility] [id number] [address] Sep, [facility] [place] [facility] [address] [id number] [place] [address] 16 Sep, 2014 [facility] [place] [facility] [address] [id number] [place] [address] 08 Sep, 2014 [facility] [place] [facility] [address] [id number] [place] [address] 14 Jun, 2014 [facility] [place] [facility] [address] [id number] [place] [address] Jun, [facility] [place] [facility] [address] [id number] [place] [address] Apr, [facility] [place] [facility] [address] [id number] [place] [address] Apr, [facility] [place] [facility] [address] [id number] [place] [address] Mar, [facility] [place] [facility] [address] [id number] [place] [address] Mar, [facility] [place] [facility] [address] [id number] [place] [address] Mar, [facility] [place] [facility] [address] [id number] [place] [address] Mar, [facility] [place] [facility] [address] [id number] [place] [address] Feb, [facility] [place] [facility] [address] [id number] [place] [address] Feb, [facility] [place] [facility] [address] [id number] [place] [address] Jan, [facility] [place] [facility] [address] [id number] [place] [address] Jan, [facility] [place] [facility] [address] [id number] [place] [address] Jan, [facility] [place] [facility] [address] [id number] [place] [address] Jan, [facility] [place] [facility] [address] [id number] [place] [address] Sep, [facility] [place] [facility] [address] [id number] [place] [address] Sep, [facility] [place] [facility] [address] [id number] [place] [address] Sep, [facility] [place] [facility] [address] [id number] [place] [address] Sep, [facility] [place] [facility] [address] [id number] [place] [address] Sep, [facility] [place] [facility] [address] [id number] [place] [address] Sep, [facility] [place] [facility] [address] [id number] [place] [address] Aug, [facility] [place] [facility] [address] [id number] [place] [address] Aug, [facility] [place] [facility] [address] [id number] [place] [address] Aug, [facility] [place] [facility] [address] [id number] [place] [address] Aug, [facility] [place] [facility] [address] [id number] [place] [address] Apr, [facility] [place] [facility] [address] [id number] [place] [address] Apr, [facility] [place] [facility] [address] [id number] [place] [address] Mar, [facility] [place] [facility] [address] [id number] [place] [address] Mar, [facility] [place] [facility] [address] [id number] [place] [address] Mar, [facility] [place] [facility] [address] [id number] [place] [address] Mar, [facility] [address] [id number] [place] [address] Feb, [facility] [place] [facility] [address] [id number] [place] [address] Feb, [facility] [address] [id number] [place] [address] Feb, [facility] [address] [id number] [place] [address] Feb, [facility] [address] [id number] [place] [address] Feb, [facility] [address] [id number] [place] [address] Feb, [facility] [address] [id number] [place] [address] Feb, [facility] [address] [id number] [place] [address] Feb, [facility] [address] [id number] [place] [address] Jan, [facility] [address] [id number] [place] [address] Jan, [facility] [place] [facility] [address] [id number] [place] [address] Dec, [facility] [address] [id number] [place] [address] Dec, [facility] [place] [facility] [address] [id number] [place] [address] Dec, [facility] [place] [facility] [address] [id number] [place] [address] Dec, [facility] [place] [facility] [address] [id number] [place] [address] Dec, [facility] [place] [facility] [address] [id number] [place] [address] Dec, [facility] [place] [facility] [address] [id number] [place] [address] 10 Nov, 2012 [facility] [place] [facility] [address] [id number] [place] [address] Aug, [facility] [place] [facility] [address] [id number] [place] [address] Dec, [facility] [place] [facility] [address] [id number] [place] [address] Dec, [facility] [place] [facility] [address] [id number] [place] [address] Nov, [facility] [place] [facility] [address] [id number] [place] [address] Sep, [facility] [place] [facility] [address] [id number] [place] [address] Sep, [facility] [place] [facility] [address] [id number] [place] [address] Sep, [facility] [place] [facility] [address] [id number] [address] Aug, [facility] [place] [facility] [address] [id number] [place] [address] Aug, [facility] [place] [facility] [address] [id number] [address] Aug, [facility] [place] [facility] [address] [id number] [place] [address] Jun, [facility] [place] [facility] [address] [id number] [place] [address] Jun, [facility] [place] [facility] [address] [id number], [place] [address] Jun, [facility] [place] [facility] [address] [id number], [place] [address] May, [facility] [address] [address] May, [facility] [address], [place] [address] May, [facility] [address], [place] [address] Feb, [facility] [id number] [place] [address] Feb, [facility] [id number] [place] [address] Jan, [facility] [id number] [place] [address] Jan, [facility] [id number] [place] [address] Jan, [facility] [address] [address] Jan, [facility] [id number] [place] [address] Jan, [facility] [address] [address] Jan, [facility] [address], [place] [address] Jan, [facility] [address], [place] [address] Jan, IMMUNIZATIONS No Known Immunizations SOCIAL HISTORY Never Assessed REASON FOR VISIT PLAN OF CARE VITAL SIGNS Height 67 in 2013-02-22 Weight 164.38 lbs 2013-02-22 Temperature 987.3 degrees Fahrenheit 2013-02 Heart Rate 70 bpm 2013-02-22 Respiratory Rate 20 2013-02-22 Blood pressure systolic 132 mmHg Blood pressure diastolic 76 mmHg 2013-02 MEDICATIONS Unknown Medications RESULTS No Results PROCEDURES [...]
--- OUTSIDE RECORDS SUMMARY | 2022-11-24 15:51 | XMS REPORT ---
Author Author Melanie REYNOLDS [facility] Address [address] [place] [address] Care Team Providers Care Home Mortgage Disclosure Act Specialist Name Role Phone GAIL RAIMUNDO Unavailable PROBLEMS Type Condition ICD9-CM Code PUL38-QJ Code Onset Dates Condition Status SNOMED Code Problem Type 2 diabetes mellitus with hyperglycemia E11.65 Active 941609910 Problem Hyperlipidemia E78.5 Active 11048125 Problem Essential hypertension I10 Active 09372809 Problem Coronary artery disease involving alutiiq coronary artery of alutiiq heart without angina pectoris I25.10 Active [id number] 7 ALLERGIES Substance Reaction Event Type Date Status Penicillin V Potassium Unknown Drug Allergy May, 201 8 Active ENCOUNTERS Encounter Location Date Diagnosis [place] [id number] [place] [address] July, Type 2 diabetes mellitus with hyperglycemia E11.65 [place] [address] [place] [id number] [place] [address] July, [place] [address] [place] [id number] [place] [address] May, [place] [address] [place] [id number] [place] [address] May, Hyperlipidemia E78.5 [place] [id number] [place] [address] 12 May, 2017 Type 2 diabetes mellitus with hyperglycemia E11.65 ; Essential hypertension I10 ; Hyperlipidemia E78.5 and Breast cancer screening Z12.31 [place] [id number] [place] [address] 05 May, 2017 Type 2 diabetes mellitus with hyperglycemia E11.65 [place] [address] [place] [id number] [place] [address] Apr, Type 2 diabetes mellitus with hyperglycemia E11.65 [facility] [address] [address] Jan, [facility] [address] [place] [id number] [place] [address] Jan, [facility] [address] [place] [id number] [place] [address] Jan, [facility] [address] [place] [id number] [place] [address] Sep, Essential hypertension I10 [facility] [address] [place] [id number] [place] [address] Aug, Type 2 diabetes mellitus with hyperglycemia E11.65 [facility] [address] [place] [id number] [place] [address] Aug, [facility] [address] [place] [id number] [place] [address] Aug, Type 2 diabetes mellitus with hyperglycemia E11.65 ; Hyperlipidemia E78.5 ; Colon cancer screening Z12.11 ; Essential hypertension I10 and Encounter for immunization Z23 [facility] [address] [place] [id number] [place] [address] July, Type 2 diabetes mellitus with hyperglycemia E11.65 [facility] [id number] [place] [address] July, Type 2 diabetes mellitus with hyperglycemia E11.65 [facility] [address] [place] [id number] [place] [address] Jun, [facility] [address] [place] [id number] [place] [address] May, Essential hypertension I10 [facility] [address] [address] May, [facility] [address] [place] [id number] [place] [address] Apr, Acute non-recurrent frontal sinusitis J01.10 [facility] [address] [address] Apr, Essential hypertension I10 [facility] [address] [address] Apr, [facility] [id number] [place] [address] Mar, Type 2 diabetes mellitus with hyperglycemia E11.65 [facility] [address] [place] [id number] [place] [address] Mar, [facility] [address] [place] [id number] [place] [address] Feb, Essential hypertension I10 [facility] [address] [place] [id number] [place] [address] Feb, [facility] [id number] [place] [address] Feb, Type 2 diabetes mellitus with hyperglycemia E11.65 ; Essential hypertension I10 and Hyperlipidemia E78.5 [facility] [id number] [place] [address] Jan, [facility] [id number] [place] [address] Dec, [facility] [id number] [place] [address] Dec, [facility] [id number] [place] [address] Oct, [facility] [address] [place] [id number] [place] [address] 15 Aug, 2015 [facility] [id number] [place] [address] 15 Aug, 2015 Hyperlipidemia E78.5 [facility] [address] [place] [id number] [place] [address] Aug, Type 2 diabetes mellitus with hyperglycemia E11.65 ; Hyperlipidemia E78.5 and Essential hypertension I10 [facility] [address] [place] [address] Aug, [facility] [address] [place] [id number] [place] [address] Jun, [facility] [address] [place] [address] Jun, [facility] [address] [facility] [id number] [place] [address] Jun, [facility] [address] [place] [address] Apr, [facility] [address] [place] [address] Apr, [facility] [address] [address] Mar, Hyperlipidemia E78.5 [facility] [address] [address] Mar, Type 2 diabetes mellitus with hyperglycemia E11.65 ; Hyperlipidemia E78.5 and Essential hypertension I10 [facility] [address] [address] Mar, [facility] [address] [address] Nov, [facility] [address] [place] [id number] [address] Nov, [facility] [address] [address] Sep, Hyperlipidemia 272.4 [facility] [address] [place] [id number] [address] Sep, [facility] [address] [address] Sep, Diabetes mellitus, type II 250.00 ; Hypertension 401.9 and Hyperlipidemia 272.4 [facility] [address] [facility] [id number] [place] [address] Sep, [facility] [address] [facility] [id number] [place] [address] Sep, [facility] [address] [facility] [id number] [place] [address] Sep, [facility] [address] [facility] [id number] [place] [address] Jun, [facility] [address] [facility] [id number] [place] [address], [place] [address] Jun, [facility] [address] [facility] [id number] [place] [address] Apr, [facility] [address] [place] [id number] [place] [address] Apr, [facility] [address] [place] [id number] [place] [address] Mar, [facility] [address] [place] [address] Mar, [facility] [address] [place] [id number] [place] [address] Mar, [facility] [address] [place] [id number] [place] [address] Mar, [facility] [address] [facility] [id number] [place] [address] Feb, [facility] [address] [place] [id number] [place] [address] Feb, [facility] [address] [facility] [id number] [place] [address] Jan, [facility] [address] [place] [id number] [place] [address] Jan, [facility] [place] [facility] [address] [id number] [place] [address] Jan, [facility] [place] [facility] [address] [id number] [place] [address] Jan, [facility] [place] [facility] [address] [id number] [place] [address] Sep, [facility] [place] [facility] [address] [id number] [place] [address] Sep, [facility] [place] [facility] [address] [id number] [place] [address] Sep, [facility] [place] [facility] [address] [id number] [place] [address] Sep, [facility] [place] [facility] [address] [id number] [place] [address] Sep, [facility] [place] [facility] [address] [id number] [place] [address] Sep, [facility] [place] [facility] [address] [id number] [place] [address] Aug, [facility] [place] [facility] [address] [id number] [place] [address] Aug, [facility] [place] [facility] [address] [id number] [place] [address] Aug, [facility] [place] [facility] [address] [id number] [place] [address] Aug, [facility] [place] [facility] [address] [id number] [place] [address] Apr, [facility] [place] [facility] [address] [id number] [place] [address] Apr, [facility] [place] [facility] [address] [id number] [place] [address] Mar, [facility] [place] [facility] [address] [id number] [place] [address] Mar, [facility] [address] [id number] [place] [address] Mar, [facility] [place] [facility] [address] [id number] [place] [address] Mar, [facility] [address] [id number] [place] [address] Feb, [facility] [place] [facility] [address] [id number] [place] [address] Feb, [facility] [address] [id number] [place] [address] Feb, [facility] [place] [facility] [address] [id number] [place] [address] Feb, [facility] [address] [id number] [place] [address] Feb, [facility] [place] [facility] [address] [id number] [place] [address] Feb, [facility] [place] [facility] [address] [id number] [place] [address] Feb, [facility] [address] [facility] [id number] [place] [address] Feb, [facility] [place] [facility] [address] [id number] [place] [address] Jan, [facility] [place] [facility] [address] [id number] [place] [address] Jan, [facility] [place] [facility] [address] [id number] [place] [address] Dec, [facility] [place] [facility] [address] [id number] [place] [address] Dec, [facility] [place] [facility] [address] [id number] [place] [address] Dec, [facility] [place] [facility] [address] [id number] [place] [address] Dec, [facility] [place] [facility] [address] [id number] [place] [address] Dec, [facility] [place] [facility] [address] [id number] [place] [address] Dec, [facility] [place] [facility] [address] [id number] [place] [address] Nov, [facility] [place] [facility] [address] [id number] [place] [address] Aug, [facility] [place] [facility] [address] [id number] [place] [address] Dec, [facility] [place] [facility] [address] [id number] [place] [address] Dec, [facility] [place] [facility] [address] [id number] [place] [address] Nov, [facility] [place] [facility] [address] [id number] [place] [address] Sep, [facility] [place] [facility] [address] [id number] [place] [address] Sep, [facility] [place] [facility] [address] [id number] [place] [address] Sep, [facility] [place] [facility] [address] [id number] [place] [address] Aug, [facility] [place] [facility] [address] [id number] [place] [address] Aug, [facility] [place] [facility] [address] [id number] [place] [address] Aug, [facility] [place] [facility] [address] [id number] [place] [address] Jun, [facility] [place] [facility] [address] [id number] [address] Jun, [facility] [address] [address] Jun, [facility] [address] [address] May, [facility] [address] [address] May, [facility] [address] [address] May, [facility] [address] [address] Feb, [facility] [address] [address] Feb, [facility] [address] [address] Jan, [facility] [address] [address] Jan, [facility] [address] [address] Jan, [facility] [address] [address] Jan, [facility] [address] [address] Jan, [facility] [address] [address] Jan, [facility] [address] [address] Jan, [facility] [address] [address] Jan, IMMUNIZATIONS No Known Immunizations SOCIAL HISTORY Never Assessed REASON FOR VISIT Diabetes fu -- joaquin gill PLAN OF CARE Activity Details VITAL SIGNS Height 67 in 2017-05-29 Weight 166.5 lbs 2017-05-29 Temperature 98.7 degrees Fahrenheit Heart Rate 20 bpm 2017-05-29 Respiratory Rate 18 2017-05-29 BMI 26.07 kg/m2 2017-05-29 Blood pressure systolic 130 mmHg Blood pressure diastolic 82 mmHg 2017-05 MEDICATIONS Medication Instructions Dosage Frequency Start Date End Date Duration Status Carvedilol 12.5 MG Orally Twice a day 1 tablet with food 12h Active Victoza 18 MG/3ML Subcutaneous Once a day 1.8 mg 24h Jun, Active Atorvastatin Calcium 40 MG Orally Once a day 1 tablet 24h Mar, Active Test strips Test Strips test blood sugar 8h Oct, Active Pen [place] 32G X 4 MM as directed 8h Jun, 90 days Active Blood Glucose Meter 1 glucometer test 3 times per day Oct, Active Lisinopril-Davis chlorothiazide 20-25 MG Orally Once a day 2 tablets 24h 30 days Active MetFORMIN HCl ER 500 mg Orally 2 times a day 2 tabs 12h 30 Active Aspir-81 81 MG Orally Once a day 1 tablet 24h Active Levemir Flexpen 100 UNIT/ML subcutaneous 2 times a day 20 units 12h 06 Mar, 2014 Active Cinnamon 500 MG Active Cranberry 1000 MG Active RESULTS No Results PROCEDURES Procedure Date Ordered Result Body Site GLYCATED HEMOGLOBIN TEST May 29, 2017 LIPID PANEL May 29, 2017 COMPLETE CBC W/AUTO DIFF WBC May 29, 2017 COMPREHEN METABOLIC PANEL May 29, 2017 VENIPUNCT, ROUTINE* May 29, 2017 INSTRUCTIONS MEDICATIONS ADMINISTERED No Known Medications MEDICAL (GENERAL) HISTORY Type Description Date Medical History type II diabetes Medical History hyperlipidemia Medical History hypertension Medical History coronary artery disease Surgical History partial hysterectomy d/t fibroi ds - still has ovaries 1995 Surgical History section x 2 Surgical History cardiac stent 2006 Hospitalization History Myocardial infarction 20 06
--- OUTSIDE RECORDS SUMMARY | 2022-11-24 15:51 | XMS REPORT ---
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 macular edema associated with type 2 diabetes mellitus, unspecified laterality E11.3499 Active 565026665 Problem Coronary artery disease involving [place] coronary artery of [place] heart without angina pectoris I25.10 Active 2722953976860 Problem Essential hypertension I10 Active 83083994 ALLERGIES No Information ENCOUNTERS Encounter Location Date Diagnosis [place] [address] [address] July, [facility] [address] [address] Mar, [place] [address] [address] Feb, [facility] [address] [address] Jan, Type 2 diabetes mellitus with hyperglycemia E11.65 ; Essential hypertension I10 ; Hyperlipidemia E78.5 and Encounter for immunization Z23 [facility] [address] [place] [id number] [place] [address] Sep, [facility] [address] [address] July, Type 2 diabetes mellitus with hyperglycemia E11.65 [facility] [address] [address] July, [facility] [address] [address] May, [facility] [address] [address] May, Hyperlipidemia E78.5 [facility] [address] [place] [address] [id number] [place] [address] 12 May, 2017 Type 2 diabetes mellitus with hyperglycemia E11.65 ; Essential hypertension I10 ; Hyperlipidemia E78.5 and Breast cancer screening Z12.31 [place] [address] [place] [id number] [place] [address] 05 May, 2017 Type 2 diabetes mellitus with hyperglycemia E11.65 [place] [address] [place] [id number] [place] [address] Apr, Type 2 diabetes mellitus with hyperglycemia E11.65 [place] [address] [place] [id number] [place] [address] Jan, [facility] [address] [place] [id number] [place] [address] Jan, [facility] [address] [place] [id number] [place] [address] Jan, [facility] [address] [place] [id number] [place] [address] Sep, Essential hypertension I10 [facility] [address] [address] Aug, Type 2 diabetes mellitus with hyperglycemia E11.65 [facility] [address] [place] [id number] [place] [address] Aug, [facility] [id number] [place] [address] Aug, Type 2 diabetes mellitus with hyperglycemia E11.65 ; Hyperlipidemia E78.5 ; Colon cancer screening Z12.11 ; Essential hypertension I10 and Encounter for immunization Z23 [facility] [address] [address] July, Type 2 diabetes mellitus with hyperglycemia E11.65 [facility] [address] [address] July, Type 2 diabetes mellitus with hyperglycemia E11.65 [facility] [address] [address] Jun, [facility] [address] [address] May, Essential hypertension I10 [facility] [address] [place] [id number] [place] [address] May, [facility] [address] [place] [address] Apr, Acute non-recurrent frontal sinusitis J01.10 [facility] [address] [place] [address] Apr, Essential hypertension I10 [facility] [address] [place] [address] Apr, [facility] [address] [place] [address] Mar, Type 2 diabetes mellitus with hyperglycemia E11.65 [facility] [address] [address] Mar, [facility] [address] [address] Feb, Essential hypertension I10 [facility] [address] [address] 14 Feb, 2016 [facility] [address] [place] [address] 13 Feb, 2016 Type 2 diabetes mellitus with hyperglycemia E11.65 ; Essential hypertension I10 and Hyperlipidemia E78.5 [facility] [address] [address] Jan, [facility] [address] [place] [id number] [place] [address] Dec, [facility] [address] [address] Dec, [facility] [address] [address] Oct, [facility] [address] [address] Aug, [facility] [address] [place] [address] Aug, Hyperlipidemia E78.5 [facility] [address] [place] [address] Aug, Type 2 diabetes mellitus with hyperglycemia E11.65 ; Hyperlipidemia E78.5 and Essential hypertension I10 [facility] [address] [address] Aug, [facility] [address] [address] Jun, [facility] [address] [address] Jun, [facility] [address] [address] Jun, [facility] [address] [address] Apr, [facility] [address] [address] Apr, [facility] [address] [address] Mar, Hyperlipidemia E78.5 [facility] [address] [address] Mar, Type 2 diabetes mellitus with hyperglycemia E11.65 ; Hyperlipidemia E78.5 and Essential hypertension I10 [facility] [address] [address] Mar, [facility] [address] [facility] [id number] [address] Nov, [facility] [address] [facility] [id number] [address] Nov, [facility] [address] [facility] [id number] [address] Sep, Hyperlipidemia 272.4 [facility] [address] [facility] [id number] [address] Sep, [facility] [address] [facility] [id number] [address] Sep, Diabetes mellitus, type II 250.00 ; Hypertension 401.9 and Hyperlipidemia 272.4 [facility] [address] [address] Sep, [facility] [address] [facility] [id number] [address] Sep, [facility] [address] [place] [id number] [address] Sep, [facility] [address] [place] [id number] [address] Jun, [facility] [address] [place] [id number] [address] Jun, [facility] [address] [facility] [id number] [address] Apr, [facility] [address] [facility] [id number] [place] [address] Apr, [facility] [address] [facility] [id number] [place] [address] Mar, [facility] [place] [facility] [address] [facility] [id number] [place] [address] Mar, [facility] [address] [facility] [id number] [place] [address] Mar, [facility] [place] [facility] [address] [id number] [place] [address] Mar, [facility] [place] [facility] [address] [id number] [place] [address] Feb, [facility] [place] [facility] [address] [id number] [place] [address] Feb, [facility] [place] [facility] [address] [id number] [place] [address] Jan, [facility] [place] [facility] [address] [id number] [place] [address] Jan, [facility] [place] [facility] [address] [id number] [place] [address] Jan, [facility] [place] [facility] [address] [id number] [place] [address] Jan, [facility] [place] [facility] [address] [id number] [place] [address] Sep, [facility] [place] [facility] [address] [id number] [place] [address] Sep, [facility] [place] [facility] [address] [id number] [place] [address] Sep, [facility] [place] [facility] [address] [id number] [place] [address] Sep, [facility] [place] [facility] [address] [id number] [place] [address] Sep, [facility] [place] [facility] [address] [id number] [place] [address] Sep, [facility] [place] [facility] [address] [id number] [place] [address] Aug, [facility] [place] [facility] [address] [id number] [place] [address] Aug, [facility] [place] [facility] [address] [id number] [place] [address] Aug, [facility] [place] [facility] [address] [id number] [place] [address] Aug, [facility] [place] [facility] [address] [id number] [place] [address] Apr, [facility] [place] [facility] [address] [id number] [place] [address] Apr, [facility] [place] [facility] [address] [id number] [place] [address] Mar, [facility] [place] [facility] [address] [id number] [place] [address] Mar, [facility] [address] [id number] [place] [address] Mar, [facility] [address] [id number] [place] [address] Mar, [facility] [place] [facility] [address] [id number] [place] [address] Feb, [facility] [place] [facility] [address] [id number] [place] [address] Feb, [facility] [place] [facility] [address] [id number] [place] [address] Feb, [facility] [place] [facility] [address] [id number] [place] [address] Feb, [facility] [place] [facility] [address] [id number] [place] [address] Feb, [facility] [place] [facility] [address] [id number] [place] [address] Feb, [facility] [place] [facility] [address] [id number] [place] [address] Feb, [facility] [place] [facility] [address] [id number] [place] [address] Feb, [facility] [place] [facility] [address] [id number] [place] [address] Jan, [facility] [place] [facility] [address] [id number] [place] [address] Jan, [facility] [place] [facility] [address] [id number] [place] [address] Dec, [facility] [place] [facility] [address] [id number] [place] [address] Dec, [facility] [place] [facility] [address] [id number] [place] [address] Dec, [facility] [place] [facility] [address] [id number] [place] [address] Dec, [facility] [place] [facility] [address] [id number] [place] [address] Dec, [facility] [place] [facility] [address] [id number] [place] [address] Dec, [facility] [place] [facility] [address] [id number] [place] [address] Nov, [facility] [place] [facility] [address] [id number] [place] [address] Aug, [facility] [place] [facility] [address] [id number] [address] Dec, [facility] [place] [facility] [address] [id number] [address] Dec, [facility] [place] [facility] [address] [id number] [place] [address] Nov, [facility] [place] [facility] [address] [id number] [place] [address] Sep, [facility] [place] [facility] [address] [id number] [place] [address] Sep, [facility] [place] [facility] [address] [id number] [place] [address] Sep, [facility] [address] [id number] [place] [address] Aug, [facility] [place] [facility] [address] [id number] [place] [address] Aug, [facility] [address] [id number] [place] [address] Aug, [facility] [place] [facility] [address] [id number] [place] [address] Jun, [facility] [address] [id number] [place] [address] Jun, [facility] [address] [id number] [place] [address] Jun, [facility] [address] [id number] [place] [address] May, [facility] [address] [id number] [place] [address] May, [facility] [address] [id number] [place] [address] May, [facility] [address] [facility] [id number] [place] [address] Feb, [facility] [address] [id number] [place] [address] Feb, [facility] [address] [id number] [place] [address] Jan, [facility] [place] [facility] [address] [id number] [place] [address] Jan, [facility] [place] [facility] [address] [id number] [place] [address] Jan, [facility] [address] [id number] [place] [address] Jan, [facility] [address] [facility] [id number] [address] Jan, [facility] [address] [facility] [id number] [place] [address] Jan, [facility] [address] [facility] [id number] [place] [address] Jan, [facility] [address] [facility] [id number] [place] [address] Jan, IMMUNIZATIONS No Known Immunizations SOCIAL HISTORY Never Assessed REASON FOR VISIT EMR-[facility] PLAN OF CARE VITAL SIGNS MEDICATIONS Unknown [...]
--- OUTSIDE RECORDS SUMMARY | 2022-11-24 15:51 | XMS REPORT ---
Author Author Melanie REYNOLDS [facility] Address [address] [place] [address] Care Team Providers Care Relationship Advisor Name Role Phone RAIMUNDO REYNOLDS Unavailable PROBLEMS Type Condition ICD9-CM Code XXU83-AS Code Onset Dates Condition Status SNOMED Code Problem Type 2 diabetes mellitus with hyperglycemia E11.65 Active 845292874 Problem Hyperlipidemia E78.5 Active 04851613 Problem Essential hypertension I10 Active 77878105 Problem Coronary artery disease involving [place] coronary artery of [place] heart without angina pectoris I25.10 Active [id number] ALLERGIES Unknown Allergies SOCIAL HISTORY No smoking Hx information available PLAN OF CARE VITAL SIGNS MEDICATIONS Unknown Medications RESULTS No Results PROCEDURES No Known procedures IMMUNIZATIONS No Known Immunizations
--- OUTSIDE RECORDS SUMMARY | 2022-11-24 15:51 | XMS REPORT ---
Author Author Melanie REYNOLDS [place] Organization [employer] Address Unknown Phone Unavailable Care Team Providers Care Mri Technician Name Role Phone RAIMUNDO REYNOLDS CP Unavailable Allergies No Known Allergies Problems Problem Type Condition Code Onset Dates Condition S tatus Problem Essential hypertension I10 Ac tive Problem Coronary artery dise ase involving [place] coronary artery of [place] heart without angina pectoris I25.10 Active Problem Type 2 diabetes amrit itus with hyperglycemia E11.65 Active Problem Hyperlipidemia E78.5 Active Medications No Known Medications Results No Known Results Summary Purpose [employer] Submission
--- OUTSIDE RECORDS SUMMARY | 2022-11-24 15:51 | XMS REPORT ---
Author Author Melanie REYNOLDS [place] Organization [employer] Address Unknown Phone Unavailable Care Team Providers Care Risk And Insurance Consultant Name Role Phone RAIMUNDO REYNOLDS CP Unavailable Allergies No Known Allergies Problems Problem Type Condition Code Onset Dates Condition S tatus Problem Hypertension 401.9 Active Problem Coronary artery disease 414.00 A ctive Problem Diabetes mellitus, type II 250.00 Active Problem Hyperlipidemia 272.4 Active Problem Proteinuria 791.0 Active Medications Medication Code System Code Instructions Start Date End Date Status Dosage MetFORMIN HCl ER [facility] [address]36-56 67-01 500 MG Orally 2 times a day TAKE TWO TABLETS Results No Known Results Summary Purpose [employer] Submission
--- OUTSIDE RECORDS SUMMARY | 2022-11-24 15:51 | XMS REPORT ---
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 macular edema associated with type 2 diabetes mellitus, unspecified laterality E11.3499 Active 175689384 Problem Coronary artery disease involving [place] coronary artery of [place] heart without angina pectoris I25.10 Active [id number] Problem Essential hypertension I10 Active [id number] ALLERGIES No Information ENCOUNTERS Encounter Location Date Diagnosis [place] [id number] [address] July, Type 2 diabetes mellitus with hyperglycemia E11.65 [place] [address] [address] Mar, [facility] [address] [address] Feb, [facility] [address] [place] [id number] [place] [address] Jan, Type 2 diabetes mellitus with hyperglycemia E11.65 ; Essential hypertension I10 ; Hyperlipidemia E78.5 and Encounter for immunization Z23 [facility] [address] [address] [id number] [place] [address] Sep, [facility] [address] [address] July, Type 2 diabetes mellitus with hyperglycemia E11.65 [facility] [address] [address] July, [facility] [address] [place] [address] May, [facility] [address] [address] 14 May, 2017 Hyperlipidemia E78.5 [facility] [address] [place] [id number] [place] [address] 12 May, 2017 Type 2 diabetes mellitus with hyperglycemia E11.65 ; Essential hypertension I10 ; Hyperlipidemia E78.5 and Breast cancer screening Z12.31 [place] [address] [id number] [place] [address] 05 May, 2017 Type 2 diabetes mellitus with hyperglycemia E11.65 [place] [address] [place] [id number] [place] [address] 02 Apr, 2017 Type 2 diabetes mellitus with hyperglycemia E11.65 [place] [address] [place] [id number] [place] [address] Jan, [place] [address] [place] [id number] [place] [address] Jan, [place] [id number] [place] [address] Jan, [place] [address] [place] [id number] [place] [address] Sep, Essential hypertension I10 [place] [address] [address] Aug, Type 2 diabetes mellitus with hyperglycemia E11.65 [place] [address] [address] Aug, [place] [id number] [place] [address] Aug, Type 2 diabetes mellitus with hyperglycemia E11.65 ; Hyperlipidemia E78.5 ; Colon cancer screening Z12.11 ; Essential hypertension I10 and Encounter for immunization Z23 [place] [address], [place] [address] July, Type 2 diabetes mellitus with hyperglycemia E11.65 [facility] [address], [place] [address] July, Type 2 diabetes mellitus with hyperglycemia E11.65 [facility] [address], [place] [address] Jun, [facility] [id number] [place] [address] May, Essential hypertension I10 [facility] [id number] [place] [address] May, [facility] [address] [place] [address] [id number] [place] [address] Apr, Acute non-recurrent frontal sinusitis J01.10 [facility] [address] [address] Apr, Essential hypertension I10 [facility] [address] [address] Apr, [facility] [id number] [place] [address] Mar, Type 2 diabetes mellitus with hyperglycemia E11.65 [facility] [address] [address] Mar, [facility] [address], [place] [address] Feb, Essential hypertension I10 [facility] [address], [place] [address] 14 Feb, 2016 [facility] [id number] [place] [address] 13 Feb, 2016 Type 2 diabetes mellitus with hyperglycemia E11.65 ; Essential hypertension I10 and Hyperlipidemia E78.5 [facility] [address], [place] [address] Jan, [facility] [address] [place] [address] [id number] [address] Dec, [facility] [address], [place] [address] Dec, [facility] [address] [address] Oct, [facility] [address], [place] [address] Aug, [facility] [address], [place] [address] Aug, Hyperlipidemia E78.5 [facility] [address], [place] [address] Aug, Type 2 diabetes mellitus with hyperglycemia E11.65 ; Hyperlipidemia E78.5 and Essential hypertension I10 [facility] [address] [address] Aug, [facility] [address], [place] [address] Jun, [facility] [address], [place] [address] Jun, [facility] [address], [place] [address] Jun, [facility] [address], [place] [address] Apr, [facility] [address], [place] [address] Apr, [facility] [address] [address] Mar, Hyperlipidemia E78.5 [facility] [address], [place] [address] 14 Mar, 2015 Type 2 diabetes mellitus with hyperglycemia E11.65 ; Hyperlipidemia E78.5 and Essential hypertension I10 [facility] [address] [place] [address] Mar, [facility] [address] [place] [id number] [place] [address] Nov, [facility] [address] [facility] [id number] [place] [address] Nov, [facility] [address] [place] [address] Sep, Hyperlipidemia 272.4 [facility] [address] [facility] [id number] [place] [address] Sep, [facility] [address] [place] [address] Sep, Diabetes mellitus, type II 250.00 ; Hypertension 401.9 and Hyperlipidemia 272.4 [facility] [address] [place] [address] Sep, [facility] [address] [place] [address] Sep, [facility] [address] [place] [address] Sep, [facility] [address] [place] [address] Jun, [facility] [address] [place] [id number] [place] [address] Jun, [facility] [address] [place] [id number] [address] Apr, [facility] [address] [place] [id number] [place] [address] Apr, [facility] [address] [place] [address] Mar, [facility] [address] [place] [id number] [place] [address] Mar, [facility] [place] [facility] [address] [id number] [place] [address] Mar, [facility] [place] [facility] [address] [id number] [place] [address] Mar, [facility] [place] [facility] [address] [id number] [place] [address] Feb, [facility] [place] [facility] [address] [id number] [place] [address] Feb, [facility] [place] [facility] [address] [id number] [place] [address] Jan, [facility] [place] [facility] [address] [id number] [place] [address] Jan, [facility] [place] [facility] [address] [id number] [place] [address] Jan, [facility] [place] [facility] [address] [id number] [place] [address] Jan, [facility] [place] [facility] [address] [id number] [place] [address] Sep, [facility] [place] [facility] [address] [id number] [place] [address] Sep, [facility] [place] [facility] [address] [id number] [place] [address] Sep, [facility] [place] [facility] [address] [id number] [place] [address] Sep, [facility] [place] [facility] [address] [id number] [place] [address] Sep, [facility] [place] [facility] [address] [id number] [place] [address] Sep, [facility] [place] [facility] [address] [id number] [place] [address] Aug, [facility] [place] [facility] [address] [id number] [place] [address] Aug, [facility] [place] [facility] [address] [id number] [place] [address] Aug, [facility] [place] [facility] [address] [id number] [place] [address] Aug, [facility] [place] [facility] [address] [id number] [place] [address] Apr, [facility] [place] [facility] [address] [id number] [place] [address] Apr, [facility] [place] [facility] [address] [id number] [place] [address] Mar, [facility] [place] [facility] [address] [id number] [place] [address] Mar, [facility] [place] [facility] [address] [id number] [place] [address] Mar, [facility] [place] [facility] [address] [id number] [place] [address] Mar, [facility] [place] [facility] [address] [id number] [place] [address] Feb, [facility] [place] [facility] [address] [id number] [place] [address] Feb, [facility] [place] [facility] [address] [id number] [place] [address] Feb, [facility] [place] [facility] [address] [id number] [address] Feb, [facility] [place] [facility] [address] [id number] [place] [address] Feb, [facility] [place] [facility] [address] [id number] [place] [address] Feb, [facility] [place] [facility] [address] [id number] [place] [address] Feb, [facility] [place] [facility] [address] [id number] [place] [address] Feb, [facility] [place] [facility] [address] [id number] [place] [address] Jan, [facility] [place] [facility] [address] [id number] [place] [address] Jan, [facility] [place] [facility] [address] [id number] [place] [address] Dec, [facility] [place] [facility] [address] [id number] [place] [address] Dec, [facility] [place] [facility] [address] [id number] [place] [address] Dec, [facility] [place] [facility] [address] [id number] [place] [address] Dec, [facility] [place] [facility] [address] [id number] [place] [address] Dec, [facility] [place] [facility] [address] [id number] [place] [address] Dec, [facility] [place] [facility] [address] [id number] [place] [address] Nov, [facility] [place] [facility] [address] [id number] [place] [address] Aug, [facility] [place] [facility] [address] [id number] [place] [address] Dec, [facility] [place] [facility] [address] [id number] [place] [address] Dec, [facility] [place] [facility] [address] [id number] [place] [address] Nov, [facility] [place] [facility] [address] [id number] [place] [address] Sep, [facility] [place] [facility] [address] [id number] [place] [address] Sep, [facility] [place] [facility] [address] [id number] [place] [address] Sep, [facility] [place] [facility] [address] [id number] [place] [address] Aug, [facility] [place] [facility] [address] [id number] [place] [address] Aug, [facility] [place] [facility] [address] [id number] [place] [address] Aug, [facility] [address] [id number] [place] [address] Jun, [facility] [place] [facility] [address] [id number] [place] [address] Jun, [facility] [address] [id number] [place] [address] Jun, [facility] [address] [id number] [place] [address] May, [facility] [address] [id number] [place] [address] May, [facility] [address] [id number] [place] [address] May, [facility] [address] [id number] [place] [address] Feb, [facility] [place] [facility] [address] [id number] [place] [address] Feb, [facility] [place] [facility] [address] [id number] [place] [address] Jan, [facility] [place] [facility] [address] [id number] [place] [address] Jan, [facility] [place] [facility] [address] [id number] [place] [address] Jan, [facility] [place] [facility] [address] [id number] [place] [address] Jan, [facility] [address] [facility] [id number] [place] [address] Jan, [facility] [address] [facility] [id number] [address] Jan, [facility] [address] [facility] [id number], [place] [address] Jan, [facility] [address] [facility] [id number] [address] Jan, IMMUNIZATIONS No Known Immunizations SOCIAL HISTORY Never Assessed REASON FOR VISIT PLAN OF CARE VITAL SIGNS Height 67 in 2014-05-09 Weight 156.8 lbs 2014-05-09 Temperature 97.9 degrees Fahrenheit Heart Rate 76 bpm 2014-05-09 Respiratory Rate 18 2014-05-09 Blood pressure systolic 144 mmHg Blood pressure diastolic 80 mmHg 2014-04 MEDICATIONS No Known Medications RESULTS No Results PROCEDURES Procedure Date Ordered Result Body Site GLYCATED HEMOGLOBIN TEST May 09, 2014 INSTRUCTIONS MEDICATIONS ADMINISTERED No Known Medications [...]
--- OUTSIDE RECORDS SUMMARY | 2022-11-24 15:51 | XMS REPORT ---
Author Author Melanie REYNOLDS [facility] Address [address] [place] [address] Care Team Providers Care Engraver Machine Name Role Phone GAIL RAIMUNDO Unavailable PROBLEMS Type Condition ICD9-CM Code ZTK95-CA Code Onset Dates Condition Status SNOMED Code Problem Type 2 diabetes mellitus with hyperglycemia E11.65 Active 280720796 Problem Hyperlipidemia E78.5 Active 99670748 Problem Essential hypertension I10 Active 31832190 Problem Coronary artery disease involving [place] tribes coronary artery of [place] tribes heart without angina pectoris I25.10 Active [id number] ALLERGIES No Information ENCOUNTERS Encounter Location Date Diagnosis [place] [id number] [place] [address] July, Type 2 diabetes mellitus with hyperglycemia E11.65 [place] [id number] [place] [address] July, [place] [id number] [place] [address] May, [place] [id number] [place] [address] May, Hyperlipidemia E78.5 [place] [id number] [place] [address] May, Type 2 diabetes mellitus with hyperglycemia E11.65 ; Essential hypertension I10 ; Hyperlipidemia E78.5 and Breast cancer screening Z12.31 [place] [id number] [place] [address] 05 May, 2017 Type 2 diabetes mellitus with hyperglycemia E11.65 [place] [id number] [place] [address] Apr, Type 2 diabetes mellitus with hyperglycemia E11.65 [facility] [address] [address] 15 Jan, 2017 [facility] [id number] [place] [address] 14 Jan, 2017 [facility] [address] [address] Jan, [facility] [id number] [place] [address] Sep, Essential hypertension I10 [facility] [id number] [place] [address] Aug, Type 2 diabetes mellitus with hyperglycemia E11.65 [facility] [id number] [place] [address] Aug, [facility] [id number] [place] [address] Aug, Type 2 diabetes mellitus with hyperglycemia E11.65 ; Hyperlipidemia E78.5 ; Colon cancer screening Z12.11 ; Essential hypertension I10 and Encounter for immunization Z23 [facility] [id number] [place] [address] July, Type 2 diabetes mellitus with hyperglycemia E11.65 [facility] [address] [address] July, Type 2 diabetes mellitus with hyperglycemia E11.65 [facility] [id number] [place] [address] Jun, [facility] [id number] [place] [address] May, Essential hypertension I10 [facility] [id number] [place] [address] May, [facility] [address], [place] [address] Apr, Acute non-recurrent frontal sinusitis J01.10 [facility] [address] [address] Apr, Essential hypertension I10 [facility] [address] [address] Apr, [facility] [address] [address] Mar, Type 2 diabetes mellitus with hyperglycemia E11.65 [facility] [id number] [place] [address] Mar, [facility] [id number] [place] [address] Feb, Essential hypertension I10 [facility] [id number] [place] [address] Feb, [facility] [id number] [place] [address] Feb, Type 2 diabetes mellitus with hyperglycemia E11.65 ; Essential hypertension I10 and Hyperlipidemia E78.5 [facility] [address] [address] Jan, [facility] [address] [address] Dec, [facility] [address] [address] Dec, [facility] [address], [place] [address] Oct, [facility] [address] [address] Aug, [facility] [address] [address] 15 Aug, 2015 Hyperlipidemia E78.5 [facility] [address] [address] 14 Aug, 2015 Type 2 diabetes mellitus with hyperglycemia E11.65 ; Hyperlipidemia E78.5 and Essential hypertension I10 [facility] [id number] [address] Aug, [facility] [address] [address] Jun, [facility] [address] [address] Jun, [facility] [address] [address] Jun, [facility] [address] [address] Apr, [facility] [address] [address] Apr, [facility] [address], [place] [address] Mar, Hyperlipidemia E78.5 [facility] [address] [address] Mar, Type 2 diabetes mellitus with hyperglycemia E11.65 ; Hyperlipidemia E78.5 and Essential hypertension I10 [facility] [id number] [address] Mar, [facility] [id number] [address] Nov, [facility] [address], [place] [address] Nov, [facility] [id number] [address] Sep, Hyperlipidemia 272.4 [facility] [id number] [address] Sep, [facility] [id number] [address] Sep, Diabetes mellitus, type II 250.00 ; Hypertension 401.9 and Hyperlipidemia 272.4 [facility] [address] [id number] [place] [address] Sep, [facility] [place] [facility] [address] [id number] [place] [address] Sep, [facility] [place] [facility] [address] [facility] [id number] [place] [address] Sep, [facility] [place] [facility] [address] [id number] [place] [address] Jun, [facility] [place] [facility] [address] [id number] [place] [address] Jun, [facility] [place] [facility] [address] [facility] [id number] [place] [address] Apr, [facility] [place] [facility] [address] [facility] [id number] [place] [address] Apr, [facility] [place] [facility] [address] [facility] [id number] [place] [address] Mar, [facility] [address] [facility] [id number] [place] [address] Mar, [facility] [place] [facility] [address] [facility] [id number] [place] [address] Mar, [facility] [place] [facility] [id number] [place] [address] Mar, [facility] [place] [facility] [address] [facility] [id number] [place] [address] Feb, [facility] [place] [facility] [address] [id number] [place] [address] Feb, [facility] [place] [facility] [address] [facility] [id number] [place] [address] Jan, [facility] [place] [facility] [address] [facility] [id number] [place] [address] Jan, [facility] [place] [facility] [address] [id number] [place] [address] Jan, [facility] [place] [facility] [address] [id number] [place] [address] Jan, [facility] [place] [facility] [address] [id number] [place] [address] Sep, [facility] [place] [facility] [address] [id number] [place] [address] Sep, [facility] [place] [facility] [address] [id number] [place] [address] Sep, [facility] [place] [facility] [address] [id number] [place] [address] Sep, [facility] [place] [facility] [address] [id number] [place] [address] Sep, [facility] [place] [facility] [address] [id number] [place] [address] Sep, [facility] [place] [facility] [address] [id number] [place] [address] Aug, [facility] [place] [facility] [address] [id number] [place] [address] Aug, [facility] [place] [facility] [address] [id number] [place] [address] Aug, [facility] [place] [facility] [address] [id number] [place] [address] Aug, [facility] [place] [facility] [address] [id number] [place] [address] Apr, [facility] [place] [facility] [address] [id number] [place] [address] Apr, [facility] [place] [facility] [address] [id number] [place] [address] Mar, [facility] [place] [facility] [address] [id number] [place] [address] Mar, [facility] [address] [id number] [place] [address] Mar, [facility] [place] [facility] [address] [id number] [place] [address] Mar, [facility] [place] [facility] [address] [id number] [place] [address] Feb, [facility] [place] [facility] [address] [id number] [place] [address] Feb, [facility] [place] [facility] [address] [id number] [place] [address] Feb, [facility] [place] [facility] [address] [id number] [place] [address] Feb, [facility] [place] [facility] [address] [id number] [place] [address] Feb, [facility] [place] [facility] [address] [id number] [place] [address] Feb, [facility] [place] [facility] [address] [id number] [place] [address] Feb, [facility] [place] [facility] [address] [id number] [place] [address] Feb, [facility] [place] [facility] [address] [id number], [place] [address] Jan, [facility] [place] [facility] [address] [id number], [place] [address] Jan, [facility] [place] [facility] [address] [id number] [place] [address] Dec, [facility] [place] [facility] [address] [id number] [place] [address] Dec, [facility] [place] [facility] [address] [id number] [place] [address] Dec, [facility] [place] [facility] [address] [id number] [place] [address] 30 Dec, 2012 [facility] [place] [facility] [address] [id number] [place] [address] 08 Dec, 2012 [facility] [place] [facility] [address] [id number] [place] [address] Dec, [facility] [place] [facility] [address] [id number] [place] [address] 10 Nov, 2012 [facility] [place] [facility] [address] [id number] [place] [address] Aug, [facility] [place] [facility] [address] [id number] [place] [address] Dec, [facility] [place] [facility] [address] [id number] [place] [address] Dec, [facility] [address] [id number] [place] [address] Nov, [facility] [place] [facility] [address] [id number] [place] [address] Sep, [facility] [place] [facility] [address] [id number] [place] [address] Sep, [facility] [place] [facility] [address] [id number] [place] [address] Sep, [facility] [place] [facility] [address] [id number] [place] [address] Aug, [facility] [place] [facility] [address] [id number] [place] [address] Aug, [facility] [place] [facility] [address] [id number] [place] [address] Aug, [facility] [place] [facility] [address] [id number] [place] [address] Jun, [facility] [place] [facility] [address] [id number] [place] [address] Jun, [facility] [place] [facility] [address] [facility] [id number] [address] Jun, [facility] [address], [place] [address] May, [facility] [address], [place] [address] May, [facility] [id number] [place] [address] May, [facility] [address] [facility] [id number], [place] [address] Feb, [facility] [id number] [place] [address] Feb, [facility] [id number] [place] [address] Jan, [facility] [id number] [place] [address] Jan, [facility] [id number] [place] [address] Jan, [facility] [id number] [place] [address] Jan, [facility] [address], [place] [address] Jan, [facility] [address], [place] [address] Jan, [facility] [address], [place] [address] Jan, [facility] [address], [place] [address] Jan, IMMUNIZATIONS No Known Immunizations SOCIAL HISTORY Never Assessed REASON FOR VISIT Refill request PLAN OF CARE VITAL SIGNS MEDICATIONS Medication Instructions Dosage Frequency Start Date End Date Du ration Status MetFORMIN HCl ER 500 mg Orally 2 times a day 2 tabs 12h 30 days Active RESULTS No Results PROCEDURES No Known procedures [...]
--- OUTSIDE RECORDS SUMMARY | 2022-11-24 15:51 | XMS REPORT ---
Author Author Melanie Lanza Organization [facility] Address Unknown Phone Unavailable Care Team Providers Care Orchid Hand Name Role Phone Migration, Doctor Unavailable Unavailable PROBLEMS Type Condition ICD9-CM Code OLF67-VO Code Onset Dates Condition Status SNOMED Code Problem Hyperlipidemia E78.5 Active 58869496 Problem Type 2 diabetes mellitus with hyperglycemia E11.65 Active 732168673 Problem Severe nonproliferative diabetic retinopathy without macular edema associated with type 2 diabetes mellitus, unspecified laterality E11.3499 Active 659845142 Problem Coronary artery disease involving [place] coronary artery of [place] heart without angina pectoris I25.10 Active [id number] Problem Essential hypertension I10 Active 53201075 ALLERGIES No Information ENCOUNTERS Encounter Location Date Diagnosis [place] [address] [address] Mar, [place] [address] [address] Feb, [place] [address] [address] Jan, Type 2 diabetes mellitus with hyperglycemia E11.65 ; Essential hypertension I10 ; Hyperlipidemia E78.5 and Encounter for immunization Z23 [place] [address] [place] [id number] [place] [address] Sep, [place] [address] [place] [id number] [place] [address] July, Type 2 diabetes mellitus with hyperglycemia E11.65 [place] [address] [address] July, [place] [address] [address] May, [place] [address] [address] 14 May, 2017 Hyperlipidemia E78.5 [facility] [address] [place] [address] 12 May, 2017 Type 2 diabetes mellitus with hyperglycemia E11.65 ; Essential hypertension I10 ; Hyperlipidemia E78.5 and Breast cancer screening Z12.31 [facility] [address] [address] 05 May, 2017 Type 2 diabetes mellitus with hyperglycemia E11.65 [place] [address] [place] [id number] [place] [address] Apr, Type 2 diabetes mellitus with hyperglycemia E11.65 [place] [address] [place] [id number] [place] [address] Jan, [place] [address] [place] [id number] [place] [address] Jan, [place] [address] [place] [id number] [place] [address] Jan, [place] [address] [place] [id number] [place] [address] Sep, Essential hypertension I10 [place] [address] [place] [id number] [place] [address] Aug, Type 2 diabetes mellitus with hyperglycemia E11.65 [place] [address] [address] Aug, [place] [address] [place] [id number] [place] [address] Aug, Type 2 diabetes mellitus with hyperglycemia E11.65 ; Hyperlipidemia E78.5 ; Colon cancer screening Z12.11 ; Essential hypertension I10 and Encounter for immunization Z23 [place] [address] [place] [address] July, Type 2 diabetes mellitus with hyperglycemia E11.65 [place] [address] [place] [address] July, Type 2 diabetes mellitus with hyperglycemia E11.65 [facility] [address] [address] Jun, [facility] [address] [place] [id number] [place] [address] May, Essential hypertension I10 [facility] [address] [place] [id number] [place] [address] May, [facility] [address] [place] [id number] [place] [address] Apr, Acute non-recurrent frontal sinusitis J01.10 [facility] [address] [place] [id number] [place] [address] Apr, Essential hypertension I10 [facility] [address] [place] [address] Apr, [facility] [address] [place] [id number] [place] [address] Mar, Type 2 diabetes mellitus with hyperglycemia E11.65 [facility] [address] [place] [id number] [place] [address] Mar, [facility] [address] [place] [id number] [place] [address] Feb, Essential hypertension I10 [facility] [address] [place] [address] Feb, [facility] [address] [place] [id number] [place] [address] Feb, Type 2 diabetes mellitus with hyperglycemia E11.65 ; Essential hypertension I10 and Hyperlipidemia E78.5 [facility] [address] [place] [id number] [place] [address] Jan, [facility] [address] [place] [address] Dec, [facility] [address] [place] [id number] [place] [address] Dec, [facility] [address] [address] Oct, [facility] [address] [address] Aug, [facility] [address] [address] Aug, Hyperlipidemia E78.5 [facility] [address] [address] Aug, Type 2 diabetes mellitus with hyperglycemia E11.65 ; Hyperlipidemia E78.5 and Essential hypertension I10 [facility] [address] [address] Aug, [facility] [address] [address] Jun, [facility] [address] [address] Jun, [facility] [address] [address] Jun, [facility] [address] [address] Apr, [facility] [address] [address] Apr, [facility] [address] [address] Mar, Hyperlipidemia E78.5 [facility] [address] [address] Mar, Type 2 diabetes mellitus with hyperglycemia E11.65 ; Hyperlipidemia E78.5 and Essential hypertension I10 [facility] [address] [address] Mar, [facility] [address] [address] Nov, [facility] [address] [facility] [id number] [address] Nov, [facility] [address] [facility] [id number] [address] Sep, Hyperlipidemia 272.4 [facility] [address] [facility] [id number] [place] [address] Sep, [facility] [address] [facility] [id number] [address] Sep, Diabetes mellitus, type II 250.00 ; Hypertension 401.9 and Hyperlipidemia 272.4 [facility] [address] [facility] [id number] [address] Sep, [facility] [address] [address] Sep, [facility] [address] [place] [id number] [address] Sep, [facility] [address] [place] [id number] [address] Jun, [facility] [address] [place] [id number] [address] Jun, [facility] [address] [address] Apr, [facility] [address] [place] [id number] [address] Apr, [facility] [address] [facility] [id number] [place] [address] Mar, [facility] [address] [facility] [id number] [place] [address] Mar, [facility] [place] [facility] [address] [place] [id number] [address] Mar, [facility] [address] [facility] [id number] [place] [address] Mar, [facility] [place] [facility] [address] [id number] [place] [address] Feb, [facility] [place] [facility] [address] [id number] [place] [address] Feb, [facility] [place] [facility] [address] [id number] [place] [address] Jan, [facility] [place] [facility] [address] [id number] [place] [address] Jan, [facility] [place] [facility] [address] [id number] [place] [address] Jan, [facility] [place] [facility] [address] [id number] [place] [address] Jan, [facility] [place] [facility] [address] [id number] [place] [address] Sep, [facility] [place] [facility] [address] [id number] [place] [address] Sep, [facility] [place] [facility] [address] [id number] [place] [address] Sep, [facility] [place] [facility] [address] [id number] [place] [address] Sep, [facility] [place] [facility] [address] [id number] [place] [address] Sep, [facility] [place] [facility] [address] [id number] [place] [address] Sep, [facility] [place] [facility] [address] [id number] [place] [address] Aug, [facility] [place] [facility] [address] [id number] [place] [address] Aug, [facility] [place] [facility] [address] [id number] [place] [address] Aug, [facility] [place] [facility] [address] [id number] [place] [address] Aug, [facility] [address] [id number] [place] [address] Apr, [facility] [place] [facility] [address] [id number] [place] [address] Apr, [facility] [address] [id number] [place] [address] Mar, [facility] [address] [id number] [place] [address] Mar, [facility] [address] [id number] [place] [address] Mar, [facility] [address] [id number] [place] [address] Mar, [facility] [address] [id number] [place] [address] Feb, [facility] [address] [id number] [place] [address] Feb, [facility] [address] [id number] [place] [address] Feb, [facility] [place] [facility] [address] [id number] [place] [address] Feb, [facility] [place] [facility] [address] [id number] [place] [address] Feb, [facility] [place] [facility] [address] [id number] [place] [address] Feb, [facility] [place] [facility] [address] [id number] [place] [address] Feb, [facility] [place] [facility] [address] [id number] [place] [address] Feb, [facility] [place] [facility] [address] [id number] [place] [address] Jan, [facility] [place] [facility] [address] [id number] [place] [address] Jan, [facility] [place] [facility] [address] [id number] [place] [address] Dec, [facility] [place] [facility] [address] [id number] [place] [address] Dec, [facility] [place] [facility] [address] [id number] [place] [address] Dec, [facility] [place] [facility] [address] [id number] [place] [address] Dec, [facility] [place] [facility] [address] [id number] [place] [address] Dec, [facility] [place] [facility] [address] [id number] [place] [address] Dec, [facility] [place] [facility] [address] [id number] [place] [address] Nov, [facility] [place] [facility] [address] [id number] [place] [address] Aug, [facility] [place] [facility] [address] [id number] [place] [address] Dec, [facility] [place] [facility] [address] [id number] [place] [address] Dec, [facility] [place] [facility] [address] [id number] [place] [address] Nov, [facility] [place] [facility] [address] [id number] [place] [address] Sep, [facility] [place] [facility] [address] [id number] [place] [address] Sep, [facility] [place] [facility] [address] [id number] [place] [address] Sep, [facility] [place] [facility] [address] [id number] [place] [address] Aug, [facility] [address] [id number] [place] [address] Aug, [facility] [place] [facility] [address] [id number] [place] [address] Aug, [facility] [address] [id number] [place] [address] Jun, [facility] [place] [facility] [address] [id number] [place] [address] Jun, [facility] [address] [id number] [place] [address] Jun, [facility] [address] [id number] [place] [address] May, [facility] [address] [id number] [place] [address] May, [facility] [address] [id number] [place] [address] May, [facility] [address] [id number] [place] [address] Feb, [facility] [address] [facility] [id number] [place] [address] Feb, [facility] [place] [facility] [address] [id number] [place] [address] Jan, [facility] [place] [facility] [address] [id number] [place] [address] Jan, [facility] [place] [facility] [address] [id number] [place] [address] 29 Jan, 2011 [facility] [place] [facility] [address] [id number] [place] [address] Jan, [facility] [place] [facility] [address] [id number] [place] [address] Jan, [facility] [address] [facility] [id number] [place] [address] Jan, [facility] [address] [facility] [id number] [place] [address] Jan, [facility] [address] [facility] [id number] [place] [address] Jan, IMMUNIZATIONS No Known Immunizations SOCIAL HISTORY Never Assessed REASON FOR VISIT EMR-[facility] PLAN OF CARE VITAL SIGNS MEDICATIONS Medication Instructions Dosage Frequency Start Date End Date Duration Status metformin 500 mg take 2 tablet by Oral route 2 times per day with the evening meal Jan, Active Lisinopril-Hydr ochlorothiazide 20-25 mg take 2 tablet by Oral route 1 time per day Jan, Active Levemir Flexpen 100 unit/mL by Subcutaneous route 1 time per day 15 units @ hs Mar, Active Liraglutide 0.6 mg/0.1 mL (18 mg/3 mL) 1.8 Mg 1 time per day for 30 days increase per victoza protocol to 1.8mg daily max dose Feb, Active RESULTS No Results PROCEDURES No Known [...]
--- OUTSIDE RECORDS SUMMARY | 2022-11-24 15:51 | XMS REPORT ---
Author Author Melanie REYNOLDS [place] Organization [employer] Address Unknown Phone Unavailable Care Team Providers Care Social Media Sr Strategy Manager Name Role Phone RAIMUNDO REYNOLDS CP Unavailable Allergies No Known Allergies Problems Problem Type Condition Code Onset Dates Condition S tatus Problem Essential hypertension I10 Ac tive Problem Coronary artery dise ase involving [place] coronary artery of [place] heart without angina pectoris I25.10 Active Problem Type 2 diabetes amrit itus with hyperglycemia E11.65 Active Problem Hyperlipidemia E78.5 Active Medications Medication Code System Code Instructions Start Date End Date Status Dosage Test strips NDC 0 Test Strips 3 times a day Oct 28, 2015 test blood sugar Blood Glucose Meter NDC 0 1 glucometer Glucocard Expression Oct 28, 2015 test 3 times per day Results No Known Results Summary Purpose [employer] Submission
--- OUTSIDE RECORDS SUMMARY | 2022-11-24 15:51 | XMS REPORT ---
Author Author Melanie REYNOLDS [facility] Address [address] [place] [address] Care Team Providers Care Telegraphic Typewriter Installer Name Role Phone GAIL RAIMUNDO Unavailable PROBLEMS Type Condition ICD9-CM Code PLL09-GY Code Onset Dates Condition Status SNOMED Code Problem Type 2 diabetes mellitus with hyperglycemia E11.65 Active 910749659 Problem Hyperlipidemia E78.5 Active 47300046 Problem Essential hypertension I10 Active 24249006 Problem Coronary artery disease involving [place] coronary artery of [place] heart without angina pectoris I25.10 Active [id number] ALLERGIES No Information ENCOUNTERS Encounter Location Date Diagnosis [place] [id number] [place] [address] July, Type 2 diabetes mellitus with hyperglycemia E11.65 [place] [id number] [place] [address] July, [place] [id number] [place] [address] May, [place] [id number] [place] [address] May, Hyperlipidemia E78.5 [place] [id number] [place] [address] May, Type 2 diabetes mellitus with hyperglycemia E11.65 ; Essential hypertension I10 ; Hyperlipidemia E78.5 and Breast cancer screening Z12.31 [place] [id number] [place] [address] 05 May, 2017 Type 2 diabetes mellitus with hyperglycemia E11.65 [place] [id number] [place] [address] Apr, Type 2 diabetes mellitus with hyperglycemia E11.65 [facility] [address] [address] 15 Jan, 2017 [facility] [id number] [place] [address] 14 Jan, 2017 [facility] [address], [place] [address] Jan, [facility] [id number] [place] [address] Sep, Essential hypertension I10 [facility] [id number] [place] [address] Aug, Type 2 diabetes mellitus with hyperglycemia E11.65 [facility] [id number] [place] [address] Aug, [facility] [id number] [place] [address] Aug, Type 2 diabetes mellitus with hyperglycemia E11.65 ; Hyperlipidemia E78.5 ; Colon cancer screening Z12.11 ; Essential hypertension I10 and Encounter for immunization Z23 [facility] [id number] [place] [address] July, Type 2 diabetes mellitus with hyperglycemia E11.65 [facility] [address], [place] [address] July, Type 2 diabetes mellitus with hyperglycemia E11.65 [facility] [id number] [place] [address] Jun, [facility] [id number] [place] [address] May, Essential hypertension I10 [facility] [id number] [place] [address] May, [facility] [address] [address] Apr, Acute non-recurrent frontal sinusitis J01.10 [facility] [address], [place] [address] Apr, Essential hypertension I10 [facility] [address], [place] [address] Apr, [facility] [address], [place] [address] Mar, Type 2 diabetes mellitus with hyperglycemia E11.65 [facility] [id number] [place] [address] Mar, [facility] [id number] [place] [address] Feb, Essential hypertension I10 [facility] [id number] [place] [address] Feb, [facility] [id number] [place] [address] Feb, Type 2 diabetes mellitus with hyperglycemia E11.65 ; Essential hypertension I10 and Hyperlipidemia E78.5 [facility] [address] [address] Jan, [facility] [address], [place] [address] Dec, [facility] [address], [place] [address] Dec, [facility] [address], [place] [address] Oct, [facility] [address], [place] [address] Aug, [facility] [address], [place] [address] 15 Aug, 2015 Hyperlipidemia E78.5 [facility] [address], [place] [address] 14 Aug, 2015 Type 2 diabetes mellitus with hyperglycemia E11.65 ; Hyperlipidemia E78.5 and Essential hypertension I10 [facility] [id number] [address] Aug, [facility] [address], [place] [address] Jun, [facility] [address], [place] [address] Jun, [facility] [address], [place] [address] Jun, [facility] [address], [place] [address] Apr, [facility] [address], [place] [address] Apr, [facility] [address], [place] [address] Mar, Hyperlipidemia E78.5 [facility] [address], [place] [address] Mar, Type 2 diabetes mellitus with hyperglycemia E11.65 ; Hyperlipidemia E78.5 and Essential hypertension I10 [facility] [id number] [address] Mar, [facility] [id number] [address] Nov, [facility] [address], [place] [address] Nov, [facility] [id number] [address] Sep, Hyperlipidemia 272.4 [facility] [id number] [address] Sep, [facility] [id number] [address] Sep, Diabetes mellitus, type II 250.00 ; Hypertension 401.9 and Hyperlipidemia 272.4 [facility] [address] [id number] [place] [address] Sep, [facility] [place] [facility] [address] [id number] [place] [address] Sep, [facility] [place] [facility] [address] [facility] [id number] [place] [address] Sep, [facility] [place] [facility] [address] [id number] [place] [address] Jun, [facility] [place] [facility] [address] [id number] [place] [address] Jun, [facility] [place] [facility] [address] [facility] [id number] [place] [address] Apr, [facility] [place] [facility] [address] [facility] [id number] [place] [address] Apr, [facility] [place] [facility] [address] [facility] [id number] [place] [address] Mar, [facility] [address] [facility] [id number] [place] [address] Mar, [facility] [place] [facility] [address] [facility] [id number] [place] [address] Mar, [facility] [place] [facility] [id number] [place] [address] Mar, [facility] [place] [facility] [address] [facility] [id number] [place] [address] Feb, [facility] [place] [facility] [address] [id number] [place] [address] Feb, [facility] [place] [facility] [address] [facility] [id number] [place] [address] Jan, [facility] [place] [facility] [address] [facility] [id number] [place] [address] Jan, [facility] [place] [facility] [address] [id number] [place] [address] Jan, [facility] [place] [facility] [address] [id number] [place] [address] Jan, [facility] [place] [facility] [address] [id number] [place] [address] Sep, [facility] [place] [facility] [address] [id number] [place] [address] Sep, [facility] [place] [facility] [address] [id number] [place] [address] Sep, [facility] [place] [facility] [address] [id number] [place] [address] Sep, [facility] [place] [facility] [address] [id number] [place] [address] Sep, [facility] [place] [facility] [address] [id number] [place] [address] Sep, [facility] [place] [facility] [address] [id number] [place] [address] Aug, [facility] [place] [facility] [address] [id number] [place] [address] Aug, [facility] [place] [facility] [address] [id number] [place] [address] Aug, [facility] [place] [facility] [address] [id number] [place] [address] Aug, [facility] [place] [facility] [address] [id number] [place] [address] Apr, [facility] [place] [facility] [address] [id number] [place] [address] Apr, [facility] [place] [facility] [address] [id number] [place] [address] Mar, [facility] [place] [facility] [address] [id number] [place] [address] Mar, [facility] [address] [id number] [place] [address] Mar, [facility] [place] [facility] [address] [id number] [place] [address] Mar, [facility] [place] [facility] [address] [id number] [place] [address] Feb, [facility] [place] [facility] [address] [id number] [place] [address] Feb, [facility] [place] [facility] [address] [id number] [place] [address] Feb, [facility] [place] [facility] [address] [id number] [place] [address] Feb, [facility] [place] [facility] [address] [id number] [place] [address] Feb, [facility] [place] [facility] [address] [id number] [place] [address] Feb, [facility] [place] [facility] [address] [id number] [place] [address] Feb, [facility] [place] [facility] [address] [id number] [place] [address] Feb, [facility] [place] [facility] [address] [id number], [place] [address] Jan, [facility] [place] [facility] [address] [id number], [place] [address] Jan, [facility] [place] [facility] [address] [id number] [place] [address] Dec, [facility] [place] [facility] [address] [id number] [place] [address] Dec, [facility] [place] [facility] [address] [id number] [place] [address] Dec, [facility] [place] [facility] [address] [id number] [place] [address] 30 Dec, 2012 [facility] [place] [facility] [address] [id number] [place] [address] 08 Dec, 2012 [facility] [place] [facility] [address] [id number] [place] [address] Dec, [facility] [place] [facility] [address] [id number] [place] [address] 10 Nov, 2012 [facility] [place] [facility] [address] [id number] [place] [address] Aug, [facility] [place] [facility] [address] [id number] [place] [address] Dec, [facility] [place] [facility] [address] [id number] [place] [address] Dec, [facility] [address] [id number] [place] [address] Nov, [facility] [place] [facility] [address] [id number] [place] [address] Sep, [facility] [place] [facility] [address] [id number] [place] [address] Sep, [facility] [place] [facility] [address] [id number] [place] [address] Sep, [facility] [place] [facility] [address] [id number] [place] [address] Aug, [facility] [place] [facility] [address] [id number] [place] [address] Aug, [facility] [place] [facility] [address] [id number] [place] [address] Aug, [facility] [place] [facility] [address] [id number] [place] [address] Jun, [facility] [place] [facility] [address] [id number] [place] [address] Jun, [facility] [place] [facility] [address] [facility] [id number], [place] [address] Jun, [facility] [address] [facility] [id number], [place] [address] May, [facility] [address] [facility] [id number], [place] [address] May, [facility] [id number] [place] [address] May, [facility] [address] [facility] [id number], [place] [address] Feb, [facility] [id number] [place] [address] Feb, [facility] [id number] [place] [address] Jan, [facility] [id number] [place] [address] Jan, [facility] [address], [place] [address] Jan, [facility] [address], [place] [address] Jan, [facility] [address], [place] [address] Jan, [facility] [address], [place] [address] Jan, [facility] [address], [place] [address] Jan, [facility] [address], [place] [address] Jan, IMMUNIZATIONS No Known Immunizations SOCIAL HISTORY Never Assessed REASON FOR VISIT PLAN OF CARE VITAL SIGNS MEDICATIONS Medication Instructions Dosage Frequency Start Date End Date Duration Status Atorvastatin Calcium 40 mg Orally Once a day 1 tablet 24h Mar, 30 days Active RESULTS No Results PROCEDURES [...]
--- OUTSIDE RECORDS SUMMARY | 2022-11-24 15:51 | XMS REPORT ---
Author Author Melanie Lanza Organization [facility] Address Unknown Phone Unavailable Care Team Providers Care Beer Still Runner Compounder Name Role Phone Migration, Doctor Unavailable Unavailable PROBLEMS Type Condition ICD9-CM Code [id number] Code Onset Dates Condition Status SNOMED Code Problem Hyperlipidemia E78.5 Active 75558820 Problem Type 2 diabetes mellitus with hyperglycemia E11.65 Active 097345382 Problem Severe nonproliferative diabetic retinopathy without macular edema associated with type 2 diabetes mellitus, unspecified laterality E11.3499 Active 171249223 Problem 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 Active 6632711480849 Problem Essential hypertension I10 Active [id number] ALLERGIES No Information ENCOUNTERS Encounter Location Date Diagnosis [place] [id number] [address] July, Type 2 diabetes mellitus with hyperglycemia E11.65 [place] [address] [address] Mar, [place] [address] [address] Feb, [facility] [address] [place] [id number] [place] [address] Jan, Type 2 diabetes mellitus with hyperglycemia E11.65 ; Essential hypertension I10 ; Hyperlipidemia E78.5 and Encounter for immunization Z23 [facility] [address] [place] [id number] [place] [address] Sep, [facility] [address] [address] July, Type 2 diabetes mellitus with hyperglycemia E11.65 [facility] [address] [address] July, [facility] [address] [place] [address] May, [facility] [id number], [place] [address] 14 May, 2017 Hyperlipidemia E78.5 [facility] [address] [place] [id number] [place] [address] 12 May, 2017 Type 2 diabetes mellitus with hyperglycemia E11.65 ; Essential hypertension I10 ; Hyperlipidemia E78.5 and Breast cancer screening Z12.31 [place] [address] [place] [id number] [place] [address] 05 May, 2017 Type 2 diabetes mellitus with hyperglycemia E11.65 [place] [address] [place] [id number] [place] [address] 02 Apr, 2017 Type 2 diabetes mellitus with hyperglycemia E11.65 [place] [address] [place] [id number] [place] [address] Jan, [place] [address] [place] [id number] [place] [address] Jan, [place] [id number] [place] [address] Jan, [place] [address] [place] [id number] [place] [address] Sep, Essential hypertension I10 [place] [id number], [place] [address] Aug, Type 2 diabetes mellitus with hyperglycemia E11.65 [place] [address] [address] Aug, [place] [address] [place] [address] Aug, Type 2 diabetes mellitus with hyperglycemia E11.65 ; Hyperlipidemia E78.5 ; Colon cancer screening Z12.11 ; Essential hypertension I10 and Encounter for immunization Z23 [place] [address] [address] July, Type 2 diabetes mellitus with hyperglycemia E11.65 [facility] [address], [place] [address] July, Type 2 diabetes mellitus with hyperglycemia E11.65 [facility] [address] [address] Jun, [facility] [address] [place] [address] May, Essential hypertension I10 [facility] [address] [place] [address] May, [facility] [address] [place] [id number] [place] [address] Apr, Acute non-recurrent frontal sinusitis J01.10 [facility] [id number], [place] [address] Apr, Essential hypertension I10 [facility] [id number], [place] [address] Apr, [facility] [address] [place] [address] Mar, Type 2 diabetes mellitus with hyperglycemia E11.65 [facility] [id number] [address] Mar, [facility] [address], [place] [address] Feb, Essential hypertension I10 [facility] [id number] [address] 14 Feb, 2016 [facility] [address] [place] [address] 13 Feb, 2016 Type 2 diabetes mellitus with hyperglycemia E11.65 ; Essential hypertension I10 and Hyperlipidemia E78.5 [facility] [address], [place] [address] Jan, [facility] [address] [place] [id number] [address] Dec, [facility] [address], [place] [address] Dec, [facility] [address], [place] [address] Oct, [facility] [address], [place] [address] Aug, [facility] [address], [place] [address] Aug, Hyperlipidemia E78.5 [facility] [address], [place] [address] Aug, Type 2 diabetes mellitus with hyperglycemia E11.65 ; Hyperlipidemia E78.5 and Essential hypertension I10 [facility] [address], [place] [address] Aug, [facility] [address], [place] [address] Jun, [facility] [address], [place] [address] Jun, [facility] [address], [place] [address] Jun, [facility] [address], [place] [address] Apr, [facility] [address], [place] [address] Apr, [facility] [address], [place] [address] Mar, Hyperlipidemia E78.5 [facility] [address], [place] [address] 14 Mar, 2015 Type 2 diabetes mellitus with hyperglycemia E11.65 ; Hyperlipidemia E78.5 and Essential hypertension I10 [facility] [address] [place] [address] Mar, [facility] [address] [place] [id number] [place] [address] Nov, [facility] [address] [facility] [id number] [place] [address] Nov, [facility] [address] [place] [address] Sep, Hyperlipidemia 272.4 [facility] [address] [facility] [id number] [place] [address] Sep, [facility] [address] [place] [address] Sep, Diabetes mellitus, type II 250.00 ; Hypertension 401.9 and Hyperlipidemia 272.4 [facility] [address] [place] [address] Sep, [facility] [address] [place] [address] Sep, [facility] [address] [place] [address] Sep, [facility] [address] [place] [address] Jun, [facility] [address] [place] [id number] [place] [address] Jun, [facility] [address] [place] [id number], [place] [address] Apr, [facility] [address] [place] [id number] [place] [address] Apr, [facility] [address] [place] [address] Mar, [facility] [address] [place] [id number] [place] [address] Mar, [facility] [place] [facility] [address] [id number] [place] [address] Mar, [facility] [place] [facility] [address] [id number] [place] [address] Mar, [facility] [place] [facility] [address] [id number] [place] [address] Feb, [facility] [place] [facility] [address] [id number] [place] [address] Feb, [facility] [place] [facility] [address] [id number] [place] [address] Jan, [facility] [place] [facility] [address] [id number] [place] [address] Jan, [facility] [place] [facility] [address] [id number] [place] [address] Jan, [facility] [place] [facility] [address] [id number] [place] [address] Jan, [facility] [place] [facility] [address] [id number] [place] [address] Sep, [facility] [place] [facility] [address] [id number] [place] [address] Sep, [facility] [place] [facility] [address] [id number] [place] [address] Sep, [facility] [place] [facility] [address] [id number] [place] [address] Sep, [facility] [place] [facility] [address] [id number] [place] [address] Sep, [facility] [place] [facility] [address] [id number] [place] [address] Sep, [facility] [place] [facility] [address] [id number] [place] [address] Aug, [facility] [place] [facility] [address] [id number] [place] [address] Aug, [facility] [place] [facility] [address] [id number] [place] [address] Aug, [facility] [place] [facility] [address] [id number] [place] [address] Aug, [facility] [place] [facility] [address] [id number] [place] [address] Apr, [facility] [place] [facility] [address] [id number] [place] [address] Apr, [facility] [place] [facility] [address] [id number] [place] [address] Mar, [facility] [place] [facility] [address] [id number] [place] [address] Mar, [facility] [place] [facility] [address] [id number] [place] [address] Mar, [facility] [place] [facility] [address] [id number] [place] [address] Mar, [facility] [place] [facility] [address] [id number] [place] [address] Feb, [facility] [place] [facility] [address] [id number] [place] [address] Feb, [facility] [place] [facility] [address] [id number] [place] [address] Feb, [facility] [place] [facility] [address] [id number], [place] [address] Feb, [facility] [place] [facility] [address] [id number] [place] [address] Feb, [facility] [place] [facility] [address] [id number] [place] [address] Feb, [facility] [place] [facility] [address] [id number] [place] [address] Feb, [facility] [place] [facility] [address] [id number] [place] [address] Feb, [facility] [place] [facility] [address] [id number] [place] [address] Jan, [facility] [place] [facility] [address] [id number] [place] [address] Jan, [facility] [place] [facility] [address] [id number] [place] [address] Dec, [facility] [place] [facility] [address] [id number] [place] [address] Dec, [facility] [place] [facility] [address] [id number] [place] [address] Dec, [facility] [place] [facility] [address] [id number] [place] [address] Dec, [facility] [place] [facility] [address] [id number] [place] [address] Dec, [facility] [place] [facility] [address] [id number] [place] [address] Dec, [facility] [place] [facility] [address] [id number] [place] [address] Nov, [facility] [place] [facility] [address] [id number] [place] [address] Aug, [facility] [place] [facility] [address] [id number] [place] [address] Dec, [facility] [place] [facility] [address] [id number] [place] [address] Dec, [facility] [place] [facility] [address] [id number] [place] [address] Nov, [facility] [place] [facility] [address] [id number] [place] [address] Sep, [facility] [place] [facility] [address] [id number] [place] [address] Sep, [facility] [place] [facility] [address] [id number] [place] [address] Sep, [facility] [place] [facility] [address] [id number] [place] [address] Aug, [facility] [place] [facility] [address] [id number] [place] [address] Aug, [facility] [place] [facility] [address] [id number] [place] [address] Aug, [facility] [address] [id number] [place] [address] Jun, [facility] [place] [facility] [address] [id number] [place] [address] Jun, [facility] [address] [id number] [place] [address] Jun, [facility] [address] [id number] [place] [address] May, [facility] [address] [id number] [place] [address] May, [facility] [address] [id number] [place] [address] May, [facility] [address] [id number] [place] [address] Feb, [facility] [place] [facility] [address] [id number] [place] [address] Feb, [facility] [place] [facility] [address] [id number] [place] [address] Jan, [facility] [place] [facility] [address] [id number] [place] [address] Jan, [facility] [place] [facility] [address] [id number] [place] [address] Jan, [facility] [place] [facility] [address] [id number] [place] [address] Jan, [facility] [address] [facility] [id number] [place] [address] Jan, [facility] [address] [facility] [id number] [address] Jan, [facility] [address] [facility] [id number], [place] [address] Jan, [facility] [address] [facility] [id number], [place] [address] Jan, IMMUNIZATIONS No Known Immunizations SOCIAL HISTORY [...]
--- OUTSIDE RECORDS SUMMARY | 2022-11-24 15:51 | XMS REPORT ---
Author Author Melanie REYNOLDS [facility] C Address [address] [place] [address] Care Team Providers Care Tool And Machine Maintainer Name Role Phone GAIL RAIMUNDO Unavailable PROBLEMS Type Condition ICD9-CM Code ARA42-FC Code Onset Dates Condition Status SNOMED Code Problem Type 2 diabetes mellitus with hyperglycemia E11.65 Active 915004430 Problem Hyperlipidemia E78.5 Active 59119906 Problem Essential hypertension I10 Active 71786089 Problem Coronary artery disease involving [place] coronary artery of [place] heart without angina pectoris I25.10 Active [id number] ALLERGIES No Information ENCOUNTERS Encounter Location Date Diagnosis [place] [id number] [place] [address] Sep, [place] [id number] [place] [address] July, Type 2 diabetes mellitus with hyperglycemia E11.65 [place] [id number] [place] [address] July, [place] [id number] [place] [address] May, [place] [id number] [place] [address] May, Hyperlipidemia E78.5 [place] [id number] [place] [address] May, Type 2 diabetes mellitus with hyperglycemia E11.65 ; Essential hypertension I10 ; Hyperlipidemia E78.5 and Breast cancer screening Z12.31 [place] [id number] [place] [address] 05 May, 2017 Type 2 diabetes mellitus with hyperglycemia E11.65 [place] [address] [address] Apr, Type 2 diabetes mellitus with hyperglycemia E11.65 [facility] [address] [address] Jan, [facility] [address] [address] Jan, [facility] [address] [address] Jan, [facility] [address] [address] Sep, Essential hypertension I10 [facility] [id number] [place] [address] Aug, Type 2 diabetes mellitus with hyperglycemia E11.65 [facility] [address] [address] Aug, [facility] [address] [address] Aug, Type 2 diabetes mellitus with hyperglycemia E11.65 ; Hyperlipidemia E78.5 ; Colon cancer screening Z12.11 ; Essential hypertension I10 and Encounter for immunization Z23 [facility] [address] [address] July, Type 2 diabetes mellitus with hyperglycemia E11.65 [facility] [address] [address] July, Type 2 diabetes mellitus with hyperglycemia E11.65 [facility] [address] [address] Jun, [facility] [address] [address] May, Essential hypertension I10 [facility] [address] [address] May, [facility] [id number] [address] Apr, Acute non-recurrent frontal sinusitis J01.10 [facility] [address] [place] [address] Apr, Essential hypertension I10 [facility] [address] [address] Apr, [facility] [id number] [place] [address] Mar, Type 2 diabetes mellitus with hyperglycemia E11.65 [facility] [id number] [place] [address] Mar, [facility] [id number] [place] [address] Feb, Essential hypertension I10 [facility] [id number] [place] [address] Feb, [facility] [id number] [place] [address] Feb, Type 2 diabetes mellitus with hyperglycemia E11.65 ; Essential hypertension I10 and Hyperlipidemia E78.5 [facility] [address] [address] Jan, [facility] [address] [address] Dec, [facility] [address] [address] Dec, [facility] [address] [address] Oct, [facility] [address] [place] [address] Aug, [facility] [address] [address] Aug, Hyperlipidemia E78.5 [facility] [address] [address] 14 Aug, 2015 Type 2 diabetes mellitus with hyperglycemia E11.65 ; Hyperlipidemia E78.5 and Essential hypertension I10 [facility] [address] [facility] [id number] [address] Aug, [facility] [id number] [place] [address] Jun, [facility] [address] [facility] [id number] [address] Jun, [facility] [address] [facility] [id number] [place] [address] Jun, [facility] [id number] [address] Apr, [facility] [address] [address] Apr, [facility] [id number] [address] Mar, Hyperlipidemia E78.5 [facility] [address] [address] Mar, Type 2 diabetes mellitus with hyperglycemia E11.65 ; Hyperlipidemia E78.5 and Essential hypertension I10 [facility] [address] [address] Mar, [facility] [address] [facility] [id number] [address] Nov, [facility] [address] [facility] [id number] [address] Nov, [facility] [address] [address] Sep, Hyperlipidemia 272.4 [facility] [id number] [address] Sep, [facility] [address] [place] [address] Sep, Diabetes mellitus, type II 250.00 ; Hypertension 401.9 and Hyperlipidemia 272.4 [facility] [address] [facility] [id number] [place] [address] Sep, [facility] [id number] [place] [address] Sep, [facility] [address] [facility] [id number] [place] [address] Sep, [facility] [address] [facility] [id number] [place] [address] Jun, [facility] [id number] [place] [address] Jun, [facility] [id number] [place] [address] Apr, [facility] [id number] [place] [address] Apr, [facility] [id number] [place] [address] Mar, [facility] [address] [facility] [id number] [place] [address] Mar, [facility] [id number] [place] [address] Mar, [facility] [address] [facility] [id number] [place] [address] Mar, [facility] [address] [facility] [id number] [place] [address] Feb, [facility] [address] [facility] [id number] [place] [address] Feb, [facility] [id number] [place] [address] Jan, [facility] [address] [facility] [id number] [place] [address] Jan, [facility] [place] [facility] [address] [id number] [place] [address] Jan, [facility] [place] [facility] [address] [id number] [place] [address] Jan, [facility] [place] [facility] [address] [id number] [place] [address] Sep, [facility] [place] [facility] [address] [id number] [place] [address] Sep, [facility] [place] [facility] [address] [id number] [place] [address] Sep, [facility] [place] [facility] [address] [id number] [place] [address] Sep, [facility] [place] [facility] [address] [id number] [place] [address] Sep, [facility] [place] [facility] [address] [id number] [place] [address] Sep, [facility] [place] [facility] [address] [id number] [place] [address] Aug, [facility] [place] [facility] [address] [id number] [place] [address] Aug, [facility] [place] [facility] [address] [id number] [place] [address] Aug, [facility] [place] [facility] [address] [id number] [place] [address] Aug, [facility] [place] [facility] [address] [id number] [place] [address] Apr, [facility] [place] [facility] [address] [id number] [place] [address] Apr, [facility] [place] [facility] [address] [id number] [place] [address] Mar, [facility] [address] [id number] [place] [address] Mar, [facility] [place] [facility] [address] [id number] [place] [address] Mar, [facility] [place] [facility] [address] [id number] [place] [address] Mar, [facility] [place] [facility] [address] [id number] [place] [address] Feb, [facility] [place] [facility] [address] [id number] [place] [address] Feb, [facility] [place] [facility] [address] [id number] [place] [address] Feb, [facility] [place] [facility] [address] [id number] [place] [address] Feb, [facility] [place] [facility] [address] [id number] [place] [address] Feb, [facility] [place] [facility] [address] [id number] [place] [address] Feb, [facility] [place] [facility] [address] [id number] [place] [address] Feb, [facility] [place] [facility] [address] [id number] [place] [address] Feb, [facility] [place] [facility] [address] [id number] [address] Jan, [facility] [place] [facility] [address] [id number] [place] [address] Jan, [facility] [place] [facility] [address] [id number] [place] [address] Dec, [facility] [place] [facility] [address] [id number] [place] [address] Dec, [facility] [place] [facility] [address] [id number] [place] [address] 30 Dec, 2012 [facility] [place] [facility] [address] [id number] [place] [address] 30 Dec, 2012 [facility] [place] [facility] [address] [id number] [place] [address] 08 Dec, 2012 [facility] [place] [facility] [address] [id number] [place] [address] Dec, [facility] [place] [facility] [address] [id number] [place] [address] 10 Nov, 2012 [facility] [place] [facility] [address] [id number] [place] [address] Aug, [facility] [place] [facility] [address] [id number] [place] [address] Dec, [facility] [place] [facility] [address] [id number] [place] [address] Dec, [facility] [place] [facility] [address] [id number] [place] [address] Nov, [facility] [place] [facility] [address] [id number] [place] [address] Sep, [facility] [place] [facility] [address] [id number] [place] [address] Sep, [facility] [place] [facility] [address] [id number] [place] [address] Sep, [facility] [place] [facility] [address] [id number], [place] [address] Aug, [facility] [place] [facility] [address] [id number] [place] [address] Aug, [facility] [place] [facility] [address] [id number] [place] [address] Aug, [facility] [place] [facility] [address] [facility] [id number] [place] [address] Jun, [facility] [place] [facility] [address] [facility] [id number], [place] [address] Jun, [facility] [address] [facility] [id number], [place] [address] Jun, [facility] [address] [facility] [id number], [place] [address] May, [facility] [address] [facility] [id number], [place] [address] May, [facility] [address] [facility] [id number], [place] [address] May, [facility] [address] [facility] [id number], [place] [address] Feb, [facility] [address] [facility] [id number], [place] [address] Feb, [facility] [address] [address] Jan, [facility] [address] [address] Jan, [facility] [address], [place] [address] Jan, [facility] [address], [place] [address] Jan, [facility] [address], [place] [address] Jan, [facility] [address] [facility] [id number], [place] [address] Jan, [facility] [address], [place] [address] Jan, [facility] [address] [facility] [id number], [place] [address] Jan, IMMUNIZATIONS No Known Immunizations SOCIAL HISTORY Never Assessed REASON FOR VISIT PALS IN-Insulins PLAN OF CARE VITAL SIGNS MEDICATIONS Unknown [...]
--- OUTSIDE RECORDS SUMMARY | 2022-11-24 15:51 | XMS REPORT ---
Author Author Melanie REYNOLDS ND Organization [employer] Address Unknown Phone Unavailable Care Team Providers Care Welding Teacher Name Role Phone RAIMUNDO REYNOLDS CP Unavailable Allergies No Known Allergies Problems Problem Type Condition Code Onset Dates Condition S tatus Problem Essential hypertension I10 Ac tive Problem Coronary artery dise ase involving [place] coronary artery of [place] heart without angina pectoris I25.10 Active Problem Type 2 diabetes amrit itus with hyperglycemia E11.65 Active Problem Hyperlipidemia E78.5 Active Assessment Hyperlipidemia E78.5 Active Medications Medication Code System Code Instructions Start Date End Date Status Dosage Atorvastatin Calcium [facility] 92239-19 21-05 40 MG Orally Once a day Apr 06, 2015 1 tablet Results No Known Results Summary Purpose [employer] Submission
--- OUTSIDE RECORDS SUMMARY | 2022-11-24 15:51 | XMS REPORT ---
Author Author Melanie REYNOLDS [facility] Address [address] [place] [address] Care Team Providers Care Flight Radio Officer Name Role Phone GAIL RAIMUNDO Unavailable PROBLEMS Type Condition ICD9-CM Code OHQ95-BS Code Onset Dates Condition Status SNOMED Code Problem Type 2 diabetes mellitus with hyperglycemia E11.65 Active 001945168 Problem Hyperlipidemia E78.5 Active 31001676 Problem Essential hypertension I10 Active 84449028 Problem Coronary artery disease involving [place] coronary artery of [place] heart without angina pectoris I25.10 Active [id number] ALLERGIES No Information ENCOUNTERS Encounter Location Date Diagnosis [place] [id number] [place] [address] Sep, [place] [id number] [place] [address] July, Type 2 diabetes mellitus with hyperglycemia E11.65 [place] [id number] [place] [address] July, [place] [id number] [place] [address] May, [place] [id number] [place] [address] May, Hyperlipidemia E78.5 [place] [id number] [place] [address] May, Type 2 diabetes mellitus with hyperglycemia E11.65 ; Essential hypertension I10 ; Hyperlipidemia E78.5 and Breast cancer screening Z12.31 [place] [id number] [place] [address] 05 May, 2017 Type 2 diabetes mellitus with hyperglycemia E11.65 [place] [address], [place] [address] Apr, Type 2 diabetes mellitus with hyperglycemia E11.65 [facility] [address], [place] [address] Jan, [facility] [address], [place] [address] Jan, [facility] [address], [place] [address] Jan, [facility] [address], [place] [address] Sep, Essential hypertension I10 [facility] [id number] [place] [address] Aug, Type 2 diabetes mellitus with hyperglycemia E11.65 [facility] [address], [place] [address] Aug, [facility] [address], [place] [address] Aug, Type 2 diabetes mellitus with hyperglycemia E11.65 ; Hyperlipidemia E78.5 ; Colon cancer screening Z12.11 ; Essential hypertension I10 and Encounter for immunization Z23 [facility] [address] [address] July, Type 2 diabetes mellitus with hyperglycemia E11.65 [facility] [address], [place] [address] July, Type 2 diabetes mellitus with hyperglycemia E11.65 [facility] [address], [place] [address] Jun, [facility] [address], [place] [address] May, Essential hypertension I10 [facility] [address], [place] [address] May, [facility] [id number] [address] Apr, Acute non-recurrent frontal sinusitis J01.10 [facility] [address] [place] [address] Apr, Essential hypertension I10 [facility] [address], [place] [address] Apr, [facility] [id number] [place] [address] Mar, Type 2 diabetes mellitus with hyperglycemia E11.65 [facility] [address] [place] [address] Mar, [facility] [id number] [place] [address] Feb, Essential hypertension I10 [facility] [id number] [place] [address] Feb, [facility] [address] [place] [address] Feb, Type 2 diabetes mellitus with hyperglycemia E11.65 ; Essential hypertension I10 and Hyperlipidemia E78.5 [facility] [address] [address] Jan, [facility] [address] [address] Dec, [facility] [address] [address] Dec, [facility] [address], [place] [address] Oct, [facility] [address] [place] [address] Aug, [facility] [address] [address] Aug, Hyperlipidemia E78.5 [facility] [address], [place] [address] 14 Aug, 2015 Type 2 diabetes mellitus with hyperglycemia E11.65 ; Hyperlipidemia E78.5 and Essential hypertension I10 [facility] [address] [facility] [id number] [address] Aug, [facility] [id number] [place] [address] Jun, [facility] [address] [facility] [id number], [place] [address] Jun, [facility] [address] [facility] [id number] [place] [address] Jun, [facility] [id number] [address] Apr, [facility] [address], [place] [address] Apr, [facility] [id number] [address] Mar, Hyperlipidemia E78.5 [facility] [address] [address] Mar, Type 2 diabetes mellitus with hyperglycemia E11.65 ; Hyperlipidemia E78.5 and Essential hypertension I10 [facility] [address], [place] [address] Mar, [facility] [address] [facility] [id number], [place] [address] Nov, [facility] [address] [facility] [id number], [place] [address] Nov, [facility] [address], [place] [address] Sep, Hyperlipidemia 272.4 [facility] [id number] [address] Sep, [facility] [address] [place] [address] Sep, Diabetes mellitus, type II 250.00 ; Hypertension 401.9 and Hyperlipidemia 272.4 [facility] [address] [facility] [id number] [place] [address] Sep, [facility] [id number] [place] [address] Sep, [facility] [address] [facility] [id number] [place] [address] Sep, [facility] [address] [facility] [id number] [place] [address] Jun, [facility] [id number] [place] [address] Jun, [facility] [id number] [place] [address] Apr, [facility] [id number] [place] [address] Apr, [facility] [id number] [place] [address] Mar, [facility] [address] [facility] [id number] [place] [address] Mar, [facility] [id number] [place] [address] Mar, [facility] [address] [facility] [id number] [place] [address] Mar, [facility] [address] [facility] [id number] [place] [address] Feb, [facility] [address] [facility] [id number] [place] [address] Feb, [facility] [id number] [place] [address] Jan, [facility] [address] [facility] [id number] [place] [address] Jan, [facility] [place] [facility] [address] [id number] [place] [address] Jan, [facility] [place] [facility] [address] [id number] [place] [address] Jan, [facility] [place] [facility] [address] [id number] [place] [address] Sep, [facility] [place] [facility] [address] [id number] [place] [address] Sep, [facility] [place] [facility] [address] [id number] [place] [address] Sep, [facility] [place] [facility] [address] [id number] [place] [address] Sep, [facility] [place] [facility] [address] [id number] [place] [address] Sep, [facility] [place] [facility] [address] [id number] [place] [address] Sep, [facility] [place] [facility] [address] [id number] [place] [address] Aug, [facility] [place] [facility] [address] [id number] [place] [address] Aug, [facility] [place] [facility] [address] [id number] [place] [address] Aug, [facility] [place] [facility] [address] [id number] [place] [address] Aug, [facility] [place] [facility] [address] [id number] [place] [address] Apr, [facility] [place] [facility] [address] [id number] [place] [address] Apr, [facility] [place] [facility] [address] [id number] [place] [address] Mar, [facility] [address] [id number] [place] [address] Mar, [facility] [place] [facility] [address] [id number] [place] [address] Mar, [facility] [place] [facility] [address] [id number] [place] [address] Mar, [facility] [place] [facility] [address] [id number] [place] [address] Feb, [facility] [place] [facility] [address] [id number] [place] [address] Feb, [facility] [place] [facility] [address] [id number] [place] [address] Feb, [facility] [place] [facility] [address] [id number] [place] [address] Feb, [facility] [place] [facility] [address] [id number] [place] [address] Feb, [facility] [place] [facility] [address] [id number] [place] [address] Feb, [facility] [place] [facility] [address] [id number] [place] [address] Feb, [facility] [place] [facility] [address] [id number] [place] [address] Feb, [facility] [place] [facility] [address] [id number], [place] [address] Jan, [facility] [place] [facility] [address] [id number] [place] [address] Jan, [facility] [place] [facility] [address] [id number] [place] [address] Dec, [facility] [place] [facility] [address] [id number] [place] [address] Dec, [facility] [place] [facility] [address] [id number] [place] [address] 30 Dec, 2012 [facility] [place] [facility] [address] [id number] [place] [address] 30 Dec, 2012 [facility] [place] [facility] [address] [id number] [place] [address] 08 Dec, 2012 [facility] [place] [facility] [address] [id number] [place] [address] Dec, [facility] [place] [facility] [address] [id number] [place] [address] 10 Nov, 2012 [facility] [place] [facility] [address] [id number] [place] [address] Aug, [facility] [place] [facility] [address] [id number] [place] [address] Dec, [facility] [place] [facility] [address] [id number] [place] [address] Dec, [facility] [place] [facility] [address] [id number] [place] [address] Nov, [facility] [place] [facility] [address] [id number] [place] [address] Sep, [facility] [place] [facility] [address] [id number] [place] [address] Sep, [facility] [place] [facility] [address] [id number] [place] [address] Sep, [facility] [place] [facility] [address] [id number], [place] [address] Aug, [facility] [place] [facility] [address] [id number] [place] [address] Aug, [facility] [place] [facility] [address] [id number] [place] [address] Aug, [facility] [place] [facility] [address] [facility] [id number] [place] [address] Jun, [facility] [place] [facility] [address] [facility] [id number], [place] [address] Jun, [facility] [address] [facility] [id number], [place] [address] Jun, [facility] [address] [facility] [id number], [place] [address] May, [facility] [address] [facility] [id number] [place] [address] May, [facility] [address] [facility] [id number] [place] [address] May, [facility] [address] [facility] [id number] [place] [address] Feb, [facility] [address] [facility] [id number], [place] [address] Feb, [facility] [address], [place] [address] Jan, [facility] [address], [place] [address] Jan, [facility] [address], [place] [address] Jan, [facility] [address], [place] [address] Jan, [facility] [address], [place] [address] Jan, [facility] [id number] [address] Jan, [facility] [address], [place] [address] Jan, [facility] [id number], [place] [address] Jan, IMMUNIZATIONS No Known Immunizations SOCIAL HISTORY Never Assessed REASON FOR VISIT PALS PLAN OF CARE VITAL SIGNS MEDICATIONS Medication Instructions Dosage Frequency Start Date End Date Duration Status Levemir Flexpen 100 UNIT/ML subcutaneous 2 times a day 20 units 12h Mar, 90 days Active Victoza 18 MG/3ML Subcutaneous Once a day 1.8 mg 24h Jun, 90 days Active Pen [place] 32G X 5 MM as directed 8h Jun, 90 days Active RESULTS No Results PROCEDURES No [...]
--- OUTSIDE RECORDS SUMMARY | 2022-11-24 15:51 | XMS REPORT ---
Author Author Melanie REYNOLDS [facility] Address [address] [place] [address] Care Team Providers Care Glass Handler Name Role Phone RAIMUNDO REYNOLDS Unavailable PROBLEMS Type Condition ICD9-CM Code PVZ61-LO Code Onset Dates Condition Status SNOMED Code Problem Type 2 diabetes mellitus with hyperglycemia E11.65 Active 458029113 Problem Hyperlipidemia E78.5 Active 23610842 Problem Essential hypertension I10 Active 04128350 Problem Coronary artery disease involving [place] coronary artery of [place] heart without angina pectoris I25.10 Active [id number] 7 ALLERGIES Unknown Allergies SOCIAL HISTORY No smoking Hx information available PLAN OF CARE VITAL SIGNS MEDICATIONS Unknown Medications RESULTS No Results PROCEDURES No Known procedures IMMUNIZATIONS No Known Immunizations
--- OUTSIDE RECORDS SUMMARY | 2022-11-24 15:51 | XMS REPORT ---
Author Author Melanie REYNOLDS [facility] Address [address] [place] [address] Care Team Providers Care Jewelry Appraiser Name Role Phone RAIMUNDO REYNOLDS Unavailable PROBLEMS Type Condition ICD9-CM Code QON29-YP Code Onset Dates Condition Status SNOMED Code Problem Type 2 diabetes mellitus with hyperglycemia E11.65 Active 964055545 Problem Essential hypertension I10 Active 73152540 Problem Coronary artery disease involving [place] coronary artery of [place] heart without angina pectoris I25.10 Active 390498644208 7 Problem Hyperlipidemia E78.5 Active 27955510 ALLERGIES Unknown Allergies SOCIAL HISTORY No smoking Hx information available PLAN OF CARE VITAL SIGNS MEDICATIONS Unknown Medications RESULTS No Results PROCEDURES No Known procedures IMMUNIZATIONS No Known Immunizations
--- OUTSIDE RECORDS SUMMARY | 2022-11-24 15:51 | XMS REPORT ---
Author Author Melanie REYNOLDS [facility] Address [address] [place] [address] Care Team Providers Care Report Checker Name Role Phone GAIL RAIMUNDO Unavailable PROBLEMS Type Condition ICD9-CM Code RIQ12-SI Code Onset Dates Condition Status SNOMED Code Problem Type 2 diabetes mellitus with hyperglycemia E11.65 Active 844070054 Problem Hyperlipidemia E78.5 Active 20036554 Problem Essential hypertension I10 Active 22405427 Problem Coronary artery disease involving [place] coronary artery of [place] heart without angina pectoris I25.10 Active [id number] ALLERGIES No Information ENCOUNTERS Encounter Location Date Diagnosis [place] [id number] [place] [address] May, [place] [id number] [place] [address] May, Hyperlipidemia E78.5 [place] [id number] [place] [address] May, Type 2 diabetes mellitus with hyperglycemia E11.65 ; Essential hypertension I10 ; Hyperlipidemia E78.5 and Breast cancer screening Z12.31 [place] [id number] [place] [address] May, Type 2 diabetes mellitus with hyperglycemia E11.65 [place] [id number] [place] [address] Apr, Type 2 diabetes mellitus with hyperglycemia E11.65 [place] [id number] [place] [address] Jan, [place] [id number] [place] [address] Jan, [place] [address] [address] Jan, [facility] [id number] [place] [address] Sep, Essential hypertension I10 [facility] [address] [address] Aug, Type 2 diabetes mellitus with hyperglycemia E11.65 [facility] [id number] [place] [address] Aug, [facility] [id number] [place] [address] Aug, Type 2 diabetes mellitus with hyperglycemia E11.65 ; Hyperlipidemia E78.5 ; Colon cancer screening Z12.11 ; Essential hypertension I10 and Encounter for immunization Z23 [facility] [id number] [place] [address] July, Type 2 diabetes mellitus with hyperglycemia E11.65 [facility] [id number] [place] [address] July, Type 2 diabetes mellitus with hyperglycemia E11.65 [facility] [address] [address] Jun, [facility] [address] [address] May, Essential hypertension I10 [facility] [address] [address] May, [facility] [address] [address] Apr, Acute non-recurrent frontal sinusitis J01.10 [facility] [address] [address] Apr, Essential hypertension I10 [facility] [address], [place] [address] Apr, [place] [address] [address] 30 Mar, 2016 Type 2 diabetes mellitus with hyperglycemia E11.65 [facility] [address] [address] 30 Mar, 2016 [facility] [address] [address] 15 Feb, 2016 Essential hypertension I10 [facility] [id number] [place] [address] Feb, [facility] [address] [address] Feb, Type 2 diabetes mellitus with hyperglycemia E11.65 ; Essential hypertension I10 and Hyperlipidemia E78.5 [facility] [address] [address] Jan, [facility] [id number] [address] Dec, [facility] [address] [address] Dec, [facility] [address] [address] Oct, [facility] [address] [address] Aug, [facility] [address] [address] 15 Aug, 2015 Hyperlipidemia E78.5 [facility] [id number] [address] 14 Aug, 2015 Type 2 diabetes mellitus with hyperglycemia E11.65 ; Hyperlipidemia E78.5 and Essential hypertension I10 [facility] [address] [address] Aug, [facility] [address] [address] Jun, [facility] [id number], [place] [address] Jun, [facility] [address] [address] Jun, [facility] [address] [address] Apr, [facility] [address] [address] Apr, [facility] [address] [address] Mar, Hyperlipidemia E78.5 [facility] [address] [address] Mar, Type 2 diabetes mellitus with hyperglycemia E11.65 ; Hyperlipidemia E78.5 and Essential hypertension I10 [facility] [address] [address] Mar, [facility] [address] [address] Nov, [facility] [address] [address] Nov, [facility] [address] [address] Sep, Hyperlipidemia 272.4 [facility] [address], [place] [address] Sep, [facility] [id number] [address] Sep, Diabetes mellitus, type II 250.00 ; Hypertension 401.9 and Hyperlipidemia 272.4 [facility] [id number] [address] Sep, [facility] [address] [address] Sep, [facility] [place] [facility] [address] [id number] [place] [address] 08 Sep, 2014 [facility] [place] [facility] [address] [id number] [place] [address] Jun, [facility] [place] [facility] [address] [id number] [place] [address] Jun, [facility] [place] [facility] [address] [id number] [place] [address] Apr, [facility] [place] [facility] [address] [id number] [place] [address] Apr, [facility] [place] [facility] [address] [id number] [place] [address] Mar, [facility] [place] [facility] [address] [id number] [place] [address] Mar, [facility] [place] [facility] [address] [id number] [place] [address] Mar, [facility] [place] [facility] [address] [id number] [place] [address] Mar, [facility] [place] [facility] [address] [id number] [place] [address] Feb, [facility] [place] [facility] [address] [id number] [place] [address] Feb, [facility] [place] [facility] [address] [id number] [place] [address] Jan, [facility] [place] [facility] [address] [id number] [place] [address] Jan, [facility] [place] [facility] [address] [id number] [place] [address] Jan, [facility] [place] [facility] [address] [id number] [place] [address] Jan, [facility] [place] [facility] [address] [id number] [place] [address] Sep, [facility] [place] [facility] [address] [id number] [place] [address] Sep, [facility] [place] [facility] [address] [id number] [place] [address] Sep, [facility] [place] [facility] [address] [id number] [place] [address] Sep, [facility] [place] [facility] [address] [id number] [place] [address] Sep, [facility] [place] [facility] [address] [id number] [place] [address] Sep, [facility] [place] [facility] [address] [id number] [place] [address] Aug, [facility] [place] [facility] [address] [id number] [place] [address] Aug, [facility] [place] [facility] [address] [id number] [place] [address] Aug, [facility] [place] [facility] [address] [id number] [place] [address] Aug, [facility] [place] [facility] [address] [id number] [place] [address] Apr, [facility] [place] [facility] [address] [id number] [place] [address] Apr, [facility] [place] [facility] [address] [id number] [place] [address] Mar, [facility] [place] [facility] [address] [id number] [place] [address] Mar, [facility] [place] [facility] [address] [id number] [place] [address] Mar, [facility] [place] [facility] [address] [id number] [place] [address] Mar, [facility] [place] [facility] [address] [id number] [place] [address] Feb, 2012 [facility] [place] [facility] [address] [id number] [place] [address] Feb, 2012 [facility] [place] [facility] [address] [id number] [place] [address] Feb, 2012 [facility] [place] [facility] [address] [id number] [place] [address] Feb, 2012 [facility] [place] [facility] [address] [id number] [place] [address] Feb, [facility] [place] [facility] [address] [id number] [place] [address] Feb, [facility] [place] [facility] [address] [id number] [place] [address] Feb, [facility] [place] [facility] [address] [id number] [place] [address] Feb, [facility] [place] [facility] [address] [id number] [place] [address] Jan, [facility] [place] [facility] [address] [id number] [place] [address] Jan, [facility] [place] [facility] [address] [id number] [place] [address] Dec, [facility] [place] [facility] [address] [id number] [place] [address] Dec, [facility] [place] [facility] [address] [id number] [place] [address] Dec, [facility] [place] [facility] [address] [id number] [place] [address] Dec, [facility] [place] [facility] [address] [id number] [place] [address] Dec, [facility] [place] [facility] [address] [id number] [place] [address] Dec, [facility] [place] [facility] [address] [id number] [place] [address] 10 Nov, 2012 [facility] [place] [facility] [address] [id number] [place] [address] Aug, [facility] [place] [facility] [address] [id number] [place] [address] Dec, [facility] [place] [facility] [address] [id number] [place] [address] Dec, [facility] [place] [facility] [address] [id number] [place] [address] Nov, [facility] [place] [facility] [address] [id number] [place] [address] Sep, [facility] [place] [facility] [address] [id number] [place] [address] Sep, [facility] [place] [facility] [address] [id number] [place] [address] Sep, [facility] [place] [facility] [address] [id number] [place] [address] Aug, [facility] [place] [facility] [address] [id number] [place] [address] Aug, [facility] [place] [facility] [address] [id number] [address] Aug, [facility] [place] [facility] [address] [id number], [place] [address] Jun, [facility] [place] [facility] [address] [id number] [place] [address] Jun, [facility] [place] [facility] [address] [id number] [address] Jun, [facility] [place] [facility] [address] [id number] [place] [address] May, [facility] [place] [facility] [address], [place] [address] May, [facility] [address], [place] [address] May, [facility] [address], [place] [address] Feb, [facility] [address], [place] [address] Feb, [facility] [address], [place] [address] Jan, [facility] [id number] [place] [address] Jan, [facility] [address], [place] [address] Jan, [facility] [address], [place] [address] Jan, [facility] [address], [place] [address] Jan, [facility] [address], [place] [address] Jan, [facility] [address], [place] [address] Jan, [facility] [address], [place] [address] Jan, IMMUNIZATIONS No Known Immunizations SOCIAL HISTORY Never Assessed REASON FOR VISIT Refill Request PLAN OF CARE VITAL SIGNS MEDICATIONS Medication Instructions Dosage Frequency Start Date End Date Duration Status Lisinopril-Hydr ochlorothiazide 20-25 MG Orally Once a day 2 tablets 24h 30 days Ac tive RESULTS No Results PROCEDURES No Known procedures [...]
--- OUTSIDE RECORDS SUMMARY | 2022-11-24 15:51 | XMS REPORT ---
Author Author Melanie REYNOLDS [place] Organization [facility] Address [address] [place] [address] Care Team Providers Care Roofing Superintendent Name Role Phone RAIMUNDO REYNOLDS Unavailable PROBLEMS Type Condition ICD9-CM Code MUJ20-FZ Code Onset Dates Condition Status SNOMED Code Problem Type 2 diabetes mellitus with hyperglycemia E11.65 Active 765870075 Problem Hyperlipidemia E78.5 Active 85675989 Problem Essential hypertension I10 Active 10758642 Problem Coronary artery disease involving [place] coronary artery of [place] heart without angina pectoris I25.10 Active [id number] ALLERGIES Unknown Allergies SOCIAL HISTORY No smoking Hx information available PLAN OF CARE VITAL SIGNS MEDICATIONS Medication Instructions Dosage Frequency Start Date End Date Du ration Status Victoza 18 MG/3ML Subcutaneous Once a day 1.8 mg 24h Jun, Active RESULTS No Results PROCEDURES No Known procedures IMMUNIZATIONS No Known Immunizations
--- OUTSIDE RECORDS SUMMARY | 2022-11-24 15:51 | XMS REPORT ---
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.10 Active [id number] ALLERGIES Substance Reaction Event Type Date Status Penicillin V Potassium Unknown Drug Allergy Jan, 8 Active ENCOUNTERS Encounter Location Date Diagnosis [place] [id number] [place] [address] Jan, Type 2 diabetes mellitus with hyperglycemia E11.65 ; Essential hypertension I10 ; Hyperlipidemia E78.5 and Encounter for immunization Z23 [place] [id number] [place] [address] Sep, [place] [id number] [place] [address] July, Type 2 diabetes mellitus with hyperglycemia E11.65 [place] [id number] [place] [address] July, [place] [address] [address] May, [place] [id number] [place] [address] May, Hyperlipidemia E78.5 [place] [id number] [place] [address] 12 Mar, 2018 Type 2 diabetes mellitus with hyperglycemia E11.65 ; Essential hypertension I10 ; Hyperlipidemia E78.5 and Breast cancer screening Z12.31 [facility] [address] [address] May, Type 2 diabetes mellitus with hyperglycemia E11.65 [facility] [address], [place] [address] Apr, Type 2 diabetes mellitus with hyperglycemia E11.65 [facility] [id number] [place] [address] Jan, [facility] [id number] [place] [address] Jan, [facility] [id number] [place] [address] Jan, [facility] [id number] [place] [address] Sep, Essential hypertension I10 [facility] [address], [place] [address] Aug, Type 2 diabetes mellitus with hyperglycemia E11.65 [facility] [address] [address] Aug, [facility] [address] [address] Aug, Type 2 diabetes mellitus with hyperglycemia E11.65 ; Hyperlipidemia E78.5 ; Colon cancer screening Z12.11 ; Essential hypertension I10 and Encounter for immunization Z23 [facility] [address] [address] July, Type 2 diabetes mellitus with hyperglycemia E11.65 [facility] [address] [address] July, Type 2 diabetes mellitus with hyperglycemia E11.65 [facility] [address] [place] [address] Jun, [facility] [address] [address] May, Essential hypertension I10 [facility] [address], [place] [address] May, [facility] [address] [address] Apr, Acute non-recurrent frontal sinusitis J01.10 [facility] [address], [place] [address] Apr, Essential hypertension I10 [facility] [id number] [place] [address] Apr, [facility] [id number] [place] [address] Mar, Type 2 diabetes mellitus with hyperglycemia E11.65 [facility] [id number] [place] [address] Mar, [facility] [address], [place] [address] Feb, Essential hypertension I10 [facility] [address] [address] 14 Feb, 2016 [facility] [address] [address] Feb, Type 2 diabetes mellitus with hyperglycemia E11.65 ; Essential hypertension I10 and Hyperlipidemia E78.5 [facility] [address] [address] Jan, [facility] [address] [address] Dec, [facility] [address] [address] Dec, [facility] [address], [place] [address] Oct, [facility] [address] [facility] [id number] [address] Aug, [facility] [address] [address] Aug, Hyperlipidemia E78.5 [facility] [address] [address] 14 Aug, 2015 Type 2 diabetes mellitus with hyperglycemia E11.65 ; Hyperlipidemia E78.5 and Essential hypertension I10 [facility] [address] [address] Aug, [facility] [id number] [place] [address] Jun, [facility] [address], [place] [address] Jun, [facility] [id number] [place] [address] Jun, [facility] [address], [place] [address] Apr, [facility] [address], [place] [address] Apr, [facility] [address], [place] [address] Mar, Hyperlipidemia E78.5 [facility] [address], [place] [address] Mar, Type 2 diabetes mellitus with hyperglycemia E11.65 ; Hyperlipidemia E78.5 and Essential hypertension I10 [facility] [address], [place] [address] Mar, [facility] [address], [place] [address] 10 Nov, 2014 [facility] [address], [place] [address] 08 Nov, 2014 [facility] [address] [id number] [place] [address] Sep, Hyperlipidemia 272.4 [facility] [address] [id number] [place] [address] Sep, [facility] [address] [facility] [id number] [place] [address] Sep, Diabetes mellitus, type II 250.00 ; Hypertension 401.9 and Hyperlipidemia 272.4 [facility] [address] [id number] [place] [address] Sep, [facility] [address] [id number] [place] [address] Sep, [facility] [address] [facility] [id number] [place] [address] Sep, [facility] [address] [facility] [id number] [place] [address] Jun, [facility] [address] [facility] [id number] [place] [address] Jun, [facility] [address] [facility] [id number] [place] [address] Apr, [facility] [address] [facility] [id number] [place] [address] Apr, [facility] [address] [facility] [id number] [place] [address] Mar, [facility] [address] [facility] [id number] [place] [address] Mar, [facility] [address] [facility] [id number] [place] [address] Mar, [facility] [address] [facility] [id number] [place] [address] Mar, [facility] [address] [facility] [id number] [place] [address] Feb, [facility] [place] [facility] [address] [id number] [place] [address] Feb, [facility] [place] [facility] [address] [id number] [place] [address] Jan, [facility] [place] [facility] [address] [id number] [place] [address] Jan, [facility] [place] [facility] [address] [id number] [place] [address] Jan, [facility] [place] [facility] [address] [id number] [place] [address] Jan, [facility] [place] [facility] [address] [id number] [place] [address] Sep, [facility] [place] [facility] [address] [id number] [place] [address] Sep, [facility] [place] [facility] [address] [id number] [place] [address] Sep, [facility] [place] [facility] [address] [id number] [place] [address] Sep, [facility] [place] [facility] [address] [id number] [place] [address] Sep, [facility] [place] [facility] [address] [id number] [place] [address] Sep, [facility] [place] [facility] [address] [id number] [place] [address] Aug, [facility] [place] [facility] [address] [id number] [place] [address] Aug, [facility] [place] [facility] [address] [id number] [place] [address] Aug, [facility] [place] [facility] [address] [id number] [place] [address] Aug, [facility] [place] [facility] [address] [id number] [place] [address] Apr, [facility] [address] [id number] [place] [address] Apr, [facility] [place] [facility] [address] [id number] [place] [address] Mar, [facility] [address] [facility] [id number] [place] [address] Mar, [facility] [place] [facility] [address] [id number] [place] [address] Mar, [facility] [address] [id number] [place] [address] Mar, [facility] [address] [id number] [place] [address] Feb, [facility] [address] [facility] [id number] [place] [address] Feb, [facility] [place] [facility] [address] [facility] [id number] [place] [address] Feb, [facility] [address] [facility] [id number] [place] [address] Feb, [facility] [place] [facility] [address] [facility] [id number] [place] [address] Feb, [facility] [place] [facility] [address] [facility] [id number], [place] [address] Feb, [facility] [place] [facility] [address] [id number], [place] [address] Feb, [facility] [place] [facility] [address] [id number] [place] [address] Feb, [facility] [place] [facility] [address] [facility] [id number] [place] [address] Jan, [facility] [place] [facility] [address] [facility] [id number] [place] [address] Jan, [facility] [place] [facility] [address] [id number] [place] [address] Dec, [facility] [place] [facility] [address] [id number] [place] [address] Dec, [facility] [place] [facility] [address] [id number] [place] [address] Dec, [facility] [place] [facility] [address] [id number] [place] [address] Dec, [facility] [place] [facility] [address] [id number] [place] [address] 08 Dec, 2012 [facility] [place] [facility] [address] [id number] [place] [address] Dec, [facility] [place] [facility] [address] [id number] [place] [address] Nov, [facility] [place] [facility] [address] [id number] [place] [address] Aug, [facility] [place] [facility] [address] [id number] [place] [address] Dec, [facility] [place] [facility] [address] [id number] [place] [address] Dec, [facility] [place] [facility] [address] [id number] [place] [address] Nov, [facility] [place] [facility] [address] [id number] [place] [address] Sep, [facility] [place] [facility] [address] [id number] [place] [address] Sep, [facility] [place] [facility] [address] [id number] [place] [address] Sep, [facility] [place] [facility] [address] [id number] [place] [address] Aug, [facility] [place] [facility] [address] [id number] [place] [address] Aug, [facility] [place] [facility] [address] [id number] [place] [address] Aug, [facility] [place] [facility] [address] [id number] [place] [address] Jun, [facility] [place] [facility] [address] [id number] [place] [address] Jun, [facility] [place] [facility] [address] [id number] [place] [address] Jun, [facility] [place] [facility] [address] [id number] [place] [address] May, [facility] [place] [facility] [address] [id number] [place] [address] May, [facility] [place] [facility] [address] [id number] [place] [address] May, [facility] [place] [facility] [address] [id number] [place] [address] Feb, [facility] [place] [facility] [address] [id number] [place] [address] Feb, [facility] [place] [facility] [address] [facility] [id number] [place] [address] Jan, [facility] [place] [facility] [address] [id number] [place] [address] Jan, [facility] [place] [facility] [address] [id number], [place] [address] Jan, [facility] [place] [facility] [address] [id number] [place] [address] Jan, [facility] [place] [facility] [address] [id number] [place] [address] Jan, [facility] [place] [facility] [address] [id number] [place] [address] Jan, [facility] [place] [facility] [address] [facility] [id number] [place] [address] Jan, [facility] [address] [facility] [id number] [place] [address] Jan, IMMUNIZATIONS Vaccine Route Administration Date Status FLULAVAL QUAD 0.5ML (6 MO & UP) 2017 IM Intramuscular Feb 07, 2018 Administered SOCIAL HISTORY Never Assessed REASON FOR VISIT Diabetes, a1c, microalbumin-awoods PLAN OF CARE Activity Details VITAL SIGNS Height 67 in 2018-02-07 Weight 168.5 lbs 2018-02-07 Temperature 98 degrees Fahrenheit 2018-02-07 Heart Rate 70 bpm 2018-02-07 Respiratory Rate 20 2018-02-07 BMI 26.39 kg/m2 2018-02-07 Blood pressure systolic 158 mmHg Blood pressure diastolic 88 mmHg 2018-01 MEDICATIONS Medication Instructions Dosage Frequency Start Date End Date Duration Status Pen Zwolle 32G X 5 MM as directed 8h Jun, 90 days Active Levemir Flexpen 100 UNIT/ML subcutaneous 2 times a day 20 units 12h Mar, Active Victoza 18 MG/3ML Subcutaneous Once a day 1.8 mg 24h Jun, Active Lisinopril-Bertrand chlorothiazide 20-25 MG Orally Once a day 2 tablets 24h 90 days Active Blood Glucose Meter 1 glucometer test 3 times per day Oct, Active Carvedilol 12.5 MG Orally Twice a day 1 tablet with food 12h Active Cinnamon 500 MG Active Aspir-81 81 MG Orally Once a day 1 tablet 24h Active Test strips Test Strips test blood sugar 8h Oct, Active MetFORMIN HCl ER 500 mg Orally 2 times a day 2 tabs 12h 90 days Active Atorvastatin Calcium 40 mg Orally Once a day 1 tablet 24h Mar, 90 days Active RESULTS Name Result Date Reference Range A1C (IN HOUSE) 2018-02-07 A1C IN HOUSE 8.5 4.3 - 5.6 % Previous A1c 8.4 Lot Exp date MICROALBUMIN, URINE (IN HOUSE) 2018-02-07 MICROALBUMIN Abnormal Lot # [id number] Exp date 11/2018 Clarity clear Color yellow ALB 10 CRE 50 A:C (IN HOUSE) 30-300 Control + Control abnormal Lot # Exp date PROCEDURES Procedure Date Ordered Result Body Site FLULAVAL QUAD 0.5ML (6 MO & UP) 2017Feb 07, 2018 SINGLE IMMUNIZATION ADMIN Feb 07, 2018 GLYCATED HEMOGLOBIN TEST Feb 07, 2018 MICROALBUMIN, SEMIQUANT Feb 07, 2018 LIPID PANEL Feb 07, 2018 COMPREHEN METABOLIC PANEL Feb 07, 2018 VENIPUNCT, ROUTINE* Feb 07, 2018 MICROALBUMIN, QUANTITATIVE Feb 07, 2018 ASSAY OF URINE CREATININE Feb 07, 2018 COMPLETE CBC W/AUTO DIFF WBC Feb 07, 2018 INSTRUCTIONS MEDICATIONS ADMINISTERED No Known Medications MEDICAL (GENERAL) HISTORY Type Description Date Medical History type II diabetes Medical History hyperlipidemia Medical History hypertension Medical History coronary artery disease Surgical History partial hysterectomy d/t fibroi ds - still has ovaries 1995 Surgical History section x 2 Surgical History cardiac stent 2006 Hospitalization History Myocardial infarction 20 06
--- OUTSIDE RECORDS SUMMARY | 2022-11-24 15:51 | XMS REPORT ---
Author Author Melanie Lanza Organization [facility], [place], [facility] Address Unknown Phone Unavailable Care Team Providers Care Toeing Stockings Name Role Phone Migration, Doctor Unavailable Unavailable PROBLEMS Type Condition ICD9-CM Code DGV62-NI Code Onset Dates Condition Status SNOMED Code Problem Hyperlipidemia E78.5 Active 95391249 Problem Type 2 diabetes mellitus with hyperglycemia E11.65 Active 542205525 Problem Severe nonproliferative diabetic retinopathy without macular edema associated with type 2 diabetes mellitus, unspecified laterality E11.3499 Active 787918199 Problem Coronary artery disease involving lovelock coronary artery of lovelock heart without angina pectoris I25.10 Active 4535393486250 Problem Essential hypertension I10 Active [id number] ALLERGIES No Information ENCOUNTERS Encounter Location Date Diagnosis [place] [id number] [address] July, Type 2 diabetes mellitus with hyperglycemia E11.65 [place] [address] [address] Mar, [facility] [address] [address] Feb, [facility] [address] [place] [id number] [place] [address] Jan, Type 2 diabetes mellitus with hyperglycemia E11.65 ; Essential hypertension I10 ; Hyperlipidemia E78.5 and Encounter for immunization Z23 [facility] [address] [place] [address] [id number] [place] [address] Sep, [facility] [address] [address] July, Type 2 diabetes mellitus with hyperglycemia E11.65 [facility] [address] [address] July, [facility] [address] [place] [address] May, [facility] [address], [place] [address] 14 May, 2017 Hyperlipidemia E78.5 [facility] [address] [place] [id number] [place] [address] 12 May, 2017 Type 2 diabetes mellitus with hyperglycemia E11.65 ; Essential hypertension I10 ; Hyperlipidemia E78.5 and Breast cancer screening Z12.31 [place] [address] [place] [id number] [place] [address] 05 May, 2017 Type 2 diabetes mellitus with hyperglycemia E11.65 [place] [address] [place] [id number] [place] [address] 02 Apr, 2017 Type 2 diabetes mellitus with hyperglycemia E11.65 [place] [address] [place] [id number] [place] [address] Jan, [place] [address] [place] [id number] [place] [address] Jan, [place] [id number] [place] [address] Jan, [place] [address] [place] [id number] [place] [address] Sep, Essential hypertension I10 [place] [address], [place] [address] Aug, Type 2 diabetes mellitus with hyperglycemia E11.65 [place] [address] [address] Aug, [place] [address] [place] [address] Aug, Type 2 diabetes mellitus with hyperglycemia E11.65 ; Hyperlipidemia E78.5 ; Colon cancer screening Z12.11 ; Essential hypertension I10 and Encounter for immunization Z23 [place] [address] [address] July, Type 2 diabetes mellitus with hyperglycemia E11.65 [facility] [address] [address] July, Type 2 diabetes mellitus with hyperglycemia E11.65 [facility] [address], [place] [address] Jun, [facility] [address] [place] [address] May, Essential hypertension I10 [facility] [address] [place] [address] May, [facility] [address] [place] [address] [id number] [place] [address] Apr, Acute non-recurrent frontal sinusitis J01.10 [facility] [address], [place] [address] Apr, Essential hypertension I10 [facility] [address], [place] [address] Apr, [facility] [address] [place] [address] Mar, Type 2 diabetes mellitus with hyperglycemia E11.65 [facility] [address], [place] [address] Mar, [facility] [address] [address] Feb, Essential hypertension I10 [facility] [address], [place] [address] 14 Feb, 2016 [facility] [address] [place] [address] 13 Feb, 2016 Type 2 diabetes mellitus with hyperglycemia E11.65 ; Essential hypertension I10 and Hyperlipidemia E78.5 [facility] [address], [place] [address] Jan, [facility] [address] [address] [id number] [address] Dec, [facility] [address], [place] [address] Dec, [facility] [address], [place] [address] Oct, [facility] [address] [address] Aug, [facility] [address] [address] Aug, Hyperlipidemia E78.5 [facility] [address] [address] Aug, Type 2 diabetes mellitus with hyperglycemia E11.65 ; Hyperlipidemia E78.5 and Essential hypertension I10 [facility] [address] [address] Aug, [facility] [address] [address] Jun, [facility] [address], [place] [address] Jun, [facility] [address] [address] Jun, [facility] [address] [address] Apr, [facility] [address], [place] [address] Apr, [facility] [address] [address] Mar, Hyperlipidemia E78.5 [facility] [address], [place] [address] 14 Mar, 2015 Type 2 diabetes mellitus with hyperglycemia E11.65 ; Hyperlipidemia E78.5 and Essential hypertension I10 [facility] [address] [address] Mar, [facility] [address] [id number] [address] Nov, [facility] [address] [facility] [id number] [place] [address] Nov, [facility] [address] [address] Sep, Hyperlipidemia 272.4 [facility] [address] [facility] [id number] [place] [address] Sep, [facility] [address] [address] Sep, Diabetes mellitus, type II 250.00 ; Hypertension 401.9 and Hyperlipidemia 272.4 [facility] [address] [address] Sep, [facility] [address] [address] Sep, [facility] [address] [address] Sep, [facility] [address] [address] Jun, [facility] [address] [address] [id number] [address] Jun, [facility] [id number] [address] Apr, [facility] [address] [address] [id number] [address] Apr, [facility] [address] [address] Mar, [facility] [id number] [address] Mar, [facility] [place] [facility] [address] [id number] [place] [address] Mar, [facility] [place] [facility] [address] [id number] [place] [address] Mar, [facility] [place] [facility] [address] [id number] [place] [address] Feb, [facility] [place] [facility] [address] [id number] [place] [address] Feb, [facility] [place] [facility] [address] [id number] [place] [address] Jan, [facility] [place] [facility] [address] [id number] [place] [address] Jan, [facility] [place] [facility] [address] [id number] [place] [address] Jan, [facility] [place] [facility] [address] [id number] [place] [address] Jan, [facility] [place] [facility] [address] [id number] [place] [address] Sep, [facility] [place] [facility] [address] [id number] [place] [address] Sep, [facility] [place] [facility] [address] [id number] [place] [address] Sep, [facility] [place] [facility] [address] [id number] [place] [address] Sep, [facility] [place] [facility] [address] [id number] [place] [address] Sep, [facility] [place] [facility] [address] [id number] [place] [address] Sep, [facility] [place] [facility] [address] [id number] [place] [address] Aug, [facility] [place] [facility] [address] [id number] [place] [address] Aug, [facility] [place] [facility] [address] [id number] [place] [address] Aug, [facility] [place] [facility] [address] [id number] [place] [address] Aug, [facility] [place] [facility] [address] [id number] [place] [address] Apr, [facility] [place] [facility] [address] [id number] [place] [address] Apr, [facility] [place] [facility] [address] [id number] [place] [address] Mar, [facility] [place] [facility] [address] [id number] [place] [address] Mar, [facility] [place] [facility] [address] [id number] [place] [address] Mar, [facility] [place] [facility] [address] [id number] [place] [address] Mar, [facility] [place] [facility] [address] [id number] [place] [address] Feb, [facility] [place] [facility] [address] [id number] [place] [address] Feb, [facility] [place] [facility] [address] [id number] [place] [address] Feb, [facility] [place] [facility] [address] [id number], [place] [address] Feb, [facility] [place] [facility] [address] [id number] [place] [address] Feb, [facility] [place] [facility] [address] [id number] [place] [address] Feb, [facility] [place] [facility] [address] [id number] [place] [address] Feb, [facility] [place] [facility] [address] [id number] [place] [address] Feb, [facility] [place] [facility] [address] [id number] [place] [address] Jan, [facility] [place] [facility] [address] [id number] [place] [address] Jan, [facility] [place] [facility] [address] [id number] [place] [address] Dec, [facility] [place] [facility] [address] [id number] [place] [address] Dec, [facility] [place] [facility] [address] [id number] [place] [address] Dec, [facility] [place] [facility] [address] [id number] [place] [address] Dec, [facility] [place] [facility] [address] [id number] [place] [address] Dec, [facility] [place] [facility] [address] [id number] [place] [address] Dec, [facility] [place] [facility] [address] [id number] [place] [address] Nov, [facility] [place] [facility] [address] [id number] [place] [address] Aug, [facility] [place] [facility] [address] [id number] [place] [address] Dec, [facility] [place] [facility] [address] [id number] [place] [address] Dec, [facility] [place] [facility] [address] [id number] [place] [address] Nov, [facility] [place] [facility] [address] [id number] [place] [address] Sep, [facility] [place] [facility] [address] [id number] [place] [address] Sep, [facility] [place] [facility] [address] [id number] [place] [address] Sep, [facility] [place] [facility] [address] [id number] [place] [address] Aug, [facility] [place] [facility] [address] [id number] [place] [address] Aug, [facility] [place] [facility] [address] [id number] [place] [address] Aug, [facility] [address] [id number] [place] [address] Jun, [facility] [place] [facility] [address] [id number] [place] [address] Jun, [facility] [address] [id number] [place] [address] Jun, [facility] [address] [id number] [place] [address] May, [facility] [address] [id number] [place] [address] May, [facility] [address] [id number] [place] [address] May, [facility] [address] [id number] [place] [address] Feb, [facility] [place] [facility] [address] [id number] [place] [address] Feb, [facility] [place] [facility] [address] [id number] [place] [address] Jan, [facility] [place] [facility] [address] [id number] [place] [address] Jan, [facility] [place] [facility] [address] [id number] [place] [address] Jan, [facility] [place] [facility] [address] [id number] [place] [address] Jan, [facility] [address] [facility] [id number] [place] [address] Jan, [facility] [address] [facility] [id number], [place] [address] Jan, [facility] [address] [facility] [id number], [place] [address] Jan, [facility] [address] [facility] [id number], [place] [address] Jan, IMMUNIZATIONS No Known Immunizations SOCIAL HISTORY Never Assessed REASON FOR VISIT EMR-[facility] PLAN OF CARE VITAL SIGNS MEDICATIONS No [...]
--- OUTSIDE RECORDS SUMMARY | 2022-11-24 15:51 | XMS REPORT ---
Author Author Melanie REYNOLDS 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 Active [id number] ALLERGIES No Information ENCOUNTERS Encounter Location Date Diagnosis [place] [address] [address] Feb, [place] [address] [address] Jan, Type 2 diabetes mellitus with hyperglycemia E11.65 ; Essential hypertension I10 ; Hyperlipidemia E78.5 and Encounter for immunization Z23 [place] [address] [place] [id number] [place] [address] Sep, [place] [address] [place] [id number] [place] [address] July, Type 2 diabetes mellitus with hyperglycemia E11.65 [place] [address] [address] July, [place] [address] [address] May, [place] [address] [address] May, Hyperlipidemia E78.5 [facility] [id number] [address] 12 May, 2017 Type 2 diabetes mellitus with hyperglycemia E11.65 ; Essential hypertension I10 ; Hyperlipidemia E78.5 and Breast cancer screening Z12.31 [facility] [address] [address] 05 May, 2017 Type 2 diabetes mellitus with hyperglycemia E11.65 [facility] [address] [place] [id number] [place] [address] Apr, Type 2 diabetes mellitus with hyperglycemia E11.65 [place] [address] [place] [id number] [place] [address] Jan, [facility] [address] [place] [id number] [place] [address] Jan, [facility] [address] [place] [id number] [place] [address] Jan, [facility] [address] [place] [id number] [place] [address] Sep, Essential hypertension I10 [place] [address] [place] [id number] [place] [address] Aug, Type 2 diabetes mellitus with hyperglycemia E11.65 [place] [address] [address] Aug, [facility] [address] [place] [id number] [place] [address] Aug, Type 2 diabetes mellitus with hyperglycemia E11.65 ; Hyperlipidemia E78.5 ; Colon cancer screening Z12.11 ; Essential hypertension I10 and Encounter for immunization Z23 [facility] [id number] [place] [address] July, Type 2 diabetes mellitus with hyperglycemia E11.65 [facility] [address] [address] July, Type 2 diabetes mellitus with hyperglycemia E11.65 [facility] [address] [address] Jun, [facility] [address] [place] [id number] [place] [address] May, Essential hypertension I10 [facility] [id number] [place] [address] May, [facility] [address] [place] [id number] [place] [address] Apr, Acute non-recurrent frontal sinusitis J01.10 [facility] [id number] [place] [address] Apr, Essential hypertension I10 [facility] [id number] [place] [address] Apr, [facility] [address] [place] [id number] [place] [address] Mar, Type 2 diabetes mellitus with hyperglycemia E11.65 [facility] [id number] [place] [address] Mar, [facility] [id number] [place] [address] Feb, Essential hypertension I10 [facility] [id number] [address] 14 Feb, 2016 [facility] [id number] [address] 13 Feb, 2016 Type 2 diabetes mellitus with hyperglycemia E11.65 ; Essential hypertension I10 and Hyperlipidemia E78.5 [facility] [id number] [place] [address] 16 Jan, 2016 [facility] [address] [address] 17 Dec, 2015 [facility] [address] [place] [id number] [place] [address] Dec, [facility] [address] [address] Oct, [facility] [address] [address] Aug, [facility] [address] [address] Aug, Hyperlipidemia E78.5 [facility] [address] [address] Aug, Type 2 diabetes mellitus with hyperglycemia E11.65 ; Hyperlipidemia E78.5 and Essential hypertension I10 [facility] [address] [address] Aug, [facility] [address] [address] Jun, [facility] [id number] [place] [address] Jun, [facility] [address] [address] Jun, [facility] [address] [address] Apr, [facility] [address] [address] Apr, [facility] [address] [address] Mar, Hyperlipidemia E78.5 [facility] [address] [place] [id number] [address] Mar, Type 2 diabetes mellitus with hyperglycemia E11.65 ; Hyperlipidemia E78.5 and Essential hypertension I10 [facility] [address] [address] Mar, [facility] [address] [address] Nov, [facility] [place] [facility] [address] [facility] [address] [id number] [address] Nov, [facility] [place] [facility] [address] [facility] [address] [id number] [place] [address] Sep, Hyperlipidemia 272.4 [facility] [place] [facility] [id number] [address] Sep, [facility] [id number] [place] [address] Sep, Diabetes mellitus, type II 250.00 ; Hypertension 401.9 and Hyperlipidemia 272.4 [facility] [place] [facility] [address] [place] [address], [place] [address] Sep, [facility] [place] [facility] [id number] [address] Sep, [facility] [place] [facility] [id number] [place] [address] Sep, [facility] [id number] [address] Jun, [facility] [place] [facility] [id number] [address] Jun, [facility] [place] [facility] [id number] [address] Apr, [facility] [id number] [address] Apr, [facility] [address] [place] [id number] [address] Mar, [facility] [id number] [address] Mar, [facility] [id number] [address] Mar, [facility] [address] [address] Mar, [facility] [place] [facility] [address] [id number] [place] [address] Feb, [facility] [place] [facility] [address] [id number] [place] [address] Feb, [facility] [place] [facility] [address] [id number] [place] [address] Jan, [facility] [place] [facility] [address] [id number] [place] [address] Jan, [facility] [place] [facility] [address] [id number] [place] [address] Jan, [facility] [place] [facility] [address] [id number] [place] [address] Jan, [facility] [place] [facility] [address] [id number] [place] [address] Sep, [facility] [place] [facility] [address] [id number] [place] [address] Sep, [facility] [place] [facility] [address] [id number] [place] [address] Sep, [facility] [place] [facility] [address] [id number] [place] [address] Sep, [facility] [place] [facility] [address] [id number] [place] [address] Sep, [facility] [place] [facility] [address] [id number] [place] [address] Sep, [facility] [place] [facility] [address] [id number] [place] [address] Aug, [facility] [place] [facility] [address] [id number] [place] [address] Aug, [facility] [place] [facility] [address] [id number] [place] [address] Aug, [facility] [place] [facility] [address] [id number] [place] [address] Aug, [facility] [address] [id number] [place] [address] Apr, [facility] [place] [facility] [address] [id number] [place] [address] Apr, [facility] [address] [id number] [place] [address] Mar, [facility] [address] [id number] [place] [address] Mar, [facility] [address] [id number] [place] [address] Mar, [facility] [address] [id number] [place] [address] Mar, [facility] [address] [id number] [place] [address] Feb, [facility] [address] [id number] [place] [address] Feb, [facility] [address] [id number] [place] [address] Feb, [facility] [address] [id number] [place] [address] Feb, [facility] [place] [facility] [address] [id number] [place] [address] Feb, [facility] [address] [id number] [place] [address] Feb, [facility] [place] [facility] [address] [id number] [place] [address] Feb, [facility] [place] [facility] [address] [id number] [place] [address] Feb, [facility] [place] [facility] [address] [id number] [place] [address] Jan, [facility] [place] [facility] [address] [id number] [place] [address] Jan, [facility] [place] [facility] [address] [id number] [place] [address] Dec, [facility] [place] [facility] [address] [id number] [place] [address] Dec, [facility] [place] [facility] [address] [id number] [place] [address] Dec, [facility] [place] [facility] [address] [id number] [place] [address] Dec, [facility] [place] [facility] [address] [id number] [place] [address] Dec, [facility] [place] [facility] [address] [id number] [place] [address] Dec, [facility] [place] [facility] [address] [id number] [place] [address] Nov, [facility] [place] [facility] [address] [id number] [place] [address] Aug, [facility] [place] [facility] [address] [id number] [address] Dec, [facility] [place] [facility] [address] [id number] [address] Dec, [facility] [place] [facility] [address] [id number] [address] Nov, [facility] [place] [facility] [address] [id number] [place] [address] Sep, [facility] [place] [facility] [address] [id number] [place] [address] Sep, [facility] [place] [facility] [address] [id number] [place] [address] Sep, [facility] [place] [facility] [address] [id number] [place] [address] Aug, [facility] [place] [facility] [address] [id number] [place] [address] Aug, [facility] [place] [facility] [address] [id number] [place] [address] Aug, [facility] [place] [facility] [address] [facility] [address] [id number] [place] [address] Jun, [facility] [place] [facility] [address] [id number] [place] [address] Jun, [facility] [place] [facility] [address] [id number] [place] [address] Jun, [facility] [place] [facility] [address] [id number] [place] [address] May, [facility] [place] [facility] [address] [facility] [address] [id number] [place] [address] May, [facility] [place] [facility] [address] [id number] [place] [address] May, [facility] [place] [facility] [address] [id number] [place] [address] Feb, [facility] [place] [facility] [address] [facility] [address] [id number] [place] [address] Feb, [facility] [place] [facility] [address] [id number] [place] [address] 30 Jan, 2011 [facility] [place] [facility] [address] [id number] [place] [address] 30 Jan, 2011 [facility] [place] [facility] [address] [id number] [place] [address] 29 Jan, 2011 [facility] [place] [facility] [address] [facility] [address] [id number] [place] [address] Jan, [facility] [place] [facility] [address] [facility] [address] [id number] [place] [address] Jan, [facility] [place] [facility] [address] [facility] [id number] [place] [address] Jan, [facility] [address] [facility] [address] [id number] [address] Jan, [facility] [address] [facility] [address] [id number] [place] [address] Jan, IMMUNIZATIONS No Known Immunizations SOCIAL HISTORY Never Assessed REASON FOR VISIT Eye Exam PLAN OF CARE VITAL SIGNS MEDICATIONS Unknown [...]
--- OUTSIDE RECORDS SUMMARY | 2022-11-24 15:51 | XMS REPORT ---
Author Author Melanie REYNOLDS [facility] C Address [address] [place] [address] Care Team Providers Care Rn Icu Name Role Phone GAIL RAIMUNDO Unavailable PROBLEMS Type Condition ICD9-CM Code [id number] Code Onset Dates Condition Status SNOMED Code Problem Type 2 diabetes mellitus with hyperglycemia E11.65 Active 969002548 Problem Hyperlipidemia E78.5 Active 10720052 Problem Essential hypertension I10 Active 94390324 Problem Coronary artery disease involving pechanga coronary artery of pechanga heart without angina pectoris I25.10 Active [id number] ALLERGIES No Information ENCOUNTERS Encounter Location Date Diagnosis [place] [id number] [place] [address] Sep, [place] [id number] [place] [address] July, Type 2 diabetes mellitus with hyperglycemia E11.65 [place] [id number] [place] [address] July, [place] [id number] [place] [address] May, [place] [id number] [place] [address] May, Hyperlipidemia E78.5 [place] [id number] [place] [address] May, Type 2 diabetes mellitus with hyperglycemia E11.65 ; Essential hypertension I10 ; Hyperlipidemia E78.5 and Breast cancer screening Z12.31 [place] [id number] [place] [address] 05 May, 2017 Type 2 diabetes mellitus with hyperglycemia E11.65 [place] [address], [place] [address] Apr, Type 2 diabetes mellitus with hyperglycemia E11.65 [facility] [address], [place] [address] Jan, [facility] [address], [place] [address] Jan, [facility] [address], [place] [address] Jan, [facility] [address], [place] [address] Sep, Essential hypertension I10 [facility] [id number] [place] [address] Aug, Type 2 diabetes mellitus with hyperglycemia E11.65 [facility] [address], [place] [address] Aug, [facility] [address], [place] [address] Aug, Type 2 diabetes mellitus with hyperglycemia E11.65 ; Hyperlipidemia E78.5 ; Colon cancer screening Z12.11 ; Essential hypertension I10 and Encounter for immunization Z23 [facility] [address], [place] [address] July, Type 2 diabetes mellitus with hyperglycemia E11.65 [facility] [address], [place] [address] July, Type 2 diabetes mellitus with hyperglycemia E11.65 [facility] [address], [place] [address] Jun, [facility] [id number], [place] [address] May, Essential hypertension I10 [facility] [id number], [place] [address] May, [facility] [id number] [address] Apr, Acute non-recurrent frontal sinusitis J01.10 [facility] [id number] [place] [address] Apr, Essential hypertension I10 [facility] [address], [place] [address] Apr, [facility] [id number] [place] [address] Mar, Type 2 diabetes mellitus with hyperglycemia E11.65 [facility] [id number] [place] [address] Mar, [facility] [id number] [place] [address] Feb, Essential hypertension I10 [facility] [id number] [place] [address] Feb, [facility] [id number] [place] [address] Feb, Type 2 diabetes mellitus with hyperglycemia E11.65 ; Essential hypertension I10 and Hyperlipidemia E78.5 [facility] [address], [place] [address] Jan, [facility] [id number], [place] [address] Dec, [facility] [id number], [place] [address] Dec, [facility] [id number], [place] [address] Oct, [facility] [id number] [place] [address] Aug, [facility] [id number], [place] [address] Aug, Hyperlipidemia E78.5 [facility] [id number], [place] [address] 14 Aug, 2015 Type 2 diabetes mellitus with hyperglycemia E11.65 ; Hyperlipidemia E78.5 and Essential hypertension I10 [facility] [address] [facility] [id number] [address] Aug, [facility] [id number] [place] [address] Jun, [facility] [address] [facility] [id number], [place] [address] Jun, [facility] [address] [facility] [id number] [place] [address] Jun, [facility] [id number] [address] Apr, [facility] [id number], [place] [address] Apr, [facility] [id number] [address] Mar, Hyperlipidemia E78.5 [facility] [address], [place] [address] Mar, Type 2 diabetes mellitus with hyperglycemia E11.65 ; Hyperlipidemia E78.5 and Essential hypertension I10 [facility] [address] [address] Mar, [facility] [address] [facility] [id number], [place] [address] Nov, [facility] [address] [facility] [id number], [place] [address] Nov, [facility] [address], [place] [address] Sep, Hyperlipidemia 272.4 [facility] [id number] [address] Sep, [facility] [id number] [place] [address] Sep, Diabetes mellitus, type II 250.00 ; Hypertension 401.9 and Hyperlipidemia 272.4 [facility] [address] [facility] [id number] [place] [address] Sep, [facility] [id number] [place] [address] Sep, [facility] [address] [facility] [id number] [place] [address] Sep, [facility] [address] [facility] [id number] [place] [address] Jun, [facility] [id number] [place] [address] Jun, [facility] [id number] [place] [address] Apr, [facility] [id number] [place] [address] Apr, [facility] [id number] [place] [address] Mar, [facility] [address] [facility] [id number] [place] [address] Mar, [facility] [id number] [place] [address] Mar, [facility] [address] [facility] [id number] [place] [address] Mar, [facility] [address] [facility] [id number] [place] [address] Feb, [facility] [address] [facility] [id number] [place] [address] Feb, [facility] [id number] [place] [address] Jan, [facility] [address] [facility] [id number] [place] [address] Jan, [facility] [place] [facility] [address] [id number] [place] [address] Jan, [facility] [place] [facility] [address] [id number] [place] [address] Jan, [facility] [place] [facility] [address] [id number] [place] [address] Sep, [facility] [place] [facility] [address] [id number] [place] [address] Sep, [facility] [place] [facility] [address] [id number] [place] [address] Sep, [facility] [place] [facility] [address] [id number] [place] [address] Sep, [facility] [place] [facility] [address] [id number] [place] [address] Sep, [facility] [place] [facility] [address] [id number] [place] [address] Sep, [facility] [place] [facility] [address] [id number] [place] [address] Aug, [facility] [place] [facility] [address] [id number] [place] [address] Aug, [facility] [place] [facility] [address] [id number] [place] [address] Aug, [facility] [place] [facility] [address] [id number] [place] [address] Aug, [facility] [place] [facility] [address] [id number] [place] [address] Apr, [facility] [place] [facility] [address] [id number] [place] [address] Apr, [facility] [place] [facility] [address] [id number] [place] [address] Mar, [facility] [address] [id number] [place] [address] Mar, [facility] [place] [facility] [address] [id number] [place] [address] Mar, [facility] [place] [facility] [address] [id number] [place] [address] Mar, [facility] [place] [facility] [address] [id number] [place] [address] Feb, [facility] [place] [facility] [address] [id number] [place] [address] Feb, [facility] [place] [facility] [address] [id number] [place] [address] Feb, [facility] [place] [facility] [address] [id number] [place] [address] Feb, [facility] [place] [facility] [address] [id number] [place] [address] Feb, [facility] [place] [facility] [address] [id number] [place] [address] Feb, [facility] [place] [facility] [address] [id number] [place] [address] Feb, [facility] [place] [facility] [address] [id number] [place] [address] Feb, [facility] [place] [facility] [address] [id number], [place] [address] Jan, [facility] [place] [facility] [address] [id number] [place] [address] Jan, [facility] [place] [facility] [address] [id number] [place] [address] Dec, [facility] [place] [facility] [address] [id number] [place] [address] Dec, [facility] [place] [facility] [address] [id number] [place] [address] 30 Dec, 2012 [facility] [place] [facility] [address] [id number] [place] [address] 30 Dec, 2012 [facility] [place] [facility] [address] [id number] [place] [address] 08 Dec, 2012 [facility] [place] [facility] [address] [id number] [place] [address] Dec, [facility] [place] [facility] [address] [id number] [place] [address] 10 Nov, 2012 [facility] [place] [facility] [address] [id number] [place] [address] Aug, [facility] [place] [facility] [address] [id number] [place] [address] Dec, [facility] [place] [facility] [address] [id number] [place] [address] Dec, [facility] [place] [facility] [address] [id number] [place] [address] Nov, [facility] [place] [facility] [address] [id number] [place] [address] Sep, [facility] [place] [facility] [address] [id number] [place] [address] Sep, [facility] [place] [facility] [address] [id number] [place] [address] Sep, [facility] [place] [facility] [address] [id number], [place] [address] Aug, [facility] [place] [facility] [address] [id number] [place] [address] Aug, [facility] [place] [facility] [address] [id number] [place] [address] Aug, [facility] [place] [facility] [address] [facility] [id number] [place] [address] Jun, [facility] [place] [facility] [address] [facility] [id number], [place] [address] Jun, [facility] [address] [facility] [id number], [place] [address] Jun, [facility] [address] [facility] [id number], [place] [address] May, [facility] [address] [facility] [id number], [place] [address] May, [facility] [address] [facility] [id number], [place] [address] May, [facility] [address] [facility] [id number], [place] [address] Feb, [facility] [address], [place] [address] Feb, [facility] [address], [place] [address] Jan, [facility] [address], [place] [address] Jan, [facility] [address], [place] [address] Jan, [facility] [address], [place] [address] Jan, [facility] [address], [place] [address] Jan, [facility] [address], [place] [address] Jan, [facility] [address], [place] [address] Jan, [facility] [address] [facility] [id number], [place] [address] Jan, IMMUNIZATIONS No Known Immunizations SOCIAL HISTORY Never Assessed REASON FOR VISIT PALS IN-Insulin PLAN OF CARE VITAL SIGNS MEDICATIONS Unknown [...]
--- OUTSIDE RECORDS SUMMARY | 2022-11-24 15:51 | XMS REPORT ---
Author Author Melanie REYNOLDS [facility] C Address [address] [place] [address] Care Team Providers Care Parallel Computing Software Engineer Name Role Phone GAIL RAIMUNDO Unavailable PROBLEMS Type Condition ICD9-CM Code QAI72-GQ Code Onset Dates Condition Status SNOMED Code Problem Type 2 diabetes mellitus with hyperglycemia E11.65 Active 983318109 Problem Hyperlipidemia E78.5 Active 20698395 Problem Essential hypertension I10 Active 90938054 Problem Coronary artery disease involving [place] coronary artery of [place] heart without angina pectoris I25.10 Active [id number] 7 ALLERGIES No Information ENCOUNTERS Encounter Location Date Diagnosis [place] [id number] [place] [address] Sep, [place] [id number] [place] [address] July, Type 2 diabetes mellitus with hyperglycemia E11.65 [place] [id number] [place] [address] July, [place] [id number] [place] [address] May, [place] [id number] [place] [address] May, Hyperlipidemia E78.5 [place] [id number] [place] [address] May, Type 2 diabetes mellitus with hyperglycemia E11.65 ; Essential hypertension I10 ; Hyperlipidemia E78.5 and Breast cancer screening Z12.31 [place] [id number] [place] [address] 05 May, 2017 Type 2 diabetes mellitus with hyperglycemia E11.65 [place] [address] [address] Apr, Type 2 diabetes mellitus with hyperglycemia E11.65 [facility] [address] [address] Jan, [facility] [address] [address] Jan, [facility] [address], [place] [address] Jan, [facility] [address] [address] Sep, Essential hypertension I10 [facility] [id number] [place] [address] Aug, Type 2 diabetes mellitus with hyperglycemia E11.65 [facility] [address] [address] Aug, [facility] [address] [address] Aug, Type 2 diabetes mellitus with hyperglycemia E11.65 ; Hyperlipidemia E78.5 ; Colon cancer screening Z12.11 ; Essential hypertension I10 and Encounter for immunization Z23 [facility] [address], [place] [address] July, Type 2 diabetes mellitus with hyperglycemia E11.65 [facility] [address] [address] July, Type 2 diabetes mellitus with hyperglycemia E11.65 [facility] [address] [address] Jun, [facility] [address], [place] [address] May, Essential hypertension I10 [facility] [address], [place] [address] May, [facility] [id number] [address] Apr, Acute non-recurrent frontal sinusitis J01.10 [facility] [id number] [place] [address] Apr, Essential hypertension I10 [facility] [address] [address] Apr, [facility] [id number] [place] [address] Mar, Type 2 diabetes mellitus with hyperglycemia E11.65 [facility] [id number] [place] [address] Mar, [facility] [id number] [place] [address] Feb, Essential hypertension I10 [facility] [id number] [place] [address] Feb, [facility] [id number] [place] [address] Feb, Type 2 diabetes mellitus with hyperglycemia E11.65 ; Essential hypertension I10 and Hyperlipidemia E78.5 [facility] [address] [address] Jan, [facility] [address] [address] Dec, [facility] [address], [place] [address] Dec, [facility] [address], [place] [address] Oct, [facility] [id number] [place] [address] Aug, [facility] [address], [place] [address] Aug, Hyperlipidemia E78.5 [facility] [address], [place] [address] 14 Aug, 2015 Type 2 diabetes mellitus with hyperglycemia E11.65 ; Hyperlipidemia E78.5 and Essential hypertension I10 [facility] [address] [facility] [id number] [address] Aug, [facility] [id number] [address] Jun, [facility] [address] [facility] [id number] [address] Jun, [facility] [address] [facility] [id number] [place] [address] Jun, [facility] [id number] [address] Apr, [facility] [address], [place] [address] Apr, [facility] [id number] [address] Mar, Hyperlipidemia E78.5 [facility] [address], [place] [address] Mar, Type 2 diabetes mellitus with hyperglycemia E11.65 ; Hyperlipidemia E78.5 and Essential hypertension I10 [facility] [address], [place] [address] Mar, [facility] [address] [facility] [id number], [place] [address] Nov, [facility] [address] [facility] [id number] [address] Nov, [facility] [address], [place] [address] Sep, Hyperlipidemia 272.4 [facility] [id number] [address] Sep, [facility] [address] [place] [address] Sep, Diabetes mellitus, type II 250.00 ; Hypertension 401.9 and Hyperlipidemia 272.4 [facility] [address] [facility] [id number] [place] [address] Sep, [facility] [id number] [place] [address] Sep, [facility] [address] [facility] [id number] [place] [address] Sep, [facility] [address] [facility] [id number] [place] [address] Jun, [facility] [id number] [place] [address] Jun, [facility] [id number] [place] [address] Apr, [facility] [id number] [place] [address] Apr, [facility] [id number] [place] [address] Mar, [facility] [address] [facility] [id number] [place] [address] Mar, [facility] [id number] [place] [address] Mar, [facility] [address] [facility] [id number] [place] [address] Mar, [facility] [address] [facility] [id number] [place] [address] Feb, [facility] [address] [facility] [id number] [place] [address] Feb, [facility] [id number] [place] [address] Jan, [facility] [address] [facility] [id number] [place] [address] Jan, [facility] [place] [facility] [address] [id number] [place] [address] Jan, [facility] [place] [facility] [address] [id number] [place] [address] Jan, [facility] [place] [facility] [address] [id number] [place] [address] Sep, [facility] [place] [facility] [address] [id number] [place] [address] Sep, [facility] [place] [facility] [address] [id number] [place] [address] Sep, [facility] [place] [facility] [address] [id number] [place] [address] Sep, [facility] [place] [facility] [address] [id number] [place] [address] Sep, [facility] [place] [facility] [address] [id number] [place] [address] Sep, [facility] [place] [facility] [address] [id number] [place] [address] Aug, [facility] [place] [facility] [address] [id number] [place] [address] Aug, [facility] [place] [facility] [address] [id number] [place] [address] Aug, [facility] [place] [facility] [address] [id number] [place] [address] Aug, [facility] [place] [facility] [address] [id number] [place] [address] Apr, [facility] [place] [facility] [address] [id number] [place] [address] Apr, [facility] [place] [facility] [address] [id number] [place] [address] Mar, [facility] [address] [id number] [place] [address] Mar, [facility] [place] [facility] [address] [id number] [place] [address] Mar, [facility] [place] [facility] [address] [id number] [place] [address] Mar, [facility] [place] [facility] [address] [id number] [place] [address] Feb, [facility] [place] [facility] [address] [id number] [place] [address] Feb, [facility] [place] [facility] [address] [id number] [place] [address] Feb, [facility] [place] [facility] [address] [id number] [place] [address] Feb, [facility] [place] [facility] [address] [id number] [place] [address] Feb, [facility] [place] [facility] [address] [id number] [place] [address] Feb, [facility] [place] [facility] [address] [id number] [place] [address] Feb, [facility] [place] [facility] [address] [id number] [place] [address] Feb, [facility] [place] [facility] [address] [id number], [place] [address] Jan, [facility] [place] [facility] [address] [id number] [place] [address] Jan, [facility] [place] [facility] [address] [id number] [place] [address] Dec, [facility] [place] [facility] [address] [id number] [place] [address] Dec, [facility] [place] [facility] [address] [id number] [place] [address] 30 Dec, 2012 [facility] [place] [facility] [address] [id number] [place] [address] 30 Dec, 2012 [facility] [place] [facility] [address] [id number] [place] [address] 08 Dec, 2012 [facility] [place] [facility] [address] [id number] [place] [address] Dec, [facility] [place] [facility] [address] [id number] [place] [address] 10 Nov, 2012 [facility] [place] [facility] [address] [id number] [place] [address] Aug, [facility] [place] [facility] [address] [id number] [place] [address] Dec, [facility] [place] [facility] [address] [id number] [place] [address] Dec, [facility] [place] [facility] [address] [id number] [place] [address] Nov, [facility] [place] [facility] [address] [id number] [place] [address] Sep, [facility] [place] [facility] [address] [id number] [place] [address] Sep, [facility] [place] [facility] [address] [id number] [place] [address] Sep, [facility] [place] [facility] [address] [id number], [place] [address] Aug, [facility] [place] [facility] [address] [id number] [place] [address] Aug, [facility] [place] [facility] [address] [id number] [place] [address] Aug, [facility] [place] [facility] [address] [facility] [id number] [place] [address] Jun, [facility] [place] [facility] [address] [facility] [id number], [place] [address] Jun, [facility] [address] [facility] [id number], [place] [address] Jun, [facility] [address] [facility] [id number], [place] [address] May, [facility] [address] [facility] [id number], [place] [address] May, [facility] [address] [facility] [id number], [place] [address] May, [facility] [address] [facility] [id number], [place] [address] Feb, [facility] [address] [facility] [id number], [place] [address] Feb, [facility] [address] [address] Jan, [facility] [address], [place] [address] Jan, [facility] [address], [place] [address] Jan, [facility] [address], [place] [address] Jan, [facility] [address], [place] [address] Jan, [facility] [address] [facility] [id number], [place] [address] Jan, [facility] [address], [place] [address] Jan, [facility] [address] [facility] [id number], [place] [address] Jan, IMMUNIZATIONS No Known Immunizations SOCIAL HISTORY Never Assessed REASON FOR VISIT Medication refill request PLAN OF CARE VITAL SIGNS MEDICATIONS Unknown [...]
--- OUTSIDE RECORDS SUMMARY | 2022-11-24 15:51 | XMS REPORT ---
Author Author Melanie REYNOLDS [place] Organization [facility] Address [address] [place] [address] Care Team Providers Care Director Of Epidemiology Name Role Phone RAIMUNDO REYNOLDS Unavailable PROBLEMS Type Condition ICD9-CM Code BKQ13-OR Code Onset Dates Condition Status SNOMED Code Problem Type 2 diabetes mellitus with hyperglycemia E11.65 Active 466929863 Problem Hyperlipidemia E78.5 Active 52219452 Problem Essential hypertension I10 Active 78947611 Problem Coronary artery disease involving [place] coronary artery of [place] heart without angina pectoris I25.10 Active [id number] 7 ALLERGIES No Information SOCIAL HISTORY Never Assessed PLAN OF CARE VITAL SIGNS MEDICATIONS Medication Instructions Dosage Frequency Start Date End Date Du ration Status Levemir Flexpen 100 UNIT/ML subcutaneous 2 times a day 20 units 12h Mar, 30 days Active Victoza 18 MG/3ML Subcutaneous Once a day 1.8 mg 24h Jun, Active RESULTS No Results PROCEDURES No Known procedures IMMUNIZATIONS No Known Immunizations MEDICAL (GENERAL) HISTORY Type Description Date Medical History type II diabetes Medical History hyperlipidemia Medical History hypertension Medical History coronary artery disease Surgical History partial hysterectomy d/t fibroi ds - still has ovaries 1995 Surgical History section x 2 Surgical History cardiac stent 2006 Hospitalization History Myocardial infarction 06 09
--- OUTSIDE RECORDS SUMMARY | 2022-11-24 15:51 | XMS REPORT ---
Author Author Melanie REYNOLDS [facility] Address [address] [place] [address] Care Team Providers Care Hand Mixer Name Role Phone GAIL RAIMUNDO Unavailable PROBLEMS Type Condition ICD9-CM Code [id number] Code Onset Dates Condition Status SNOMED Code Problem Type 2 diabetes mellitus with hyperglycemia E11.65 Active 657464646 Problem Hyperlipidemia E78.5 Active 16469689 Problem Essential hypertension I10 Active 67666424 Problem Coronary artery disease involving [place] coronary artery of [place] heart without angina pectoris I25.10 Active [id number] 7 ALLERGIES No Information ENCOUNTERS Encounter Location Date Diagnosis [facility] [id number] [place] [address] May, [facility] [id number] [place] [address] May, Hyperlipidemia E78.5 [facility] [place] [id number] [place] [address] May, Type 2 diabetes mellitus with hyperglycemia E11.65 ; Essential hypertension I10 ; Hyperlipidemia E78.5 and Breast cancer screening Z12.31 [facility] [id number] [place] [address] May, Type 2 diabetes mellitus with hyperglycemia E11.65 [facility] [id number] [place] [address] Apr, Type 2 diabetes mellitus with hyperglycemia E11.65 [facility] [place] [id number] [place] [address] Jan, [place] [id number] [place] [address] Jan, [facility] [address], [place] [address] Jan, [facility] [id number] [place] [address] Sep, Essential hypertension I10 [facility] [id number], [place] [address] Aug, Type 2 diabetes mellitus with hyperglycemia E11.65 [facility] [id number] [place] [address] Aug, [facility] [id number] [place] [address] Aug, Type 2 diabetes mellitus with hyperglycemia E11.65 ; Hyperlipidemia E78.5 ; Colon cancer screening Z12.11 ; Essential hypertension I10 and Encounter for immunization Z23 [facility] [id number] [place] [address] July, Type 2 diabetes mellitus with hyperglycemia E11.65 [facility] [id number] [place] [address] July, Type 2 diabetes mellitus with hyperglycemia E11.65 [facility] [address], [place] [address] Jun, [facility] [address], [place] [address] May, Essential hypertension I10 [facility] [address], [place] [address] May, [facility] [address], [place] [address] Apr, Acute non-recurrent frontal sinusitis J01.10 [facility] [address], [place] [address] Apr, Essential hypertension I10 [facility] [address], [place] [address] Apr, [facility] [place] [address], [place] [address] 30 Mar, 2016 Type 2 diabetes mellitus with hyperglycemia E11.65 [facility] [address], [place] [address] 30 Mar, 2016 [facility] [address], [place] [address] 15 Feb, 2016 Essential hypertension I10 [facility] [id number] [place] [address] Feb, [facility] [id number] [address] Feb, Type 2 diabetes mellitus with hyperglycemia E11.65 ; Essential hypertension I10 and Hyperlipidemia E78.5 [facility] [address], [place] [address] Jan, [facility] [id number] [address] Dec, [facility] [address], [place] [address] Dec, [facility] [address], [place] [address] Oct, [facility] [address], [place] [address] Aug, [facility] [address], [place] [address] 15 Aug, 2015 Hyperlipidemia E78.5 [facility] [id number] [address] 14 Aug, 2015 Type 2 diabetes mellitus with hyperglycemia E11.65 ; Hyperlipidemia E78.5 and Essential hypertension I10 [facility] [address], [place] [address] Aug, [facility] [address], [place] [address] Jun, [facility] [id number] [address] Jun, [facility] [address], [place] [address] Jun, [facility] [address], [place] [address] Apr, [facility] [address], [place] [address] Apr, [facility] [address], [place] [address] Mar, Hyperlipidemia E78.5 [facility] [address], [place] [address] Mar, Type 2 diabetes mellitus with hyperglycemia E11.65 ; Hyperlipidemia E78.5 and Essential hypertension I10 [facility] [address], [place] [address] Mar, [facility] [address], [place] [address] Nov, [facility] [address], [place] [address] Nov, [facility] [address], [place] [address] Sep, Hyperlipidemia 272.4 [facility] [address], [place] [address] Sep, [facility] [id number], [place] [address] Sep, Diabetes mellitus, type II 250.00 ; Hypertension 401.9 and Hyperlipidemia 272.4 [facility] [id number], [place] [address] Sep, [facility] [address], [place] [address] Sep, [facility] [place] [facility] [address] [id number] [place] [address] 08 Sep, 2014 [facility] [place] [facility] [address] [id number] [place] [address] Jun, [facility] [place] [facility] [address] [id number] [place] [address] Jun, [facility] [place] [facility] [address] [id number] [place] [address] Apr, [facility] [place] [facility] [address] [id number] [place] [address] Apr, [facility] [place] [facility] [address] [id number] [place] [address] Mar, [facility] [place] [facility] [address] [id number] [place] [address] Mar, [facility] [place] [facility] [address] [id number] [place] [address] Mar, [facility] [place] [facility] [address] [id number] [place] [address] Mar, [facility] [place] [facility] [address] [id number] [place] [address] Feb, [facility] [place] [facility] [address] [id number] [place] [address] Feb, [facility] [place] [facility] [address] [id number] [place] [address] Jan, [facility] [place] [facility] [address] [id number] [place] [address] Jan, [facility] [place] [facility] [address] [id number] [place] [address] Jan, [facility] [place] [facility] [address] [id number] [place] [address] Jan, [facility] [place] [facility] [address] [id number] [place] [address] Sep, [facility] [place] [facility] [address] [id number] [place] [address] Sep, [facility] [place] [facility] [address] [id number] [place] [address] Sep, [facility] [place] [facility] [address] [id number] [place] [address] Sep, [facility] [place] [facility] [address] [id number] [place] [address] Sep, [facility] [place] [facility] [address] [id number] [place] [address] Sep, [facility] [place] [facility] [address] [id number] [place] [address] Aug, [facility] [place] [facility] [address] [id number] [place] [address] Aug, [facility] [place] [facility] [address] [id number] [place] [address] Aug, [facility] [place] [facility] [address] [id number] [place] [address] Aug, [facility] [place] [facility] [address] [id number] [place] [address] Apr, [facility] [place] [facility] [address] [id number] [place] [address] Apr, [facility] [place] [facility] [address] [id number] [place] [address] Mar, [facility] [place] [facility] [address] [id number] [place] [address] Mar, [facility] [place] [facility] [address] [id number] [place] [address] Mar, [facility] [place] [facility] [address] [id number] [place] [address] Mar, [facility] [place] [facility] [address] [id number] [place] [address] Feb, 2012 [facility] [place] [facility] [address] [id number] [place] [address] Feb, 2012 [facility] [place] [facility] [address] [id number] [place] [address] Feb, 2012 [facility] [place] [facility] [address] [id number] [place] [address] Feb, 2012 [facility] [place] [facility] [address] [id number] [place] [address] Feb, [facility] [place] [facility] [address] [id number] [place] [address] Feb, [facility] [place] [facility] [address] [id number] [place] [address] Feb, [facility] [place] [facility] [address] [id number] [place] [address] Feb, [facility] [place] [facility] [address] [id number] [place] [address] Jan, [facility] [place] [facility] [address] [id number] [place] [address] Jan, [facility] [place] [facility] [address] [id number] [place] [address] Dec, [facility] [place] [facility] [address] [id number] [place] [address] Dec, [facility] [place] [facility] [address] [id number] [place] [address] Dec, [facility] [place] [facility] [address] [id number] [place] [address] Dec, [facility] [place] [facility] [address] [id number] [place] [address] Dec, [facility] [place] [facility] [address] [id number] [place] [address] Dec, [facility] [place] [facility] [address] [id number] [place] [address] 10 Nov, 2012 [facility] [place] [facility] [address] [id number] [place] [address] Aug, [facility] [place] [facility] [address] [id number] [place] [address] Dec, [facility] [place] [facility] [address] [id number] [place] [address] Dec, [facility] [place] [facility] [address] [id number] [place] [address] Nov, [facility] [place] [facility] [address] [id number] [place] [address] Sep, [facility] [place] [facility] [address] [id number] [place] [address] Sep, [facility] [place] [facility] [address] [id number] [place] [address] Sep, [facility] [place] [facility] [address] [id number] [place] [address] Aug, [facility] [place] [facility] [address] [id number] [place] [address] Aug, [facility] [place] [facility] [address] [id number], [place] [address] Aug, [facility] [place] [facility] [address] [id number], [place] [address] Jun, [facility] [place] [facility] [address] [id number] [place] [address] Jun, [facility] [place] [facility] [address] [id number], [place] [address] Jun, [facility] [place] [facility] [address] [id number] [place] [address] May, [facility] [place] [facility] [address], [place] [address] May, [facility] [address], [place] [address] May, [facility] [address], [place] [address] Feb, [facility] [address], [place] [address] Feb, [facility] [address], [place] [address] Jan, [facility] [id number] [place] [address] Jan, [facility] [address], [place] [address] Jan, [facility] [address], [place] [address] Jan, [facility] [address], [place] [address] Jan, [facility] [address], [place] [address] Jan, [facility] [address], [place] [address] Jan, [facility] [address], [place] [address] Jan, IMMUNIZATIONS No Known Immunizations SOCIAL HISTORY Never Assessed REASON FOR VISIT med refills PLAN OF CARE VITAL SIGNS MEDICATIONS Medication [...]
--- OUTSIDE RECORDS SUMMARY | 2022-11-24 15:52 | XMS REPORT ---
Author Author Melanie REYNOLDS [place] Organization [employer] Address Unknown Phone Unavailable Care Team Providers Care Gang Hemstitching Machine Operator Name Role Phone RAIMUNDO REYNOLDS CP Unavailable Allergies No Known Allergies Problems Problem Type Condition Code Onset Dates Condition S tatus Problem Essential hypertension I10 Ac tive Problem Coronary artery dise ase involving [place] coronary artery of [place] heart without angina pectoris I25.10 Active Problem Type 2 diabetes amrit itus with hyperglycemia E11.65 Active Problem Hyperlipidemia E78.5 Active Medications Medication Code System Code Instructions Start Date End Date Status Dosage Liraglutide [facility] [address] -12 0.6 mg/0.1 mL (18 mg/3 mL) Subcutaneous Once a day Feb 21, 2014 1.2 Mg Results No Known Results Summary Purpose [employer] Submission
--- OUTSIDE RECORDS SUMMARY | 2022-11-24 15:52 | XMS REPORT ---
Author Author Melanie REYNOLDS [facility] Address [address] [place] [address] Care Team Providers Care Decontaminator Name Role Phone RAIMUNDO REYNOLDS Unavailable PROBLEMS Type Condition ICD9-CM Code [id number] Code Onset Dates Condition Status SNOMED Code Problem Type 2 diabetes mellitus with hyperglycemia E11.65 Active 994881018 Problem Essential hypertension I10 Active 56555343 Problem Coronary artery disease involving [place] coronary artery of [place] heart without angina pectoris I25.10 Active 825194758225 7 Problem Hyperlipidemia E78.5 Active 88502411 ALLERGIES Unknown Allergies SOCIAL HISTORY No smoking Hx information available PLAN OF CARE VITAL SIGNS MEDICATIONS Unknown Medications RESULTS No Results PROCEDURES No Known procedures IMMUNIZATIONS No Known Immunizations
--- OUTSIDE RECORDS SUMMARY | 2022-11-24 15:52 | XMS REPORT ---
Author Author Melanie REYNOLDS [place] Organization [employer] Address Unknown Phone Unavailable Care Team Providers Care Clarity Developer Name Role Phone RAIMUNDO REYNOLDS CP Unavailable Allergies No Known Allergies Problems Problem Type Condition Code Onset Dates Condition S tatus Problem Essential hypertension I10 Ac tive Problem Coronary artery dise ase involving [place] coronary artery of [place] heart without angina pectoris I25.10 Active Problem Type 2 diabetes amrit itus with hyperglycemia E11.65 Active Problem Hyperlipidemia E78.5 Active Medications No Known Medications Results No Known Results Summary Purpose [employer] Submission
--- OUTSIDE RECORDS SUMMARY | 2022-11-24 15:52 | XMS REPORT ---
Author Author Mealnie REYNOLDS [place] Organization [employer] Address Unknown Phone Unavailable Care Team Providers Care Cork Cutter Name Role Phone RAIMUNDO REYNOLDS CP Unavailable Allergies No Known Allergies Problems Problem Type Condition ICD-9 Code Onset Dates Condition S tatus Problem Hypertension 401.9 Active Problem Coronary artery disease 414.00 A ctive Problem Diabetes mellitus, type II 250.00 Active Problem Hyperlipidemia 272.4 Active Problem Proteinuria 791.0 Active Medications Medication Code System Code Instructions Start Date End Date Status Dosage Levemir Flexpen [facility] [address]-10 100 UNIT/ML subcutaneous 2 times a day Mar 25, 2014 10 units Results No Known Results Summary Purpose [employer] Submission
--- OUTSIDE RECORDS SUMMARY | 2022-11-24 15:52 | XMS REPORT ---
Author Author Melanie REYNOLDS [facility] Address [address] [place] [address] Care Team Providers Care Winter Sports Manager Name Role Phone RAIMUNDO REYNOLDS Unavailable PROBLEMS Type Condition ICD9-CM Code ONV26-QW Code Onset Dates Condition Status SNOMED Code Problem Type 2 diabetes mellitus with hyperglycemia E11.65 Active 566874644 Problem Hyperlipidemia E78.5 Active 67374721 Problem Essential hypertension I10 Active 72062993 Problem Coronary artery disease involving [place] coronary artery of [place] heart without angina pectoris I25.10 Active 279492358596 7 ALLERGIES No Information SOCIAL HISTORY Never Assessed PLAN OF CARE VITAL SIGNS MEDICATIONS Unknown [...]
[2022-11-24 16:35] VITALS: BP 112/73
[2022-11-24] MEDS ORDERED: MELATONIN 3 MG TABLET PO PRN (17:00)
[2022-11-24] MEDS ORDERED: CALCIUM CARBONATE 500 MG CHEW TABLET PO PRN (17:00)
[2022-11-24] MEDS ORDERED: MILK OF MAGNESIA 400 MG/5 ML 30 ML UDC PO PRN (17:00)
[2022-11-24] MEDS ORDERED: NS IV 500 ML 500 ML IV PRN (17:00)
[2022-11-24] MEDS ORDERED: ACETAMINOPHEN 500 MG TABLET PO PRN (17:00)
[2022-11-24] MEDS ORDERED: NS IV 1000 ML 1,000 ML IV SCH (17:00)
[2022-11-24] MEDS ORDERED: ONDANSETRON 4 MG ORAL DISSOLVE TABLET PO PRN (17:00)
[2022-11-24] MEDS ORDERED: LACTULOSE SYRUP 10GM/15ML 30ML UDC PO PRN (17:00)
[2022-11-24] MEDS ORDERED: ANTACID SUSPENSION 30 ML UDC PO PRN (17:00)
[2022-11-24] MEDS ORDERED: PHARMACY TO DOSE SQ SCH (17:00)
[2022-11-24] MEDS ORDERED: BISACODYL 10 MG SUPPOSITORY PR PRN (17:00)
[2022-11-24] MEDS ORDERED: ONDANSETRON INJECTION 4 MG/2 ML (SDV) IV PRN (17:00)
[2022-11-24 17:10] VITALS: BP 112/73
[2022-11-24] MEDS ORDERED: POTA-177 PO (17:13)
[2022-11-24] MEDS ORDERED: INSU100V5 SQ (17:13)
[2022-11-24] MEDS ORDERED: FURO20TA4 PO (17:13)
[2022-11-24] MEDS ORDERED: RT-ALBUTEROL SULF 2.5 MG/3 ML PRE-MIX VIAL INH PRN (17:15)
[2022-11-24] MEDS: ENOXAPARIN 40 MG/0.4 ML SYRINGE SC SCH (18:13)
[2022-11-24 18:34] LABS: BASOPHILS # (AUTO) 0.1 10^3/uL (0.0-0.1); BASOPHILS % (AUTO) 1 % (0-10); EOSINOPHILS # (AUTO) 0.1 10^3/uL (0.0-0.3); EOSINOPHILS % (AUTO) 1 % (0-10); HEMATOCRIT 39 % (35-52); HEMOGLOBIN 13.3 g/dL (11.5-16.0); LYMPHOCYTES # (AUTO) 0.7 10^3/uL (1.0-4.0); LYMPHOCYTES % (AUTO) 9 % (12-44); MEAN CORPUSCULAR HEMOGLOBIN 32 pg (25-34); MEAN CORPUSCULAR HGB CONC 34 g/dL (32-36); MEAN CORPUSCULAR VOLUME 93 fL (80-99); MEAN PLATELET VOLUME 10.2 fL (9.0-12.2); MONOCYTES # (AUTO) 0.7 10^3/uL (0.0-1.0); MONOCYTES % (AUTO) 9 % (0-12); NEUTROPHILS % (AUTO) 79 % (42-75); PLATELET COUNT 223 10^3/uL (130-400); WHITE BLOOD COUNT 7.5 10^3/uL (4.3-11.0)
[2022-11-24 18:46] LABS: INR 0.9 (0.8-1.4); PROTHROMBIN TIME PATIENT 11.9 SEC (12.2-14.7)
[2022-11-24 18:47] LABS: ALBUMIN 3.8 GM/DL (3.2-4.5); POTASSIUM 3.9 MMOL/L (3.6-5.0)
[2022-11-24 18:49] LABS: TOTAL PROTEIN 6.4 GM/DL (6.4-8.2)
[2022-11-24 18:51] LABS: BILIRUBIN,TOTAL 0.5 MG/DL (0.1-1.0)
[2022-11-24 18:53] LABS: CREATININE SERUM 1.94 MG/DL (0.60-1.30)
[2022-11-24 19:23] LABS: CALCIUM 13.3 MG/DL (8.5-10.1)
[2022-11-24 19:24] LABS: MAGNESIUM 1.1 MG/DL (1.6-2.4)
[2022-11-24 19:30] VITALS: BP 124/74
[2022-11-24] MEDS: carvediloL 3.125 MG TABLET PO SCH (20:29)
[2022-11-24] MEDS: inSUlin ASPART 1 UNIT/0.01 ML (PER UNIT) SC SCH (20:29)
[2022-11-24] MEDS: MAGNESIUM 1 GM/100 ML IVPB 100 ML IV SCH ×2 (20:30→21:28)
[2022-11-24] MEDS: NS IV 1000 ML 1,000 ML IV SCH ×3 (20:30→23:43)
[2022-11-24 21:26] LABS: BACTERIA,URINE FEW /HPF; BILIRUBIN,URINE NEGATIVE (NEGATIVE); CLARITY,URINE CLEAR; COLOR,URINE YELLOW; GLUCOSE, URINE (UA) NEGATIVE (NEGATIVE); KETONES,URINE NEGATIVE (NEGATIVE); LEUKOCYTE ESTERASE ,URINE TRACE (NEGATIVE); NITRITE,URINE NEGATIVE (NEGATIVE); PROTEIN,URINE NEGATIVE (NEGATIVE)
[2022-11-24] MEDS: ACETAMINOPHEN 325 MG TABLET PO PRN (22:23)
[2022-11-24 23:44] VITALS: BP 138/80
[2022-11-25] MEDS: ACETAMINOPHEN 325 MG TABLET PO PRN ×2 (02:56→21:09)
[2022-11-25] MEDS: NS IV 1000 ML 1,000 ML IV SCH ×4 (02:56→21:10)
[2022-11-25 03:32] VITALS: BP 150/89
[2022-11-25 06:07] LABS: HEMATOCRIT 33 % (35-52); HEMOGLOBIN 11.1 g/dL (11.5-16.0); MEAN CORPUSCULAR HEMOGLOBIN 31 pg (25-34); MEAN CORPUSCULAR HGB CONC 34 g/dL (32-36); MEAN CORPUSCULAR VOLUME 93 fL (80-99); MEAN PLATELET VOLUME 10.5 fL (9.0-12.2); PLATELET COUNT 194 10^3/uL (130-400); WHITE BLOOD COUNT 5.9 10^3/uL (4.3-11.0)
[2022-11-25 06:22] LABS: ALBUMIN 3.1 GM/DL (3.2-4.5); POTASSIUM 3.5 MMOL/L (3.6-5.0)
[2022-11-25] MEDS: POTASSIUM CL 10MEQ/50ML IVPB 50 ML IV SCH (06:24)
[2022-11-25 06:25] LABS: TOTAL PROTEIN 5.1 GM/DL (6.4-8.2)
[2022-11-25] MEDS: POTASSIUM BICARB 20 MEQ effervescent TABLET PO SCH (06:25)
[2022-11-25] MEDS: POTASSIUM CHLORIDE 20 MEQ TABLET PO SCH (06:25)
[2022-11-25 06:26] LABS: BILIRUBIN,TOTAL 0.4 MG/DL (0.1-1.0)
[2022-11-25] MEDS: inSUlin ASPART 1 UNIT/0.01 ML (PER UNIT) SC SCH ×4 (06:27→21:10)
[2022-11-25 06:28] LABS: CREATININE SERUM 1.4 MG/DL (0.60-1.30); PHOSPHORUS 1.9 MG/DL (2.3-4.7)
[2022-11-25 06:31] LABS: MAGNESIUM 1.4 MG/DL (1.6-2.4)
[2022-11-25] MEDS: MAGNESIUM 1 GM/100 ML IVPB 100 ML IV SCH ×7 (06:45→12:31)
[2022-11-25] MEDS: LEVOTHYROXINE 25 MCG TABLET PO SCH (06:57)
[2022-11-25] MEDS ORDERED: MAGNESIUM 1 GM/100 ML IVPB 100 ML IV SCH (07:00)
[2022-11-25 07:37] VITALS: BP 144/80
[2022-11-25] MEDS: carvediloL 3.125 MG TABLET PO SCH ×2 (08:02→21:00)
[2022-11-25] MEDS ORDERED: POTASSIUM CHLORIDE 20 MEQ TABLET PO ONE (09:00)
[2022-11-25] MEDS ORDERED: NS 100 ML (IVPB) BAG IV ONE (09:45)
[2022-11-25] MEDS ORDERED: HOLD METFORMIN - RECEIVED CONTRAST 20 ML VIAL IV SCH (09:45)
[2022-11-25] MEDS ORDERED: IOHEXOL 350 MG/ML 100 ML (OMNIPAQUE 350) VIAL IV ONE (09:45)
--- NOTE | 2022-11-25 10:26 | Diagnostic Imaging Report ---
EXAMINATION: CT chest, abdomen and pelvis with intravenous contrast. TECHNIQUE: Multiple contiguous axial images were obtained through the chest, abdomen and pelvis after the uneventful administration of intravenous contrast. All CT scans use one or more of the following dose optimizing techniques: automated exposure control, MA and/or KvP adjustment based on patient size and exam type or iterative reconstruction. HISTORY: Elevated blood pressure, abnormal labs COMPARISON: None available. FINDINGS: There is no edema or pneumonia. No pleural effusion. No pneumothorax. There is a 4 mm right upper lobe nodule. There are perilymphatic nodules in the right middle lobe and right lower lobe. There are several additional discrete nodules measuring up to 8 mm in the right middle lobe. There is peribronchovascular thickening of both lungs. There is no axillary or supraclavicular lymphadenopathy. There is mediastinal lymphadenopathy. Right lower paratracheal lymph nodes measure up to 1.2 cm. A right hilar lymph node measures 1.1 cm and a left hilar lymph node measures 1.0 cm. There are enlarged para-aortic lymph nodes. Heart size is normal. There are mild coronary artery calcifications. There is a trace pericardial effusion. Aorta is normal in caliber. There are vague tiny low attenuating lesions throughout the liver. They measure 5 mm and smaller. There is no biliary ductal dilation. Gallbladder is normal. Pancreas is normal. There are rounded low attenuating lesions throughout the spleen measuring up to 15 mm. Adrenal glands are normal. There is a cyst in the right kidney. No suspicious renal lesion. There is no hydronephrosis. Urinary bladder is normal. Bowel is normal in caliber without obstruction or inflammation. No free fluid or air. No abdominal or pelvic lymphadenopathy. Aorta is normal in caliber without aneurysm. There are no suspicious osseus lesions. IMPRESSION: 1. Peribronchial vascular thickening with perilymphatic nodules, mediastinal lymphadenopathy and low attenuating lesions throughout the liver and spleen. Pattern of disease is most suggestive of sarcoidosis. Granulomatous infectious process such as a fungal or mycobacterial organism is the next differential. Malignancy is possible but felt to be significantly less likely. Dictated by: Dictated on workstation # [id number]
--- NOTE | 2022-11-25 10:51 | Physical Therapy Evaluation ---
PT Evaluation-General Medical Diagnosis Admission Date Nov 24, 2022 at 15:45 Medical Diagnosis: hypercalemia Onset Date: Nov 24, 2022 Therapy Diagnosis Therapy Diagnosis: debility Precautions Precautions/Isolations: Standard Precautions Weight Bear Status Right Lower Extremity: Right Full Weight Bearing Left Lower Extremity: Left Full Weight Bearing Referral Physician: Pauly Reason for Referral: Evaluation/Treatment Medical History Pertinent Medical History: DM, HTN Current History direct admit from physician's office due to AMS Reviewed History: Yes Social History Home: Single Level Current Living Status: Alone Entry Into Home: Stairs Without Railing PT Steps Into Home: 2 Prior Prior Level of Function SCALE: Activities may be completed with or without assistive devices. 1-Gxdyxmrgze-mhfrdii completes the activity by him/herself with no assistance from a helper. 5-Set-up or Clean-up Assistance-helper sets up or cleans up; patient completes activity. [place] assists only prior to or following the activity. 4-Supervision or Touching Assistance-helper provides verbal cues and/or touching/steadying and/or contact guard assistance as patient completes activi ty. Assistance may be provided throughout the activity or intermittently. 3-Partial/Moderate Assistance-helper does LESS THAN HALF the effort. [place] lifts, holds or supports trunk or limbs, but provides less than half the effort. 2-Substantial/Maximal Assistance-helper does MORE THAN HALF the effort. [place] lifts or holds trunk or limbs and provides more than half the effort. 6-Cwefmsbey-ltulvq does ALL the effort. Patient does none of the effort to complete the activity. Or, the assistance of 2 or more helpers is required for the patient to complete the activity. If activity was not attempted, code reason: 7-Patient Refused. 9-Not Applicable-not attempted and the patient did not perform the activity before the current illness, exacerbation or injury. 10-Not Attempted due to Environmental Limitations-(lack of equipment, weather restraints, etc.). 88-Not Attempted due to Medical Conditions or Safety Concerns. Bed Mobility: 6 Transfers (B,C,W/C): 6 Gait: 6 Stairs: 6 Indoor Mobility (Ambulation): Independent Stairs: Independent Prior Devices Use: None PT Evaluation-Current Subjective Patient agrees to therapy. Objective Patient Orientation: Normal For Age Attachments: IV ROM/Strength ROM Lower Extremities bilateral LE WFL Strength Lower Extremities 4/5 grossly bilateral LE all planes Integumentary/Posture Bowel Incontinence: No Bladder Incontinence: No Posture WFL Neuromuscular (Tone, Coordination, Reflexes) grossly intact Sensory Vision: Functional Hearing: Functional Transfers Sit to Lying (QC): 6 Lying to Sitting/Side of Bed(Q: 6 Sit to Stand (QC): 6 Gait Mode of Locomotion: Walk Anticipated Mode of Locomotion: Walk Walk 10 feet (QC): 6 Walk 50 ft with 2 Turns(QC): 6 Walk 150 ft (QC): 6 Distance: 400' Gait Assistive Device: None Comments/Gait Description safe and functional with no deviation Balance Sitting Static: Normal Sitting Dynamic: Normal Standing Static: Normal Standing Dynamic: Normal Assessment/Needs Patient is currently at independent OF with all gross motor skills and does not require skilled PT intervention at this time. Rehab Potential: Fair PT Plan Treatment/Plan Treatment Plan: Discontinue PT Treatment Duration: Nov 25, 2022 Frequency: 1 time per week Estimated Hrs Per Day: .25 hour per day Patient and/or Family Agrees t: Yes Time Time In: 1022 Time Out: 1032 DATE: Nov 25, 2022 Total Billed Treatment Time: 10 Total Billed Treatment 1 visit [facility] 10 min DALE GARCIA PT Nov 25, 2022 10:51
[2022-11-25 11:14] VITALS: BP 130/73
--- NOTE | 2022-11-25 11:15 | Occupational Therapy Eval ---
OT Evaluation-General/PLF Medical Diagnosis Admission Date Nov 24, 2022 at 15:45 Medical Diagnosis: hypercalemia Onset Date: Nov 24, 2022 Therapy Diagnosis Therapy Diagnosis: unsteady gait Precautions Precautions/Isolations: Standard Precautions Referral Physician: Pauly Referral Reason: Evaluation/Treatment Medical History Pertinent Medical History: DM, HTN Additional Medical History female with past medical history of insulin-dependent diabetes, hypertension, hypercalcemia who presented as a direct admission from Dr. Tang's office due to altered mental status and concerns for hypercalcemia. She was admitted to the hospital roughly 2 weeks ago and work-up was initiated for this. She reports she has had bone pain and nausea with some vomiting. Her daughter reports that she has been confused. Her outpatient work-up consisted of a PTH which was low vitamin D which was low and an PTH RP which was normal. Her calcium continues to rise and has been as high as 13. She also had an SPEP done which was reportedly normal. Per Dr. Tang her only abnormal lab was a mildly elevated alk phos. Current History CT performed this morning, no results at evaluation Social History Home: Single Level Current Living Status: Alone Entry Into Home: Stairs Without Railing Steps Into Home: 2 ADL-Prior Level of Function SCALE: Activities may be completed with or without assistive devices. 6-Aatpitrpqb-ovduaey completes the activity by him/herself with no assistance from a helper. 5-Set-up or Clean-up Assistance-helper sets up or cleans up; patient completes activity. [place] assists only prior to or following the activity. 4-Supervision or Touching Assistance-helper provides verbal cues and/or touching/steadying and/or contact guard assistance as patient completes activity. Assistance may be provided throughout the activity or intermittently. 3-Partial/Moderate Assistance-helper does LESS THAN HALF the effort. [place] lifts, holds or supports trunk or limbs, but provides less than half the effort. 2-Substantial/Maximal Assistance-helper does MORE THAN HALF the effort. [place] lifts or holds trunk or limbs and provides more than half the effort. 1-Wnwiqojrk-bggaks does ALL the effort. Patient does none of the effort to complete the activity. Or, the assistance of 2 or more helpers is required for the patient to complete the activity. If activity was not attempted, code reason: 7-Patient Refused. 9-Not Applicable-not attempted and the patient did not perform the activity before the current illness, exacerbation or injury. 10-Not Attempted due to Environmental Limitations-(lack of equipment, weather restraints, etc.). 88-Not Attempted due to Medical Conditions or Safety Concerns. Self Care: Independent Functional Cognition: Independent Drive Self: Yes OT Current Status Subjective Fully clothed, agreeable to participate in evaluation Mental Status/Objective Patient Orientation: Person, Place, Time, Situation Attachments: IV, Telemetry Current Glasses/Contacts: Yes Hearing Aids: No Dentures/Partials: No Hand Dominance: Right Upper Extremity ROM BUE ROM WFLS Upper Extremity Coordination INTACT Upper Extremity Sensation INTACT Upper Extremity Strength 4/5 grossly ADL-Treatment Eating (QC): 6 Oral Hygiene (QC): 6 Shower/Bathe Self (QC): 5 (suplies set up for patietn, requires assistance w/ IV port and telemetry lines) Upper Body Dressing (QC): 5 Lower Body Dressing (QC): 6 On/Off Footwear (QC): 6 Toileting Hygiene (QC): 6 Education OT Patient Education: Exercise program, Progress toward Goal/Update tx plan, Purpose of tx/functional activities, Reviewed precautions, Rehab process, Safety issues, Use of adapted equipment Teaching Recipient: Patient Teaching Methods: Demonstration, Discussion Response to Teaching: Return Demonstration OT Para Professional Goals Shelter Goals 1=Demonstrate adherence to instructed precautions during ADL tasks. 2=Patient will verbalize/demonstrate understanding of assistive devices/modifications for ADL. 3=Patient will improve strength/tolerance for activity to enable patient to perform ADL's. OT Education/Plan Problem List/Assessment Assessment: No Skilled OT Needs ID'd Discharge Recommendations Plan/Recommendations: Discontinue OT Treatment Plan/Plan of Care Patient would benefit from OT for education, treatment and training to promote independence in ADL's, mobility, safety and/or upper extremity function for ADL's. Plan of Care: OTHER (EVAL ONLY) Treatment Duration: Nov 25, 2022 Frequency: 1 time per week Estimated Hrs Per Day: .25 hour per day Agreement: Yes Rehab Potential: Good Time Start Time: 10:29 Stop Time: 10:41 DATE: Nov 25, 2022 Total Time Billed (hr/min): 12 Billed Treatment Time EVL 12 min TASHA LOZANO OT Nov 25, 2022 11:15
[2022-11-25] MEDS: inSUlin DETERMIR 1 UNIT/0.01 ML (CHARGE PER UNIT) SQ SCH ×2 (11:41→21:11)
[2022-11-25] MEDS ORDERED: predniSONE 20 MG TABLET PO NR (13:30)
--- NOTE | 2022-11-25 13:30 | Progress Note - Hospitalist ---
Subjective HPI/CC On Admission Date Seen by Provider: Nov 25, 2022 female with past medical history of insulin-dependent diabetes, hypertension, hypercalcemia who presented as a direct admission from Dr. Tang's office due to altered mental status and concerns for hypercalcemia. She was admitted to the hospital roughly 2 weeks ago and work-up was initiated for this. She reports she has had bone pain and nausea with some vomiting. Her daughter reports that she has been confused. Her outpatient work-up consisted of a PTH which was low vitamin D which was low and an PTH RP which was normal. Her calcium continues to rise and has been as high as 13. She also had an SPEP done which was reportedly normal. Per Dr. Tang her only abnormal lab was a mildly elevated alk phos. Subjective/Events-last exam Pt reports feeling much better today. Daughter at bedside and reports thinking is much clearer. Objective Exam Vital Signs Vital Signs Date Time Temp Pulse Resp B/P (MAP) Pulse Ox O2 Delivery O2 Flow Rate FiO2 11/26/22 07:53 36.1 60 16 148/75 (99) 99 Room Air 11/25/22 23:59 0.00 0.00 Capillary Refill : General Appearance: No Apparent Distress, WD/WN Respiratory: Lungs Clear, No Respiratory Distress Cardiovascular: Regular Rate, Rhythm, No Murmur Gastrointestinal: Normal Bowel Sounds, Soft Neurologic/Psychiatric: Alert, Oriented x3 Results/Procedures Lab Laboratory Tests 11/26/22 06:50 Patient resulted labs reviewed. Assessment/Plan Assessment and Plan Assess & Plan/Chief Complaint Hypercalcemia Hypomagnesemia Ca 13.5 yesterday- down to 11 now Outpatient workup started by Dr Tang PTH low and PTH rp normal Vitamin D normal Imaging concerning for sarcoidosis- will start on prednisone Spoke with Dr Tang IDDMII Continue home meds SSI Blood sugar was low yesterday evening but quite high this AM Resume insulin- pt reports labile blood sugars so will start lower than normal and titrate up CAD Continue home meds as able Diagnosis/Problems Diagnosis/Problems (1) CAD (coronary artery disease) (2) Essential (primary) hypertension (3) Insulin dependent diabetes mellitus (4) Hypercalcemia (5) Hypomagnesemia Status: Acute (6) Acute kidney injury Status: Acute HENNY MALHOTRA MD Nov 25, 2022 13:30
[2022-11-25 15:24] VITALS: BP 161/84
[2022-11-25] MEDS: ENOXAPARIN 40 MG/0.4 ML SYRINGE SC SCH (17:45)
[2022-11-25 20:05] VITALS: BP 146/76
[2022-11-25] MEDS: LinaGLIPtin 5 MG TABLET PO SCH (21:01)
[2022-11-25 23:59] VITALS: BP 132/75
[2022-11-26] MEDS: ACETAMINOPHEN 325 MG TABLET PO PRN ×3 (03:22→22:11)
[2022-11-26 04:18] VITALS: BP 158/67
[2022-11-26] MEDS: NS IV 1000 ML 1,000 ML IV SCH (05:42)
[2022-11-26] MEDS: inSUlin ASPART 1 UNIT/0.01 ML (PER UNIT) SC SCH ×4 (06:19→21:59)
[2022-11-26] MEDS: predniSONE 20 MG TABLET PO SCH (06:56)
[2022-11-26] MEDS: LEVOTHYROXINE 25 MCG TABLET PO SCH (06:56)
[2022-11-26 07:07] LABS: HEMATOCRIT 31 % (35-52); HEMOGLOBIN 10.2 g/dL (11.5-16.0); MEAN CORPUSCULAR HEMOGLOBIN 31 pg (25-34); MEAN CORPUSCULAR HGB CONC 33 g/dL (32-36); MEAN CORPUSCULAR VOLUME 94 fL (80-99); MEAN PLATELET VOLUME 10.4 fL (9.0-12.2); PLATELET COUNT 191 10^3/uL (130-400); WHITE BLOOD COUNT 6.4 10^3/uL (4.3-11.0)
[2022-11-26 07:35] LABS: ALBUMIN 3.2 GM/DL (3.2-4.5); BILIRUBIN,TOTAL 0.3 MG/DL (0.1-1.0); CALCIUM 9.6 MG/DL (8.5-10.1); CREATININE SERUM 1.22 MG/DL (0.60-1.30); MAGNESIUM 1.7 MG/DL (1.6-2.4); PHOSPHORUS 1.8 MG/DL (2.3-4.7); POTASSIUM 3.5 MMOL/L (3.6-5.0); TOTAL PROTEIN 5.5 GM/DL (6.4-8.2)
[2022-11-26 07:53] VITALS: BP 148/75
[2022-11-26] MEDS ORDERED: POTASSIUM PHOSPHATE INJ 15 MM in NS (IVPB) 250 ML 250 ML IV ONE (09:15)
[2022-11-26] MEDS: inSUlin DETERMIR 1 UNIT/0.01 ML (CHARGE PER UNIT) SQ SCH ×2 (09:35→22:00)
[2022-11-26] MEDS: carvediloL 3.125 MG TABLET PO SCH ×2 (09:35→21:59)
[2022-11-26] MEDS: POTASSIUM CHLORIDE 20 MEQ TABLET PO SCH (09:36)
[2022-11-26] MEDS: POTASSIUM CL 10MEQ/50ML IVPB 50 ML IV SCH (09:37)
[2022-11-26] MEDS: MAGNESIUM 1 GM/100 ML IVPB 100 ML IV SCH ×5 (09:38→15:43)
[2022-11-26] MEDS: POTASSIUM BICARB 20 MEQ effervescent TABLET PO SCH (09:48)
--- NOTE | 2022-11-26 10:19 | Progress Note - Hospitalist ---
Subjective HPI/CC On Admission Date Seen by Provider: Nov 26, 2022 female with past medical history of insulin-dependent diabetes, hypertension, hypercalcemia who presented as a direct admission from Dr. Tang's office due to altered mental status and concerns for hypercalcemia. She was admitted to the hospital roughly 2 weeks ago and work-up was initiated for this. She reports she has had bone pain and nausea with some vomiting. Her daughter reports that she has been confused. Her outpatient work-up consisted of a PTH which was low vitamin D which was low and an PTH RP which was normal. Her calcium continues to rise and has been as high as 13. She also had an SPEP done which was reportedly normal. Per Dr. Tang her only abnormal lab was a mildly elevated alk phos. Subjective/Events-last exam Pt reports feeling better today. Eating better. Thinking more clearly. Was up a lot overnight as her IV was beeping so hoping to get some rest today. Hopeful to go home tomorrow as she has animals to care for. Objective Exam Vital Signs Vital Signs Date Time Temp Pulse Resp B/P (MAP) Pulse Ox O2 Delivery O2 Flow Rate FiO2 11/26/22 07:53 36.1 60 16 148/75 (99) 99 Room Air 11/25/22 23:59 0.00 0.00 Capillary Refill : General Appearance: No Apparent Distress, WD/WN Respiratory: Lungs Clear, No Respiratory Distress Cardiovascular: Regular Rate, Rhythm, No Murmur Gastrointestinal: Normal Bowel Sounds, Soft Neurologic/Psychiatric: Alert, Oriented x3 Results/Procedures Lab Laboratory Tests 11/26/22 06:50 Patient resulted labs reviewed. Assessment/Plan Assessment and Plan Assess & Plan/Chief Complaint Hypercalcemia Hypomagnesemia Ca 13.5 on admission- down to 10.2 corrected today mag 1.7 this AM- replace per protocol Outpatient workup started by Dr Tang PTH low and PTH rp normal Vitamin D normal Imaging concerning for sarcoidosis- continue prednisone IDDMII Continue home meds SSI BS 227 fasting this AM Will increase Levemir some CAD HTN Continue home meds as able Continue home coreg DVTppx: Lovenox Diagnosis/Problems Diagnosis/Problems (1) CAD (coronary artery disease) (2) Essential (primary) hypertension (3) Insulin dependent diabetes mellitus (4) Hypercalcemia (5) Hypomagnesemia Status: Acute (6) Acute kidney injury Status: Acute HENNY MALHOTRA MD Nov 26, 2022 10:19
[2022-11-26 12:04] VITALS: BP 158/73
[2022-11-26 16:17] VITALS: BP 175/78
[2022-11-26] MEDS: ENOXAPARIN 40 MG/0.4 ML SYRINGE SC SCH (17:53)
[2022-11-26 20:45] VITALS: BP 189/85
[2022-11-26] MEDS: LinaGLIPtin 5 MG TABLET PO SCH (21:59)
[2022-11-26 23:41] VITALS: BP 145/76
[2022-11-27] VITALS (7 sets, daily range): BP systolic 145–196; BP diastolic 72–110
[2022-11-27] MEDS: inSUlin ASPART 1 UNIT/0.01 ML (PER UNIT) SC SCH ×4 (05:44→21:02)
[2022-11-27] MEDS: LEVOTHYROXINE 25 MCG TABLET PO SCH (06:27)
[2022-11-27] MEDS: predniSONE 20 MG TABLET PO SCH (06:27)
[2022-11-27 06:29] LABS: HEMATOCRIT 32 % (35-52); HEMOGLOBIN 10.4 g/dL (11.5-16.0); MEAN CORPUSCULAR HEMOGLOBIN 31 pg (25-34); MEAN CORPUSCULAR HGB CONC 33 g/dL (32-36); MEAN CORPUSCULAR VOLUME 93 fL (80-99); MEAN PLATELET VOLUME 10.4 fL (9.0-12.2); PLATELET COUNT 206 10^3/uL (130-400); WHITE BLOOD COUNT 6.8 10^3/uL (4.3-11.0)
[2022-11-27 06:34] LABS: ALBUMIN 3.1 GM/DL (3.2-4.5); BILIRUBIN,TOTAL 0.3 MG/DL (0.1-1.0); CALCIUM 10.5 MG/DL (8.5-10.1); CREATININE SERUM 1.1 MG/DL (0.60-1.30); MAGNESIUM 1.6 MG/DL (1.6-2.4); PHOSPHORUS 3.2 MG/DL (2.3-4.7); POTASSIUM 3.8 MMOL/L (3.6-5.0); TOTAL PROTEIN 5.3 GM/DL (6.4-8.2)
[2022-11-27] MEDS: POTASSIUM CL 10MEQ/50ML IVPB 50 ML IV SCH (07:30)
[2022-11-27] MEDS: POTASSIUM BICARB 20 MEQ effervescent TABLET PO SCH (07:30)
[2022-11-27] MEDS ORDERED: POTASSIUM CHLORIDE 20 MEQ TABLET PO ONE (07:30)
[2022-11-27] MEDS: MAGNESIUM 1 GM/100 ML IVPB 100 ML IV SCH ×5 (07:30→12:39)
[2022-11-27] MEDS: POTASSIUM CHLORIDE 20 MEQ TABLET PO SCH (07:30)
[2022-11-27] MEDS: inSUlin DETERMIR 1 UNIT/0.01 ML (CHARGE PER UNIT) SQ SCH ×2 (08:53→21:02)
[2022-11-27] MEDS: carvediloL 3.125 MG TABLET PO SCH ×3 (08:58→21:01)
--- NOTE | 2022-11-27 12:39 | Progress Note - Hospitalist ---
Subjective HPI/CC On Admission Date Seen by Provider: Nov 27, 2022 female with past medical history of insulin-dependent diabetes, hypertension, hypercalcemia who presented as a direct admission from Dr. Tang's office due to altered mental status and concerns for hypercalcemia. She was admitted to the hospital roughly 2 weeks ago and work-up was initiated for this. She reports she has had bone pain and nausea with some vomiting. Her daughter reports that she has been confused. Her outpatient work-up consisted of a PTH which was low vitamin D which was low and an PTH RP which was normal. Her calcium continues to rise and has been as high as 13. She also had an SPEP done which was reportedly normal. Per Dr. Tang her only abnormal lab was a mildly elevated alk phos. Subjective/Events-last exam Pt reports doing better today. No Complaints. Thinking more clearly. Discussed that calcium went up today. Objective Exam Vital Signs Vital Signs Date Time Temp Pulse Resp B/P (MAP) Pulse Ox O2 Delivery O2 Flow Rate FiO2 11/27/22 11:43 36.6 67 20 175/86 (115) 98 Room Air 11/27/22 11:32 21 11/27/22 11:30 0.00 Capillary Refill : General Appearance: No Apparent Distress, WD/WN Respiratory: Lungs Clear Cardiovascular: Regular Rate, Rhythm, No Murmur Gastrointestinal: Normal Bowel Sounds, Soft Neurologic/Psychiatric: Alert, Oriented x3 Results/Procedures Lab Laboratory Tests 11/27/22 06:00 Patient resulted labs reviewed. Assessment/Plan Assessment and Plan Assess & Plan/Chief Complaint Hypercalcemia Hypomagnesemia Ca 13.5 on admission- up slightly to 11.2 today- encouraged increase oral intake as did not drink much mag-replace per protocol Outpatient workup started by Dr Tang PTH low and PTH rp normal Vitamin D normal Imaging concerning for sarcoidosis- continue prednisone Was more confused yesterday but better today- will get MRI of Brain in AM IDDMII Continue home meds SSI BS 126 fasting this AM Continue Levemir CAD HTN Continue home meds as able Continue home coreg DVTppx: Lovenox Diagnosis/Problems Diagnosis/Problems (1) CAD (coronary artery disease) (2) Essential (primary) hypertension (3) Insulin dependent diabetes mellitus (4) Hypercalcemia (5) Hypomagnesemia Status: Acute (6) Acute kidney injury Status: Acute HENNY MALHOTRA MD Nov 27, 2022 12:39
[2022-11-27] MEDS: ENOXAPARIN 40 MG/0.4 ML SYRINGE SC SCH (17:15)
[2022-11-27] MEDS ORDERED: hydrALAZINE INJECTION 20 MG/ML VIAL IV PRN (18:30)
[2022-11-27] MEDS: LinaGLIPtin 5 MG TABLET PO SCH (21:01)
[2022-11-27] MEDS: ACETAMINOPHEN 325 MG TABLET PO PRN (23:42)
[2022-11-28 03:43] VITALS: BP 113/61
[2022-11-28 06:03] LABS: HEMATOCRIT 31 % (35-52); HEMOGLOBIN 10.6 g/dL (11.5-16.0); MEAN CORPUSCULAR HEMOGLOBIN 31 pg (25-34); MEAN CORPUSCULAR HGB CONC 34 g/dL (32-36); MEAN CORPUSCULAR VOLUME 93 fL (80-99); MEAN PLATELET VOLUME 10.3 fL (9.0-12.2); PLATELET COUNT 220 10^3/uL (130-400); WHITE BLOOD COUNT 6.5 10^3/uL (4.3-11.0)
[2022-11-28] MEDS: inSUlin ASPART 1 UNIT/0.01 ML (PER UNIT) SC SCH ×2 (06:03→13:19)
[2022-11-28 06:38] LABS: ALBUMIN 3.1 GM/DL (3.2-4.5); BILIRUBIN,TOTAL 0.3 MG/DL (0.1-1.0); CALCIUM 10.1 MG/DL (8.5-10.1); CREATININE SERUM 1.19 MG/DL (0.60-1.30); MAGNESIUM 1.6 MG/DL (1.6-2.4); PHOSPHORUS 3.2 MG/DL (2.3-4.7); POTASSIUM 3.4 MMOL/L (3.6-5.0); TOTAL PROTEIN 5.3 GM/DL (6.4-8.2)
[2022-11-28] MEDS: MAGNESIUM 1 GM/100 ML IVPB 100 ML IV SCH ×5 (06:42→11:40)
[2022-11-28] MEDS: POTASSIUM CL 10MEQ/50ML IVPB 50 ML IV SCH (06:42)
[2022-11-28] MEDS: POTASSIUM BICARB 20 MEQ effervescent TABLET PO SCH (06:42)
[2022-11-28] MEDS: POTASSIUM CHLORIDE 20 MEQ TABLET PO SCH (06:43)
[2022-11-28] MEDS: LEVOTHYROXINE 25 MCG TABLET PO SCH (06:48)
[2022-11-28] MEDS ORDERED: POTASSIUM CHLORIDE 20 MEQ TABLET PO NR (07:00)
[2022-11-28 07:45] VITALS: BP 150/67
[2022-11-28] MEDS: predniSONE 20 MG TABLET PO SCH (08:16)
[2022-11-28] MEDS: inSUlin DETERMIR 1 UNIT/0.01 ML (CHARGE PER UNIT) SQ SCH (08:16)
[2022-11-28] MEDS: carvediloL 3.125 MG TABLET PO SCH (10:22)
[2022-11-28] MEDS ORDERED: GADOTERATE 0.5 MMOL/ML (CLARISCAN) 15 ML VIAL IV ONE (11:00)
--- NOTE | 2022-11-28 11:30 | Diagnostic Imaging Report ---
PROCEDURE: MR imaging of the brain with and without contrast. TECHNIQUE: Multiplanar, multisequence MR imaging of the brain was performed with and without contrast. INDICATION: Weakness. Concern for neurosarcoidosis. COMPARISON: 11/04/2022. FINDINGS: No acute ischemia, mass, or hemorrhage. No abnormal enhancement. T2 hyperintense signal is seen in the periventricular and subcortical white matter. The ventricles and cortical sulci are prominent. The basilar cisterns are symmetric and unremarkable. The sellar and suprasellar regions have a normal appearance. The brainstem and posterior fossa are unremarkable. The paranasal sinuses and mastoid air cells demonstrate normal signal characteristics. The globes and orbits are symmetric and unremarkable. The scalp and calvarium have a normal appearance. IMPRESSION: 1. No acute ischemia, mass, or hemorrhage. No abnormal enhancement. 2. Parenchymal volume loss with chronic microvascular disease. Dictated by: Dictated on workstation # [id number]
[2022-11-28 11:33] VITALS: BP 187/88
[2022-11-28] MEDS ORDERED: PRD10T PO (15:09)
[2022-11-28 16:16] VITALS: BP 162/78
== END 2022-11-28 16:05 | disposition home or self-care (01) | DRG 641 ==
LOC: 4TH 15:45
PROVIDERS: ADMIT Internal Medicine; ATTEND Internal Medicine
DX: E83.52 Hypercalcemia (principal); N17.9 Acute kidney failure, unspecified; E11.9 Type 2 diabetes mellitus without complications; I25.10 Atherosclerotic heart disease of native coronary artery without angina pectoris; I10 Essential (primary) hypertension; Z79.4 Long term (current) use of insulin; E83.42 Hypomagnesemia
CPT/HCPCS: 36415; 70553; 71260; 74177; 80053; 81000; 82947; 83735; 84100; 85025; 85027; 85610; 87088; 94760

== ENCOUNTER → 2022-12-02 | Outpatient (CLI) | payer MEDICARE ==
[~2022-12-02] MED LIST changes: +FURO20TA4 PO; +POTA-177 PO; +PRD10T PO
--- NOTE | 2022-12-02 22:15 | Diagnostic Imaging Report ---
INDICATION: Routine screening. COMPARISON: No prior mammograms are available for comparison. This a baseline study. EXAMINATION: 2D and 3D bilateral screening mammography was performed with CAD. The current study was also evaluated with a Computer Aided Detection (CAD) system. FINDINGS: Scattered fibroglandular densities are identified, bilaterally. No mass or malignant-appearing microcalcifications are seen. There are occasional benign parenchymal and vascular calcifications. Axillae are unremarkable. IMPRESSION: No mammographic features suspicious for malignancy are identified. ACR BI-RADS Category 2: Benign findings. Result letter will be mailed to the patient. Note: At least 10% of breast cancer is not imaged by mammography. Dictated by: Dictated on workstation # [id number]
== END ==
LOC: RAD 10:54
PROVIDERS: ATTEND Internal Medicine
DX: Z12.31 Encounter for screening mammogram for malignant neoplasm of breast (principal)
CPT/HCPCS: 77063; 77067

== ENCOUNTER → 2022-12-22 | Outpatient (CLI) | payer MEDICARE ==
[~2022-12-22] VITALS: Wt 65.8 kg
[~2022-12-22] MED LIST changes: +NS IV 1000 ML 3,000 ML ONE; +PRED10TA22 PO
[2022-12-22 12:12] VITALS: BP 155/83
[2022-12-22] MEDS: NS IV 1000 ML 3,000 ML IV SCH ×2 (13:05→14:22)
== END ==
LOC: SDC 11:30
PROVIDERS: ATTEND Internal Medicine
DX: E83.52 Hypercalcemia (principal); E86.0 Dehydration
CPT/HCPCS: 96360; 96361

== ENCOUNTER 2023-02-07 07:22 | Emergency (ER) | payer MEDICARE ==
[~2023-02-07 07:22] MED LIST changes: -NS IV 1000 ML 3,000 ML ONE
[2023-02-07 07:42] LABS: BASOPHILS # (AUTO) 0.1 10^3/uL (0.0-0.1); BASOPHILS % (AUTO) 1 % (0-10); EOSINOPHILS # (AUTO) 0.1 10^3/uL (0.0-0.3); EOSINOPHILS % (AUTO) 1 % (0-10); HEMATOCRIT 41 % (35-52); HEMOGLOBIN 13.2 g/dL (11.5-16.0); LYMPHOCYTES # (AUTO) 0.7 10^3/uL (1.0-4.0); LYMPHOCYTES % (AUTO) 7 % (12-44); MEAN CORPUSCULAR HEMOGLOBIN 30 pg (25-34); MEAN CORPUSCULAR HGB CONC 32 g/dL (32-36); MEAN CORPUSCULAR VOLUME 92 fL (80-99); MONOCYTES # (AUTO) 0.7 10^3/uL (0.0-1.0); MONOCYTES % (AUTO) 7 % (0-12); NEUTROPHILS # (AUTO) 8.2 10^3/uL (1.8-7.8); NEUTROPHILS % (AUTO) 83 % (42-75); PLATELET COUNT 241 10^3/uL (130-400); WHITE BLOOD COUNT 9.8 10^3/uL (4.3-11.0)
[2023-02-07 07:50] LABS: BILIRUBIN,URINE NEGATIVE (NEGATIVE); CLARITY,URINE CLEAR; COLOR,URINE YELLOW; GLUCOSE, URINE (UA) NEGATIVE (NEGATIVE); KETONES,URINE NEGATIVE (NEGATIVE); LEUKOCYTE ESTERASE ,URINE NEGATIVE (NEGATIVE); NITRITE,URINE NEGATIVE (NEGATIVE); PROTEIN,URINE NEGATIVE (NEGATIVE)
--- NOTE | 2023-02-07 08:02 | ED General ---
General Chief Complaint: Glucose Problems Stated Complaint: LOW GLUCOSE Nursing Triage Note: EMS WAS CALLED FOR THE PT BEING UNRESPONSIVE AND CPR IN PROGRESS FROM HOME HEALTH. UPON EMS ARRIVAL THE PT HAD A BLOOD SUGAR OF 39 AND WAS IMMEDIATELY GIVEN AN AMP OF D50. PT SLOWLY CAME AROUND AND WAS BREATHING ON HER OWN AND HAD A PULSE SO CPR WAS STOPPED. PT IS ALERT BUT SHIVERING AND HAS A CORE TEMP OFF 33 CELCIUS UPON ARRIVAL TO ER. Source of Information: Patient, EMS History of Present Illness Date Seen by Provider: Feb 07, 2023 Time Seen by Provider: 07:23 Initial Comments 67-year-old female presenting from home by EMS after being found unresponsive this morning by home health. Home health had reported that her sugar was over 200 and that they could not feel a pulse so they started CPR. When EMS arrived the patient had a blood sugar of 39 and was given an amp of D50. She slowly came around and started breathing on her own as well as had a more steady pulse. CPR was stopped. Patient is alert but very cold on arrival to the ED. She denied any complaints other than being cold. She could not remember when she last had anything to eat or drink. She also did not know when she last had any of her medications. She denied having any pain or burning with urination, shortness of breath, diarrhea, nausea, vomiting. Associated Systoms: No Chest Pain; Cough; No Diaphoresis, No Headaches, No Nausea/Vomiting, No Rash, No Seizure, No Shortness of Air, No Syncope; Weakness Allergies and Home Medications Allergies Coded Allergies: Penicillins (Verified Allergy, Unknown, itch, 05/20/22) atorvastatin (Verified Allergy, Unknown, Unknown, 11/28/22) poison sumac extract (Verified Allergy, Unknown, 11/04/22) Patient Home Medication List Home Medication List Reviewed: Yes Aspirin (Aspirin) 81 Mg Tab.chew, 81 MG PO DAILY, (Reported) Entered as Reported by: LYNN HAWK on 12/10/22 180 Carvedilol (Carvedilol) 3.125 Mg Tablet, 3.125 MG PO BID, (Reported) Entered as Reported by: AC CARTER on 11/04/22 1518 Insulin Determir (Levemir) 100 Unit/Ml Soln, 35 UNITS SQ BID, (Reported) Entered as Reported by: Nicolasa Monique on 11/24/22 1713 Levothyroxine Sodium (Levothyroxine Sodium) 25 Mcg Tablet, 25 MCG PO DAILY, (Reported) Entered as Reported by: AC CARTER on 11/04/22 1518 Linagliptin (Tradjenta) 5 Mg Tablet, 5 MG PO HS, (Reported) Entered as Reported by: AC CARTER on 11/04/22 1520 Lisinopril (Lisinopril) 20 Mg Tablet, 20 MG PO DAILY PRN for BLOOD PRESSURE >140, (Reported) Entered as Reported by: GEORGETTE ERAZO on 12/12/22 1035 Magnesium Oxide (Magnesium Oxide) 400 Mg Tablet, 400 MG PO DAILY, (Reported) Entered as Reported by: LYNN HAWK on 12/10/22 1806 Metformin HCl (Metformin HCl ER) 500 Mg Tab.er.24h, 1,000 MG PO BID, (Reported) Entered as Reported by: AC CARTER on 11/04/22 1518 Nitrofurantoin Monohyd/M-Cryst (Macrobid 100 mg Capsule) 100 Mg Capsule, 1 TAB PO BID Prescribed by: YAHAIRA SNOW on 02/07/23 1157 Prednisone (Prednisone) 10 Mg Tab.ds.pk, 20 MG PO DAILY, (Reported) Entered as Reported by: GEORGETTE ERAZO on 12/12/22 1051 Review of Systems Review of Systems Constitutional: chills; No fever EENTM: no symptoms reported Respiratory: cough (mild dry cough here in ED) Cardiovascular: No chest pain Gastrointestinal: No nausea, No vomiting Genitourinary: No dysuria Musculoskeletal: no symptoms reported Skin: no symptoms reported Psychiatric/Neurological: See HPI, Weakness Past Ylcnhtj-Skelzj-Vexcza Hx Patient Social History Tobacco Use?: No Use of E-Cig and/or Vaping dev: No Substance use?: No Alcohol Use?: No Pt feels they are or have been: No Past Medical History Surgery/Hospitalization HX: x2, hysterectomy, heart stents Surgeries: Yes Coronary Stent Respiratory: No Cardiac: Yes Coronary Artery Disease, Hypertension Neurological: No Genitourinary: No Gastrointestinal: No Musculoskeletal: No Endocrine: Yes Diabetes, Insulin dep HEENT: No Cancer: No Psychosocial: No Integumentary: No Physical Exam Vital Signs Vital Signs - First Documented 02/07/23 07:30 Temp 33.0 Pulse 94 Resp 16 B/P (MAP) 180/104 (129) Pulse Ox 98 O2 Delivery Room Air Capillary Refill : Less Than 3 Seconds Height, Weight, BMI Height: '" Weight: lbs. oz. kg; 22.06 BMI Method: General Appearance: Mild Distress (shivering and complains of being cold) Eyes: Bilateral Eye PERRL, Bilateral Eye EOMI HEENT: Pharynx Normal Neck: Full Range of Motion, Normal Inspection, Non Tender, Supple Respiratory: Chest Non Tender, Lungs Clear, Normal Breath Sounds, No Accessory Muscle Use, No Respiratory Distress Cardiovascular: Normal Peripheral Pulses, Irregularly Irregular; No Tachycardia Gastrointestinal: Normal Bowel Sounds, No Pulsatile Mass, Non Tender, Soft Rectal: Deferred Extremity: Normal Capillary Refill, No Pedal Edema Neurologic/Psychiatric: Alert, nursing secretary II-XII Norm as Tested Skin: Cool Focused Exam Lactate Level 02/07/23 07:30: Lactic Acid Level 2.31*H 02/07/23 10:15: Lactic Acid Level 3.02*H Lactic Acid Level Laboratory Tests Test 02/07/23 07:30 02/07/23 10:15 Lactic Acid Level 2.31 MMOL/L (0.50-2.00) *H 3.02 MMOL/L (0.50-2.00) *H Progress/Results/Core Measures Suspected Sepsis SIRS Temperature: Pulse: 94 Respiratory Rate: 16 Laboratory Tests 02/07/23 07:30: White Blood Count 9.8 Blood Pressure 180 /104 Mean: 129 02/07/23 07:30: Lactic Acid Level 2.31*H 02/07/23 10:15: Lactic Acid Level 3.02*H Laboratory Tests 02/07/23 07:30: Creatinine 1.02, Platelet Count 241, Total Bilirubin 0.5 Results/Orders Lab Results Laboratory Tests Test 02/07/23 07:30 02/07/23 07:40 02/07/23 07:57 02/07/23 08:41 Range/Units White Blood Count 9.8 4.3-11.0 10^3/uL Red Blood Count 4.42 3.80-5.11 10^6/uL Hemoglobin 13.2 11.5-16.0 g/dL Hematocrit 41 35-52 % Mean Corpuscular Volume 92 80-99 fL Mean Corpuscular Hemoglobin 30 25-34 pg Mean Corpuscular Hemoglobin Concent 32 32-36 g/dL Red Cell Distribution Width 15.2 H 10.0-14.5 % Platelet Count 241 130-400 10^3/uL Mean Platelet Volume 10.0 9.0-12.2 fL Immature Granulocyte % (Auto) 1 % Neutrophils (%) (Auto) 83 H 42-75 % Lymphocytes (%) (Auto) 7 L 12-44 % Monocytes (%) (Auto) 7 0-12 % Eosinophils (%) (Auto) 1 0-10 % Basophils (%) (Auto) 1 0-10 % Neutrophils # (Auto) 8.2 H 1.8-7.8 10^3/uL Lymphocytes # (Auto) 0.7 L 1.0-4.0 10^3/uL Monocytes # (Auto) 0.7 0.0-1.0 10^3/uL Eosinophils # (Auto) 0.1 0.0-0.3 10^3/uL Basophils # (Auto) 0.1 0.0-0.1 10^3/uL Immature Granulocyte # (Auto) 0.1 0.0-0.1 10^3/uL Neutrophils % (Manual) 74 % Lymphocytes % (Manual) 10 % Monocytes % (Manual) 6 % Eosinophils % (Manual) 1 % Basophils % (Manual) 1 % Metamyelocytes % 1 % Band Neutrophils 7 % Platelet Estimate ADEQUATE Microcytosis SLIGHT Macrocytosis SLIGHT Cascade Cells MODERATE Sodium Level 139 135-145 MMOL/L Potassium Level 3.8 3.6-5.0 MMOL/L Chloride Level 101 98-107 MMOL/L Carbon Dioxide Level 24 21-32 MMOL/L Anion Gap 14 5-14 MMOL/L Blood Urea Nitrogen 21 H 7-18 MG/DL Creatinine 1.02 0.60-1.30 MG/DL Estimat Glomerular Filtration Rate 61 BUN/Creatinine Ratio 21 Glucose Level 144 H 70-105 MG/DL Lactic Acid Level 2.31 *H 0.50-2.00 MMOL/L Calcium Level 10.3 H 8.5-10.1 MG/DL Corrected Calcium 10.7 H 8.5-10.1 MG/DL Total Bilirubin 0.5 0.1-1.0 MG/DL Aspartate Amino Transf (AST/SGOT) 25 5-34 U/L Alanine Aminotransferase (ALT/SGPT) 22 0-55 U/L Alkaline Phosphatase 225 H 40-136 U/L Troponin I < 0.30 <0.30 NG/ML C-Reactive Protein 8.36 H <0.50 MG/DL Pro-B-Type Natriuretic Peptide 712.3 H <125.0 PG/ML Total Protein 7.3 6.4-8.2 GM/DL Albumin 3.5 3.2-4.5 GM/DL Urine Color YELLOW Urine Clarity CLEAR Urine pH 7.0 5-9 Urine Specific Cammal 1.015 L 1.016-1.022 Urine Protein NEGATIVE NEGATIVE Urine Glucose (UA) NEGATIVE NEGATIVE Urine Ketones NEGATIVE NEGATIVE Urine Nitrite NEGATIVE NEGATIVE Urine Bilirubin NEGATIVE NEGATIVE Urine Urobilinogen 0.2 < = 1.0 MG/DL Urine Leukocyte Esterase NEGATIVE NEGATIVE Urine RBC (Auto) NEGATIVE NEGATIVE Urine RBC RARE /HPF Urine WBC 2-5 /HPF Urine Squamous Epithelial Cells 2-5 /HPF Urine Crystals NONE /LPF Urine Bacteria FEW H /HPF Urine Casts NONE /LPF Urine Mucus SMALL H /LPF Urine Culture Indicated YES Glucometer 82 62 L 70-110 MG/DL Test 02/07/23 10:15 02/07/23 10:26 02/07/23 11:16 Range/Units Lactic Acid Level 3.02 *H 0.50-2.00 MMOL/L Glucometer 149 H 94 70-110 MG/DL My Orders Orders - YAHAIRA SNOW MD Cbc And Automated Diff (02/07/23 07:33) Comprehensive Metabolic Panel (02/07/23 07:33) Blood Culture (02/07/23 07:33) Ua Culture If Indicated (02/07/23 07:33) Chest 1 View Ap/Pa Only (02/07/23 07:33) Ed Iv/Invasive Line Start (02/07/23 07:33) Crp Fs (02/07/23 07:33) Lactic Acid Analyzer (02/07/23 07:33) Straight Cath For Spec.-Adult (02/07/23 07:33) Ines Lynn (02/07/23 07:33) Accucheck Stat ONCE (02/07/23 07:33) Manual Differential (02/07/23 07:30) Urine Culture (02/07/23 07:40) Ceftriaxone Iv/Im (Ceftriaxone Iv/Im) (02/07/23 08:45) D5 Lr 1,000 Ml Iv Soln (Dextrose 5%/Lact (02/07/23 08:45) D50w (Emergency) Syringe (Dextrose 50% 5 (02/07/23 08:51) Troponin I Fs (02/07/23 08:59) Probnp Fs (02/07/23 08:59) Ekg Tracing (02/07/23 09:26) Accucheck Stat ONCE (02/07/23 10:09) Ct Head Wo (02/07/23 10:56) Medications Given in ED Current Medications Medications Dose Ordered Sig/Gauri Route Start Time Stop Time Status Last Admin Dose Admin Ceftriaxone Sodium 1000 mg/ Sodium Chloride 50 ml @ 100 mls/hr ONCE ONCE IV 02/07/23 08:45 02/07/23 09:14 DC 02/07/23 08:54 100 MLS/HR Vital Signs/I&O 02/07/23 02/07/23 02/07/23 02/07/23 07:30 09:12 10:30 12:25 Temp 33.0 34.5 37.0 37.0 Pulse 94 72 71 Resp 16 16 18 B/P (MAP) 180/104 (129) 161/75 (103) 147/68 Pulse Ox 98 97 98 O2 Delivery Room Air Room Air Room Air Capillary Refill : Less Than 3 Seconds Blood Pressure Mean: 129 Progress Note #1: Progress Note Differential diagnosis includes hypoglycemia, insulin overdose, sepsis, UTI, pneumonia. Peripheral IV established by EMS x2. Send labs for complete blood count, comprehensive metabolic profile, CRP, blood cultures, lactic acid, urinalysis by straight cath. Placed on cardiac pvc monitor. Initially my interpretation is the monitor shows atrial fibrillation with a heart rate in the 70s. 1 view chest x-ray to look for signs of infiltrate or mass or effusion. Placed a bear hugger along with warm blankets to try and help raise her temperature. Progress Note #2: Time: 08:02 Progress Note Accu-Chek is now 82. According to EMS after they gave the amp of D50 she went over 400 but then by the time they arrived at the ED she was down to under 200. Complete blood count did not show any acute elevation of her white blood cells. She had a white blood cell count 9.8 with 83% neutrophils. Hemoglobin was low normal at 13.2. We will have the patient try to eat and drink a little something to see if they could help maintain the sugar better. If it continues to drop then she would require another dose of IV dextrose to help maintain her blood sugars. 0845 comprehensive metabolic profile conducted and showed slight elevation of calcium to 7.3 and corrected to 10.7. Her CRP is elevated to 8.36. Her lactic acid did come back at 2.3. Urinalysis had a specific gravity of 1.015 and there were some bacteria and mucus present and a culture was reflexed. With concern for urinary tract infection contributing to her hypothermia and hypoglycemia will order Rocephin 1 g IV. Ordered another amp of D50 as her recheck of sugar was down to 62 now. This was despite trying to drink some orange juice with sugar and desirae crackers with peanut butter. Her heart rate is now more sinus rhythm with frequent PVCs. Blood pressure stable at 156/88. Satting 99% on room air. Temperature is coming up with the Ines Hugger. When reviewing things with the patient and her daughter they advised that she is living on her own and has been having increasing weakness and poor oral intake. They were concerned that she might also be having some adrenal crisis as she had been on high-dose steroids that were stopped suddenly last week. She was d ischarged from [facility] last week. She had been evaluated for sarcoid and they were not sure what her diagnosis was. Family reports that Dr. Villareal, Chief Orthoptist at [facility], had suggested they try to get her to or to [facility] for further evaluation. With her having recurrent hypoglycemia despite eating a little something here will also check with [facility] about possible admission. [id number] Ledesma, the hospitalist on-call for [facility], I have reviewed the patient's history and presentation with him as well as her current labs and concern for recurrent hypoglycemia despite eating and drinking something here and getting an amp of D50. Also she was hypothermic with findings for UTI and elevation of lactic acid she did get a gram of Rocephin. After going through information with him he advised that they did not have any ICU beds and were tight on floor beds. He would want the patient monitored in ICU setting as her glucose would need to be monitored closely as well as wanting a further cardiology work-up with her having a possible postcode situation this morning. 0900 I called the transfer line and spoke with FLORINDA Lee. I reviewed the patient's presentation and history as well as current labs and findings. He took the information on the patient and said that he would check with the admission providers and see what their bed status was. He would call me back after checking with the admitting providers to see if they had capacity and capability to take the patient. 0934 FLORINDA Lee from called back and stated that the also were at capacity and would not be able to take the patient in transfer. I spoke with the family again and they were interested in trying to get her to [facility] as that was the other place that they have been recommended to try and go when they were discharged from [facility] last week. I advised that I did not feel like I had anything currently to warrant the transfer across multiple sites to [place] at this point and it would likely be more matter of getting to a closer hospitals such as one of the [facility] facilities where she had recently been admitted and had further stabilization and then they could try and drive her directly up to [place] themselves. They were going to discuss it some more and let me know. I also advised them at this point unless she stabilizes her temperature and her blood sugar she would be stable enough to be transported by private vehicle. Progress Note #3: Time: 10:34 Progress Note Glucose now up to 149. Will hold the IV fluids of D5 LR and see if her sugar maintained since she has at least ate and drank a little bit now. Her temperature also came up to 98.[address] the bear hugger on standby. Plan to recheck her sugar at 11 and see if it was maintaining. If she is stable family was considering taking her by private vehicle and seeing if they can get her someplace for endocrinology evaluation about her hypercalcemia and trouble regulating her temperature and sugars. 1100 Family now wanted a CT head to see if there was any acute changes for her confusion, weakness and hypothermia with hypoglycemia. Order CT head without contrast to evaluate her weakness and confusion. Recheck glucose when she returns from CT. 1143 CT head without contrast read out as no acute process when compared to imaging from 11/04/2022. Glucose stable at 98 when returned from imaging. Will see what the family wants to do now since her glucose and temperature are more stable now. She did have elevation of her lactic acid but was not exhibiting signs of sepsis so this was felt to be due to her hypothermia, hypoglycemia, chest compressions, rather than from sepsis. Will continue to encourage fluids and hydration. Plan to continue antibiotic for UTI and see what the family would like to do next as they are still concerned she is too weak to be home alone at this point. 1154 family would like to see how she does trying to get up to the commode to be up out of bed. They know that she has been weak with it like to see if she could at least move around enough that she could go home with one of them. We will send a prescription for Macrobid to the pharmacy in anticipation of continuing treatment for her UTI. 1200 patient was able to get up with assistance to the commode. Family was comfortable taking her with them and helping her. She does have an appointment with her PCP, Dr. Tang tomorrow. Plan to try and keep that appointment. 1205 her PCP, Dr. Tang, called stating that he had just gotten a frantic call from patient's daughter and he wanted to know what was going on with this patient. I updated him on the patient's presentation and history with the low blood sugar and low temperature. These have regulated at this point she is still weak but able to get up with assistance. Family was planning on trying to take her with them and help her. This way she would not be at her home alone. Dr. Tang requested that we try to still get her admitted as an observation patient to [facility] to a medicine bed rather than having her go home. He was concerned with her weakness that she would be coming right back. [address] Ledesma the hospitalist to see if he would consider treating the patient as an observation patient to the hospital and a [facility] bed. However I was not able to reach him and left a voicemail. When I went back to speak with the family the daughter said that she had just called Dr. Tang's office to find out if he needed labs or tests for tomorrow's visit. She had not called him to try and change the plan for the patient. They felt comfortable trying to take her home and helping her until they could try and get her to specialist as they want to try and get her seen with the web applications architect. Family was still wanting to try and get additional work-up as suggested by wire stripper at [facility] during her admit last week. Will discharge to home with family and they will help her rather than having her stay alone. Will plan to keep appointment tomorrow with Dr. Tang and will take her back to ED if needed before then or over the weekend. ECG Initial ECG Impression Date: Feb 07, 2023 Initial ECG Impression Time: 09:37 Initial ECG Rate: 75 Initial ECG Rhythm: Normal Sinus, PVC Initial ECG Comparisson: Unchanged (12/10/2022) Comment My personal interpretation and review the electrocardiogram shows sinus rhythm w ith occasional supra and reticular premature complexes. Heart rate of 75 bpm. [place] interval [address] elevation. QT interval 436 ms with a QTc interval 4 and 64 ms. Overall appears similar to tracing from December 10, 2022. Diagnostic Imaging Diagonstic Imaging: Xray Plain Films/CT/US/NM/MRI: chest Comments [facility], [place] NAME: DEMETRIUS SR [facility] REC#: [id number] PT STATUS: REG ER : 1955 PHYSICIAN: YAHAIRA SNOW MD ADMIT DATE: 02/07/23/ER FS Signed Date of Exam:02/07/23 CHEST 1 VIEW AP/PA ONLY INDICATION: Hypothermia and cough. EXAMINATION: Frontal chest obtained at 9:12 AM. FINDINGS: The heart and mediastinal silhouette are normal in appearance for a portable view. The lungs appear clear. There is no pneumothorax or pleural fluid. IMPRESSION: No acute process in the chest. Dictated by: Dictated on workstation # [id number] Dict: 02/07/23936 Trans: 02/07/23943 [id number] Interpreted by: VIVIEN GUILLERMO MD Electronically signed by: VIVIEN GUILLERMO MD 02/07/23943 Reviewed: Reviewed by Me Diagonstic Imaging: CT Plain Films/CT/US/NM/MRI: head Comments [facility], [place] NAME: DEMETRIUS SR [facility] REC#: [id number] PT STATUS: REG ER : 1955 PHYSICIAN: YAHAIRA SNOW MD ADMIT DATE: 02/07/23/ER FS Draft Date of Exam:02/07/23 CT HEAD WO INDICATION: confusion, weakness TECHNIQUE: Routine non contrast-enhanced axial images were obtained from the skull base to the vertex. Auto Exposure Controls were utilized during the CT exam to meet ALARA standards for radiation dose reduction COMPARISON: 11/04/2022 FINDINGS: The ventricles and cortical sulci are diffusely prominent, compatible with age-related volume loss. There are confluent areas of abnormal, low attenuation in the periventricular white matter. This is consistent with chronic small vessel ischemic changes. There is no midline shift or mass-effect. No acute intra-axial hemorrhage is seen. There are no abnormal areas of increased or decreased density to suggest acute hemorrhage or edema. No extra-axial masses or collections are present. The bony calvarium is intact. The visualized paranasal sinuses show scattered mucosal thickening and small air-fluid level within the left sphenoid sinus. The mastoid air cells are clear. IMPRESSION: 1. No acute intracranial abnormality. No CT evidence of mass, acute infarct or intracranial hemorrhage. 2. Small vessel ischemic changes. 3. Paranasal sinus disease. Dictated on workstation # [id number] Dict: 02/07/23 1127 Trans: 02/07/23 1136 [facility] [id number] Interpreted by: NEREYDA TAYLOR MD Electronically signed by: Reviewed: Reviewed by Me Critical Care Note Critical Care Total Time (minutes) 60 minutes Progress I spent at least 60 minutes of critical care time with the patient. Time excludes separately billable procedures. Time was spent obtaining history from EMS, patient, family members as independent historians, reviewing prior medical admissions and notes, ordering tests and reviewing results, ordering interventions and reviewing response, discussion with consultants, discussion with the family members and patient, documentation in the chart. Patient was at risk of cardiovascular compromise and collapse and metabolic compromise and collapse. She required my immediate direct intervention and management to help stabilize her condition. Departure Impression Primary Impression: Hypoglycemia associated with diabetes Additional Impressions: Hypothermia Qualified Codes: T68.XXXA - Hypothermia, initial encounter Acute cystitis without hematuria Disposition: 01 HOME, SELF-CARE Condition: Improved Departure-Patient Inst. Decision time for Depature: 12:26 Referrals: ALAYNA TANG MD (PCP/Family) Primary Care Physician Patient Instructions: Low Blood Sugar, Adult ED, Urinary Tract Infection, Adult ED, Diabetes and diet Add. Discharge Instructions: Try to continue to eat and drink better. Try to stay well-hydrated. Check back with Dr. Tang to help determine how best to manage your medic ations for your diabetes. They may need to decrease the dose or cut it in half while you are having decreased oral intake. Take the full course of antibiotics to help treat for urinary tract infection. All discharge instructions reviewed with patient and/or family. Voiced understanding. Scripts Nitrofurantoin Monohyd/M-Cryst (Macrobid 100 mg Capsule) 100 Mg Capsule 1 TAB PO BID for UTI for 5 Days, #10 CAP 0 Refills Prov: YAHAIRA SNOW MD 02/07/23 YAHAIRA SNOW MD Feb 07, 2023 08:02
[2023-02-07 08:12] LABS: BACTERIA,URINE FEW /HPF; RBC,URINE RARE /HPF
[2023-02-07 08:20] LABS: POTASSIUM 3.8 MMOL/L (3.6-5.0)
[2023-02-07 08:30] LABS: ALBUMIN 3.5 GM/DL (3.2-4.5); BILIRUBIN,TOTAL 0.5 MG/DL (0.1-1.0); CALCIUM 10.3 MG/DL (8.5-10.1); CREATININE SERUM 1.02 MG/DL (0.60-1.30); TOTAL PROTEIN 7.3 GM/DL (6.4-8.2)
[2023-02-07] MEDS ORDERED: DEXTROSE 50% 50 ML (IMS) SYR IV STA (08:43)
[2023-02-07 08:49] LABS: BAND NEUTROPHILS 7 %; BASOPHILS % (MANUAL) 1 %; EOSINOPHILS % (MANUAL) 1 %; LYMPHOCYTES % (MANUAL) 10 %; MONOCYTES % (MANUAL) 6 %; NEUTROPHILS % (MANUAL) 74 %
[2023-02-07 08:50] LABS: BURR CELLS MODERATE; METAMYELOCYTES % 1 %; MICROCYTOSIS SLIGHT; PLATELET ESTIMATE ADEQUATE
[2023-02-07] MEDS: DEXTROSE 50% 50 ML (IMS) SYR IV STA (08:54)
[2023-02-07] MEDS: cefTRIAXone IV/IM 1,000 MG in NS (IVPB) 50 ML 50 ML IV ONE (08:54)
[2023-02-07] MEDS: D5 LR 1,000 ML IV SOLN 1,000 ML IV SCH (08:54)
--- NOTE | 2023-02-07 09:39 | Diagnostic Imaging Report ---
INDICATION: Hypothermia and cough. EXAMINATION: Frontal chest obtained at 9:12 AM. FINDINGS: The heart and mediastinal silhouette are normal in appearance for a portable view. The lungs appear clear. There is no pneumothorax or pleural fluid. IMPRESSION: No acute process in the chest. Dictated by: Dictated on workstation # [id number]
--- NOTE | 2023-02-07 11:36 | Diagnostic Imaging Report ---
INDICATION: confusion, weakness TECHNIQUE: Routine non contrast-enhanced axial images were obtained from the skull base to the vertex. Auto Exposure Controls were utilized during the CT exam to meet ALARA standards for radiation dose reduction COMPARISON: 11/04/2022 FINDINGS: The ventricles and cortical sulci are diffusely prominent, compatible with age-related volume loss. There are confluent areas of abnormal, low attenuation in the periventricular white matter. This is consistent with chronic small vessel ischemic changes. There is no midline shift or mass-effect. No acute intra-axial hemorrhage is seen. There are no abnormal areas of increased or decreased density to suggest acute hemorrhage or edema. No extra-axial masses or collections are present. The bony calvarium is intact. The visualized paranasal sinuses show scattered mucosal thickening and small air-fluid level within the left sphenoid sinus. The mastoid air cells are clear. IMPRESSION: 1. No acute intracranial abnormality. No CT evidence of mass, acute infarct or intracranial hemorrhage. 2. Small vessel ischemic changes. 3. Paranasal sinus disease. Dictated by: Dictated on workstation # [id number]
[2023-02-07] MEDS ORDERED: NITR-65 PO (11:57)
[2023-02-07 12:25] VITALS: BP 147/68
== END 2023-02-07 12:27 | disposition home or self-care (01) ==
LOC: EDUNIT# 07:22 → ER FS 07:23
DX: T68.XXXA Hypothermia, initial encounter (principal); E11.649 Type 2 diabetes mellitus with hypoglycemia without coma; N30.00 Acute cystitis without hematuria; Z79.4 Long term (current) use of insulin; Z88.0 Allergy status to penicillin
CPT/HCPCS: 36415; 51701; 70450; 71045; 80053; 81000; 82947; 83605; 83880; 84484; 85007; 85027; 86141; 87040; 87088; 93005

== ENCOUNTER 2023-02-23 15:45 | Outpatient (CLI) | payer MEDICARE ==
[~2023-02-23 15:45] MED LIST changes: +NITR-65 PO
[2023-02-23 15:55] VITALS: BP 161/83
[2023-02-23] MEDS: NS IV 1000 ML 1,000 ML IV SCH ×2 (16:25→17:29)
[2023-02-23] MEDS ORDERED: NS IV 1000 ML 1,000 ML IV ONE (16:30)
== END 2023-02-23 18:40 | disposition home or self-care (01) ==
LOC: SDC 15:45
PROVIDERS: ATTEND Internal Medicine
DX: E83.52 Hypercalcemia (principal); E86.0 Dehydration
CPT/HCPCS: 96360; 96361